=== PATIENT | male | born 1965 | race Caucasian/White ===

== ENCOUNTER 2020-04-30 17:50 | Inpatient (IN) | payer OTHER ==
--- NOTE | 2020-04-30 18:24 | ED ---
General Adult HPI - General Chief complaint: GI Bleed Stated complaint: GI Bleed Time Seen by Provider: 04/30/20 18:00 Source: EMS, RN notes reviewed, old records reviewed Mode of arrival: EMS Limitations: no limitations - History of Present Illness Initial comments: Is a 54-year-old male who presents to the emergency department after having then [facility]. Patient was found to be intoxicated with an alcohol level of 350 he was vomiting up what appeared to be blood. Patient's hemoglobin dropped from 16-8. Patient had a slightly elevated troponin was consented for a non-STEMI coming from the hospital. Patient states he came to the emergency department because he was vomiting up blood. Patient states he does continue to drink however. Patient denies any chest pain or difficulty breathing patient states he feels extremely weak and fatigued and short of breath. Patient denies any nausea currently. Patient denies any abdominal pain. Patient is not a great historian because he is so fatigued and doesn't answer all my questions. - Related Data Home Medications Medication Instructions Recorded Confirmed Metoprolol Succinate (ER) [Toprol 100 mg PO DAILY 04/30/20 04/30/20 Xl] Allergies Allergy/AdvReac Type Severity Reaction Status Date / Time No Known Allergies Allergy Verified 04/30/20 18:55 Review of Systems ROS Statement: Those systems with pertinent positive or pertinent negative responses have been documented in the HPI. ROS Other: All systems not noted in ROS Statement are negative. Past Medical History Past Medical History: Hypertension Additional Past Medical History / Comment(s): etoh abuse History of Any Multi-Drug Resistant Organisms: None Reported Past Surgical History: Hernia Repair, Orthopedic Surgery Past Psychological History: No Psychological Hx Reported Smoking Status: Current every day smoker Past Alcohol Use History: Abuse, Daily, Heavy Past Drug Use History: None Reported General Exam - General Exam Comments Initial Comments: GENERAL: Patient is well-developed and well-nourished. Patient is nontoxic and well- hydrated and is in moderate distress. Patient seems very lethargic and slow to answer all questions. ENT: Neck is soft and supple. No significant lymphadenopathy is noted. Oropharynx is clear. Moist mucous membranes. Neck has full range of motion without eliciting any pain. EYES: The sclera were anicteric and conjunctiva very pale Extraocular movements were intact and pupils were equal round and reactive to light. Eyelids were unrema rkable. PULMONARY: Unlabored respirations. Good breath sounds bilaterally. No audible rales rhonc hi or wheezing was noted. CARDIOVASCULAR: There is a regular rate and rhythm without any murmurs gallops or rubs. ABDOMEN: Soft and nontender with normal bowel sounds. SKIN: Skin is extremely pale. NEUROLOGIC: Patient is alert and oriented x3. Cranial nerves II through XII are grossly intact. Motor and sensory are also intact. Normal speech, volume and content. Symmetrical smile. MUSCULOSKELETAL: Normal extremities with adequate strength and full range of motion. LYMPHATICS: No significant lymphadenopathy is noted PSYCHIATRIC: Normal psychiatric evaluation. Limitations: no limitations Course Vital Signs 04/30/20 04/30/20 04/30/20 17:55 18:20 18:30 Temperature 97.4 F L Pulse Rate 92 96 98 Respiratory 18 16 16 Rate Blood Pressure 95/55 82/68 109/74 O2 Sat by Pulse 100 98 100 Oximetry 04/30/20 04/30/20 04/30/20 18:40 19:00 19:10 Temperature Pulse Rate 101 H 105 H 105 H Respiratory 17 18 18 Rate Blood Pressure 127/81 101/51 101/72 O2 Sat by Pulse 100 97 100 Oximetry Medical Decision Making - Medical Decision Making EKG shows normal sinus rhythm with a rate of 96 bpm DE interval is 142 QRS is 94 Q-T intervals 394 QTC is 497. Patient's EKG shows no ST segment elevation or depression or T wave abnormalities are noted. I spoke with Dr. Davis at 625 indicated to him that the patient was vomiting up bright red blood pressure dipped into the 80s and thought that it was best that someone scope him at this time. He stated he would check in with the patient an hour or so. I spoke with Dr. Kaye and he agreed to admit the patient admitted the patient wrote admitting orders. I spoke with Dr. Carnes and he will be on consult for the ICU. Patient received 2 units of blood in the emergency department as well as a liter half of fluid. I also started octreotide drip. - Lab Data Result diagrams: 04/30/20 18:30 Lab Results 04/30/20 04/30/20 04/30/20 Range/Units 18:28 18:30 18:30 WBC 5.6 (3.8-10.6) k/uL RBC 2.59 L (4.30-5.90) m/uL Hgb 8.0 L (13.0-17.5) gm/dL Hct 23.4 L (39.0-53.0) % MCV 90.4 (80.0-100.0) fL MCH 31.0 (25.0-35.0) pg MCHC 34.3 (31.0-37.0) g/dL RDW 14.5 (11.5-15.5) % Plt Count 129 L (150-450) k/uL MPV 7.9 Neutrophils % 84 % Lymphocytes % 10 % Monocytes % 5 % Eosinophils % 0 % Basophils % 0 % Neutrophils # 4.7 (1.3-7.7) k/uL Lymphocytes # 0.6 L (1.0-4.8) k/uL Monocytes # 0.3 (0-1.0) k/uL Eosinophils # 0.0 (0-0.7) k/uL Basophils # 0.0 (0-0.2) k/uL Plasma Lactic Acid Maurizio 6.0 H* (0.7-2.0) mmol/L Troponin I (0.000-0.034) ng/mL Serum Alcohol mg/dL Blood Type Blood Type Confirm A Positive Blood Type Recheck Bld Type Recheck Status Antibody Screen Crossmatch Spec Expiration Date 04/30/20 04/30/20 04/30/20 Range/Units 18:30 18:30 18:30 WBC (3.8-10.6) k/uL RBC (4.30-5.90) m/uL Hgb (13.0-17.5) gm/dL Hct (39.0-53.0) % MCV (80.0-100.0) fL MCH (25.0-35.0) pg MCHC (31.0-37.0) g/dL RDW (11.5-15.5) % Plt Count (150-450) k/uL MPV Neutrophils % % Lymphocytes % % Monocytes % % Eosinophils % % Basophils % % Neutrophils # (1.3-7.7) k/uL Lymphocytes # (1.0-4.8) k/uL Monocytes # (0-1.0) k/uL Eosinophils # (0-0.7) k/uL Basophils # (0-0.2) k/uL Plasma Lactic Acid Maurizio (0.7-2.0) mmol/L Troponin I 0.101 H* (0.000-0.034) ng/mL Serum Alcohol 261 H* mg/dL Blood Type A Positive Blood Type Confirm Blood Type Recheck No Previous Record Bld Type Recheck Status CABO Indicated Antibody Screen NEGATIVE Crossmatch See Detail Spec Expiration Date 05/03/2020 - 2330 Critical Care Time Critical Care Time: Yes Total Critical Care Time: 35 Disposition Clinical Impression: Hematemesis, Melena, Alcohol intoxication, Non-STEMI (non-ST elevated myocardial infarction) Disposition: ADMITTED IP TO THIS HOSP Referrals: Nonstaff,Physician [Primary Care Provider] - 1-2 days Time of Disposition: 19:37
[2020-04-30] MEDS ORDERED: SODIUM CHLORIDE 0.9% 1,000 ML IV STA (18:36)
[2020-04-30 18:38] LABS: Basophils % (A) 0 %; Eosinophils % (A) 0 %; HCT 23.4 % (39.0-53.0); Lymphocytes # (A) 0.6 k/uL (1.0-4.8); Lymphocytes % (A) 10 %; MCHC 34.3 g/dL (31.0-37.0); MCV 90.4 fL (80.0-100.0); Mean Platelet Volume 7.9; Monocytes # (A) 0.3 k/uL (0-1.0); Monocytes % (A) 5 %; Neutrophils # (A) 4.7 k/uL (1.3-7.7); Neutrophils % (A) 84 %; Platelet Count 129 k/uL (150-450); RBC 2.59 m/uL (4.30-5.90); RDW 14.5 % (11.5-15.5); WBC 5.6 k/uL (3.8-10.6)
[2020-04-30] MEDS: OCTREOTIDE 500 MCG in SODIUM CHLORIDE 0.9% 250 ML IV SCH (18:52)
[2020-04-30] MEDS ORDERED: ONDANSETRON 4 MG/2 ML VIAL IVP STA (18:54)
[2020-04-30] MEDS ORDERED: NALOXONE 0.4 MG/ML 1 ML VIAL IV PRN (19:37)
[2020-04-30] MEDS ORDERED: THIAMINE 100 MG/ML 2 ML VIAL IM STA (19:50)
[2020-04-30] MEDS ORDERED: LORazepam 2 MG/ML INJ IV PRN ×3 (19:50)
[2020-04-30] MEDS ORDERED: ONDANSETRON 4 MG/2 ML VIAL IVP PRN (19:52)
[2020-04-30] MEDS: SODIUM CHLORIDE 0.9% 1,000 ML IV SCH (20:13)
[2020-04-30] MEDS ORDERED: MIDAZOLAM 2 MG/2 ML VIAL ONE (21:09)
[2020-04-30] MEDS ORDERED: PROPOFOL 10 MG/ML 20 ML VIAL IV ONE (21:09)
[2020-04-30] MEDS ORDERED: ROCURONIUM 10 MG/ML (10 ML VIAL) IV ONE (21:09)
[2020-04-30] MEDS ORDERED: PHENYLEPHRINE-0.9% NACL SYG 1 MG/10 ML SYRINGE ONE (21:09)
[2020-04-30] MEDS ORDERED: ETOMIDATE 2 MG/ML 10 ML VIAL ONE (21:09)
[2020-04-30] MEDS ORDERED: SUCCINYLCHOLINE CHLORIDE 100 MG/5 ML SYR IV ONE (21:09)
[2020-04-30] MEDS ORDERED: IV FLUID CONTINUATION 1,000 ML IV ONE (21:15)
[2020-04-30] MEDS ORDERED: SODIUM CHLORIDE 0.9% 500 ML 500 ML IV ONE (21:33)
[2020-04-30] MEDS ORDERED: EPINEPHrine 10 ML SYRINGE (0.1 MG/ML) MISCELLANE ONE (21:53)
--- NOTE | 2020-04-30 22:10 | P.CONS ---
History of Present Illness - Reason for Consult Consult date: 04/30/20 GI bleed Requesting physician: Rohan Iniguez - Chief Complaint Hematemesis - History of Present Illness 54-year-old male with a medical history significant for hypertension and alcohol abuse who presents as a transfer from an outside hospital due to GI bleed. The patient had originally been seen at that hospital complaining of hematemesis at that time he was found to have a hemoglobin of 16. As per reports patient presented back to the hospital the next day complaining of persistent hematemesis and was found to have a hemoglobin of 8.6. The patient was found to be acutely intoxicated with a elevated blood alcohol level. The patient was transferred for further evaluation. The patient continued to have episodes of hematemesis. Patient's hemoglobin found to be 8 on presentation. Patient somewhat tachycardic and hypotensive in the emergency department. On questioning the patient denies any prior history of GI bleeding. He does report history of alcohol abuse. He does believe he has had a history of ascites in the past requiring paracentesis. He denies any history of cirrhosis or following with a pocketed spring assembler. Review of Systems REVIEW OF SYSTEMS: CONSTITUTIONAL: Denies any fevers, chills, weight change or fatigue. CARDIOVASCULAR: Denies any chest pain, palpitations high or low blood pressures RESPIRATORY: Denies any shortness of breath, hemoptysis or cough. GENITOURINARY: No dysuria or hematuria. MUSCULOSKELETAL: No weakness reported. SKIN: Denies any new rashes or lesions, jaundice or pallor. PSYCHIATRIC: Denies any depression or anxiety, alcohol abuse. NEUROLOGY: Denies headache, denies any new focal deficits. EARS/NOSE/THROAT: No recent hearing change, congestion, nasal discharge or sore throat. EYES: No pain in eyes, discharge or change in vision. GASTROINTESTINAL: As per HPI. Past Medical History Past Medical History: Hypertension Additional Past Medical History / Comment(s): etoh abuse History of Any Multi-Drug Resistant Organisms: None Reported Past Surgical History: Hernia Repair, Orthopedic Surgery Past Psychological History: No Psychological Hx Reported Smoking Status: Current every day smoker Past Alcohol Use History: Abuse, Daily, Heavy Past Drug Use History: None Reported Additional History: Family history: Reviewed with the patient noncontributory to current medical presentation. Medications and Allergies Home Medications Medication Instructions Recorded Confirmed Type Metoprolol Succinate (ER) [Toprol 100 mg PO DAILY 04/30/20 04/30/20 History Xl] Allergies Allergy/AdvReac Type Severity Reaction Status Date / Time No Known Allergies Allergy Verified 04/30/20 18:55 Physical Exam Vitals: Vital Signs Temp Pulse Resp BP Pulse Ox 04/30/20 21:00 105 H 18 120/74 98 04/30/20 20:40 105 H 18 119/73 100 04/30/20 20:23 97.6 F 105 H 18 97/60 100 04/30/20 19:53 97.6 F 104 H 18 119/75 100 04/30/20 19:43 97.8 F 102 H 20 120/72 04/30/20 19:30 105 H 18 86/54 100 04/30/20 19:10 105 H 18 101/72 100 04/30/20 19:00 105 H 18 101/51 97 04/30/20 18:40 101 H 17 127/81 100 04/30/20 18:30 98 16 109/74 100 04/30/20 18:20 96 16 82/68 98 04/30/20 17:55 97.4 F L 92 18 95/55 100 Intake and Output 04/30/20 04/30/20 04/30/20 06:59 14:59 22:59 Intake Total 1300 Balance 1300 Intake: IV 1300 Blood Product 0 Rc As-1 Unit 0 [id number] Other: Weight 97.522 kg On physical examination, patient appears comfortable in no apparent distress. HEAD: Normocephalic, atraumatic. EYES: No scleral icterus. No conjunctival injection. MOUTH: No lesions, tongue midline. NECK: Trachea midline, no gross abnormalities. CHEST: Clear to auscultation with no wheezing or rhonchi appreciated. HEART: Regular rate and rhythm. ABDOMEN: Soft, obese. Bowel sounds are positive. No organomegaly. No guarding or rigidity. EXTREMITIES: No pedal edema. SKIN: No rashes, no jaundice. NEUROLOGIC: Alert and oriented to person and place with no asterixis noted.. Results CBC & Chem 7: 04/30/20 18:30 Labs: Abnormal Lab Results - Last 24 Hours (Table) 04/30/20 04/30/20 04/30/20 Range/Units 18:30 18:30 18:30 RBC 2.59 L (4.30-5.90) m/uL Hgb 8.0 L (13.0-17.5) gm/dL Hct 23.4 L (39.0-53.0) % Plt Count 129 L (150-450) k/uL Lymphocytes # 0.6 L (1.0-4.8) k/uL Plasma Lactic Acid Maurizio 6.0 H* (0.7-2.0) mmol/L Troponin I (0.000-0.034) ng/mL Serum Alcohol 261 H* mg/dL Crossmatch 04/30/20 04/30/20 Range/Units 18:30 18:30 RBC (4.30-5.90) m/uL Hgb (13.0-17.5) gm/dL Hct (39.0-53.0) % Plt Count (150-450) k/uL Lymphocytes # (1.0-4.8) k/uL Plasma Lactic Acid Maurizio (0.7-2.0) mmol/L Troponin I 0.101 H* (0.000-0.034) ng/mL Serum Alcohol mg/dL Crossmatch See Detail Assessment and Plan (1) Hematemesis Narrative/Plan: 54-year-old male with a medical history significant for hypertension and alcohol abuse presenting for hematemesis as a transfer from outside hospital. Hemoglobin found to be 8.6 at outside facility the patient was transfused 1 unit of packed red blood cells and was found to have a hemoglobin of 8 on presentation. The patient continued to have hematemesis with associated hypotension and tachycardia. Unclear if symptoms are related to a variceal bleed given history of alcohol abuse, Kristi-Estrada tear, peptic ulcer disease or other etiology. Current Visit: Yes Status: Acute Code(s): K92.0 - HEMATEMESIS SNOMED Code(s): 0576652 (2) Alcohol intoxication Current Visit: Yes Status: Acute Code(s): F10.929 - ALCOHOL USE, UNSPECIFIED WITH INTOXICATION, UNSPECIFIED SNOMED Code(s): 46639723 (3) Melena Current Visit: Yes Status: Acute Code(s): K92.1 - MELENA SNOMED Code(s): 0956341 Plan: Supportive care Nothing by mouth IV Protonix therapy IV octreotide therapy Continue to monitor hemoglobin and hematocrit every 6 hours and transfuse as needed Plan for urgent/emergent EGD for further evaluation given persistent GI bleeding Thank you for allowing us to participate in the care of the patient, further recommendations to follow
--- NOTE | 2020-04-30 22:14 | P.PCN ---
Date of Procedure: 04/30/20 Description of Procedure: BRIEF HISTORY: 54-year-old male with a medical history significant for hypertension and alcohol abuse who presents as a transfer from an outside hospital due to GI bleed. The patient had originally been seen at that hospital complaining of hematemesis at that time he was found to have a hemoglobin of 16. As per reports patient presented back to the hospital the next day complaining of persistent hematemesis and was found to have a hemoglobin of 8.6. The patient was found to be acutely intoxicated with a elevated blood alcohol level. The patient was transferred for further evaluation. The patient continued to have episodes of hematemesis. Patient's hemoglobin found to be 8 on presentation. Patient somewhat tachycardic and hypotensive in the emergency department. On questioning the patient denies any prior history of GI bleeding. He does report history of alcohol abuse. He does believe he has had a history of ascites in the past requiring paracentesis. He denies any history of cirrhosis or following with a captain waiter. PROCEDURE PERFORMED: Esophagogastroduodenoscopy with epinephrine injection and Endo Clip placement. PREOPERATIVE DIAGNOSIS: Hematemesis, melena, GI bleed, anemia of acute blood loss. ESTIMATED BLOOD LOSS: Minimal. IV sedation per anesthesia. PROCEDURE: After informed consent was obtained, the patient was brought into the endoscopy unit. IV sedation was administered by Anesthesia under continuous monitoring. Initially the Olympus GIF-190 video endoscope was inserted into the mouth. Esophagus intubated without any difficulty. It was gradually advanced into the stomach and duodenum and carefully examined. The bulb and the second part of the duodenum appeared normal, with old blood and no active bleeding noted. The scope at this time was withdrawn to the stomach, adequately insufflated with air, and upon careful examination, mucosa of the antrum, body, cardia and the fundus appeared grossly normal, with large amounts of old blood and clots noted and no evidence of active bleeding. The scope was then withdrawn into the esophagus. The GE junction was located at 39 cm from the incisors. The esophagus was significant for only grade D distal esophagitis with what appeared to be a distal esophageal tear with active bleeding in accumulation of blood. 10 mL of epinephrine were injected circumferentially around the tear. Endo Clip placement 3 was performed with hemostasis of the distal esophageal tear achieved. The patient tolerated the procedure well.. IMPRESSION: 1. Distal esophageal tear with active bleeding/Kristi-Estrada tear, treated with epinephrine injection and Endo Clip placement 3. 2. LA grade D esophagitis. RECOMMENDATIONS: The findings of this examination were discussed with the patient. Patient will remain intubated and go to the ICU for continued acute medical management. Continue to monitor hemoglobin and hematocrit every 6 hours and transfuse as needed. Continue IV Protonix therapy. Alcohol abstinence. Continue to monitor for signs and symptoms of alcohol withdrawal. We will continue to follow closely with the medical team.
[2020-04-30] MEDS ORDERED: propofoL 100 ML IV ONE (22:31)
[2020-04-30 23:13] LABS: Glucose,Whole Blood 191 mg/dL (75-99)
--- NOTE | 2020-04-30 23:18 | P.HPIM ---
History of Present Illness H&P Date: 04/30/20 The patient is a 54 yo M with a PMH of EtOH abuse (drinks a pint of vodka daily for several years) and HTN who was sent to the ED from [facility] for GI bleed. The patient had reported to the facility the day prior after an episode of hematemesis. The patient's Hgb at the time was reported to be 16. The patient subsequently presented at the hospital earlier today with multiple episodes of hematemesis and melena and was noted to have a hemoglobin of 8.6. The patient was subsequently given 1 unit of PRBC transfusion and was transferred to [facility] for further evaluation. Upon presentation at the hospital here, the patient was noted to be hypertensive with BP 95/55, with a pulse of 92. The patient's evaluation from the previous facility was reviewed in detail with WBC count 11.04, hemoglobin 8.6, lactate 5.3, total bili 1.2, lipase 104, INR 0.97, EtOH 350, sodium 136, potassium 3.8, chloride 101, CO2 22, BUN 38, creatinine 1.0, and glucose 202. At our facility, the repeat lactic acid was 6.0 with troponin 0.101 and platelet count 129. At time of interview, the patient reported bilateral rib pain which he attributes to some falls a few days ago. Patient also reported epigastric discomfort due to his multiple episodes of vomiting along with dry mouth. Patient's RN reported that he had 3 additional episodes of hematemesis bright red blood since presentation. The patient also reported multiple episode of dark black stools throughout the day today. Review of Systems Pertinent positives and negatives as discussed in HPI, a complete review of systems was performed and all other systems are negative. Past Medical History Past Medical History: Hypertension Additional Past Medical History / Comment(s): etoh abuse History of Any Multi-Drug Resistant Organisms: None Reported Past Surgical History: Hernia Repair, Orthopedic Surgery Past Psychological History: No Psychological Hx Reported Smoking Status: Current every day smoker Past Alcohol Use History: Abuse, Daily, Heavy Past Drug Use History: None Reported Medications and Allergies Home Medications Medication Instructions Recorded Confirmed Type Metoprolol Succinate (ER) [Toprol 100 mg PO DAILY 04/30/20 04/30/20 History Xl] Allergies Allergy/AdvReac Type Severity Reaction Status Date / Time No Known Allergies Allergy Verified 04/30/20 18:55 Physical Exam Vitals: Vital Signs Temp Pulse Resp BP Pulse Ox 04/30/20 19:53 97.6 F 104 H 18 119/75 100 04/30/20 19:43 97.8 F 102 H 20 120/72 04/30/20 19:30 105 H 18 86/54 100 04/30/20 19:10 105 H 18 101/72 100 04/30/20 19:00 105 H 18 101/51 97 04/30/20 18:40 101 H 17 127/81 100 04/30/20 18:30 98 16 109/74 100 04/30/20 18:20 96 16 82/68 98 04/30/20 17:55 97.4 F L 92 18 95/55 100 Intake and Output 04/30/20 04/30/20 04/30/20 06:59 14:59 22:59 Intake Total 0 Balance 0 Intake: Blood Product 0 Rc As-1 Unit 0 [id number] Other: Weight 97.522 kg General: Ill-appearing malem, appears at stated age Derm: no unusual rashes/lesions no unusual ecchymoses, warm, dry Head: atraumatic, normocephalic, symmetric Eyes: EOMI, no lid lag, anicteric sclera, pupils equal round reactive to light ENT: Nose and ears atraumatic, dried blood noted in mouth and lips Neck: No thyromegaly, no cervical lymphadenopathy, trachea midline, supple Mouth: no lip lesion, mucus membranes dry Cardiovascular: S1S2 reg, no murmur, positive posterior tibial pulse bilateral, no edema, capillary refill less than 2 seconds Lungs: CTA bilateral, no rhonchi, no rales , no accessory muscle use Abdominal: soft, epigastric tenderness, no guarding, no appreciable organomegaly Ext: no gross muscle atrophy, muscle strength 4 out of 5 in all 4 extremities grossly, no contractures Neuro: CN II-XI grossly intact, no focal neuro deficits Psych: Alert, oriented Results CBC & Chem 7: 04/30/20 18:30 Labs: Abnormal Lab Results - Last 24 Hours (Table) 04/30/20 04/30/20 04/30/20 Range/Units 18:30 18:30 18:30 RBC 2.59 L (4.30-5.90) m/uL Hgb 8.0 L (13.0-17.5) gm/dL Hct 23.4 L (39.0-53.0) % Plt Count 129 L (150-450) k/uL Lymphocytes # 0.6 L (1.0-4.8) k/uL Plasma Lactic Acid Maurizio 6.0 H* (0.7-2.0) mmol/L Troponin I (0.000-0.034) ng/mL Serum Alcohol 261 H* mg/dL Crossmatch 04/30/20 04/30/20 Range/Units 18:30 18:30 RBC (4.30-5.90) m/uL Hgb (13.0-17.5) gm/dL Hct (39.0-53.0) % Plt Count (150-450) k/uL Lymphocytes # (1.0-4.8) k/uL Plasma Lactic Acid Maurizio (0.7-2.0) mmol/L Troponin I 0.101 H* (0.000-0.034) ng/mL Serum Alcohol mg/dL Crossmatch See Detail Assessment and Plan Plan: Acute blood loss anemia secondary to GI bleeding suspected esophageal varices -Discussed case with Dr Davis who noted that patient will undergo EGD later tonight -Admit to ICU -Octreotide infusion -IV protonix -NPO -2 Units of pRBCs ordered EtOH abuse, impending withdrawal -[facility] protocol -Thiamine, Folate, MV -IVFs Lactic acidosis, likely secondary to severe blood loss anemia -Monitor to resolution Troponin elevation, likely secondary to above -Trend for now -Cardiac monitoring DVT prophylaxis -IPCDs The patient is admitted with an anticipated greater than 2 midnight stay for evaluation of anemia CODE STATUS: Full Code Discussed with: Patient Anticipated discharge date: 3-[address]: Home A total of 40 minutes was spent on the care of this complex patient more than 50% of the time was spent in counseling and care coordination.
[2020-04-30 23:21] LABS: Basophils % (A) 0 %; Eosinophils % (A) 0 %; HCT 22.5 % (39.0-53.0); HGB 7.9 gm/dL (13.0-17.5); Lymphocytes # (A) 0.6 k/uL (1.0-4.8); Lymphocytes % (A) 8 %; MCH 32.4 pg (25.0-35.0); MCHC 35.1 g/dL (31.0-37.0); MCV 92.3 fL (80.0-100.0); Mean Platelet Volume 8.4; Monocytes # (A) 0.4 k/uL (0-1.0); Monocytes % (A) 5 %; Neutrophils # (A) 6.5 k/uL (1.3-7.7); Neutrophils % (A) 86 %; Platelet Count 104 k/uL (150-450); RBC 2.44 m/uL (4.30-5.90); RDW 14.7 % (11.5-15.5); WBC 7.6 k/uL (3.8-10.6)
--- NOTE | 2020-05-01 00:03 | XR ---
EXAMINATION TYPE: XR chest 1V portable DATE OF EXAM: 04/30/2020 COMPARISON: NONE HISTORY: Intubation. Respiratory failure. TECHNIQUE: FINDINGS: There is some atelectasis and infiltrate left lung base. There is no heart failure. Endotra cheal tube is 8 cm from the wojciech. Upper lung sterling are clear. Bony thorax is intact. IMPRESSION: Infiltrate and atelectasis left lung base.
[2020-05-01 00:08] LABS: ABG Base Excess -12.1 mmol/L; ABG HCO3 14 mmol/L (21-25); ABG PCO2 26 mmHg (35-45); ABG PH 7.34 (7.35-7.45); ABG PO2 304 mmHg (83-108); ABG TCO2 15 mmol/L (19-24); Allen Test Performed? Yes
[2020-05-01] MEDS ORDERED: SODIUM CHLORIDE 0.9% 1,000 ML IV ONE (00:17)
[2020-05-01] MEDS: PANTOPRAZOLE 40 MG/10 ML VIAL IVP SCH ×3 (02:06→20:43)
[2020-05-01 03:30] LABS: HCT 29.3 % (39.0-53.0); MCH 29.8 pg (25.0-35.0); MCV 90.3 fL (80.0-100.0); Mean Platelet Volume 8.7; RBC 3.25 m/uL (4.30-5.90); RDW 15.4 % (11.5-15.5); WBC 6.9 k/uL (3.8-10.6)
[2020-05-01 03:31] LABS: HGB 9.7 gm/dL (13.0-17.5)
[2020-05-01 03:57] LABS: Potassium 4.2 mmol/L (3.5-5.1)
[2020-05-01 04:33] LABS: Platelet Count 82 k/uL (150-450)
[2020-05-01] MEDS: OCTREOTIDE 500 MCG in SODIUM CHLORIDE 0.9% 250 ML IV SCH (05:06)
[2020-05-01] MEDS: NOREPINEPHRINE 4 MG in SODIUM CHLORIDE 0.9% 250 ML IV SCH ×3 (05:07→20:42)
[2020-05-01 06:19] LABS: ABG Base Excess -9.5 mmol/L; ABG HCO3 16 mmol/L (21-25); ABG Oxygen Saturation 98.3 % (94-97); ABG PCO2 27 mmHg (35-45); ABG PH 7.37 (7.35-7.45); ABG PO2 96 mmHg (83-108); ABG TCO2 17 mmol/L (19-24); Allen Test Performed? Yes
[2020-05-01] MEDS ORDERED: CALCIUM GLUCONATE 2 GM in SODIUM CHLORIDE 0.9% 100 ML IVPB ONE (08:12)
[2020-05-01] MEDS ORDERED: SODIUM BICARB 8.4% 50 ML SYR (1 MEQ/ML) IV STA (08:14)
[2020-05-01] MEDS ORDERED: SODIUM BICARB 8.4% 50 ML SYR (1 MEQ/ML) ONE (08:16)
[2020-05-01] MEDS: SODIUM CHLORIDE 0.9% 1,000 ML IV SCH ×5 (08:18→23:39)
[2020-05-01 09:04] LABS: Albumin 1.9 g/dL (3.5-5.0); Potassium 3.9 mmol/L (3.5-5.1); Total Bilirubin 0.8 mg/dL (0.2-1.3)
[2020-05-01 09:20] LABS: INR 1.3 (<1.2); Partial Thromboplastin Time 24.6 sec (22.0-30.0); Prothrombin Time 12.6 sec (9.0-12.0)
--- NOTE | 2020-05-01 09:33 | XR ---
EXAMINATION TYPE: XR chest 1V portable DATE OF EXAM: 05/01/2020 Comparison: 04/30/2020 Clinical History: 54-year-old male Tube placement Findings: ET tube is satisfactory. Heart normal size. Aorta and pulmonary vasculature are within normal limits. Chronic fracture deformity of the right midclavicular shaft. No consolidation or pleural effusion. Impression: Resolution of the previous retrocardiac infiltrate/atelectasis.
[2020-05-01 09:40] LABS: Calcium 5.9 mg/dL (8.4-10.2)
[2020-05-01] MEDS: THIAMINE 100 MG TAB PO SCH (09:50)
[2020-05-01] MEDS: CHLORHEXIDINE GLUCONATE 15 ML CUP MUCOUS MEM SCH ×2 (09:51→20:43)
[2020-05-01 11:53] LABS: Glucose,Whole Blood 152 mg/dL (75-99)
--- NOTE | 2020-05-01 11:53 | P.PN ---
Subjective Progress Note Date: 05/01/20 Principal diagnosis: Upper GI bleed This is a 54-year-old male patient with a history of alcohol abuse who was transferred from an outside hospital due to alcohol intoxication and GI bleed. The patient was originally seen at the outside hospital complaining of hematemesis and was found to have a hemoglobin of 8.6. Upon transfer the patient continued to have episodes of hematemesis. The patient underwent an upper endoscopy yesterday with findings that included a distal esophageal tear with active bleeding/Kristi Estrada tear, treated with epinephrine injection and Endo Clip placement 3. Also findings included LA grade D esophagitis. The patient remains in the ICU and is currently sedated and intubated on mechanical ventilation. He had maroon-colored stools through the night. He is status post 3 units of packed red blood cells. Today's repeat hemoglobin is 9.7. His CMP was significant for total bilirubin 0.8, alkaline phosphatase 38, AST 10,563, ALT 2688. Objective - Vital Signs Vital signs: Vital Signs Temp 98.1 F 05/01/20 08:00 Pulse 85 05/01/20 09:30 Resp 38 H 05/01/20 09:30 BP 113/61 05/01/20 09:30 Pulse Ox 100 05/01/20 09:30 Intake & Output 04/30/20 05/01/20 05/01/20 18:59 06:59 18:59 Intake Total 5329.788 1473.760 Output Total 430 210 Balance 4899.788 1263.760 Weight 97.522 kg 98 kg Intake: IV 3340 1260 Sodium Chloride 0.9% 1, 1040 260 000 ml @ 130 mls/hr IV . Q7H42M [facility] Rx#:[id number] Sodium Chloride 0.9% 1, 1000 1000 000 ml @ 999 mls/hr IV . Q1H1M [facility] Rx#:[id number] Intake, IV Titration 439.788 213.760 Amount Norepinephrine 4 mg In 26.009 113.760 Sodium Chloride 0.9% 250 ml @ 0.05 MCG/KG/MIN 18. 578 mls/hr IV .[id number] [facility] Rx#:[id number] Octreotide 500 mcg In 250 Sodium Chloride 0.9% 250 ml @ 50 MCG/HR 25 mls/hr IV .Q10H [facility] Rx#: [id number] propofoL 1,000 mg In 163.779 100.000 Empty Bag 1 bag @ Titrate IV .Q0M [facility] Rx#: [id number] Blood Product 1550 Rc As-1 Unit 310 [id number] Rc As-1 Unit 310 [id number] Rc As-1 Unit 310 [id number] Output: Urine 430 210 Other: Voiding Method Indwelling Catheter # Bowel Movements 1 - Exam General appearance: The patient is dated and intubated. HET: Head is normocephalic and atraumatic. Neck: Supple without lymphadenopathy. Abdomen: Soft, obeses, nontender, nondistended with bowel sounds. Extremities: Normal skin color and turgor. No pedal edema Neurological: Sedated and intubated. - Labs CBC & Chem 7: 05/01/20 03:06 05/01/20 08:23 Labs: Abnormal Lab Results - Last 24 Hours (Table) 04/30/20 04/30/20 04/30/20 Range/Units 18:30 18:30 18:30 RBC 2.59 L (4.30-5.90) m/uL Hgb 8.0 L (13.0-17.5) gm/dL Hct 23.4 L (39.0-53.0) % Plt Count 129 L (150-450) k/uL Lymphocytes # 0.6 L (1.0-4.8) k/uL PT (9.0-12.0) sec INR (<1.2) ABG pH (7.35-7.45) ABG pCO2 (35-45) mmHg ABG pO2 (83-108) mmHg ABG HCO3 (21-25) mmol/L ABG Total CO2 (19-24) mmol/L ABG O2 Saturation (94-97) % Chloride (98-107) mmol/L Carbon Dioxide (22-30) mmol/L BUN (9-20) mg/dL Creatinine (0.66-1.25) mg/dL Glucose (74-99) mg/dL POC Glucose (mg/dL) (75-99) mg/dL Plasma Lactic Acid Maurizio 6.0 H* (0.7-2.0) mmol/L Calcium (8.4-10.2) mg/dL Ionized Calcium Feliberto (4.5-5.3) mg/dL Magnesium (1.6-2.3) mg/dL Troponin I (0.000-0.034) ng/mL Total Protein (6.3-8.2) g/dL Albumin (3.5-5.0) g/dL Serum Alcohol 261 H* mg/dL Crossmatch 04/30/20 04/30/20 04/30/20 Range/Units 18:30 18:30 23:10 RBC (4.30-5.90) m/uL Hgb (13.0-17.5) gm/dL Hct (39.0-53.0) % Plt Count (150-450) k/uL Lymphocytes # (1.0-4.8) k/uL PT (9.0-12.0) sec INR (<1.2) ABG pH (7.35-7.45) ABG pCO2 (35-45) mmHg ABG pO2 (83-108) mmHg ABG HCO3 (21-25) mmol/L ABG Total CO2 (19-24) mmol/L ABG O2 Saturation (94-97) % Chloride (98-107) mmol/L Carbon Dioxide (22-30) mmol/L BUN (9-20) mg/dL Creatinine (0.66-1.25) mg/dL Glucose (74-99) mg/dL POC Glucose (mg/dL) (75-99) mg/dL Plasma Lactic Acid Maurizio (0.7-2.0) mmol/L Calcium (8.4-10.2) mg/dL Ionized Calcium Feliberto (4.5-5.3) mg/dL Magnesium (1.6-2.3) mg/dL Troponin I 0.101 H* 0.150 H* (0.000-0.034) ng/mL Total Protein (6.3-8.2) g/dL Albumin (3.5-5.0) g/dL Serum Alcohol mg/dL Crossmatch See Detail 04/30/20 04/30/20 04/30/20 Range/Units 23:10 23:10 23:11 RBC 2.44 L (4.30-5.90) m/uL Hgb 7.9 L (13.0-17.5) gm/dL Hct 22.5 L (39.0-53.0) % Plt Count 104 L (150-450) k/uL Lymphocytes # 0.6 L (1.0-4.8) k/uL PT (9.0-12.0) sec INR (<1.2) ABG pH (7.35-7.45) ABG pCO2 (35-45) mmHg ABG pO2 (83-108) mmHg ABG HCO3 (21-25) mmol/L ABG Total CO2 (19-24) mmol/L ABG O2 Saturation (94-97) % Chloride (98-107) mmol/L Carbon Dioxide (22-30) mmol/L BUN (9-20) mg/dL Creatinine (0.66-1.25) mg/dL Glucose (74-99) mg/dL POC Glucose (mg/dL) 191 H (75-99) mg/dL Plasma Lactic Acid Maurizio 6.5 H* (0.7-2.0) mmol/L Calcium (8.4-10.2) mg/dL Ionized Calcium Feliberto (4.5-5.3) mg/dL Magnesium (1.6-2.3) mg/dL Troponin I (0.000-0.034) ng/mL Total Protein (6.3-8.2) g/dL Albumin (3.5-5.0) g/dL Serum Alcohol mg/dL Crossmatch 05/01/20 05/01/20 05/01/20 Range/Units 00:02 03:06 03:06 RBC 3.25 L (4.30-5.90) m/uL Hgb 9.7 L D (13.0-17.5) gm/dL Hct 29.3 L (39.0-53.0) % Plt Count 82 L (150-450) k/uL Lymphocytes # (1.0-4.8) k/uL PT (9.0-12.0) sec INR (<1.2) ABG pH 7.34 L (7.35-7.45) ABG pCO2 26 L (35-45) mmHg ABG pO2 304 H (83-108) mmHg ABG HCO3 14 L (21-25) mmol/L ABG Total CO2 15 L (19-24) mmol/L ABG O2 Saturation 100.0 H (94-97) % Chloride 116 H (98-107) mmol/L Carbon Dioxide 13 L (22-30) mmol/L BUN 43 H (9-20) mg/dL Creatinine 1.27 H (0.66-1.25) mg/dL Glucose 130 H (74-99) mg/dL POC Glucose (mg/dL) (75-99) mg/dL Plasma Lactic Acid Maurizio (0.7-2.0) mmol/L Calcium 6.0 L* (8.4-10.2) mg/dL Ionized Calcium Feliberto (4.5-5.3) mg/dL Magnesium (1.6-2.3) mg/dL Troponin I (0.000-0.034) ng/mL Total Protein (6.3-8.2) g/dL Albumin (3.5-5.0) g/dL Serum Alcohol mg/dL Crossmatch 05/01/20 05/01/20 05/01/20 Range/Units 03:06 03:06 03:14 RBC (4.30-5.90) m/uL Hgb (13.0-17.5) gm/dL Hct (39.0-53.0) % Plt Count (150-450) k/uL Lymphocytes # (1.0-4.8) k/uL PT (9.0-12.0) sec INR (<1.2) ABG pH (7.35-7.45) ABG pCO2 (35-45) mmHg ABG pO2 (83-108) mmHg ABG HCO3 (21-25) mmol/L ABG Total CO2 (19-24) mmol/L ABG O2 Saturation (94-97) % Chloride (98-107) mmol/L Carbon Dioxide (22-30) mmol/L BUN (9-20) mg/dL Creatinine (0.66-1.25) mg/dL Glucose (74-99) mg/dL POC Glucose (mg/dL) (75-99) mg/dL Plasma Lactic Acid Maurizio 3.9 H* (0.7-2.0) mmol/L Calcium (8.4-10.2) mg/dL Ionized Calcium Feliberto (4.5-5.3) mg/dL Magnesium 1.4 L (1.6-2.3) mg/dL Troponin I 0.151 H* (0.000-0.034) ng/mL Total Protein (6.3-8.2) g/dL Albumin (3.5-5.0) g/dL Serum Alcohol mg/dL Crossmatch 05/01/20 05/01/20 05/01/20 Range/Units 04:26 06:12 06:36 RBC (4.30-5.90) m/uL Hgb (13.0-17.5) gm/dL Hct (39.0-53.0) % Plt Count (150-450) k/uL Lymphocytes # (1.0-4.8) k/uL PT (9.0-12.0) sec INR (<1.2) ABG pH (7.35-7.45) ABG pCO2 27 L (35-45) mmHg ABG pO2 (83-108) mmHg ABG HCO3 16 L (21-25) mmol/L ABG Total CO2 17 L (19-24) mmol/L ABG O2 Saturation 98.3 H (94-97) % Chloride (98-107) mmol/L Carbon Dioxide (22-30) mmol/L BUN (9-20) mg/dL Creatinine (0.66-1.25) mg/dL Glucose (74-99) mg/dL POC Glucose (mg/dL) (75-99) mg/dL Plasma Lactic Acid Maurizio 2.3 H* (0.7-2.0) mmol/L Calcium (8.4-10.2) mg/dL Ionized Calcium Feliberto 4.0 L (4.5-5.3) mg/dL Magnesium (1.6-2.3) mg/dL Troponin I (0.000-0.034) ng/mL Total Protein (6.3-8.2) g/dL Albumin (3.5-5.0) g/dL Serum Alcohol mg/dL Crossmatch 05/01/20 05/01/20 Range/Units 08:23 08:23 RBC (4.30-5.90) m/uL Hgb (13.0-17.5) gm/dL Hct (39.0-53.0) % Plt Count (150-450) k/uL Lymphocytes # (1.0-4.8) k/uL PT 12.6 H (9.0-12.0) sec INR 1.3 H (<1.2) ABG pH (7.35-7.45) ABG pCO2 (35-45) mmHg ABG pO2 (83-108) mmHg ABG HCO3 (21-25) mmol/L ABG Total CO2 (19-24) mmol/L ABG O2 Saturation (94-97) % Chloride 117 H (98-107) mmol/L Carbon Dioxide 20 L (22-30) mmol/L BUN 45 H (9-20) mg/dL Creatinine 1.35 H (0.66-1.25) mg/dL Glucose 126 H (74-99) mg/dL POC Glucose (mg/dL) (75-99) mg/dL Plasma Lactic Acid Maurizio (0.7-2.0) mmol/L Calcium 5.9 L* (8.4-10.2) mg/dL Ionized Calcium Feliberto (4.5-5.3) mg/dL Magnesium (1.6-2.3) mg/dL Troponin I (0.000-0.034) ng/mL Total Protein 4.0 L (6.3-8.2) g/dL Albumin 1.9 L (3.5-5.0) g/dL Serum Alcohol mg/dL Crossmatch Assessment and Plan (1) Hematemesis Narrative/Plan: 54-year-old male with a medical history significant for hypertension and alcohol abuse presenting for hematemesis as a transfer from outside hospital. Hemoglobin found to be 8.6 at outside facility the patient was transfused 1 unit of packed red blood cells and was found to have a hemoglobin of 8 on presentation. The patient continued to have hematemesis with associated hypotension and tachycardia. Unclear if symptoms are related to a variceal bleed given history of alcohol abuse, Kristi-Estrada tear, peptic ulcer disease or other etiology. Patient underwent an upper endoscopy revealed distal esophageal tear with active bleeding/Kristi Estrada tear, treated with epinephrine injection and Endo Clip placement 3. LA grade D esophagitis. Patient is now status post transfused of 3 units of packed red blood cells. He has not had any further episodes of bleeding. Current Visit: Yes Status: Acute Code(s): K92.0 - HEMATEMESIS SNOMED Code(s): 1286942 (2) Melena Current Visit: Yes Status: Acute Code(s): K92.1 - MELENA SNOMED Code(s): 1360606 (3) Alcohol intoxication Current Visit: Yes Status: Acute Code(s): F10.929 - ALCOHOL USE, UNSPECIFIED WITH INTOXICATION, UNSPECIFIED SNOMED Code(s): 99952244 (4) Elevated transaminase level Narrative/Plan: Significant elevation in AST and ALT, 10,563 and 2688 respectively. Plasma lactic acid elevated, today 2.3. Likely related to shock liver. We'll continue to follow. Acute hepatitis panel ordered. US of liver ordered. Current Visit: Yes Status: Acute Code(s): R74.01 - ELEVATION OF LEVELS OF LIVER TRANSAMINASE LEVELS SNOMED Code(s): 059787263 Plan: 1. Supportive care 2. Daily CBC and CMP 3. Transfuse if hemoglobin less than 7 4. Patient is status post upper endoscopy 5. Acute hepatitis panel ordered 6. Continue IV Protonix therapy 7. Continue to monitor for signs and symptoms of withdrawal 8. Alcohol abstinence 9. Ultrasound of the liver ordered 10. Discontinue octreotide We will continue to follow closely The impression and plan of care has been dictated as directed. I performed a history and examination of this patient, discussed the same with the dictator. I agree with the dictator's note ,documented as a scribe. Any additional findings or plans will be noted.
--- NOTE | 2020-05-01 12:27 | P.CNPUL ---
History of Present Illness Consult date: 05/01/20 Requesting physician: Connie Kaye Reason for consult: other (Upper GI bleeding, ICU management.) Chief complaint: Vomiting blood. History of present illness: This is a 54-year-old white male with history of hypertension, history of alcohol abuse, patient was transferred from an outside hospital I believe [facility] due to an acute episode of GI bleeding. Patient was originally seen at that hospital complaining of hematemesis and he was found to have a hemoglobin of 16. Patient was discharged home, however he went back to the hospital complaining of persistent nausea and vomiting blood. Repeat hemoglobin was noted to be 8.6. At the same token, the patient was found to be acutely intoxicated with significantly elevated alcohol level. Patient was transferred to our ER, and I was notified by the ER physician about this patient, I recommended immediate GI consultation, patient underwent EGD by gastroenterology, however he had to be intubated prior to the procedure as he was extremely restless agitated, and he was hypotensive. EGD revealed distal esophageal tear with active bleeding/Kristi-Estrada, treated with epinephrine injection and Endo Clip placement 3. There was evidence of esophagitis, but no evidence of esophageal very sees. Patient remained extremely agitated, hence he was transferred to the ICU and he was kept on mechanical ventilation. He is now on mechanical ventilation with the following ventilator settings. He is on assist control rate of 14 tidal volume is 500 FiO2 is 40% PEEP is 5. ABG earlier today showed a pO2 of 96 pCO2 of 27 pH of 7.37. His tidal volume was decreased down to 450 increased his rate to 22 given 1 amp of bicarb, patient was placed on Ativan when necessary, and he was also given 2 L of fluid boluses as he was hypotensive requiring norepinephrine. Patient received a total of 3 units of packed RBCs since admission, he had 5 maroon stools overnight. Hemoglobin this morning is 9.7. Presently the patient is norepinephrine at 60 mcg/kg/m he is on norepinephrine at 10 mcg/per minute. And he is also on Sandostatin at 50 g. per hour. Review of Systems ROS unobtainable: due to endotracheal tube Past Medical History Past Medical History: Hypertension Additional Past Medical History / Comment(s): etoh abuse History of Any Multi-Drug Resistant Organisms: None Reported Past Surgical History: Hernia Repair, Orthopedic Surgery Past Psychological History: No Psychological Hx Reported Smoking Status: Current every day smoker Past Alcohol Use History: Abuse, Daily, Heavy Past Drug Use History: None Reported Medications and Allergies Home Medications Medication Instructions Recorded Confirmed Type Metoprolol Succinate (ER) [Toprol 100 mg PO DAILY 04/30/20 04/30/20 History Xl] Allergies Allergy/AdvReac Type Severity Reaction Status Date / Time No Known Allergies Allergy Verified 04/30/20 18:55 Physical Exam Vitals: Vital Signs Temp Pulse Resp BP Pulse Ox 05/01/20 09:30 85 38 H 113/61 100 05/01/20 09:15 85 33 H 106/58 99 05/01/20 09:00 89 42 H 116/59 100 05/01/20 08:45 92 42 H 106/65 100 05/01/20 08:30 96 32 H 100/70 100 05/01/20 08:15 98 44 H 81/58 100 05/01/20 08:00 98.1 F 98 41 H 99/72 100 05/01/20 07:45 99 37 H 104/67 100 05/01/20 07:30 98 36 H 102/67 99 05/01/20 07:15 99 21 109/63 100 05/01/20 07:00 96 20 102/71 100 05/01/20 06:45 97 26 H 90/60 100 05/01/20 06:30 98 23 80/56 100 05/01/20 06:15 99 20 71/50 100 05/01/20 06:00 96 30 H 85/55 100 05/01/20 05:45 101 H 29 H 94/60 100 05/01/20 05:30 101 H 24 84/47 100 05/01/20 05:15 103 H 36 H 91/72 100 05/01/20 05:00 103 H 40 H 78/58 100 05/01/20 04:45 101 H 27 H 78/49 100 05/01/20 04:30 104 H 42 H 79/56 100 05/01/20 04:15 104 H 30 H 93/60 100 05/01/20 04:00 99.5 F 105 H 36 H 94/66 100 05/01/20 03:45 102 H 33 H 92/77 100 05/01/20 03:30 104 H 28 H 90/60 100 05/01/20 03:15 104 H 35 H 97/83 100 05/01/20 03:00 103 H 32 H 97/61 100 05/01/20 02:45 103 H 33 H 93/63 99 05/01/20 02:30 100 22 84/52 100 05/01/20 02:15 101 H 21 87/55 100 05/01/20 02:00 101 H 22 95/68 100 05/01/20 01:45 98 38 H 101/65 100 05/01/20 01:30 99 45 H 99/70 100 05/01/20 01:24 98.9 F 98 21 99/70 100 05/01/20 01:15 99 21 90/55 100 05/01/20 01:00 97 67 H 81/42 100 05/01/20 00:45 98 35 H 92/60 100 05/01/20 00:30 98 41 H 80/53 100 05/01/20 00:24 98.9 F 98 30 H 80/53 100 05/01/20 00:15 99 39 H 77/48 100 05/01/20 00:14 98.6 F 98 38 H 80/53 100 05/01/20 00:03 97.8 F 96 32 H 77/48 100 05/01/20 00:00 98.6 F 98 38 H 77/54 100 04/30/20 23:45 100 45 H 98/49 100 04/30/20 23:36 98.3 F 101 H 35 H 77/54 100 04/30/20 23:35 102 H 33 H 98/49 100 04/30/20 23:30 102 H 21 67/41 100 04/30/20 23:26 98.6 F 104 H 30 H 67/41 100 04/30/20 23:15 105 H 22 76/38 100 04/30/20 23:00 103 H 38 H 109/59 100 04/30/20 22:45 98.6 F 105 H 54 H 91/75 100 04/30/20 22:00 113 H 18 129/80 100 04/30/20 21:00 105 H 18 120/74 98 04/30/20 20:40 105 H 18 119/73 100 04/30/20 20:23 97.6 F 105 H 18 97/60 100 04/30/20 19:53 97.6 F 104 H 18 119/75 100 04/30/20 19:43 97.8 F 102 H 20 120/72 04/30/20 19:30 105 H 18 86/54 100 04/30/20 19:10 105 H 18 101/72 100 04/30/20 19:00 105 H 18 101/51 97 04/30/20 18:40 101 H 17 127/81 100 04/30/20 18:30 98 16 109/74 100 04/30/20 18:20 96 16 82/68 98 04/30/20 17:55 97.4 F L 92 18 95/55 100 Intake and Output 04/30/20 05/01/20 05/01/20 22:59 06:59 14:59 Intake Total 1740 3589.788 2603.760 Output Total 75 355 310 Balance 1665 3234.788 2293.760 Intake: IV 1430 1910 2390 Sodium Chloride 0.9% 1, 251 907 3438 000 ml @ 130 mls/hr IV . Q7H42M [facility] Rx#:[id number] Sodium Chloride 0.9% 1, 1000 1000 000 ml @ 999 mls/hr IV . Q1H1M [facility] Rx#:[id number] Intake, IV Titration 439.788 213.760 Amount Norepinephrine 4 mg In 26.009 113.760 Sodium Chloride 0.9% 250 ml @ 0.05 MCG/KG/MIN 18. 578 mls/hr IV .[id number] [facility] Rx#:[id number] Octreotide 500 mcg In 250 Sodium Chloride 0.9% 250 ml @ 50 MCG/HR 25 mls/hr IV .Q10H [facility] Rx#: [id number] propofoL 1,000 mg In 163.779 100.000 Empty Bag 1 bag @ Titrate IV .Q0M [facility] Rx#: [id number] Blood Product 310 1240 Rc As-1 Unit 310 [id number] Rc As-1 Unit 310 [id number] Rc As-1 Unit 310 [id number] Output: Urine 75 355 310 Other: Voiding Method Indwelling Catheter # Bowel Movements 1 Weight 97.522 kg 98 kg Physical Exam: Revealed 54-year-old white male intubated and mechanically ventilated, sedated, on propofol. Head: Atraumatic, normocephalic. Endotracheal tube is intact. No orogastric tube noted. HEENT: PERRLA, EOMI, neck times. [Neck is supple.] [No neck masses.] [No thyromegaly.] [No JVD.] Chest: [Symmetrical chest expansion, crackles at the bases, no rhonchi no wheezes. Cardiac Exam: [Normal S1 and S2, no S3 gallop, no murmur.] Abdomen: [Soft, nontender, no megaly, no rebound, no guarding, normal bowel sounds.] Extremities: [No clubbing, no edema, no cyanosis.] No jaundice. Neurological Exam: Could not be assessed, patient is sedated, on propofol, and Ativan was added when necessary. Psychiatric: Could not be assessed, however looking at the notes from the GI physician and from the ER, patient was alert and oriented on presentation. Skin: No rashes Results - Laboratory Findings CBC and BMP: 05/01/20 03:06 05/01/20 08:23 ABG ABG pH 7.37 (7.35-7.45) 05/01/20 06:12 ABG pCO2 27 mmHg (35-45) L 05/01/20 06:12 ABG pO2 96 mmHg (83-108) 05/01/20 06:12 ABG O2 Saturation 98.3 % (94-97) H 05/01/20 06:12 PT/INR, D-dimer PT 12.6 sec (9.0-12.0) H 05/01/20 08:23 INR 1.3 (<1.2) H 05/01/20 08:23 Abnormal lab findings: Abnormal Labs 04/30/20 04/30/20 04/30/20 18:30 18:30 18:30 RBC 2.59 L Hgb 8.0 L Hct 23.4 L Plt Count 129 L Lymphocytes # 0.6 L PT INR ABG pH ABG pCO2 ABG pO2 ABG HCO3 ABG Total CO2 ABG O2 Saturation Chloride Carbon Dioxide BUN Creatinine Glucose POC Glucose (mg/dL) Plasma Lactic Acid Maurizio 6.0 H* Calcium Ionized Calcium Feliberto Magnesium AST ALT Troponin I Total Protein Albumin Serum Alcohol 261 H* Crossmatch 04/30/20 04/30/20 04/30/20 18:30 18:30 23:10 RBC Hgb Hct Plt Count Lymphocytes # PT INR ABG pH ABG pCO2 ABG pO2 ABG HCO3 ABG Total CO2 ABG O2 Saturation Chloride Carbon Dioxide BUN Creatinine Glucose POC Glucose (mg/dL) Plasma Lactic Acid Maurizio Calcium Ionized Calcium Feliberto Magnesium AST ALT Troponin I 0.101 H* 0.150 H* Total Protein Albumin Serum Alcohol Crossmatch See Detail 04/30/20 04/30/20 04/30/20 23:10 23:10 23:11 RBC 2.44 L Hgb 7.9 L Hct 22.5 L Plt Count 104 L Lymphocytes # 0.6 L PT INR ABG pH ABG pCO2 ABG pO2 ABG HCO3 ABG Total CO2 ABG O2 Saturation Chloride Carbon Dioxide BUN Creatinine Glucose POC Glucose (mg/dL) 191 H Plasma Lactic Acid Maurizio 6.5 H* Calcium Ionized Calcium Feliberto Magnesium AST ALT Troponin I Total Protein Albumin Serum Alcohol Crossmatch 05/01/20 05/01/20 05/01/20 00:02 03:06 03:06 RBC 3.25 L Hgb 9.7 L D Hct 29.3 L Plt Count 82 L Lymphocytes # PT INR ABG pH 7.34 L ABG pCO2 26 L ABG pO2 304 H ABG HCO3 14 L ABG Total CO2 15 L ABG O2 Saturation 100.0 H Chloride 116 H Carbon Dioxide 13 L BUN 43 H Creatinine 1.27 H Glucose 130 H POC Glucose (mg/dL) Plasma Lactic Acid Maurizio Calcium 6.0 L* Ionized Calcium Feliberto Magnesium AST ALT Troponin I Total Protein Albumin Serum Alcohol Crossmatch 05/01/20 05/01/20 05/01/20 03:06 03:06 03:14 RBC Hgb Hct Plt Count Lymphocytes # PT INR ABG pH ABG pCO2 ABG pO2 ABG HCO3 ABG Total CO2 ABG O2 Saturation Chloride Carbon Dioxide BUN Creatinine Glucose POC Glucose (mg/dL) Plasma Lactic Acid Maurizio 3.9 H* Calcium Ionized Calcium Feliberto Magnesium 1.4 L AST ALT Troponin I 0.151 H* Total Protein Albumin Serum Alcohol Crossmatch 05/01/20 05/01/20 05/01/20 04:26 06:12 06:36 RBC Hgb Hct Plt Count Lymphocytes # PT INR ABG pH ABG pCO2 27 L ABG pO2 ABG HCO3 16 L ABG Total CO2 17 L ABG O2 Saturation 98.3 H Chloride Carbon Dioxide BUN Creatinine Glucose POC Glucose (mg/dL) Plasma Lactic Acid Maurizio 2.3 H* Calcium Ionized Calcium Feliberto 4.0 L Magnesium AST ALT Troponin I Total Protein Albumin Serum Alcohol Crossmatch 05/01/20 05/01/20 05/01/20 08:23 08:23 11:51 RBC Hgb Hct Plt Count Lymphocytes # PT 12.6 H INR 1.3 H ABG pH ABG pCO2 ABG pO2 ABG HCO3 ABG Total CO2 ABG O2 Saturation Chloride 117 H Carbon Dioxide 20 L BUN 45 H Creatinine 1.35 H Glucose 126 H POC Glucose (mg/dL) 152 H Plasma Lactic Acid Maurizio Calcium 5.9 L* Ionized Cal[place]ib[place] 8[address]57 H ALT 2688 H Troponin I Total Protein 4.0 L Albumin 1.9 L Serum Alcohol Crossmatch - Diagnostic Findings Chest x-ray: image reviewed (Chest x-ray is relatively unremarkable, endotracheal tube is in the proper position. And there seems to be chronic fracture deformity of the right midclavicular shaft.) Assessment and Plan Assessment: Impression: Acute upper GI bleeding secondary to esophageal tear, Kristi-Estrada tear, patient is status post EGD, epinephrine injections, and Endo Clip pink. Acute alcohol intoxication. Melena secondary to above. History of alcohol abuse, and the patient is a potential set up for alcohol withdrawal considering his history of alcoholism. Secondary to GI bleeding requiring 3 units of packed RBCs since admission. Recommendation: Continue ventilatory support for now. Continue Protonix and Sandostatin. Continue propofol and Ativan. Alcohol withdrawal protocol./CIWA protocol. No plans to wean and exited the patient today, Continue to monitor daily labs including daily hemoglobins. We will assess for possible weaning and extubation in the next 24 hours. Prognosis remains relatively poor and guarded. We'll continue to follow. Time with Patient: Greater than 30
[2020-05-01 15:02] LABS: HCT 23.1 % (39.0-53.0); HGB 8.4 gm/dL (13.0-17.5); MCH 32.5 pg (25.0-35.0); MCHC 36.4 g/dL (31.0-37.0); MCV 89.5 fL (80.0-100.0); Mean Platelet Volume 8.5; RBC 2.58 m/uL (4.30-5.90); RDW 15.6 % (11.5-15.5); WBC 5.3 k/uL (3.8-10.6)
[2020-05-01 15:22] LABS: Platelet Count 81 k/uL (150-450)
[2020-05-01] MEDS ORDERED: Magnesium Replacement Protocol 1 EACH MISC MISCELLANE PRN (15:27)
--- NOTE | 2020-05-01 16:28 | P.PN ---
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 The patient is discharged to home with continues to drink more alcohol and then later presented to the emergency room complaining of weakness hematemesis. The patient hemoglobin on initial presentation at outside facility was 16 on a repeat presentation it was 8.6. He was given a unit of blood and transferred for further care. The patient was emergently intubated in the emergency room and taken for EGD he sta tus post endoclips 3 for esophageal tear secondary to Kristi-Estrada and esophagitis LA grade D. Objective - Vital Signs Vital signs: Vital Signs Temp 98.7 F 05/01/20 12:00 Pulse 74 05/01/20 15:15 Resp 40 H 05/01/20 15:15 BP 102/74 05/01/20 15:15 Pulse Ox 100 05/01/20 15:15 Intake & Output 04/30/20 05/01/20 05/01/20 18:59 06:59 18:59 Intake Total 5329.788 3067.454 Output Total 430 515 Balance 4899.788 2552.454 Weight 97.522 kg 98 kg Intake: IV 3340 2780 Sodium Chloride 0.9% 1, 1040 1780 000 ml @ 130 mls/hr IV . Q7H42M PRACHI Rx#:[id number] Sodium Chloride 0.9% 1, 1000 1000 000 ml @ 999 mls/hr IV . Q1H1M ONE Rx#:[id number] Intake, IV Titration 439.788 287.454 Amount Norepinephrine 4 mg In 26.009 187.454 Sodium Chloride 0.9% 250 ml @ 0.05 MCG/KG/MIN 18. 578 mls/hr IV .[id number] PRACHI Rx#:[id number] Octreotide 500 mcg In 250 Sodium Chloride 0.9% 250 ml @ 50 MCG/HR 25 mls/hr IV .Q10H PRACHI Rx#: [id number] propofoL 1,000 mg In 163.779 100.000 Empty Bag 1 bag @ Titrate IV .Q0M PRACHI Rx#: [id number] Blood Product 1550 Rc As-1 Unit 310 [id number] Rc As-1 Unit 310 [id number] Rc As-1 Unit 310 [id number] Output: Urine 430 515 Other: Voiding Method Indwelling Catheter # Bowel Movements 1 - Constitutional Constitutional Comment(s): Intubated and sedated - Respiratory Respiratory: bilateral: CTA - Cardiovascular Rhythm: regular - Gastrointestinal General gastrointestinal: Present: normal bowel sounds - Integumentary Integumentary: Present: normal - Labs CBC & Chem 7: 05/01/20 14:18 05/01/20 08:23 Labs: Abnormal Lab Results - Last 24 Hours (Table) 04/30/20 04/30/20 04/30/20 Range/Units 18:30 18:30 18:30 RBC 2.59 L (4.30-5.90) m/uL Hgb 8.0 L (13.0-17.5) gm/dL Hct 23.4 L (39.0-53.0) % RDW (11.5-15.5) % Plt Count 129 L (150-450) k/uL Lymphocytes # 0.6 L (1.0-4.8) k/uL PT (9.0-12.0) sec INR (<1.2) ABG pH (7.35-7.45) ABG pCO2 (35-45) mmHg ABG pO2 (83-108) mmHg ABG HCO3 (21-25) mmol/L ABG Total CO2 (19-24) mmol/L ABG O2 Saturation (94-97) % Chloride (98-107) mmol/L Carbon Dioxide (22-30) mmol/L BUN (9-20) mg/dL Creatinine (0.66-1.25) mg/dL Glucose (74-99) mg/dL POC Glucose (mg/dL) (75-99) mg/dL Plasma Lactic Acid Maurizio 6.0 H* (0.7-2.0) mmol/L Calcium (8.4-10.2) mg/dL Ionized Calcium Feliberto (4.5-5.3) mg/dL Magnesium (1.6-2.3) mg/dL AST (17-59) U/L ALT (4-49) U/L Troponin I (0.000-0.034) ng/mL Total Protein (6.3-8.2) g/dL Albumin (3.5-5.0) g/dL Serum Alcohol 261 H* mg/dL Crossmatch 04/30/20 04/30/20 04/30/20 Range/Units 18:30 18:30 23:10 RBC (4.30-5.90) m/uL Hgb (13.0-17.5) gm/dL Hct (39.0-53.0) % RDW (11.5-15.5) % Plt Count (150-450) k/uL Lymphocytes # (1.0-4.8) k/uL PT (9.0-12.0) sec INR (<1.2) ABG pH (7.35-7.45) ABG pCO2 (35-45) mmHg ABG pO2 (83-108) mmHg ABG HCO3 (21-25) mmol/L ABG Total CO2 (19-24) mmol/L ABG O2 Saturation (94-97) % Chloride (98-107) mmol/L Carbon Dioxide (22-30) mmol/L BUN (9-20) mg/dL Creatinine (0.66-1.25) mg/dL Glucose (74-99) mg/dL POC Glucose (mg/dL) (75-99) mg/dL Plasma Lactic Acid Maurizio (0.7-2.0) mmol/L Calcium (8.4-10.2) mg/dL Ionized Calcium Feliberto (4.5-5.3) mg/dL Magnesium (1.6-2.3) mg/dL AST (17-59) U/L ALT (4-49) U/L Troponin I 0.101 H* 0.150 H* (0.000-0.034) ng/mL Total Protein (6.3-8.2) g/dL Albumin (3.5-5.0) g/dL Serum Alcohol mg/dL Crossmatch See Detail 04/30/20 04/30/20 04/30/20 Range/Units 23:10 23:10 23:11 RBC 2.44 L (4.30-5.90) m/uL Hgb 7.9 L (13.0-17.5) gm/dL Hct 22.5 L (39.0-53.0) % RDW (11.5-15.5) % Plt Count 104 L (150-450) k/uL Lymphocytes # 0.6 L (1.0-4.8) k/uL PT (9.0-12.0) sec INR (<1.2) ABG pH (7.35-7.45) ABG pCO2 (35-45) mmHg ABG pO2 (83-108) mmHg ABG HCO3 (21-25) mmol/L ABG Total CO2 (19-24) mmol/L ABG O2 Saturation (94-97) % Chloride (98-107) mmol/L Carbon Dioxide (22-30) mmol/L BUN (9-20) mg/dL Creatinine (0.66-1.25) mg/dL Glucose (74-99) mg/dL POC Glucose (mg/dL) 191 H (75-99) mg/dL Plasma Lactic Acid Maurizio 6.5 H* (0.7-2.0) mmol/L Calcium (8.4-10.2) mg/dL Ionized Calcium Feliberto (4.5-5.3) mg/dL Magnesium (1.6-2.3) mg/dL AST (17-59) U/L ALT (4-49) U/L Troponin I (0.000-0.034) ng/mL Total Protein (6.3-8.2) g/dL Albumin (3.5-5.0) g/dL Serum Alcohol mg/dL Crossmatch 05/01/20 05/01/20 05/01/20 Range/Units 00:02 03:06 03:06 RBC 3.25 L (4.30-5.90) m/uL Hgb 9.7 L D (13.0-17.5) gm/dL Hct 29.3 L (39.0-53.0) % RDW (11.5-15.5) % Plt Count 82 L (150-450) k/uL Lymphocytes # (1.0-4.8) k/uL PT (9.0-12.0) sec INR (<1.2) ABG pH 7.34 L (7.35-7.45) ABG pCO2 26 L (35-45) mmHg ABG pO2 304 H (83-108) mmHg ABG HCO3 14 L (21-25) mmol/L ABG Total CO2 15 L (19-24) mmol/L ABG O2 Saturation 100.0 H (94-97) % Chloride 116 H (98-107) mmol/L Carbon Dioxide 13 L (22-30) mmol/L BUN 43 H (9-20) mg/dL Creatinine 1.27 H (0.66-1.25) mg/dL Glucose 130 H (74-99) mg/dL POC Glucose (mg/dL) (75-99) mg/dL Plasma Lactic Acid Maurizio (0.7-2.0) mmol/L Calcium 6.0 L* (8.4-10.2) mg/dL Ionized Calcium Feliberto (4.5-5.3) mg/dL Magnesium (1.6-2.3) mg/dL AST (17-59) U/L ALT (4-49) U/L Troponin I (0.000-0.034) ng/mL Total Protein (6.3-8.2) g/dL Albumin (3.5-5.0) g/dL Serum Alcohol mg/dL Crossmatch 05/01/20 05/01/20 05/01/20 Range/Units 03:06 03:06 03:14 RBC (4.30-5.90) m/uL Hgb (13.0-17.5) gm/dL Hct (39.0-53.0) % RDW (11.5-15.5) % Plt Count (150-450) k/uL Lymphocytes # (1.0-4.8) k/uL PT (9.0-12.0) sec INR (<1.2) ABG pH (7.35-7.45) ABG pCO2 (35-45) mmHg ABG pO2 (83-108) mmHg ABG HCO3 (21-25) mmol/L ABG Total CO2 (19-24) mmol/L ABG O2 Saturation (94-97) % Chloride (98-107) mmol/L Carbon Dioxide (22-30) mmol/L BUN (9-20) mg/dL Creatinine (0.66-1.25) mg/dL Glucose (74-99) mg/dL POC Glucose (mg/dL) (75-99) mg/dL Plasma Lactic Acid Maurizio 3.9 H* (0.7-2.0) mmol/L Calcium (8.4-10.2) mg/dL Ionized Calcium Feliberto (4.5-5.3) mg/dL Magnesium 1.4 L (1.6-2.3) mg/dL AST (17-59) U/L ALT (4-49) U/L Troponin I 0.151 H* (0.000-0.034) ng/mL Total Protein (6.3-8.2) g/dL Albumin (3.5-5.0) g/dL Serum Alcohol mg/dL Crossmatch 05/01/20 05/01/20 05/01/20 Range/Units 04:26 06:12 06:36 RBC (4.30-5.90) m/uL Hgb (13.0-17.5) gm/dL Hct (39.0-53.0) % RDW (11.5-15.5) % Plt Count (150-450) k/uL Lymphocytes # (1.0-4.8) k/uL PT (9.0-12.0) sec INR (<1.2) ABG pH (7.35-7.45) ABG pCO2 27 L (35-45) mmHg ABG pO2 (83-108) mmHg ABG HCO3 16 L (21-25) mmol/L ABG Total CO2 17 L (19-24) mmol/L ABG O2 Saturation 98.3 H (94-97) % Chloride (98-107) mmol/L Carbon Dioxide (22-30) mmol/L BUN (9-20) mg/dL Creatinine (0.66-1.25) mg/dL Glucose (74-99) mg/dL POC Glucose (mg/dL) (75-99) mg/dL Plasma Lactic Acid Maurizio 2.3 H* (0.7-2.0) mmol/L Calcium (8.4-10.2) mg/dL Ionized Calcium Feliberto 4.0 L (4.5-5.3) mg/dL Magnesium (1.6-2.3) mg/dL AST (17-59) U/L ALT (4-49) U/L Troponin I (0.000-0.034) ng/mL Total Protein (6.3-8.2) g/dL Albumin (3.5-5.0) g/dL Serum Alcohol mg/dL Crossmatch 05/01/20 05/01/2020 Range/Units 08:23 08:23 11:51 RBC (4.30-5.90) m/uL Hgb (13.0-17.5) gm/dL Hct (39.0-53.0) % RDW (11.5-15.5) % Plt Count (150-450) k/uL Lymphocytes # (1.0-4.8) k/uL PT 12.6 H (9.0-12.0) sec INR 1.3 H (<1.2) ABG pH (7.35-7.45) ABG pCO2 (35-45) mmHg ABG pO2 (83-108) mmHg ABG HCO3 (21-25) mmol/L ABG Total CO2 (19-24) mmol/L ABG O2 Saturation (94-97) % Chloride 117 H (98-107) mmol/L Carbon Dioxide 20 L (22-30) mmol/L BUN 45 H (9-20) mg/dL Creatinine 1.35 H (0.66-1.25) mg/dL Glucose 126 H (74-99) mg/dL POC Glucose (mg/dL) 152 H (75-99) mg/dL Plasma Lactic Acid Maurizio (0.7-2.0) mmol/L Calcium 5.9 L* (8.4-10.2) mg/dL Ionized Calcium Feliberto (4.5-5.3) mg/dL Magnesium (1.6-2.3) mg/[place] 76269 H (17-59) U/L ALT 2688 H (4-49) U/L Troponin I (0.000-0.034) ng/mL Total Protein 4.0 L (6.3-8.2) g/dL Albumin 1.9 L (3.5-5.0) g/dL Serum Alcohol mg/dL Crossmatch 05/01/20 Range/Units 14:18 RBC 2.58 L (4.30-5.90) m/uL Hgb 8.4 L (13.0-17.5) gm/dL Hct 23.1 L (39.0-53.0) % RDW 15.6 H (11.5-15.5) % Plt Count 81 L (150-450) k/uL Lymphocytes # (1.0-4.8) k/uL PT (9.0-12.0) sec INR (<1.2) ABG pH (7.35-7.45) ABG pCO2 (35-45) mmHg ABG pO2 (83-108) mmHg ABG HCO3 (21-25) mmol/L ABG Total CO2 (19-24) mmol/L ABG O2 Saturation (94-97) % Chloride (98-107) mmol/L Carbon Dioxide (22-30) mmol/L BUN (9-20) mg/dL Creatinine (0.66-1.25) mg/dL Glucose (74-99) mg/dL POC Glucose (mg/dL) (75-99) mg/dL Plasma Lactic Acid Maurizio (0.7-2.0) mmol/L Calcium (8.4-10.2) mg/dL Ionized Calcium Feliberto (4.5-5.3) mg/dL Magnesium (1.6-2.3) mg/dL AST (17-59) U/L ALT (4-49) U/L Troponin I (0.000-0.034) ng/mL Total Protein (6.3-8.2) g/dL Albumin (3.5-5.0) g/dL Serum Alcohol mg/dL Crossmatch Assessment and Plan (1) Hematemesis Narrative/Plan: Secondary to Kristi-Estrada tear, status post endoscopy with placement of endoclips 3, octreotide discontinued status post 3 units packed red cells no further bleeding. He is continued on IV Protonix Current Visit: Yes Status: Acute Code(s): K92.0 - HEMATEMESIS SNOMED Code(s): 6889486 (2) Elevated transaminase level Narrative/Plan: Patient was hypotensive yesterday hepatitis panel are pending, appreciate GI input Current Visit: Yes Status: Acute Code(s): R74.01 - ELEVATION OF LEVELS OF LIVER TRANSAMINASE LEVELS SNOMED Code(s): 129429744 (3) Alcohol intoxication Narrative/Plan: on protocol Current Visit: Yes Status: Acute Code(s): F10.929 - ALCOHOL USE, UNSPECIFIED WITH INTOXICATION, UNSPECIFIED SNOMED Code(s): 79045854
--- NOTE | 2020-05-01 17:16 | US ---
EXAMINATION TYPE: US liver DATE OF EXAM: 05/01/2020 COMPARISON: NONE CLINICAL HISTORY: elevated LFTS, hx ETOH abuse. EXAM MEASUREMENTS: Liver Length: 19.9 cm Gallbladder Wall: 0.2 cm CBD: 0.4 cm Right Kidney: 10.7 x 5.1 x 5.0 cm Technical limitations due to ICU patient, unable to move from supine position and large amount of o verlying bowel content Pancreas: Obscured by overlying bowel gas. Liver: Enlarged, heterogeneous Gallbladder: Normal. Office Assistance reports negative sonographic Alexandre sign. CBD: Normal. Right Kidney: Normal. IMPRESSION: 1. Heterogenous liver. Differential includes diffuse hepatocellular process such as hepatitis or cirr hosis. 2. Nonvisualization of the pancreas due to overlying bowel gas.
[2020-05-01 17:54] LABS: Glucose,Whole Blood 98 mg/dL (75-99)
[2020-05-01] MEDS: MAGNESIUM SULFATE-D5W PMX 1 GM in DEXTROSE/WATER 1 100ML.BAG IVPB SCH ×3 (19:30→23:39)
[2020-05-01 20:03] LABS: Hepatitis A Antibody IgM Non-Reactive (Non-Reactive); Hepatitis B Core IgM Non-Reactive (Non-Reactive); Hepatitis B Surface Antigen Non-Reactive (Non-Reactive); Hepatitis C IgG Antibody Non-Reactive (Non-Reactive)
[2020-05-01] MEDS ORDERED: THIAMINE 100 MG/ML 2 ML VIAL IVP SCH (21:00)
[2020-05-01] MEDS: THIAMINE 100 MG in SODIUM CHLORIDE 0.9% 50 ML IVPB SCH (21:29)
[2020-05-02 04:40] LABS: Anisocytosis Slight; HCT 22.3 % (39.0-53.0); HGB 7.6 gm/dL (13.0-17.5); MCH 30.9 pg (25.0-35.0); MCHC 34.1 g/dL (31.0-37.0); MCV 90.5 fL (80.0-100.0); Mean Platelet Volume 8.3; RBC 2.46 m/uL (4.30-5.90); RDW 16.1 % (11.5-15.5); WBC 4.3 k/uL (3.8-10.6)
[2020-05-02 05:07] LABS: African American GFR (CKD) >90 (>60 ml/min/1.73 sqM); Anion Gap 0 mmol/L; Blood Urea Nitrogen 29 mg/dL (9-20); Calcium 6.7 mg/dL (8.4-10.2); Carbon Dioxide 21 mmol/L (22-30); Chloride 118 mmol/L (98-107); Glucose 102 mg/dL (74-99); Magnesium 2.3 mg/dL (1.6-2.3); Non-African American GFR(CKD) 84 (>60 ml/min/1.73 sqM); Potassium 3.7 mmol/L (3.5-5.1); Sodium 139 mmol/L (137-145)
[2020-05-02 05:11] LABS: Platelet Count 94 k/uL (150-450)
[2020-05-02 05:13] LABS: ABG Base Excess -1.8 mmol/L; ABG HCO3 23 mmol/L (21-25); ABG Oxygen Saturation 99.9 % (94-97); ABG PCO2 34 mmHg (35-45); ABG PH 7.43 (7.35-7.45); ABG PO2 137 mmHg (83-108); ABG TCO2 24 mmol/L (19-24); Allen Test Performed? Yes
[2020-05-02] MEDS ORDERED: Potassium Replacement Protocol 1 EACH MISC MISCELLANE PRN (05:36)
[2020-05-02] MEDS: POTASSIUM CHLORIDE 10 MEQ in WATER FOR INJECTION 1 100ML.BAG IVPB SCH ×2 (06:33→08:11)
[2020-05-02] MEDS: SODIUM CHLORIDE 0.9% 1,000 ML IV SCH ×3 (06:40→22:34)
--- NOTE | 2020-05-02 07:02 | XR ---
EXAMINATION TYPE: XR chest 1V portable DATE OF EXAM: 05/02/2020 COMPARISON: 05/01/2020 HISTORY: SOB, Follow Up FINDINGS: Endotracheal tube is well-positioned. NG tube is seen coursing into the stomach. No change in bibasilar opacities. Stable appearance of the cardio-mediastinal structures at this time. IMPRESSION: 1. Stable portable chest. NG tube as noted. Clinical correlation and follow up until resolution is recommended.
[2020-05-02] MEDS: LORazepam 2 MG/ML INJ IV PRN ×2 (08:10→22:13)
[2020-05-02] MEDS: PANTOPRAZOLE 40 MG/10 ML VIAL IVP SCH ×2 (08:11→22:34)
[2020-05-02] MEDS: CHLORHEXIDINE GLUCONATE 15 ML CUP MUCOUS MEM SCH (08:11)
[2020-05-02] MEDS: NOREPINEPHRINE 4 MG in SODIUM CHLORIDE 0.9% 250 ML IV SCH ×2 (08:15→18:15)
--- NOTE | 2020-05-02 08:34 | CDI ---
Documentation Clarification Form Date: 05/02/2020 07:11:00 AM From: Estefany Teran RN, CCDS Admit Date: 04/30/2020 07:37:00 PM Patient Name: Tashi Simmons Visit Number: [id number] Discharge Date: ATTENTION: The Clinical Documentation Specialists (CDI) and [facility] Coding Staff appreciate your assistance in clarifying documentation. Please respond to the clarification below the line at the bottom and electronically sign. The CDI & [facility] Coding staff will review the response and follow-up if needed. Please note: Queries are made part of the Legal Health Record. If you have any questions, please contact the author of this message via ITS. Dr. Alec Carnes 04/30 Patient presented to ED with complaints of vomiting up blood. He was weak fatigued and hypotensive, and was intubated placed on mechanical ventilation. Please provide your professional opinion what condition are we treating? Patient history/risk factors: Hypertension, Alcohol abuse Clinical Indicators: 54-year-old male to ED with complaint of vomiting blood. He was seen and initial hemoglobin of 16. Patient was discharged home, and came back with persistent nausea and vomiting blood repeat hemoglobin was noted to be 8.6. He was found to be acutely intoxicated with alcohol level of 261. He was intubated prior to EGD, placed on mechanical ventilation he was extremely restless agitated, and he was hypotensive. 04/30 Vital signs in ED: 82/68 96 16 98 % 04/30 Labs: WBC 5.6 HGB 8.0, HCT 23.4 Plt Count 129, BUN 43, CR 1.27 Lactic acid 6.0, 6.5, Troponin I 0.101, 0.150 04/30 Coronavirus Not Detected, Hepatitis panel: Non-Reactive 05/01 AST 51521, ALT 2688 04/30 H/P: Acute blood loss anemia secondary to GI bleeding suspected esophageal varies. Lactic acidosis, likely secondary to severe blood loss anemia 05/01 GI: Elevated transaminase level: Significant elevation in AST and ALT, 10, 563, and 2688 respectively. Plasma lactic acid elevated 6.0, today 2.3 Likely related to shock liver Treatment ICU/Telemetry monitoring Mechanical ventilation monitoring (per pulmonary) Levophed 4 mg drip (titrate) Transfuse 2 units of PRBS .9NS @ 130 MLS/HR .9 NS 1,000 Fluid Bolus X3 Octreotide drip 04/30-05/01 Ativan 2 mg IV Q2 HRS PRN 04/30 EGD: Kristi-Estrada tear In your professional opinion, can you please specify what this may indicate if known? Hypotensive Shock, (specify cause Hypovolemic Shock, (specify cause Hemorrhagic Shock (specify cause Any associated organ failure Other, please specify Unable to determine (Last Revision: March 2017) MTDD
[2020-05-02] MEDS: DEXMEDETOMIDINE/0.9% NACL(PMX) 400 MCG in EMPTY BAG 1 BAG IV SCH ×3 (08:49→20:00)
[2020-05-02] MEDS: THIAMINE 100 MG in SODIUM CHLORIDE 0.9% 50 ML IVPB SCH ×2 (08:54→22:34)
--- NOTE | 2020-05-02 09:11 | CDI ---
Documentation Clarification Form Date: 05/02/2020 08:42:16 AM From: Estefany Teran RN, CCDS Admit Date: 04/30/2020 07:37:00 PM Patient Name: Tashi Simmons Visit Number: [id number] Discharge Date: ATTENTION: The Clinical Documentation Specialists (CDI) and [facility] Coding Staff appreciate your assistance in clarifying documentation. Please respond to the clarification below the line at the bottom and electronically sign. The CDI & [facility] Coding staff will review the response and follow-up if needed. Please note: Queries are made part of the Legal Health Record. If you have any questions, please contact the author of this message via ITS. Dr. Alec Carnes 04/30 Patient presented to ED with complaints of vomiting up blood. He became extremely restless, agitated and was intubated placed on mechanical ventilation. In your professional opinion, can you please further clarify reason for intubation and mechanical ventilation? History/Risk Factors: Hypertension, Alcohol abuse Clinical Indicators: 54-year-old male present to ED with complaining of persistent nausea and vomiting blood. He was found to be acutely intoxicated with significantly elevated alcohol level per admission labs 261. He had to be intubated prior to EGD as he was extremely restless, agitated and he was hypotensive. Patient remained extremely agitated and was transferred to the ICU and he was kept on mechanical ventilation. 04/30 Labs: WBC 5.6 HGB 8.0, HCT 23.4 Plt Count 129, BUN 43, CR 1.27 Lactic acid 6.0, 6.5, Troponin I 0.101, 0.150 04/30 Coronavirus Not Detected, Hepatitis panel: Non-Reactive 05/01 00:00 Lab findings: ABG pH 7.34, pCO2 26, Po2 304, HCO3 14, Total CO2 15 O2 Saturation 100.0 Radiology findings: 04/30@21:00 Vital Signs: 120/74 105 18 98 % 2/L NC 04/30 @ 22:00 Vital signs 129/80 113 18 Intubation Treatment: ICU/Telemetry monitoring Mechanical ventilation monitoring (per pulmonary) Levophed 4 mg drip (titrate) Transfuse 2 units of PRBS .9NS @ 130 MLS/HR .9 NS 1,000 Fluid Bolus X3 Octreotide drip 11/ Ativan 2 mg IV Q2 HRS PRN Alcohol withdrawal protocol/CIWA protocol In your professional opinion, can you please further clarify reason for intubation and mechanical ventilation? Impending Acute Hypoxic Respiratory Failure Other, please specify Unable to determine (Last Revision: September 2017) MTDD
[2020-05-02 09:25] LABS: Calcium 6.6 mg/dL (8.4-10.2)
--- NOTE | 2020-05-02 14:46 | P.PN ---
Subjective Progress Note Date: 05/02/20 Principal diagnosis: This is a 54-year-old white male with history of hypertension, history of alcohol abuse, patient was transferred from an outside hospital I believe [facility] due to an acute episode of GI bleeding. Patient was originally seen at that hospital complaining of hematemesis and he was found to have a hemoglobin of 16. Patient was discharged home, however he went back to the hospital complaining of persistent nausea and vomiting blood. Repeat hemoglobin was noted to be 8.6. At the same token, the patient was found to be acutely intoxicated with significantly elevated alcohol level. Patient was transferred to our ER, and I was notified by the ER physician about this patient, I recommended immediate GI consultation, patient underwent EGD by gas troenterology, however he had to be intubated prior to the procedure as he was extremely restless agitated, and he was hypotensive. EGD revealed distal esophageal tear with active bleeding/Kristi-Estrada, treated with epinephrine injection and Endo Clip placement 3. There was evidence of esophagitis, but no evidence of esophageal very sees. Patient remained extremely agitated, hence he was transferred to the ICU and he was kept on mechanical ventilation. He is now on mechanical ventilation with the following ventilator settings. He is on assist control rate of 14 tidal volume is 500 FiO2 is 40% PEEP is 5. ABG earlier today showed a pO2 of 96 pCO2 of 27 pH of 7.37. His tidal volume was decreased down to 450 increased his rate to 22 given 1 amp of bicarb, patient was placed on Ativan when necessary, and he was also given 2 L of fluid boluses as he was hypotensive requiring norepinephrine. Patient received a total of 3 units of packed RBCs since admission, he had 5 maroon stools overnight. Hemoglobin this morning is 9.7. Presently the patient is norepinephrine at 60 mcg/kg/m he is on norepinephrine at 10 mcg/per minute. And he is also on Sandostatin at 50 g. per hour. Patient was reevaluated today on 05/02/20, remains in the ICU, intubated and mechanically ventilated. Patient remains on assist control rate of 22 tidal volume is 450 FiO2 is 40% and PEEP of 5. ABG showed a pO2 of 137 pCO2 of 34 pH of 7.43. Patient remains on propofol at 75 mcg/kg/m, and I will switch his propofol to Precedex, planning to wean and hopefully extubate the patient today if possible. Apparently the patient is requiring intermittently Ativan in addition to the propofol because of extreme agitation while on mechanical ventilation in spite of relatively high dose of propofol. Patient is known to have history of alcoholism, and that is basically an indication that the patient is having alcohol withdrawal symptoms. Patient received a total of 3 units of packed RBCs since admission, and his hemoglobin today is 7.6. No evidence of GI bleeding. Patient is not requiring any pressors and not requiring any more blood since yesterday. All labs were reviewed and his FiO2 was decreased down to 35%. Chest x-ray was also reviewed, has bibasilar opacities, could be atelectasis could also be related to aspiration of blood upon presentation. Favor atelectasis Objective - Vital Signs Vital signs: Vital Signs Temp 98.2 F 05/02/20 12:00 Pulse 75 05/02/20 13:00 Resp 32 H 05/02/20 13:00 BP 110/71 05/02/20 13:00 Pulse Ox 99 05/02/20 13:00 Intake & Output 05/01/20 05/02/20 05/02/20 18:59 06:59 18:59 Intake Total 3457.454 2260.034 1185.891 Output Total 815 1055 450 Balance 2642.454 1205.034 735.891 Weight 102.1 kg Intake: IV 3170 1690 780 Sodium Chloride 0.9% 1, 2170 1690 780 000 ml @ 130 mls/hr IV . Q7H42M [facility] Rx#:[id number] Sodium Chloride 0.9% 1, 1000 000 ml @ 999 mls/hr IV . Q1H1M [facility] Rx#:[id number] Intake, IV Titration 287.454 570.034 405.891 Amount Dexmedetomidine/0.9% NaCl 54.029 (Pmx) 400 mcg In Empty Bag 1 bag @ Titrate IV . Q0M [facility] Rx#:[id number] Norepinephrine 4 mg In 187.454 207.639 Sodium Chloride 0.9% 250 ml @ 0.05 MCG/KG/MIN 18. 578 mls/hr IV .[id number] [facility] Rx#:[id number] Potassium Chloride 10 meq 200 In Water For Injection 1 100ml.bag @ 100 mls/hr IVPB Q1H [facility] Rx#: [id number] Thiamine 100 mg In Sodium 50 Chloride 0.9% 50 ml @ 100 mls/hr IVPB Q12HR [facility] Rx#:[id number] propofoL 1,000 mg In 100.000 Empty Bag 1 bag @ Titrate IV .Q0M [facility] Rx#: [id number] propofoL 1,000 mg In 362.395 101.862 Empty Bag 1 bag @ Titrate IV .Q0M [facility] Rx#: [id number] Output: Gastric Drainage 50 Urine 765 1055 450 Other: Voiding Method Indwelling Catheter Indwelling Catheter Indwelling Catheter # Bowel Movements 1 - Exam Physical Exam: Revealed 54-year-old white male intubated and mechanically ventilated, sedated, on propofol. Will switch to Precedex. Head: Atraumatic, normocephalic. Endotracheal tube is intact. No orogastric tube noted. HEENT: PERRLA, EOMI, neck times. [Neck is supple.] [No neck masses.] [No thyromegaly.] [No JVD.] Chest: [Symmetrical chest expansion, crackles at the bases, no rhonchi no wheezes. Cardiac Exam: [Normal S1 and S2, no S3 gallop, no murmur.] Abdomen: [Soft, nontender, no megaly, no rebound, no guarding, normal bowel sounds.] Extremities: [No clubbing, no edema, no cyanosis.] No jaundice. Neurological Exam: Could not be assessed, patient is sedated, on propofol, Psychiatric: Could not be assessed,. Skin: No rashes - Labs CBC & Chem 7: 05/02/20 03:45 05/02/20 03:45 Labs: Abnormal Lab Results - Last 24 Hours (Table) 05/01/20 05/02/20 05/02/20 Range/Units 14:18 03:45 03:45 RBC 2.58 L 2.46 L (4.30-5.90) m/uL Hgb 8.4 L 7.6 L (13.0-17.5) gm/dL Hct 23.1 L 22.3 L (39.0-53.0) % RDW 15.6 H 16.1 H (11.5-15.5) % Plt Count 81 L 94 L (150-450) k/uL ABG pCO2 (35-45) mmHg ABG pO2 (83-108) mmHg ABG O2 Saturation (94-97) % Chloride 118 H (98-107) mmol/L Carbon Dioxide 21 L (22-30) mmol/L BUN 29 H (9-20) mg/dL Glucose 102 H (74-99) mg/dL Calcium 6.7 L (8.4-10.2) mg/dL AST (17-59) U/L ALT (4-49) U/L Creatine Kinase (55-170) U/L 05/02/20 05/02/20 05/02/20 Range/Units 05:12 07:45 07:45 RBC (4.30-5.90) m/uL Hgb (13.0-17.5) gm/dL Hct (39.0-53.0) % RDW (11.5-15.5) % Plt Count (150-450) k/uL ABG pCO2 34 L (35-45) mmHg ABG pO2 137 H (83-108) mmHg ABG O2 Saturation 99.9 H (94-97) % Chloride (98-107) mmol/L Carbon Dioxide (22-30) mmol/L BUN (9-20) mg/dL Glucose (74-99) mg/dL Calcium 6.6 L (8.4-10.2) mg/dL AST 4002 H (17-59) U/L ALT 1837 H (4-49) U/L Creatine Kinase 208 H (55-170) U/L Assessment and Plan Assessment: Impression: Acute upper GI bleeding secondary to esophageal tear, Kristi-Estrada tear, patient is status post EGD, epinephrine injections, and Endo Clip pink. Acute alcohol intoxication. Melena secondary to above. History of alcohol abuse, and the patient is a potential set up for alcohol withdrawal considering his history of alcoholism. Secondary to GI bleeding requiring 3 units of packed RBCs since admission. Acute hemorrhagic shock on presentation requiring 3 units of packed RBCs, responded well to blood transfusion. Patient did not have septic shock, and did not have cardiogenic shock. Impending respiratory failure secondary to massive upper GI bleeding and possible aspiration requiring intubation and mechanical ventilation. Not to mention the patient required EGD which could not be performed with IV conscious sedation only, the patient had to be intubated by L[employer] CONTACT WORKER in the emergency room to protect airways from potential aspiration and hypoxemia. Recommendation: Continue ventilatory support for now. However I plan to transition propofol to Precedex, and hopefully assess for weaning today. Continue Protonix Alcohol withdrawal protocol./CIWA protocol. Assess for potential weaning today. On Precedex. Even if extubated, the patient will remain in the ICU on the CIWA protocol. Continue to monitor daily labs including daily hemoglobins. Prognosis remains relatively poor and guarded. Critical care time is 32 minutes. We'll continue to follow in the ICU Time with Patient: Greater than 30
--- NOTE | 2020-05-02 15:50 | P.PN ---
Subjective Progress Note Date: 05/02/20 Principal diagnosis: Kristi-Estrada tear, esophagitis, GI bleed, anemia of acute blood loss, ischemic hepatitis Patient is seen lying in bed still intubated and sedated. No further bloody output from the OG tube or any evidence of continued bleeding with no bowel movements reported by nursing. Objective - Vital Signs Vital signs: Vital Signs Temp 98.4 F 05/02/20 08:00 Pulse 74 05/02/20 11:00 Resp 59 H 05/02/20 11:00 BP 106/72 05/02/20 11:00 Pulse Ox 99 05/02/20 11:00 Intake & Output 05/01/20 05/02/20 05/02/20 18:59 06:59 18:59 Intake Total 3457.454 2260.034 892.708 Output Total 815 1055 200 Balance 2642.454 1205.034 692.708 Weight 102.1 kg Intake: IV 3170 1690 520 Sodium Chloride 0.9% 1, 2170 1690 520 000 ml @ 130 mls/hr IV . Q7H42M [facility] Rx#:[id number] Sodium Chloride 0.9% 1, 1000 000 ml @ 999 mls/hr IV . Q1H1M [facility] Rx#:[id number] Intake, IV Titration 287.454 570.034 372.708 Amount Dexmedetomidine/0.9% NaCl 20.846 (Pmx) 400 mcg In Empty Bag 1 bag @ Titrate IV . Q0M [facility] Rx#:[id number] Norepinephrine 4 mg In 187.454 207.639 Sodium Chloride 0.9% 250 ml @ 0.05 MCG/KG/MIN 18. 578 mls/hr IV .[id number] [facility] Rx#:[id number] Potassium Chloride 10 meq 200 In Water For Injection 1 100ml.bag @ 100 mls/hr IVPB Q1H [facility] Rx#: [id number] Thiamine 100 mg In Sodium 50 Chloride 0.9% 50 ml @ 100 mls/hr IVPB Q12HR [facility] Rx#:[id number] propofoL 1,000 mg In 100.000 Empty Bag 1 bag @ Titrate IV .Q0M [facility] Rx#: [id number] propofoL 1,000 mg In 362.395 101.862 Empty Bag 1 bag @ Titrate IV .Q0M [facility] Rx#: [id number] Output: Gastric Drainage 50 Urine 765 1055 200 Other: Voiding Method Indwelling Catheter Indwelling Catheter Indwelling Catheter # Bowel Movements 1 - Exam On physical examination, patient appears comfortable in no apparent distress. HEAD: Normocephalic, atraumatic. EYES: No scleral icterus. No conjunctival injection. MOUTH: No lesions, tongue midline. NECK: Trachea midline, no gross abnormalities. CHEST: Coarse respiratory noises at all lung sterling. ABDOMEN: Soft, obese. Bowel sounds are positive. No organomegaly. No guarding or rigidity. EXTREMITIES: No pedal edema. SKIN: No rashes, no jaundice. NEUROLOGIC: Intubated and sedated. - Labs CBC & Chem 7: 05/02/20 03:45 05/02/20 03:45 Labs: Abnormal Lab Results - Last 24 Hours (Table) 05/01/20 05/01/20 05/02/20 Range/Units 11:51 14:18 03:45 RBC 2.58 L 2.46 L (4.30-5.90) m/uL Hgb 8.4 L 7.6 L (13.0-17.5) gm/dL Hct 23.1 L 22.3 L (39.0-53.0) % RDW 15.6 H 16.1 H (11.5-15.5) % Plt Count 81 L 94 L (150-450) k/uL ABG pCO2 (35-45) mmHg ABG pO2 (83-108) mmHg ABG O2 Saturation (94-97) % Chloride (98-107) mmol/L Carbon Dioxide (22-30) mmol/L BUN (9-20) mg/dL Glucose (74-99) mg/dL POC Glucose (mg/dL) 152 H (75-99) mg/dL Calcium (8.4-10.2) mg/dL AST (17-59) U/L ALT (4-49) U/L 05/02/20 05/02/20 05/02/20 Range/Units 03:45 05:12 07:45 RBC (4.30-5.90) m/uL Hgb (13.0-17.5) gm/dL Hct (39.0-53.0) % RDW (11.5-15.5) % Plt Count (150-450) k/uL ABG pCO2 34 L (35-45) mmHg ABG pO2 137 H (83-108) mmHg ABG O2 Saturation 99.9 H (94-97) % Chloride 118 H (98-107) mmol/L Carbon Dioxide 21 L (22-30) mmol/L BUN 29 H (9-20) mg/dL Glucose 102 H (74-99) mg/dL POC Glucose (mg/dL) (75-99) mg/dL Calcium 6.7 L 6.6 L (8.4-10.2) mg/dL AST 4002 H (17-59) U/L ALT 1837 H (4-49) U/L Assessment and Plan (1) Hematemesis Narrative/Plan: 54-year-old male with a medical history significant for hypertension and alcohol abuse presenting for hematemesis as a transfer from outside hospital. Hemoglobin found to be 8.6 at outside facility the patient was transfused 1 unit of packed red blood cells and was found to have a hemoglobin of 8 on presentation. The patient continued to have hematemesis with associated hypotension and tachycardia. Patient underwent an upper endoscopy revealed distal esophageal tear with active bleeding/Kristi Estrada tear, treated with epinephrine injection and Endo Clip placement 3. LA grade D esophagitis. Patient is now status post transfused of 3 units of packed red blood cells. He has not had any further episodes of bleeding. Current Visit: Yes Status: Acute Code(s): K92.0 - HEMATEMESIS SNOMED Code (s): 8423305 (2) Alcohol intoxication Current Visit: Yes Status: Acute Code(s): F10.929 - ALCOHOL USE, UNSPECIFIED WITH INTOXICATION, UNSPECIFIED SNOMED Code(s): 98533864 (3) Melena Current Visit: Yes Status: Acute Code(s): K92.1 - MELENA SNOMED Code(s): 6796837 (4) Kristi-Estrada tear Current Visit: Yes Status: Acute Code(s): K22.6 - GASTRO-ESOPHAGEAL LACERATION-HEMORRHAGE SYNDROME SNOMED Code(s): 331916401 (5) Elevated transaminase level Narrative/Plan: Likely multifactorial and secondary to ischemic hepatitis, and acute on chronic alcoholic liver disease. Current Visit: Yes Status: Acute Code(s): R74.01 - ELEVATION OF LEVELS OF LIVER TRANSAMINASE LEVELS SNOMED Code(s): 015857654 Plan: Supportive care Continue to monitor hemoglobin and hematocrit and transfuse as needed Continue to monitor for signs or symptoms of GI bleeding Continue IV Protonix therapy twice daily Ultrasound of the abdomen reviewed and consistent with diffuse hepatocellular disease, acute viral hepatitis panel negative Continue acute care and management as per recommendations by the ICU team Thank you for allowing us to participate in the care of the patient
[2020-05-02 17:45] LABS: ABG Base Excess -0.7 mmol/L; ABG HCO3 23 mmol/L (21-25); ABG Oxygen Saturation 97.6 % (94-97); ABG PCO2 34 mmHg (35-45); ABG PH 7.45 (7.35-7.45); ABG PO2 78 mmHg (83-108); ABG TCO2 24 mmol/L (19-24); Allen Test Performed? Yes
[2020-05-02] MEDS ORDERED: LORazepam 2 MG/ML INJ IV PRN ×2 (19:42)
--- NOTE | 2020-05-02 21:52 | P.PN ---
Subjective Progress Note Date: 05/02/20 (formerly [facility] charting seen at 1330) Principal diagnosis: GI bleed Patient is a 54-year-old male with a history of alcohol abuse, hypertension, and tobacco abuse who was sent to the emergency department from [facility] secondary to GI bleed. Patient seen and examined at bedside. He remains sedated and on the ventilator. Nursing present no acute events. Into needs to be very agitated with no purposeful movements. General: Ill appearing, no distress, appears at stated age Derm: warm, dry Head: atraumatic, normocephalic, symmetric Eyes: EOMI, no lid lag, anicteric sclera Mouth: no lip lesion, [mucus membranes dry Cardiovascular: S1S2 reg, no murmur, positive posterior tibial pulse bilateral, Lungs: Coarse breath sounds bilateral, no rhonchi, no rales , no accessory muscle use Abdominal: soft, nontender to palpation, no guarding, no appreciable organomegaly Ext: no gross muscle atrophy, trace edema, no contractures Neuro: Breathing over the ventilator, biting on tube, no tremors noted Psych: Sedated Upper GI bleed secondary to Kristi-Estrada tear, acute blood loss anemia -Off octreotide -Continue Protonix -Serial CBCs -Transfuse for hemoglobin less than 7 -GI recommendations appreciated Transaminitis -Likely secondary to alcoholic hepatitis and ischemic hepatitis -GI recommendations -Hepatitis profile negative -Liver ultrasound consistent with heterogeneous liver differential includes hepatitis or cirrhosis Alcohol abuse with impending withdrawals -Continue with Precedex has been weaned off propofol -Once off of Precedex will need CIWA protocol reinitiated due to impending withdrawal -Continue with thiamine supplementation Elevated troponin not consistent with acute coronary syndrome -Likely stress-induced secondary severe GI bleed -Downtrending -Once extubated recommend echocardiogram Hypocalcemia -Pseudo-secondary to hypoalbuminemia Elevated lactic acid, resolved DVT prophylaxis: SCDs Discussed with: patient, nursing Anticipated discharge: 4-[address]: home vs prison A total of 35 minutes was spent on the care of this complex patient more than 50% of the time was spent in counseling and care coordination. Objective - Vital Signs Vital signs: Vital Signs Temp 98.2 F 05/02/20 16:00 Pulse 98 05/02/20 19:00 Resp 26 H 05/02/20 19:00 BP 128/96 05/02/20 19:00 Pulse Ox 91 L 05/02/20 19:00 Intake & Output 05/02/20 05/02/20 05/03/20 06:59 18:59 06:59 Intake Total 2260.034 1922.931 130 Output Total 1055 700 250 Balance 1945.607 5234.931 -120 Weight 102.1 kg Intake: IV 1690 1430 130 Sodium Chloride 0.9% 1, 1690 1430 130 000 ml @ 130 mls/hr IV . Q7H42M [facility] Rx#:[id number] Intake, IV Titration 570.034 492.931 Amount Dexmedetomidine/0.9% NaCl 141.069 (Pmx) 400 mcg In Empty Bag 1 bag @ Titrate IV . Q0M [facility] Rx#:[id number] Norepinephrine 4 mg In 207.639 Sodium Chloride 0.9% 250 ml @ 0.05 MCG/KG/MIN 18. 578 mls/hr IV .[id number] [facility] Rx#:[id number] Potassium Chloride 10 meq 200 In Water For Injection 1 100ml.bag @ 100 mls/hr IVPB Q1H [facility] Rx#: [id number] Thiamine 100 mg In Sodium 50 Chloride 0.9% 50 ml @ 100 mls/hr IVPB Q12HR [facility] Rx#:[id number] propofoL 1,000 mg In 362.395 101.862 Empty Bag 1 bag @ Titrate IV .Q0M [facility] Rx#: [id number] Output: Urine 1055 700 250 Other: Voiding Method Indwelling Catheter Indwelling Catheter - Labs CBC & Chem 7: 05/02/20 03:45 05/02/20 03:45 Labs: Abnormal Lab Results - Last 24 Hours (Table) 05/02/20 05/02/20 05/02/20 Range/Units 03:45 03:45 05:12 RBC 2.46 L (4.30-5.90) m/uL Hgb 7.6 L (13.0-17.5) gm/dL Hct 22.3 L (39.0-53.0) % RDW 16.1 H (11.5-15.5) % Plt Count 94 L (150-450) k/uL ABG pCO2 34 L (35-45) mmHg ABG pO2 137 H (83-108) mmHg ABG O2 Saturation 99.9 H (94-97) % Chloride 118 H (98-107) mmol/L Carbon Dioxide 21 L (22-30) mmol/L BUN 29 H (9-20) mg/dL Glucose 102 H (74-99) mg/dL Calcium 6.7 L (8.4-10.2) mg/dL AST (17-59) U/L ALT (4-49) U/L Creatine Kinase (55-170) U/L 05/02/20 05/02/20 05/02/20 Range/Units 07:45 07:45 17:43 RBC (4.30-5.90) m/uL Hgb (13.0-17.5) gm/dL Hct (39.0-53.0) % RDW (11.5-15.5) % Plt Count (150-450) k/uL ABG pCO2 34 L (35-45) mmHg ABG pO2 78 L (83-108) mmHg ABG O2 Saturation 97.6 H (94-97) % Chloride (98-107) mmol/L Carbon Dioxide (22-30) mmol/L BUN (9-20) mg/dL Glucose (74-99) mg/dL Calcium 6.6 L (8.4-10.2) mg/dL AST 4002 H (17-59) U/L ALT 1837 H (4-49) U/L Creatine Kinase 208 H (55-170) U/L
[2020-05-03] MEDS: SODIUM CHLORIDE 0.9% 1,000 ML IV SCH ×3 (04:36→23:57)
[2020-05-03] MEDS: LORazepam 2 MG/ML INJ IV PRN ×2 (04:51→08:45)
[2020-05-03 05:27] LABS: Anisocytosis Slight; HCT 21.9 % (39.0-53.0); HGB 7.5 gm/dL (13.0-17.5); MCH 31.4 pg (25.0-35.0); MCHC 34.4 g/dL (31.0-37.0); MCV 91.4 fL (80.0-100.0); Mean Platelet Volume 7.6; Platelet Count 134 k/uL (150-450); RDW 17.6 % (11.5-15.5); WBC 6.5 k/uL (3.8-10.6)
[2020-05-03 06:00] LABS: African American GFR (CKD) >90 (>60 ml/min/1.73 sqM); Anion Gap 2 mmol/L; Blood Urea Nitrogen 16 mg/dL (9-20); Calcium 6.9 mg/dL (8.4-10.2); Carbon Dioxide 24 mmol/L (22-30); Chloride 115 mmol/L (98-107); Glucose 79 mg/dL (74-99); Non-African American GFR(CKD) >90 (>60 ml/min/1.73 sqM); Potassium 3.5 mmol/L (3.5-5.1); Sodium 141 mmol/L (137-145)
--- NOTE | 2020-05-03 07:08 | XR ---
EXAMINATION TYPE: XR chest 1V portable DATE OF EXAM: 05/03/2020 HISTORY: Shortness of breath. COMPARISON: 05/02/2020 TECHNIQUE: Single view of the chest is submitted. FINDINGS: Endotracheal and NG tubes have been removed. Improved aeration left lower lobe with mild left perihil ar residual infiltrate. The heart is stable. Hilar and mediastinal structures are within normal limits. Degenerative changes are seen of the dorsal spine. IMPRESSION: 1. Improved aeration left lower lobe with mild left perihilar residual infiltrate.
[2020-05-03] MEDS: PIPERACILLIN-TAZOBACTAM 3.375 GM in SODIUM CHLORIDE 0.9% 100 ML IVPB SCH ×2 (09:59→18:18)
[2020-05-03] MEDS: THIAMINE 100 MG in SODIUM CHLORIDE 0.9% 50 ML IVPB SCH ×2 (10:02→21:00)
[2020-05-03] MEDS: PANTOPRAZOLE 40 MG/10 ML VIAL IVP SCH ×2 (10:02→21:00)
[2020-05-03] MEDS ORDERED: DILTIAZEM 5 MG/ML 5 ML VIAL IVP STA (12:40)
[2020-05-03 13:21] LABS: Anisocytosis Slight; HCT 22.3 % (39.0-53.0); HGB 7.8 gm/dL (13.0-17.5); MCH 32.1 pg (25.0-35.0); MCV 91.8 fL (80.0-100.0); Mean Platelet Volume 7.3; Platelet Count 136 k/uL (150-450); RBC 2.43 m/uL (4.30-5.90); RDW 17.3 % (11.5-15.5); WBC 6.4 k/uL (3.8-10.6)
--- NOTE | 2020-05-03 13:29 | P.PN ---
Subjective Progress Note Date: 05/03/20 Principal diagnosis: Kristi-Estrada tear, esophagitis, GI bleed, anemia of acute blood loss, ischemic hepatitis Patient is seen lying in bed in has been extubated. Hemoglobin has remained stable with no further signs or symptoms of GI bleeding. He is asking for liquids.. Objective - Vital Signs Vital signs: Vital Signs Temp 97.3 F L 05/03/20 05:00 Pulse 87 05/03/20 05:00 Resp 20 05/03/20 05:00 BP 138/87 05/03/20 05:00 Pulse Ox 95 05/03/20 05:00 Intake & Output 05/02/20 05/03/20 05/03/20 18:59 06:59 18:59 Intake Total 4615.276 7178.96 Output Total 700 1280 Balance 1222.931 212.96 Intake: IV 1430 1480 Sodium Chloride 0.9% 1, 1430 1430 000 ml @ 130 mls/hr IV . Q7H42M [facility] Rx#:[id number] Thiamine 100 mg In Sodium 50 Chloride 0.9% 50 ml @ 100 mls/hr IVPB Q12HR [facility] Rx#:[id number] Intake, IV Titration 492.931 12.96 Amount Dexmedetomidine/0.9% NaCl 141.069 12.96 (Pmx) 400 mcg In Empty Bag 1 bag @ Titrate IV . Q0M [facility] Rx#:[id number] Potassium Chloride 10 meq 200 In Water For Injection 1 100ml.bag @ 100 mls/hr IVPB Q1H [facility] Rx#: [id number] Thiamine 100 mg In Sodium 50 Chloride 0.9% 50 ml @ 100 mls/hr IVPB Q12HR [facility] Rx#:[id number] propofoL 1,000 mg In 101.862 Empty Bag 1 bag @ Titrate IV .Q0M [facility] Rx#: [id number] Output: Urine 700 1280 Other: Voiding Method Indwelling Catheter Indwelling Catheter - Exam On physical examination, patient appears comfortable in no apparent distress. HEAD: Normocephalic, atraumatic. EYES: No scleral icterus. No conjunctival injection. MOUTH: No lesions, tongue midline. NECK: Trachea midline, no gross abnormalities. CHEST: Coarse respiratory noises at all lung sterling. ABDOMEN: Soft, obese. Bowel sounds are positive. No organomegaly. No guarding or rigidity. EXTREMITIES: No pedal edema. SKIN: No rashes, no jaundice. NEUROLOGIC: Lethargic but no focal deficits noted. - Labs CBC & Chem 7: 05/03/20 13:00 05/03/20 04:40 Labs: Abnormal Lab Results - Last 24 Hours (Table) 05/02/20 05/02/20 05/03/20 Range/Units 07:45 17:43 04:40 RBC 2.40 L (4.30-5.90) m/uL Hgb 7.5 L (13.0-17.5) gm/dL Hct 21.9 L (39.0-53.0) % RDW 17.6 H (11.5-15.5) % Plt Count 134 L (150-450) k/uL ABG pCO2 34 L (35-45) mmHg ABG pO2 78 L (83-108) mmHg ABG O2 Saturation 97.6 H (94-97) % Chloride (98-107) mmol/L Calcium (8.4-10.2) mg/dL Creatine Kinase 208 H (55-170) U/L 05/03/20 Range/Units 04:40 RBC (4.30-5.90) m/uL Hgb (13.0-17.5) gm/dL Hct (39.0-53.0) % RDW (11.5-15.5) % Plt Count (150-450) k/uL ABG pCO2 (35-45) mmHg ABG pO2 (83-108) mmHg ABG O2 Saturation (94-97) % Chloride 115 H (98-107) mmol/L Calcium 6.9 L (8.4-10.2) mg/dL Creatine Kinase (55-170) U/L Assessment and Plan (1) Hematemesis Narrative/Plan: 54-year-old male with a medical history significant for hypertension and alcohol abuse presenting for hematemesis as a transfer from outside hospital. Hemoglobin found to be 8.6 at outside facility the patient was transfused 1 unit of packed red blood cells and was found to have a hemoglobin of 8 on presentation. The patient continued to have hematemesis with associated hypotension and tachycardia. Patient underwent an upper endoscopy revealed distal esophageal tear with active bleeding/Kristi Estrada tear, treated with epinephrine injection and Endo Clip placement 3. LA grade D esophagitis. Patient is now status post transfused of 3 units of packed red blood cells. He has not had any further episodes of bleeding, and was extubated. Current Visit: Yes Status: Acute Code(s): K92.0 - HEMATEMESIS SNOMED Code(s): 3840621 (2) Alcohol intoxication Current Visit: Yes Status: Acute Code(s): F10.929 - ALCOHOL USE, UNSPECIFIED WITH INTOXICATION, UNSPECIFIED SNOMED Code(s): 67282070 (3) Melena Current Visit: Yes Status: Acute Code(s): K92.1 - MELENA SNOMED Code(s): 8532912 (4) Kristi-Estrada tear Current Visit: Yes Status: Acute Code(s): K22.6 - GASTRO-ESOPHAGEAL LACERATION-HEMORRHAGE SYNDROME SNOMED Code(s): 787100569 (5) Elevated transaminase level Narrative/Plan: Likely multifactorial and secondary to ischemic hepatitis, and acute on chronic alcoholic liver disease. Current Visit: Yes Status: Acute Code(s): R74.01 - ELEVATION OF LEVELS OF LIVER TRANSAMINASE LEVELS SNOMED Code(s): 540339261 Plan: Supportive care Continue to monitor hemoglobin and hematocrit and transfuse as needed Continue to monitor for signs or symptoms of GI bleeding Continue IV Protonix therapy twice daily Ultrasound of the abdomen reviewed and consistent with diffuse hepatocellular disease, acute viral hepatitis panel negative Continue acute care and management as per recommendations by the ICU team Joey for rashid Thank you for allowing us to participate in the care of the patient
[2020-05-03] MEDS: NOREPINEPHRINE 4 MG in SODIUM CHLORIDE 0.9% 250 ML IV SCH ×2 (13:31→23:57)
[2020-05-03 13:43] LABS: African American GFR (CKD) >90 (>60 ml/min/1.73 sqM); Albumin 2.4 g/dL (3.5-5.0); Alkaline Phosphatase 61 U/L (38-126); Anion Gap 6 mmol/L; Blood Urea Nitrogen 13 mg/dL (9-20); Carbon Dioxide 23 mmol/L (22-30); Chloride 115 mmol/L (98-107); Glucose 79 mg/dL (74-99); Magnesium 1.9 mg/dL (1.6-2.3); Non-African American GFR(CKD) >90 (>60 ml/min/1.73 sqM); Phosphorus 2.3 mg/dL (2.5-4.5); Potassium 3.1 mmol/L (3.5-5.1); Sodium 144 mmol/L (137-145); Total Protein 4.9 g/dL (6.3-8.2)
[2020-05-03 14:05] LABS: ALT 1182 U/L (4-49); AST 1211 U/L (17-59)
--- NOTE | 2020-05-03 14:25 | P.PN ---
Subjective Progress Note Date: 05/03/20 Principal diagnosis: Acute upper GI bleeding secondary to Kristi-Estrada tear, acute alcohol withdrawal This is a 54-year-old white male with history of hypertension, history of alc ohol abuse, patient was transferred from an outside hospital I believe [facility] due to an acute episode of GI bleeding. Patient was originally seen at that hospital complaining of hematemesis and he was found to have a hemoglobin of 16. Patient was discharged home, however he went back to the hospital complaining of persistent nausea and vomiting blood. Repeat hemoglobin was noted to be 8.6. At the same token, the patient was found to be acutely intoxicated with significantly elevated alcohol level. Patient was transferred to our ER, and I was notified by the ER physician about this patient, I recommended immediate GI consultation, patient underwent EGD by gastroenterology, however he had to be intubated prior to the procedure as he was extremely restless agitated, and he was hypotensive. EGD revealed distal esophageal tear with active bleeding/Kristi-Estrada, treated with epinephrine injection and Endo Clip placement 3. There was evidence of esophagitis, but no evidence of esophageal very sees. Patient remained extremely agitated, hence he was transferred to the ICU and he was kept on mechanical ventilation. He is now on mechanical ventilation with the following ventilator settings. He is on assist control rate of 14 tidal volume is 500 FiO2 is 40% PEEP is 5. ABG earlier today showed a pO2 of 96 pCO2 of 27 pH of 7.37. His tidal volume was decreased down to 450 increased his rate to 22 given 1 amp of bicarb, patient was placed on Ativan when necessary, and he was also given 2 L of fluid boluses as he was hypotensive requiring norepinephrine. Patient received a total of 3 units of packed RBCs since admission, he had 5 maroon stools overnight. Hemoglo bin this morning is 9.7. Presently the patient is norepinephrine at 60 mcg/kg/m he is on norepinephrine at 10 mcg/per minute. And he is also on Sandostatin at 50 g. per hour. Patient was reevaluated today on 05/02/20, remains in the ICU, intubated and mechanically ventilated. Patient remains on assist control rate of 22 tidal volume is 450 FiO2 is 40% and PEEP of 5. ABG showed a pO2 of 137 pCO2 of 34 pH of 7.43. Patient remains on propofol at 75 mcg/kg/m, and I will switch his propofol to Precedex, planning to wean and hopefully extubate the patient today if possible. Apparently the patient is requiring intermittently Ativan in addition to the propofol because of extreme agitation while on mechanical ventilation in spite of relatively high dose of propofol. Patient is known to have history of alcoholism, and that is basically an indication that the patient is having alcohol withdrawal symptoms. Patient received a total of 3 units of packed RBCs since admission, and his hemoglobin today is 7.6. No evidence of GI bleeding. Patient is not requiring any pressors and not requiring any more blood since yesterday. All labs were reviewed and his FiO2 was decreased down to 35%. Chest x-ray was also reviewed, has bibasilar opacities, could be atelectasis could also be related to aspiration of blood upon presentation. Favor atelectasis Patient was reevaluated today on 05/03/20, remains in the ICU, he was extubated yesterday, and so far tolerated the extubation quite well except the patient is restless, agitated, confused, remains on Precedex. Patient was also placed on Zosyn yesterday empirically for presumptive aspiration. He is now on 5 L nasal cannula with O2 saturation 95%. Hemoglobin remained stable since his EGD, today's hemoglobin is 7.8, it was 7.6 yesterday. Patient received a total of 3 units of packed RBCs since admission. Patient is Now in the ICU mostly because his requiring Precedex, and remains on the CIWA protocol. Will likely transition to Ativan, and we'll continue to monitor his daily CBC Objective - Vital Signs Vital signs: Vital Signs Temp 97.3 F L 05/03/20 05:00 Pulse 87 05/03/20 05:00 Resp 20 05/03/20 05:00 BP 138/87 05/03/20 05:00 Pulse Ox 95 05/03/20 05:00 Intake & Output 05/02/20 05/03/20 05/03/20 18:59 06:59 18:59 Intake Total 7885.549 8721.96 Output Total 700 1280 Balance 1222.931 212.96 Intake: IV 1430 1480 Sodium Chloride 0.9% 1, 1430 1430 000 ml @ 130 mls/hr IV . Q7H42M [facility] Rx#:[id number] Thiamine 100 mg In Sodium 50 Chloride 0.9% 50 ml @ 100 mls/hr IVPB Q12HR [facility] Rx#:[id number] Intake, IV Titration 492.931 12.96 Amount Dexmedetomidine/0.9% NaCl 141.069 12.96 (Pmx) 400 mcg In Empty Bag 1 bag @ Titrate IV . Q0M [facility] Rx#:[id number] Potassium Chloride 10 meq 200 In Water For Injection 1 100ml.bag @ 100 mls/hr IVPB Q1H [facility] Rx#: [id number] Thiamine 100 mg In Sodium 50 Chloride 0.9% 50 ml @ 100 mls/hr IVPB Q12HR [facility] Rx#:[id number] propofoL 1,000 mg In 101.862 Empty Bag 1 bag @ Titrate IV .Q0M [facility] Rx#: [id number] Output: Urine 700 1280 Other: Voiding Method Indwelling Catheter Indwelling Catheter - Exam Physical Exam: 54-year-old, agitated, restless, on nasal cannula. Confused. Head: Atraumatic, normocephalic. HEENT: PERRLA, EOMI, neck times. [Neck is supple.] [No neck masses.] [No thyromegaly.] [No JVD.] Chest: [Symmetrical chest expansion, crackles at the bases, no rhonchi no wheezes. Cardiac Exam: [Normal S1 and S2, no S3 gallop, no murmur.] Abdomen: [Soft, nontender, no megaly, no rebound, no guarding, normal bowel sounds.] Extremities: [No clubbing, no edema, no cyanosis.] No jaundice. Neurological Exam: Restless agitated, cannot focus, cannot fully assess mental status. Psychiatric: Blunted affect, and questionable mental status, confused. And agitated. Skin: No rashes - Labs CBC & Chem 7: 05/03/20 13:00 05/03/20 13:00 Labs: Abnormal Lab Results - Last 24 Hours (Table) 05/02/20 05/03/20 05/03/20 Range/Units 17:43 04:40 04:40 RBC 2.40 L (4.30-5.90) m/uL Hgb 7.5 L (13.0-17.5) gm/dL Hct 21.9 L (39.0-53.0) % RDW 17.6 H (11.5-15.5) % Plt Count 134 L (150-450) k/uL ABG pCO2 34 L (35-45) mmHg ABG pO2 78 L (83-108) mmHg ABG O2 Saturation 97.6 H (94-97) % Potassium (3.5-5.1) mmol/L Chloride 115 H (98-107) mmol/L Calcium 6.9 L (8.4-10.2) mg/dL Phosphorus (2.5-4.5) mg/dL Total Bilirubin (0.2-1.3) mg/dL AST (17-59) U/L ALT (4-49) U/L Total Protein (6.3-8.2) g/dL Albumin (3.5-5.0) g/dL 05/03/20 05/03/20 Range/Units 13:00 13:00 RBC 2.43 L (4.30-5.90) m/uL Hgb 7.8 L (13.0-17.5) gm/dL Hct 22.3 L (39.0-53.0) % RDW 17.3 H (11.5-15.5) % Plt Count 136 L (150-450) k/uL ABG pCO2 (35-45) mmHg ABG pO2 (83-108) mmHg ABG O2 Saturation (94-97) % Potassium 3.1 L (3.5-5.1) mmol/L Chloride 115 H (98-107) mmol/L Calcium 7.0 L (8.4-10.2) mg/dL Phosphorus 2.3 L (2.5-4.5) mg/dL Total Bilirubin 2.0 H (0.2-1.3) mg/dL AST 1211 H (17-59) U/L ALT 1182 H (4-49) U/L Total Protein 4.9 L (6.3-8.2) g/dL Albumin 2.4 L (3.5-5.0) g/dL Assessment and Plan Assessment: Impression: Acute upper GI bleeding secondary to esophageal tear, Kristi-Estrada tear, patient is status post EGD, epinephrine injections, and Endo Clip pink. Acute alcohol intoxication. Melena secondary to above. History of alcohol abuse, with acute alcohol withdrawal. Syndrome Acute hemorrhagic shock on presentation requiring 3 units of packed RBCs, responded well to blood transfusion. Patient did not have septic shock, and did not have cardiogenic shock. Status post intubation, mechanical ventilation, extubated on 05/02/20, patient was intubated for potential impending hypoxic respiratory failure. And he required EGD, could not be done safely without intubating the patient. Recommendation: Continue Precedex and try to transition to Ativan. Continue Protonix Alcohol withdrawal protocol./CIWA protocol. We'll continue to follow while the patient is in the ICU. Time with Patient: Less than 30
[2020-05-03 16:06] LABS: Glucose,Whole Blood 88 mg/dL (75-99)
--- NOTE | 2020-05-03 18:46 | P.PN ---
Subjective Progress Note Date: 05/03/20 (delayed charting seen at 0800) Principal diagnosis: GI bleed Patient is a 54-year-old male with a history of alcohol abuse, hypertension, and tobacco abuse who was sent to the emergency department from [facility] secondary to GI bleed. He underwent EGD and was founf ot have a Kristi-clementina tear. During the procedure he required intubation during the procedure and was successfully extubated on the evening of 05/02. He received 3 units of pRBC. Patient seen and examined at bedside. He remains lethargic and is on precedex. He does follow commands and speaks in sentences. He then falls back asleep and is having apnic episode. I asked for his Precedex to be discontinued. General: Ill appearing, no distress, appears at stated age Derm: warm, dry Head: atraumatic, normocephalic, symmetric Eyes: EOMI, no lid lag, anicteric sclera Mouth: no lip lesion, [mucus membranes dry Cardiovascular: S1S2 reg, no murmur, positive posterior tibial pulse bilateral, Lungs: Coarse breath sounds bilateral, no rhonchi, no rales , no accessory muscle use Abdominal: soft, nontender to palpation, no guarding, no appreciable organomegaly Ext: no gross muscle atrophy, trace edema, no contractures Neuro: CN II-XII grossly intact, moving all 4 extremities Psych: lethargic, awakes and no names. Upper GI bleed secondary to Kristi-Estrada tear, acute blood loss anemia -Off octreotide -Continue Protonix -Serial CBCs -Transfuse for hemoglobin less than 7 -GI recommendations appreciated A fib with RVR - Cardizme 10 mg IVP given times 1 and patient converted to sinus rhythm, continue to monitor on tele Transaminitis, improving -Likely secondary to alcoholic hepatitis and ischemic hepatitis -GI recommendations -Hepatitis profile negative -Liver ultrasound consistent with heterogeneous liver differential includes hepatitis or cirrhosis Alcohol abuse with impending withdrawals -stop Precedex has been weaned off propofol -CIWA protocol -Continue with thiamine supplementation Elevated troponin not consistent with acute coronary syndrome -Likely stress-induced secondary severe GI bleed -Downtrending -Once extubated recommend echocardiogram Hypocalcemia -Pseudo-secondary to hypoalbuminemia Elevated lactic acid, resolved DVT prophylaxis: SCDs Discussed with: patient, nursing Anticipated discharge: 4-[address]: home vs usp A total of 35 minutes was spent on the care of this complex patient more than 50% of the time was spent in counseling and care coordination. Objective - Vital Signs Vital signs: Vital Signs Temp 100.2 F H 05/03/20 16:00 Pulse 96 05/03/20 17:00 Resp 14 05/03/20 17:00 BP 140/79 05/03/20 17:00 Pulse Ox 96 05/03/20 17:00 Intake & Output 05/02/20 05/03/20 05/03/20 18:59 06:59 18:59 Intake Total 0957.436 7928.96 1710 Output Total 700 1380 1250 Balance 1222.931 242.96 460 Weight 101.9 kg Intake: IV 1430 1610 1710 Piperacillin-Tazobactam 3 100 .375 gm In Sodium Chloride 0.9% 100 ml @ 25 mls/hr IVPB Q8HR [facility] Rx# :[id number] Sodium Chloride 0.9% 1, 1430 1560 1560 000 ml @ 130 mls/hr IV . Q7H42M [facility] Rx#:[id number] Thiamine 100 mg In Sodium 50 50 Chloride 0.9% 50 ml @ 100 mls/hr IVPB Q12HR [facility] Rx#:[id number] Intake, IV Titration 492.931 12.96 Amount Dexmedetomidine/0.9% NaCl 141.069 12.96 (Pmx) 400 mcg In Empty Bag 1 bag @ Titrate IV . Q0M [facility] Rx#:[id number] Potassium Chloride 10 meq 200 In Water For Injection 1 100ml.bag @ 100 mls/hr IVPB Q1H [facility] Rx#: [id number] Thiamine 100 mg In Sodium 50 Chloride 0.9% 50 ml @ 100 mls/hr IVPB Q12HR [facility] Rx#:[id number] propofoL 1,000 mg In 101.862 Empty Bag 1 bag @ Titrate IV .Q0M [facility] Rx#: [id number] Output: Urine 700 1380 1250 Other: Voiding Method Indwelling Catheter Indwelling Catheter Indwelling Catheter - Labs CBC & Chem 7: 05/03/20 13:00 05/03/20 13:00 Labs: Abnormal Lab Results - Last 24 Hours (Table) 05/03/20 05/03/20 05/03/20 Range/Units 04:40 04:40 13:00 RBC 2.40 L 2.43 L (4.30-5.90) m/uL Hgb 7.5 L 7.8 L (13.0-17.5) gm/dL Hct 21.9 L 22.3 L (39.0-53.0) % RDW 17.6 H 17.3 H (11.5-15.5) % Plt Count 134 L 136 L (150-450) k/uL Potassium (3.5-5.1) mmol/L Chloride 115 H (98-107) mmol/L Calcium 6.9 L (8.4-10.2) mg/dL Phosphorus (2.5-4.5) mg/dL Total Bilirubin (0.2-1.3) mg/dL AST (17-59) U/L ALT (4-49) U/L Total Protein (6.3-8.2) g/dL Albumin (3.5-5.0) g/dL 05/03/20 Range/Units 13:00 RBC (4.30-5.90) m/uL Hgb (13.0-17.5) gm/dL Hct (39.0-53.0) % RDW (11.5-15.5) % Plt Count (150-450) k/uL Potassium 3.1 L (3.5-5.1) mmol/L Chloride 115 H (98-107) mmol/L Calcium 7.0 L (8.4-10.2) mg/dL Phosphorus 2.3 L (2.5-4.5) mg/dL Total Bilirubin 2.0 H (0.2-1.3) mg/dL AST 1211 H (17-59) U/L ALT 1182 H (4-49) U/L Total Protein 4.9 L (6.3-8.2) g/dL Albumin 2.4 L (3.5-5.0) g/dL
[2020-05-04] MEDS: PIPERACILLIN-TAZOBACTAM 3.375 GM in SODIUM CHLORIDE 0.9% 100 ML IVPB SCH ×3 (00:10→16:06)
[2020-05-04] MEDS: LORazepam 2 MG/ML INJ IV PRN ×3 (00:10→05:08)
[2020-05-04] MEDS: SODIUM CHLORIDE 0.9% 1,000 ML IV SCH ×3 (00:58→17:32)
[2020-05-04] MEDS ORDERED: chlorproMAZINE 25 MG TAB PO STA (01:50)
[2020-05-04] MEDS ORDERED: LABETALOL 200 MG TAB PO STA (01:50)
[2020-05-04 05:31] LABS: Anisocytosis Slight; Basophils % (A) 1 %; Eosinophils # (A) 0.1 k/uL (0-0.7); Eosinophils % (A) 2 %; HCT 20.5 % (39.0-53.0); HGB 7.2 gm/dL (13.0-17.5); Lymphocytes # (A) 0.9 k/uL (1.0-4.8); Lymphocytes % (A) 14 %; MCH 31.8 pg (25.0-35.0); MCHC 34.9 g/dL (31.0-37.0); MCV 91.1 fL (80.0-100.0); Mean Platelet Volume 7.4; Monocytes # (A) 0.7 k/uL (0-1.0); Monocytes % (A) 10 %; Neutrophils # (A) 4.7 k/uL (1.3-7.7); Neutrophils % (A) 70 %; Platelet Count 155 k/uL (150-450); RBC 2.25 m/uL (4.30-5.90); RDW 17.9 % (11.5-15.5); WBC 6.7 k/uL (3.8-10.6)
[2020-05-04 05:42] LABS: AST 511 U/L (17-59); African American GFR (CKD) >90 (>60 ml/min/1.73 sqM); Albumin 2.3 g/dL (3.5-5.0); Alkaline Phosphatase 62 U/L (38-126); Anion Gap 4 mmol/L; Bilirubin, Delta 0.9 mg/dL (0.0-0.2); Blood Urea Nitrogen 10 mg/dL (9-20); Calcium 6.8 mg/dL (8.4-10.2); Carbon Dioxide 27 mmol/L (22-30); Chloride 106 mmol/L (98-107); Glucose 113 mg/dL (74-99); Magnesium 1.7 mg/dL (1.6-2.3); Non-African American GFR(CKD) >90 (>60 ml/min/1.73 sqM); Phosphorus 2.5 mg/dL (2.5-4.5); Sodium 137 mmol/L (137-145); Total Bilirubin 1.9 mg/dL (0.2-1.3); Total Protein 4.8 g/dL (6.3-8.2)
[2020-05-04 05:52] LABS: INR 0.9 (<1.2); Prothrombin Time 9.9 sec (9.0-12.0)
[2020-05-04 06:16] LABS: ALT 812 U/L (4-49); Potassium 2.7 mmol/L (3.5-5.1)
[2020-05-04] MEDS ORDERED: POTASSIUM CHLORIDE ER 20 MEQ TAB.ER PO SCH (08:00)
[2020-05-04] MEDS ORDERED: POTASSIUM BICARBONATE/CIT AC 20 MEQ TABLET.EFF PO ONE (08:30)
--- NOTE | 2020-05-04 08:36 | XR ---
EXAMINATION TYPE: XR chest 1V portable DATE OF EXAM: 05/04/2020 COMPARISON: 05/03/2020 INDICATION: Tube placement TECHNIQUE: Single frontal view of the chest is obtained. FINDINGS: The heart size is normal. The pulmonary vasculature is normal. Mild right lower lobe infiltrate is seen. Mild left lower lobe infiltrate is evident and slight impro vement. IMPRESSION: 1. Bibasilar infiltrates which are nonspecific. Continued follow-up is recommended
[2020-05-04] MEDS: PANTOPRAZOLE 40 MG/10 ML VIAL IVP SCH ×2 (08:57→20:43)
[2020-05-04] MEDS: POTASSIUM CHLORIDE 10 MEQ in WATER FOR INJECTION 1 100ML.BAG IVPB SCH ×4 (08:57→17:32)
[2020-05-04] MEDS: THIAMINE 100 MG in SODIUM CHLORIDE 0.9% 50 ML IVPB SCH ×2 (09:37→20:43)
[2020-05-04] MEDS: NOREPINEPHRINE 4 MG in SODIUM CHLORIDE 0.9% 250 ML IV SCH (10:51)
[2020-05-04] MEDS: THIAMINE 100 MG TAB PO SCH (11:52)
--- NOTE | 2020-05-04 14:33 | P.PN ---
Subjective Progress Note Date: 05/04/20 Principal diagnosis: Acute upper GI bleeding secondary to Kristi-Estrada tear, acute alcohol withdrawal This is a 54-year-old white male with history of hypertension, history of al cohol abuse, patient was transferred from an outside hospital I believe [facility] due to an acute episode of GI bleeding. Patient was originally seen at that hospital complaining of hematemesis and he was found to have a hemoglobin of 16. Patient was discharged home, however he went back to the hospital complaining of persistent nausea and vomiting blood. Repeat hemoglobin was noted to be 8.6. At the same token, the patient was found to be acutely intoxicated with significantly elevated alcohol level. Patient was transferred to our ER, and I was notified by the ER physician about this patient, I recommended immediate GI consultation, patient underwent EGD by gastroenterology, however he had to be intubated prior to the procedure as he was extremely restless agitated, and he was hypotensive. EGD revealed distal esophageal tear with active bleeding/Kristi-Estrada, treated with epinephrine injection and Endo Clip placement 3. There was evidence of esophagitis, but no evidence of esophageal very sees. Patient remained extremely agitated, hence he was transferred to the ICU and he was kept on mechanical ventilation. He is now on mechanical ventilation with the following ventilator settings. He is on assist control rate of 14 tidal volume is 500 FiO2 is 40% PEEP is 5. ABG earlier today showed a pO2 of 96 pCO2 of 27 pH of 7.37. His tidal volume was decreased down to 450 increased his rate to 22 given 1 amp of bicarb, patient was placed on Ativan when necessary, and he was also given 2 L of fluid boluses as he was hypotensive requiring norepinephrine. Patient received a total of 3 units of packed RBCs since admission, he had 5 maroon stools overnight. Hemogl obin this morning is 9.7. Presently the patient is norepinephrine at 60 mcg/kg/m he is on norepinephrine at 10 mcg/per minute. And he is also on Sandostatin at 50 g. per hour. Patient was reevaluated today on 05/02/20, remains in the ICU, intubated and mechanically ventilated. Patient remains on assist control rate of 22 tidal volume is 450 FiO2 is 40% and PEEP of 5. ABG showed a pO2 of 137 pCO2 of 34 pH of 7.43. Patient remains on propofol at 75 mcg/kg/m, and I will switch his propofol to Precedex, planning to wean and hopefully extubate the patient today if possible. Apparently the patient is requiring intermittently Ativan in addition to the propofol because of extreme agitation while on mechanical ventilation in spite of relatively high dose of propofol. Patient is known to have history of alcoholism, and that is basically an indication that the patient is having alcohol withdrawal symptoms. Patient received a total of 3 units of packed RBCs since admission, and his hemoglobin today is 7.6. No evidence of GI bleeding. Patient is not requiring any pressors and not requiring any more blood since yesterday. All labs were reviewed and his FiO2 was decreased down to 35%. Chest x-ray was also reviewed, has bibasilar opacities, could be atelectasis could also be related to aspiration of blood upon presentation. Favor atelectasis Patient was reevaluated today on 05/03/20, remains in the ICU, he was extubated yesterday, and so far tolerated the extubation quite well except the patient is restless, agitated, confused, remains on Precedex. Patient was also placed on Zosyn yesterday empirically for presumptive aspiration. He is now on 5 L nasal cannula with O2 saturation 95%. Hemoglobin remained stable since his EGD, today's hemoglobin is 7.8, it was 7.6 yesterday. Patient received a total of 3 units of packed RBCs since admission. Patient is Now in the ICU mostly because his requiring Precedex, and remains on the CIWA protocol. Will likely transition to Ativan, and we'll continue to monitor his daily CBC On 05/04/2020 patient seen in follow-up in the intensive care unit. He remains extubated, tolerating extubation quite well so far, he is on 3 L of oxygen this morning, his pulse ox is 96-100%, continues to have a low-grade fevers, with a T-max of 100.8F. He had only one small dark BM last night, his hemoglobin is stable, 7.2 this morning, potassium is 2.7, AST is trending down, down to 5, and ALT is down to 812, no nausea vomiting or diarrhea, no abdominal pain. Patient is lethargic, he received a couple doses of Ativan last night, CIWA scale overall has improved from 18 down to 4 today. Potassium is being replaced per protocol, he remains on Zosyn for empiric antibiotic coverage, and IV fluids at 130 ML per hour, as had no acute events overnight. Chest x-ray showing bibasilar infiltrates that are nonspecific. Objective - Vital Signs Vital signs: Vital Signs Temp 100.1 F H 05/04/20 12:08 Pulse 84 05/04/20 12:08 Resp 20 05/04/20 12:08 BP 157/93 05/04/20 12:08 Pulse Ox 96 05/04/20 12:08 Intake & Output 05/03/20 05/04/20 05/04/20 18:59 06:59 18:59 Intake Total 1710 2180 640 Output Total 1250 1440 750 Balance 460 740 -110 Weight 99.2 kg Intake: IV 1710 1660 590 Piperacillin-Tazobactam 3 100 100 100 .375 gm In Sodium Chloride 0.9% 100 ml @ 25 mls/hr IVPB Q8HR [facility] Rx# :[id number] Potassium Chloride 10 meq 100 In Water For Injection 1 100ml.bag @ 100 mls/hr IVPB Q1HR [facility] Rx#: [id number] Sodium Chloride 0.9% 1, 1560 1560 390 000 ml @ 130 mls/hr IV . Q7H42M [facility] Rx#:[id number] Thiamine 100 mg In Sodium 50 Chloride 0.9% 50 ml @ 100 mls/hr IVPB Q12HR [facility] Rx#:[id number] Oral 520 50 Output: Urine 1250 1440 750 Other: Voiding Method Indwelling Catheter Indwelling Catheter Indwelling Catheter - Exam GENERAL EXAM: Drowsy, but arousable, 54 white male, 3 L of oxygen pulse ox 97% comfortable in no apparent distress. HEAD: Normocephalic/atraumatic. EYES: Normal reaction of pupils, equal size. Conjunctiva pink, sclera white. NOSE: Clear with pink turbinates. THROAT: No erythema or exudates. NECK: No masses, no JVD, no thyroid enlargement, no adenopathy. CHEST: No chest wall deformity. Symmetrical expansion. LUNGS: Equal air entry with no crackles, wheeze, rhonchi or dullness. CVS: Regular rate and rhythm, normal S1 and S2, no gallops, no murmurs, no rubs ABDOMEN: Soft, nontender. No hepatosplenomegaly, normal bowel sounds, no guarding or rigidity. EXTREMITIES: No clubbing, no edema, no cyanosis, 2+ pulses and upper and lower extremities. MUSCULOSKELETAL: Muscle strength and tone normal. SPINE: No scoliosis or deformity SKIN: No rashes CENTRAL NERVOUS SYSTEM: Drowsy but arousable, No focal deficits, tone is normal in all 4 extremities. - Labs CBC & Chem 7: 05/04/20 04:26 05/04/20 04:26 Labs: Abnormal Lab Results - Last 24 Hours (Table) 05/04/20 05/04/20 Range/Units 04:26 04:26 RBC 2.25 L (4.30-5.90) m/uL Hgb 7.2 L (13.0-17.5) gm/dL Hct 20.5 L (39.0-53.0) % RDW 17.9 H (11.5-15.5) % Lymphocytes # 0.9 L (1.0-4.8) k/uL Potassium 2.7 L* (3.5-5.1) mmol/L Glucose 113 H (74-99) mg/dL Calcium 6.8 L (8.4-10.2) mg/dL Total Bilirubin 1.9 H (0.2-1.3) mg/dL Delta Bilirubin 0.9 H (0.0-0.2) mg/dL AST 511 H (17-59) U/L ALT 812 H (4-49) U/L Total Protein 4.8 L (6.3-8.2) g/dL Albumin 2.3 L (3.5-5.0) g/dL Assessment and Plan Plan: Assessment: #1. Acute upper GI bleeding secondary to esophageal tear, Kristi-Estrada tear, patient is status post EGD, epinephrine injections, and Endo Clip is meant #2. Acute alcoholic intoxication with symptoms of acute alcohol withdrawal #3. Melena secondary to the above #4. Acute hypoxic respiratory failure related to acute anemia, acute alcohol withdrawal symptom, hemodynamic instability, patient was excessively weaned and extubated on 05/02/2020 #5. Acute hemorrhagic shock related to acute GI bleeding requiring 3 units of packed red blood cells Plan: Patient is hemodynamically stable, hemoglobin stable, no worsening dyspnea, although patient is having low-grade fevers, he can aspiration precautions, continue empiric antibiotic coverage, continue CIWA protocol, patient transferred out of intensive care unit to general medical floor with the industrial safety engineer, keep head of the bed up, maintain aspiration precautions. We'll continue to follow I performed a history & physical examination of the patient and discussed their management with my nurse practitioner, Griselda Adams. I reviewed the nurse practitioner's note and agree with the documented findings and plan of care. Lung sounds are positive for diminished breath sounds at the bases The findings and the impression was discussed with the patient. I attest to the documentation by the nurse practitioner. Time with Patient: Less than 30
--- NOTE | 2020-05-04 15:16 | P.PN ---
Subjective Progress Note Date: 05/04/20 Principal diagnosis: GI bleed Patient is a 54-year-old male with a history of alcohol abuse, hypertension, and tobacco abuse who was sent to the emergency department from [facility] secondary to GI bleed. He underwent EGD and was found to have a Kristi-clementina tear. During the procedure he required intubation during the procedure and was successfully extubated on the evening of 05/02. He received 3 units of pRBC. He had decreased responsiveness on 05/03 and was take off precedex. He started to have fevers and was started on zosyn for possible aspiration. Patient seen and examined at bedside. He remains lethargic and is on precedex. He does follow commands and speaks in sentences. He then falls back asleep and is having apnic episode. I asked for his Precedex to be discontinued. General: Ill appearing, no distress, appears at stated age Derm: warm, dry Head: atraumatic, normocephalic, symmetric Eyes: EOMI, no lid lag, anicteric sclera Mouth: no lip lesion, [mucus membranes dry Cardiovascular: S1S2 reg, no murmur, positive posterior tibial pulse bilateral, Lungs: Coarse breath sounds bilateral, no rhonchi, no rales , no accessory muscle use Abdominal: soft, nontender to palpation, no guarding, no appreciable organomegaly Ext: no gross muscle atrophy, trace edema, no contractures Neuro: CN II-XII grossly intact, moving all 4 extremities Psych: lethargic but awakes to voice and answers questions appropriately. Upper GI bleed secondary to Kristi-Estrada tear, acute blood loss anemia -Continue Protonix -Serial CBCs -Transfuse for hemoglobin less than 7 -GI recommendations appreciated - s/p 3 units of pRBC Pneumonia - possible aspiration - Zosyn started on 05/03 - Await blood cultures - COVID antigen testing negative on admission - check procalcitonin Transaminitis, improving -Likely secondary to alcoholic hepatitis and ischemic hepatitis -GI recommendations -Hepatitis profile negative -Liver ultrasound consistent with heterogeneous liver differential includes hepatitis or cirrhosis Alcohol abuse with impending withdrawals -CIWA protocol -Continue with thiamine supplementation Elevated troponin not consistent with acute coronary syndrome -Likely stress-induced secondary severe GI bleed -Downtrending -Once extubated recommend echocardiogram Hypocalcemia -Pseudo-secondary to hypoalbuminemia Single episode of A fib with RVR, now in NSR - Cardizme 10 mg IVP given times 1 and patient converted to sinus rhythm, continue to monitor on tele Elevated lactic acid, resolved DVT prophylaxis: SCDs Discussed with: patient, nursing Anticipated discharge: 4-[address]: home A total of 35 minutes was spent on the care of this complex patient more than 50% of the time was spent in counseling and care coordination. Objective - Vital Signs Vital signs: Vital Signs Temp 100.1 F H 05/04/20 12:08 Pulse 84 05/04/20 12:08 Resp 20 05/04/20 12:08 BP 157/93 05/04/20 12:08 Pulse Ox 96 05/04/20 12:08 Intake & Output 05/03/20 05/04/20 05/04/20 18:59 06:59 18:59 Intake Total 1710 2180 640 Output Total 1250 1440 750 Balance 460 740 -110 Weight 99.2 kg Intake: IV 1710 1660 590 Piperacillin-Tazobactam 3 100 100 100 .375 gm In Sodium Chloride 0.9% 100 ml @ 25 mls/hr IVPB Q8HR [facility] Rx# :[id number] Potassium Chloride 10 meq 100 In Water For Injection 1 100ml.bag @ 100 mls/hr IVPB Q1HR [facility] Rx#: [id number] Sodium Chloride 0.9% 1, 1560 1560 390 000 ml @ 130 mls/hr IV . Q7H42M [facility] Rx#:[id number] Thiamine 100 mg In Sodium 50 Chloride 0.9% 50 ml @ 100 mls/hr IVPB Q12HR [facility] Rx#:[id number] Oral 520 50 Output: Urine 1250 1440 750 Other: Voiding Method Indwelling Catheter Indwelling Catheter Indwelling Catheter - Labs CBC & Chem 7: 05/04/20 04:26 05/04/20 04:26 Labs: Abnormal Lab Results - Last 24 Hours (Table) 05/04/20 05/04/20 Range/Units 04:26 04:26 RBC 2.25 L (4.30-5.90) m/uL Hgb 7.2 L (13.0-17.5) gm/dL Hct 20.5 L (39.0-53.0) % RDW 17.9 H (11.5-15.5) % Lymphocytes # 0.9 L (1.0-4.8) k/uL Potassium 2.7 L* (3.5-5.1) mmol/L Glucose 113 H (74-99) mg/dL Calcium 6.8 L (8.4-10.2) mg/dL Total Bilirubin 1.9 H (0.2-1.3) mg/dL Delta Bilirubin 0.9 H (0.0-0.2) mg/dL AST 511 H (17-59) U/L ALT 812 H (4-49) U/L Total Protein 4.8 L (6.3-8.2) g/dL Albumin 2.3 L (3.5-5.0) g/dL
[2020-05-05] MEDS: PIPERACILLIN-TAZOBACTAM 3.375 GM in SODIUM CHLORIDE 0.9% 100 ML IVPB SCH ×3 (00:55→15:41)
[2020-05-05] MEDS: SODIUM CHLORIDE 0.9% 1,000 ML IV SCH ×3 (01:33→15:42)
[2020-05-05] MEDS: NOREPINEPHRINE 4 MG in SODIUM CHLORIDE 0.9% 250 ML IV SCH (02:23)
--- NOTE | 2020-05-05 03:51 | XR ---
EXAM: XR Chest, 1 View CLINICAL HISTORY: ITS.REASON XR Reason: increase right lower lung crackles TECHNIQUE: Frontal view of the chest. COMPARISON: May 04, 2020 FINDINGS: Lungs: Pulmonary vasculature is slightly prominent but sharply defined. Pleural space: There is slight blunting of the left costophrenic angle. No pneumothorax. Heart: The cardiac silhouette is mildly enlarged. Mediastinum: Unremarkable. Bones/joints: Probable old healed right clavicle fracture. Mild degenerative changes in the lower thoracic spine. Upper abdomen: No pneumoperitoneum under the diaphragm. IMPRESSION: Mild cardiomegaly. Possible trace left pleural effusion.
[2020-05-05] MEDS: HYDROmorphone 1 MG/ML 1 ML SYRINGE IVP PRN ×2 (05:59→13:35)
[2020-05-05] MEDS: THIAMINE 100 MG in SODIUM CHLORIDE 0.9% 50 ML IVPB SCH ×2 (08:12→20:39)
[2020-05-05] MEDS: PANTOPRAZOLE 40 MG/10 ML VIAL IVP SCH (08:12)
[2020-05-05 08:35] LABS: Anisocytosis Slight; HCT 21.9 % (39.0-53.0); HGB 7.3 gm/dL (13.0-17.5); MCHC 33.2 g/dL (31.0-37.0); MCV 93.5 fL (80.0-100.0); Macrocytosis Slight; Mean Platelet Volume 7.2; Platelet Count 217 k/uL (150-450); Poikilocytosis Slight; RBC 2.34 m/uL (4.30-5.90); RDW 17.9 % (11.5-15.5); WBC 5.4 k/uL (3.8-10.6)
--- NOTE | 2020-05-05 10:26 | P.PN ---
Subjective Progress Note Date: 05/04/20 Principal diagnosis: Kristi-Estrada tear, esophagitis, GI bleed, anemia of acute blood loss, ischemic hepatitis Patient is seen lying in bed, he is tolerating liquid diet. No abdominal pain. No further signs or symptoms of GI bleeding. Objective - Vital Signs Vital signs: Vital Signs Temp 100.6 F H 05/04/20 08:00 Pulse 80 05/04/20 09:00 Resp 48 H 05/04/20 09:00 BP 110/73 05/04/20 09:00 Pulse Ox 97 05/04/20 09:00 Intake & Output 05/03/20 05/04/20 05/04/20 18:59 06:59 18:59 Intake Total 1710 2180 640 Output Total 1250 1440 750 Balance 460 740 -110 Weight 99.2 kg Intake: IV 1710 1660 590 Piperacillin-Tazobactam 3 100 100 100 .375 gm In Sodium Chloride 0.9% 100 ml @ 25 mls/hr IVPB Q8HR [facility] Rx# :[id number] Potassium Chloride 10 meq 100 In Water For Injection 1 100ml.bag @ 100 mls/hr IVPB Q1HR [facility] Rx#: [id number] Sodium Chloride 0.9% 1, 1560 1560 390 000 ml @ 130 mls/hr IV . Q7H42M [facility] Rx#:[id number] Thiamine 100 mg In Sodium 50 Chloride 0.9% 50 ml @ 100 mls/hr IVPB Q12HR [facility] Rx#:[id number] Oral 520 50 Output: Urine 1250 1440 750 Other: Voiding Method Indwelling Catheter Indwelling Catheter Indwelling Catheter - Exam On physical examination, patient appears comfortable in no apparent distress. HEAD: Normocephalic, atraumatic. EYES: No scleral icterus. No conjunctival injection. MOUTH: No lesions, tongue midline. NECK: Trachea midline, no gross abnormalities. CHEST: Coarse respiratory noises at all lung sterling. ABDOMEN: Soft, obese. Bowel sounds are positive. No organomegaly. No guarding or rigidity. EXTREMITIES: No pedal edema. SKIN: No rashes, no jaundice. NEUROLOGIC: Lethargic but no focal deficits noted. - Labs CBC & Chem 7: 05/05/20 07:47 05/04/20 04:26 Labs: Abnormal Lab Results - Last 24 Hours (Table) 05/03/20 05/03/20 05/04/20 Range/Units 13:00 13:00 04:26 RBC 2.43 L 2.25 L (4.30-5.90) m/uL Hgb 7.8 L 7.2 L (13.0-17.5) gm/dL Hct 22.3 L 20.5 L (39.0-53.0) % RDW 17.3 H 17.9 H (11.5-15.5) % Plt Count 136 L (150-450) k/uL Lymphocytes # 0.9 L (1.0-4.8) k/uL Potassium 3.1 L (3.5-5.1) mmol/L Chloride 115 H (98-107) mmol/L Glucose (74-99) mg/dL Calcium 7.0 L (8.4-10.2) mg/dL Phosphorus 2.3 L (2.5-4.5) mg/dL Total Bilirubin 2.0 H (0.2-1.3) mg/dL Delta Bilirubin (0.0-0.2) mg/dL AST 1211 H (17-59) U/L ALT 1182 H (4-49) U/L Total Protein 4.9 L (6.3-8.2) g/dL Albumin 2.4 L (3.5-5.0) g/dL 05/04/20 Range/Units 04:26 RBC (4.30-5.90) m/uL Hgb (13.0-17.5) gm/dL Hct (39.0-53.0) % RDW (11.5-15.5) % Plt Count (150-450) k/uL Lymphocytes # (1.0-4.8) k/uL Potassium 2.7 L* (3.5-5.1) mmol/L Chloride (98-107) mmol/L Glucose 113 H (74-99) mg/dL Calcium 6.8 L (8.4-10.2) mg/dL Phosphorus (2.5-4.5) mg/dL Total Bilirubin 1.9 H (0.2-1.3) mg/dL Delta Bilirubin 0.9 H (0.0-0.2) mg/dL AST 511 H (17-59) U/L ALT 812 H (4-49) U/L Total Protein 4.8 L (6.3-8.2) g/dL Albumin 2.3 L (3.5-5.0) g/dL Assessment and Plan (1) Hematemesis Narrative/Plan: 54-year-old male with a medical history significant for hypertension and alcohol abuse presenting for hematemesis as a transfer from outside hospital. Hemoglobi n found to be 8.6 at outside facility the patient was transfused 1 unit of packed red blood cells and was found to have a hemoglobin of 8 on presentation. The patient continued to have hematemesis with associated hypotension and tachycardia. Patient underwent an upper endoscopy revealed distal esophageal tear with active bleeding/Kristi Estrada tear, treated with epinephrine injection and Endo Clip placement 3. LA grade D esophagitis. Patient is now status post transfused of 3 units of packed red blood cells. He has not had any further episodes of bleeding, and is tolerating liquids status post intubation. Current Visit: Yes Status: Acute Code(s): K92.0 - HEMATEMESIS SNOMED Code(s): 0654785 (2) Alcohol intoxication Current Visit: Yes Status: Acute Code(s): F10.929 - ALCOHOL USE, UNSPECIFIED WITH INTOXICATION, UNSPECIFIED SNOMED Code(s): 88501744 (3) Melena Current Visit: Yes Status: Acute Code(s): K92.1 - MELENA SNOMED Code(s): 9399510 (4) Krisit-Setrada tear Current Visit: Yes Status: Acute Code(s): K22.6 - GASTRO-ESOPHAGEAL L ACERATION-HEMORRHAGE SYNDROME SNOMED Code(s): 081336649 (5) Elevated transaminase level Narrative/Plan: Likely multifactorial and secondary to ischemic hepatitis, and acute on chronic alcoholic liver disease. AST and ALT markedly improved today, supporting likely ischemic hepatitis superimposed on chronic liver disease from alcohol. Current Visit: Yes Status: Acute Code(s): R74.01 - ELEVATION OF LEVELS OF LIVER TRANSAMINASE LEVELS SNOMED Code(s): 720649410 Plan: Supportive care Continue to monitor hemoglobin and hematocrit and transfuse as needed Continue to monitor for signs or symptoms of GI bleeding Continue IV Protonix therapy twice daily Ultrasound of the abdomen reviewed and consistent with diffuse hepatocellular disease, acute viral hepatitis panel negative Okay for full liquid diet, advance to low fiber/low residual as tolerated Thank you for allowing us to participate in the care of the patient, the GI service will stand by, please call us back with any questions or concerns
[2020-05-05 13:39] LABS: African American GFR (CKD) 125.8 (60.0-200.0); Albumin 2.8 g/dL (3.80-4.90); Albumin/Globulin Ratio 1.47 (1.60-3.17); Anion Gap 5.7 mmol/L (4.00-12.00); BUN/Creat Ratio 11.43 Ratio (12.00-20.00); Calcium 7.3 mg/dL (8.7-10.3); Carbon Dioxide 27.3 mmol/L (21.6-31.8); Globulin 1.9 g/dL (1.6-3.3); Non-African American GFR(CKD) 108.5 (60.0-200.0); Total Protein 4.7 g/dL (6.2-8.2)
[2020-05-05] MEDS ORDERED: Potassium Replacement Protocol 1 EACH MISC MISCELLANE PRN (13:45)
[2020-05-05] MEDS: POTASSIUM CHLORIDE ER 20 MEQ TAB.ER PO SCH ×2 (14:44→15:41)
--- NOTE | 2020-05-05 17:04 | P.PN ---
Subjective Progress Note Date: 05/05/20 (delayed charting seen at 0930) Principal diagnosis: GI bleed Patient is a 54-year-old male with a history of alcohol abuse, hypertension, and tobacco abuse who was sent to the emergency department from [facility] secondary to GI bleed. He underwent EGD and was found to have a Kristi-clementina tear. During the procedure he required intubation during the procedure and was successfully extubated on the evening of 05/02. He remained on Precedex for treatment of his alcohol withdrawal after extubation. He received 3 units of pRBC. He had decreased responsiveness on 05/03 and was take off precedex. He started to have fevers and was started on zosyn for possible aspiration. He continued to be lethargic during his hospital stay and did not require treatment for alcohol withdrawal. Patient seen and examined at bedside. Sleeping but awakes to voice. Is aware it is 2017 and confirming his birthday. Denies chest pain or shortness of breath. General: Nontoxic, no distress, appears at stated age Derm: warm, dry Head: atraumatic, normocephalic, symmetric Eyes: EOMI, no lid lag, anicteric sclera Mouth: no lip lesion, [mucus membranes dry Cardiovascular: S1S2 reg, no murmur, positive posterior tibial pulse bilateral, Lungs: Coarse breath sounds bilateral, no rhonchi, no rales , no accessory muscle use Abdominal: soft, nontender to palpation, no guarding, no appreciable organomegaly Ext: no gross muscle atrophy, trace edema, no contractures Neuro: CN II-XII grossly intact, moving all 4 extremities Psych: Sleeping but arousable and answers questions appropriately. Upper GI bleed secondary to Kristi-Estrada tear, acute blood loss anemia -Continue Protonix -Serial CBCs -Transfuse for hemoglobin less than 7 -GI recommendations appreciated - s/p 3 units of pRBC Pneumonia - possible aspiration - Zosyn started on 05/03 - blood cultures negative to date - COVID antigen testing negative on admission - Procalcitonin mildly positive Metabolic encephalopathy likely multifactorial -Supportive care -Frequent reorientation -PT/OT evaluation on 05/07. Nursing to have him sit up in bed as able. Hypokalemia - replace and recheck in AM Transaminitis, improving -Likely secondary to alcoholic hepatitis and ischemic hepatitis -GI recommendations -Hepatitis profile negative -Liver ultrasound consistent with heterogeneous liver differential includes he patitis or cirrhosis Alcohol abuse with impending withdrawals -CIWA protocol -Continue with thiamine supplementation Elevated troponin not consistent with acute coronary syndrome -Likely stress-induced secondary severe GI bleed -Downtrending -Once extubated recommend echocardiogram Hypocalcemia -Pseudo-secondary to hypoalbuminemia Single episode of A fib with RVR, now in NSR - Cardizme 10 mg IVP given times 1 and patient converted to sinus rhythm, continue to monitor on tele Elevated lactic acid, resolved DVT prophylaxis: SCDs Discussed with: patient, nursing Anticipated discharge: 3-[address]: SNF A total of 25 minutes was spent on the care of this complex patient more than 50% of the time was spent in counseling and care coordination. Objective - Vital Signs Vital signs: Vital Signs Temp 98 F 05/05/20 15:01 Pulse 100 05/05/20 15:01 Resp 16 05/05/20 15:01 BP 169/100 05/05/20 15:02 Pulse Ox 98 05/05/20 15:01 Intake & Output 05/04/20 05/05/20 05/05/20 18:59 06:59 18:59 Intake Total 1040 Output Total 750 Balance 290 Intake: IV 690 Piperacillin-Tazobactam 3 200 .375 gm In Sodium Chloride 0.9% 100 ml @ 25 mls/hr IVPB Q8HR [facility] Rx# :[id number] Potassium Chloride 10 meq 100 In Water For Injection 1 100ml.bag @ 100 mls/hr IVPB Q1HR [facility] Rx#: [id number] Sodium Chloride 0.9% 1, 390 000 ml @ 130 mls/hr IV . Q7H42M [facility] Rx#:[id number] Intake, IV Titration 300 Amount Potassium Chloride 10 meq 300 In Water For Injection 1 100ml.bag @ 100 mls/hr IVPB Q1HR [facility] Rx#: [id number] Oral 50 Output: Urine 750 Other: Voiding Method Indwelling Catheter Indwelling Catheter # Voids 4 1 1 # Bowel Movements 0 0 - Labs CBC & Chem 7: 05/05/20 07:47 05/05/20 07:47 Labs: Abnormal Lab Results - Last 24 Hours (Table) 05/04/20 05/05/20 05/05/20 Range/Units 04:26 07:47 07:47 RBC 2.34 L (4.30-5.90) m/uL Hgb 7.3 L (13.0-17.5) gm/dL Hct 21.9 L (39.0-53.0) % RDW 17.9 H (11.5-15.5) % Potassium 3.0 L (3.5-5.5) mmol/L BUN 8.0 L (9.0-27.0) mg/dL BUN/Creatinine Ratio 11.43 L (12.00-20.00) Ratio Glucose 117 H (70-110) mg/dL Calcium 7.3 L (8.7-10.3) mg/dL AST 127 H (14-35) U/L ALT 516 H (10-49) U/L Total Protein 4.7 L (6.2-8.2) g/dL Albumin 2.80 L (3.80-4.90) g/dL Albumin/Globulin Ratio 1.47 L (1.60-3.17) g/dL Procalcitonin 0.34 H (0.02-0.09) ng/mL Microbiology - Last 24 Hours (Table) 05/03/20 22:45 Blood Culture - Preliminary Blood No Growth after 24 hours
[2020-05-05] MEDS: PANTOPRAZOLE 40 MG TABLET PO SCH (18:10)
[2020-05-06] MEDS: SODIUM CHLORIDE 0.9% 1,000 ML IV SCH ×3 (00:26→15:22)
[2020-05-06] MEDS: HYDROmorphone 1 MG/ML 1 ML SYRINGE IVP PRN ×4 (01:41→22:22)
[2020-05-06 06:23] LABS: Anisocytosis Slight; HCT 23.4 % (39.0-53.0); HGB 7.7 gm/dL (13.0-17.5); Hypochromasia Slight; MCH 31.1 pg (25.0-35.0); MCV 94.2 fL (80.0-100.0); Macrocytosis Slight; Mean Platelet Volume 7.3; Platelet Count 285 k/uL (150-450); Poikilocytosis Slight; RBC 2.48 m/uL (4.30-5.90); RDW 17.8 % (11.5-15.5); WBC 5.6 k/uL (3.8-10.6)
[2020-05-06] MEDS: PIPERACILLIN-TAZOBACTAM 3.375 GM in SODIUM CHLORIDE 0.9% 100 ML IVPB SCH ×5 (07:05→23:32)
[2020-05-06] MEDS: THIAMINE 100 MG in SODIUM CHLORIDE 0.9% 50 ML IVPB SCH ×2 (07:05→19:51)
[2020-05-06] MEDS: PANTOPRAZOLE 40 MG TABLET PO SCH ×2 (07:05→17:00)
[2020-05-06 10:12] LABS: African American GFR (CKD) 125.8 (60.0-200.0); Albumin 2.7 g/dL (3.80-4.90); Albumin/Globulin Ratio 1.35 (1.60-3.17); Anion Gap 5.2 mmol/L (4.00-12.00); BUN/Creat Ratio 11.43 Ratio (12.00-20.00); Calcium 7.8 mg/dL (8.7-10.3); Carbon Dioxide 29.8 mmol/L (21.6-31.8); Non-African American GFR(CKD) 108.5 (60.0-200.0); Potassium 3.5 mmol/L (3.5-5.5); Total Bilirubin 0.8 mg/dL (0.2-1.2); Total Protein 4.7 g/dL (6.2-8.2)
--- NOTE | 2020-05-06 16:57 | P.PN ---
Subjective Progress Note Date: 05/06/20 (delayed charting seen at 1130) Principal diagnosis: GI bleed Patient is a 54-year-old male with a history of alcohol abuse, hypertension, and tobacco abuse who was sent to the emergency department from [facility] secondary to GI bleed. He underwent EGD and was found to have a Kristi-clementina tear. During the procedure he required intubation during the procedure and was successfully extubated on the evening of 05/02. He remained on Precedex for treatment of his alcohol withdrawal after extubation. He received 3 units of pRBC. He had decreased responsiveness on 05/03 and was take off precedex. He started to have fevers and was started on zosyn for possible aspiration. He continued to be lethargic during his hospital stay and did not require treatment for alcohol withdrawal. Much improved and awake, talking and eating today. Patient seen and examined at bedside. Still feeling groggy but better. Feeling very weak. Denies any nausea, vomiting, chest pain or shortness of breath. General: Nontoxic, no distress, appears at stated age Derm: warm, dry Head: atraumatic, normocephalic, symmetric Eyes: EOMI, no lid lag, anicteric sclera Mouth: no lip lesion, [mucus membranes dry Cardiovascular: S1S2 reg, no murmur, positive posterior tibial pulse bilateral, Lungs: Coarse breath sounds bilateral, no rhonchi, no rales , no accessory muscle use Abdominal: soft, nontender to palpation, no guarding, no appreciable organomegaly Ext: no gross muscle atrophy, trace edema, no contractures Neuro: CN II-XII grossly intact, moving all 4 extremities Psych: Sleeping but easily wakes, conversational today, aware that he is in the hospital. Upper GI bleed secondary to Kristi-Estrada tear, acute blood loss anemia -Continue Protonix -Serial CBCs -Transfuse for hemoglobin less than 7 -GI recommendations appreciated - s/p 3 units of pRBC -Continue a full liquid diet until okayed by GI for increased Pneumonia - possible aspiration - Zosyn started on 05/03 and will complete on 05/07 - blood cultures negative to date - COVID antigen testing negative on admission - Procalcitonin mildly positive Metabolic encephalopathy likely multifactorial -Supportive care -Frequent reorientation -PT/OT evaluation on 05/07. Nursing to have him sit up in bed as able. Transaminitis, improving -Likely secondary to alcoholic hepatitis and ischemic hepatitis -GI recommendations -Hepatitis profile negative -Liver ultrasound consistent with heterogeneous liver differential includes hepatitis or cirrhosis Alcohol abuse with impending withdrawals -CIWA protocol -Continue with thiamine supplementation Elevated troponin not consistent with acute coronary syndrome -Likely stress-induced secondary severe GI bleed -Downtrending -Once extubated recommend echocardiogram Hypocalcemia -Pseudo-secondary to hypoalbuminemia Single episode of A fib with RVR, now in NSR - Cardizme 10 mg IVP given times 1 and patient converted to sinus rhythm, continue to monitor on tele Elevated lactic acid, resolved Hypokalemia, resolved DVT prophylaxis: SCDs Discussed with: patient, nursing Anticipated discharge: 3-[address]: SNF A total of 25 minutes was spent on the care of this complex patient more than 50% of the time was spent in counseling and care coordination. Objective - Vital Signs Vital signs: Vital Signs Temp 98.4 F 05/06/20 13:00 Pulse 92 05/06/20 13:00 Resp 16 05/06/20 13:00 BP 130/79 05/06/20 13:00 Pulse Ox 98 05/06/20 13:00 Intake & Output 05/05/20 05/06/20 05/06/20 18:59 06:59 18:59 Intake Total 1979 3390 Output Total 1400 Balance 1979 1989 Intake: IV 1030 1710 Piperacillin-Tazobactam 3 200 100 .375 gm In Sodium Chloride 0.9% 100 ml @ 25 mls/hr IVPB Q8HR [facility] Rx# :[id number] Sodium Chloride 0.9% 1, 780 1560 000 ml @ 130 mls/hr IV . Q7H42M [facility] Rx#:[id number] Thiamine 100 mg In Sodium 50 50 Chloride 0.9% 50 ml @ 100 mls/hr IVPB Q12HR [facility] Rx#:[id number] Oral 950 1680 Output: Urine 1400 Other: Voiding Method Indwelling Catheter Urinal Diaper Incontinent # Voids 5 # Bowel Movements 0 0 - Labs CBC & Chem 7: 05/06/20 05:52 05/06/20 05:52 Labs: Abnormal Lab Results - Last 24 Hours (Table) 05/06/20 05/06/20 Range/Units 05:52 05:52 RBC 2.48 L (4.30-5.90) m/uL Hgb 7.7 L (13.0-17.5) gm/dL Hct 23.4 L (39.0-53.0) % RDW 17.8 H (11.5-15.5) % BUN 8.0 L (9.0-27.0) mg/dL BUN/Creatinine Ratio 11.43 L (12.00-20.00) Ratio Calcium 7.8 L (8.7-10.3) mg/dL AST 69 H (14-35) U/L ALT 341 H (10-49) U/L Total Protein 4.7 L (6.2-8.2) g/dL Albumin 2.70 L (3.80-4.90) g/dL Albumin/Globulin Ratio 1.35 L (1.60-3.17) g/dL Microbiology - Last 24 Hours (Table) 05/03/20 22:45 Blood Culture - Preliminary Blood No Growth after 48 hours
[2020-05-07] MEDS: HYDROmorphone 1 MG/ML 1 ML SYRINGE IVP PRN (03:03)
[2020-05-07 07:50] LABS: Anisocytosis Slight; HCT 25.1 % (39.0-53.0); HGB 8.1 gm/dL (13.0-17.5); Hypochromasia Slight; MCH 30.7 pg (25.0-35.0); MCHC 32.2 g/dL (31.0-37.0); MCV 95.2 fL (80.0-100.0); Macrocytosis Slight; Mean Platelet Volume 7.2; Platelet Count 385 k/uL (150-450); Poikilocytosis Slight; RBC 2.64 m/uL (4.30-5.90)
[2020-05-07] MEDS: PIPERACILLIN-TAZOBACTAM 3.375 GM in SODIUM CHLORIDE 0.9% 100 ML IVPB SCH ×2 (08:52→16:55)
[2020-05-07] MEDS: PANTOPRAZOLE 40 MG TABLET PO SCH ×2 (08:52→18:13)
[2020-05-07 09:51] LABS: African American GFR (CKD) 113.4 (60.0-200.0); Albumin 2.8 g/dL (3.80-4.90); Albumin/Globulin Ratio 1.33 (1.60-3.17); Anion Gap 6.4 mmol/L (4.00-12.00); Calcium 7.8 mg/dL (8.7-10.3); Carbon Dioxide 26.6 mmol/L (21.6-31.8); Globulin 2.1 g/dL (1.6-3.3); Magnesium 1.9 mg/dL (1.5-2.4); Non-African American GFR(CKD) 97.9 (60.0-200.0); Potassium 3.3 mmol/L (3.5-5.5); Total Bilirubin 0.6 mg/dL (0.3-1.2); Total Protein 4.9 g/dL (6.2-8.2)
[2020-05-07] MEDS: HYDROcodone/APAP 5-325MG 1 EACH TAB PO PRN ×2 (11:28→20:11)
[2020-05-07] MEDS: THIAMINE 100 MG in SODIUM CHLORIDE 0.9% 50 ML IVPB SCH ×2 (11:32→20:12)
[2020-05-07 12:54] VITALS: BMI 31.4
[2020-05-07] MEDS: IOPAMIDOL CONTRAST (ORAL USE) VIAL PO PRN ×2 (13:50→15:05)
--- NOTE | 2020-05-07 16:14 | CT ---
EXAMINATION TYPE: CT abdomen pelvis w con DATE OF EXAM: 05/07/2020 COMPARISON: None INDICATION: Abdominal pain with recent piero ko tear. DLP: 1586 mGycm, Automated exposure control for dose reduction was used. CONTRAST: 100ml mL of Isovue 300. Study performed with Oral Contrast TECHNIQUE: Axial images were obtained from above the diaphragm to the pubic rami in the axial plane a t 5 mm thick sections. Reconstructed images are reviewed on the computer in the coronal plane. FINDINGS: Inflammatory type changes are at the anterior abdominal wall at the level the umbilicus. Co rrelate for trapped mesenteric fat hernia. Limited CT sections are obtained the lung bases. Minimal infiltrate is along the bilateral lung base s.. Minimal left pleural effusion is present. Distal esophagus appears unremarkable. No abnormal flu id collections inflammatory changes or hernia is evident at the level of the visualized distal esopha samantha. CT ABDOMEN: Liver: Normal Spleen: Normal Pancreas: Normal Adrenal glands: The adrenal glands are normal. Gallbladder: Normal Kidneys: No masses are evident. No hydronephrosis is present. No cysts are present. Delayed images were obtained through the kidneys, which remain unremarkable. Aorta: Vascular calcification is within the aorta. Inferior vena cava: Filter is within the inferior vena cava. CT PELVIS: Loops of bowel within the abdomen and pelvis are normal. Diverticular changes are within the sigmoid colon. There are loops of bowel which are incompletely distended or lack oral contrast limiting th eir evaluation. Appendix: Normal as visualized. Urinary bladder: Normal. Genitourinary structures: Prostate is unremarkable. Osseous structures: No suspicious lytic or sclerotic lesions. IMPRESSIONS: 1. Diverticulosis without acute diverticulitis.
[2020-05-07] MEDS: SODIUM CHLORIDE 0.9% 1,000 ML IV SCH (17:01)
--- NOTE | 2020-05-07 17:25 | P.PN ---
Subjective Progress Note Date: 05/07/20 (delayed charting seen at 1100) Principal diagnosis: GI bleed Patient is a 54-year-old male with a history of alcohol abuse, hypertension, and tobacco abuse who was sent to the emergency department from [facility] secondary to GI bleed. He underwent EGD and was found to have a Kristi-clementina tear. During the procedure he required intubation during the procedure and was successfully extubated on the evening of 05/02. He remained on Precedex for treatment of his alcohol withdrawal after extubation. He received 3 units of pRBC. He had decreased responsiveness on 05/03 and was take off precedex. He started to have fevers and was started on zosyn for possible aspiration. He continued to be lethargic during his hospital stay and did not require treatment for alcohol withdrawal. Much improved and awake, talking and eating 05/06. On the morning of 05/07 is much more awake and alert. Patient seen and examined at bedside. Reports of abdominal pain and some pain ful swallowing. No nausea, vomiting. Reports feeling as though he is stiff and very weak. Also having difficulty controlling urine General: Nontoxic, no distress, appears at stated age Derm: warm, dry Head: atraumatic, normocephalic, symmetric Eyes: EOMI, no lid lag, anicteric sclera Mouth: no lip lesion, [mucus membranes dry Cardiovascular: S1S2 reg, no murmur, positive posterior tibial pulse bilateral, Lungs: Coarse breath sounds bilateral, no rhonchi, no rales , no accessory muscle use Abdominal: soft, nontender to palpation, no guarding, no appreciable organomegaly Ext: no gross muscle atrophy, no edema, no contractures Neuro: CN II-XII grossly intact, moving all 4 extremities Psych: Sleeping but easily wakes, conversational today, aware that he is in the hospital. Upper GI bleed secondary to Kristi-Estrada tear, acute blood loss anemia - CT abd and pelvis order without acute change. -Continue Protonix -Serial CBCs -Transfuse for hemoglobin less than 7 -GI recommendations appreciated - s/p 3 units of pRBC -Continue a full liquid diet until okayed by GI for increased Pneumonia - possible aspiration - Zosyn started on 05/03 complete on 05/07 - blood cultures negative to date - COVID antigen testing negative on admission - Procalcitonin mildly positive Metabolic encephalopathy likely multifactorial -Supportive care -Frequent reorientation -PT/OT recs Transaminitis, improving -Likely secondary to alcoholic hepatitis and ischemic hepatitis -GI recommendations -Hepatitis profile negative -Liver ultrasound consistent with heterogeneous liver differential includes h epatitis or cirrhosis Alcohol abuse with impending withdrawals -CIWA protocol -Continue with thiamine supplementation Elevated troponin not consistent with acute coronary syndrome -Likely stress-induced secondary severe GI bleed -Downtrending -echo Hypocalcemia -Pseudo-secondary to hypoalbuminemia Single episode of A fib with RVR, now in NSR - Cardizme 10 mg IVP given times 1 and patient converted to sinus rhythm, continue to monitor on tele Elevated lactic acid, resolved Hypokalemia, resolved DVT prophylaxis: SCDs Discussed with: patient, nursing Anticipated discharge: 1-[address]: [facility] A total of 25 minutes was spent on the care of this complex patient more than 50% of the time was spent in counseling and care coordination. Objective - Vital Signs Vital signs: Vital Signs Temp 98.4 F 05/07/20 14:28 Pulse 83 05/07/20 14:28 Resp 18 05/07/20 14:28 BP 163/93 05/07/20 14:28 Pulse Ox 97 05/07/20 14:28 Intake & Output 05/06/20 05/07/20 05/07/20 18:59 06:59 18:59 Intake Total 2730 1080 Output Total 825 675 Balance 2730 255 -675 Weight 99.2 kg Intake: IV 980 Piperacillin-Tazobactam 3 200 .375 gm In Sodium Chloride 0.9% 100 ml @ 25 mls/hr IVPB Q8HR [facility] Rx# :[id number] Sodium Chloride 0.9% 1, 680 000 ml @ 20 mls/hr IV . Q24H [facility] Rx#:[id number] Thiamine 100 mg In Sodium 100 Chloride 0.9% 50 ml @ 100 mls/hr IVPB Q12HR [facility] Rx#:[id number] Oral 1750 1080 Output: Urine 825 675 Other: Voiding Method Urinal Urinal Toilet Diaper Diaper Urinal Incontinent Incontinent # Voids 5 1 # Bowel Movements 2 - Labs CBC & Chem 7: 05/07/20 06:29 05/07/20 06:29 Labs: Abnormal Lab Results - Last 24 Hours (Table) 05/07/20 05/07/20 Range/Units 06:29 06:29 RBC 2.64 L (4.30-5.90) m/uL Hgb 8.1 L (13.0-17.5) gm/dL Hct 25.1 L (39.0-53.0) % RDW 18.0 H (11.5-15.5) % Potassium 3.3 L (3.5-5.5) mmol/L BUN/Creatinine Ratio 10.00 L (12.00-20.00) Ratio Calcium 7.8 L (8.7-10.3) mg/dL AST 47 H (14-35) U/L ALT 249 H (10-49) U/L Total Protein 4.9 L (6.2-8.2) g/dL Albumin 2.80 L (3.80-4.90) g/dL Albumin/Globulin Ratio 1.33 L (1.60-3.17) g/dL Microbiology - Last 24 Hours (Table) 05/03/20 22:45 Blood Culture - Preliminary Blood No Growth after 72 hours
[2020-05-08 05:49] LABS: Anisocytosis Slight; HCT 24.6 % (39.0-53.0); HGB 8.1 gm/dL (13.0-17.5); Hypochromasia Moderate; MCHC 32.9 g/dL (31.0-37.0); MCV 94.2 fL (80.0-100.0); Macrocytosis Slight; Mean Platelet Volume 7.2; Platelet Count 466 k/uL (150-450); Poikilocytosis Slight; RBC 2.61 m/uL (4.30-5.90); RDW 17.4 % (11.5-15.5)
[2020-05-08] MEDS: THIAMINE 100 MG in SODIUM CHLORIDE 0.9% 50 ML IVPB SCH ×2 (08:40→21:17)
[2020-05-08] MEDS: PANTOPRAZOLE 40 MG TABLET PO SCH ×2 (08:41→16:29)
[2020-05-08] MEDS: HYDROcodone/APAP 5-325MG 1 EACH TAB PO PRN ×3 (08:58→21:17)
[2020-05-08 10:14] LABS: African American GFR (CKD) 99.8 (60.0-200.0); Albumin 3.1 g/dL (3.80-4.90); Albumin/Globulin Ratio 1.41 (1.60-3.17); Anion Gap 7.5 mmol/L (4.00-12.00); Calcium 8.1 mg/dL (8.7-10.3); Carbon Dioxide 26.5 mmol/L (21.6-31.8); Globulin 2.2 g/dL (1.6-3.3); Non-African American GFR(CKD) 86.2 (60.0-200.0); Phosphorus 3.8 mg/dL (2.4-5.1); Potassium 3.5 mmol/L (3.5-5.5); Total Bilirubin 0.5 mg/dL (0.3-1.2); Total Protein 5.3 g/dL (6.2-8.2)
--- NOTE | 2020-05-08 11:20 | ECHOF ---
Referral Reason:chf MEASUREMENTS -------- HEIGHT: 180.3 cm WEIGHT: 98.9 kg BP: 148/86 IVSd: 1.7 cm (0.6 - 1.1) LVIDd: 3.9 cm (3.9 - 5.3) LVPWd: 1.8 cm (0.6 - 1.1) IVSs: 2.4 cm LVIDs: 2.0 cm LVPWs: 2.3 cm Ao Diam: 3.2 cm (2.0 - 3.7) AV Cusp: 1.4 cm (1.5 - 2.6) LA Diam: 2.4 cm (2.7 - 3.8) MV EXCURSION: 21.081 mm (> 18.000) MV EF SLOPE: 114 mm/s (70 - 150) EPSS: 0.7 cm MV E Bethel: 0.85 m/s MV DecT: 138 ms MV A [place]: 0.87 m/s MV E/A Ratio: 0.98 RAP: 5.00 mmHg RVSP: 13.39 mmHg FINDINGS -------- Sinus rhythm. This was a technically adequate study. The left ventricular size is normal. There is moderate concentric left ventricular hypertrophy. O verall left ventricular systolic function is normal with, an EF between 55 - 60 %. The diastolic fi lling pattern is normal for the age of the patient 12.23. The right ventricle is normal in size. The left atrial size is normal. The right atrial size is normal. The aortic valve is trileaflet, and appears structurally normal. No aortic stenosis or regurgitation. The mitral valve is normal. There is trace mitral regurgitation. The tricuspid valve appears structurally normal. Trace tricuspid regurgitation present. Right cristiane tricular systolic pressure is normal at < 35 mmHg. There is no pulmonic regurgitation present. The aortic root size is normal. IVC Not well visulized. There is no pericardial effusion. CONCLUSIONS -------- 1. There is moderate concentric left ventricular hypertrophy. 2. Overall left ventricular systolic function is normal with, an EF between 55 - 60 %. 3. The diastolic filling pattern is normal for the age of the patient 12.23 4. The left atrial size is normal. 5. The aortic valve is trileaflet, and appears structurally normal. No aortic stenosis or regurgitati on. 6. There is trace mitral regurgitation. 7. Trace tricuspid regurgitation present. 8. There is no pericardial effusion. ORTHODONTIC LABORATORY TECHNICIAN: Bridget Pack RDCS
--- NOTE | 2020-05-08 12:56 | CDI ---
Documentation Clarification Form Date: 05/08/2020 12:18:22 PM From: Estefany Teran RN, CCDS Admit Date: 04/30/2020 07:37:00 PM Patient Name: Tashi Simmons Visit Number: [id number] Discharge Date: ATTENTION: The Clinical Documentation Specialists (CDI) and [facility] Coding Staff appreciate your assistance in clarifying documentation. Please respond to the clarification below the line at the bottom and electronically sign. The CDI & [facility] Coding staff will review the response and follow-up if needed. Please note: Queries are made part of the Legal Health Record. If you have any questions, please contact the author of this message via ITS. Dr. Samantha Robert A non-STEMI was documented in the ED clinical impression on 04/30. In the progress notes on 05/02 elevated troponin not consistent with acute coronary syndrome -likely stress-induced secondary severe GI bleed. Patient History/Risk Factors: Hypertension, Alcohol abuse, Tobacco abuse Clinical Indicators: 54-year-old male sent to ED from [facility] secondary to GI bleed. He reports he was vomiting up blood. He complains of feeling week and fatigued and short of breath. 05/02 pulmonary progress note: Acute hemorrhagic shock on presentation requiring 3 units of packed PBC. 04/30 Troponin: 0.101, 0.150 Troponin 05/01 0.151 04/30 HGB 8.0, 7.9 04/30 HCT 23.4, 22.5 04/30 Lactic acid 6.0, 6.5 EKG Results: 04/30; Normal sinus rhythm with a rate of [address] segment elevation or depression or T wave abnormalities noted. Treatment: ICU/Telemetry monitoring Transfuse T=3 units PRBC Monitor CBC, per orders EGD-Endo Clip placement x3 Kristi-Estrada tear .9NS 1,000 Bolus x 3 (04/30-05/01) Protonix 40 mg IV BID 04/30-05/05 Octreotide Acetate 500 MCG IN 250MLS @ 25 MLS/HR For accurate documentation please indicate if the elevated troponin not consistent with acute coronary syndrome represent: Type II PR secondary to severe GI bleed Demand ischemia without PR secondary to severe GI bleed Unable to determine Other Condition, please specify (Last Revision: June 2019) Demand ischemia without PR secondary to severe GI bleed MTDD
--- NOTE | 2020-05-08 15:11 | P.PN ---
Subjective Progress Note Date: 05/08/20 (delayed charting seen at 1115) Principal diagnosis: GI bleed Patient is a 54-year-old male with a history of alcohol abuse, hypertension, and tobacco abuse who was sent to the emergency department from [facility] secondary to GI bleed. He underwent EGD and was found to have a Kristi-clementina tear. During the procedure he required intubation during the procedure and was successfully extubated on the evening of 05/02. He remained on Precedex for treatment of his alcohol withdrawal after extubation. He received 3 units of pRBC. He had decreased responsiveness on 05/03 and was take off precedex. He started to have fevers and was started on zosyn for possible aspiration. He continued to be lethargic during his hospital stay and did not require treatment for alcohol withdrawal. Much improved and awake, talking and eating 05/06. On the morning of 05/07 is much more awake and alert. He continued to slowly improved. Patient seen and examined at bedside. Still having some abdominal pain but he feels as though it better than yesterday. No nausea, vomiting,. No diarrhea. No shortness of breath. General: Nontoxic, no distress, appears at stated age Derm: warm, dry Head: atraumatic, normocephalic, symmetric Eyes: EOMI, no lid lag, anicteric sclera Mouth: no lip lesion, mucus membranes dry Cardiovascular: S1S2 reg, no murmur, positive posterior tibial pulse bilateral, Lungs: Clear to auscultation bilaterally, no rhonchi, no rales , no accessory muscle use Abdominal: soft, tender to palpation epigastric, no guarding, no appreciable organomegaly Ext: no gross muscle atrophy, no edema, no contractures Neuro: CN II-XII grossly intact, moving all 4 extremities Psych: Awake alert and conversational. Aware that he is going to be discharged to rehab. States with his last rehab stay was in 2000. Upper GI bleed secondary to Kristi-Estrada tear, acute blood loss anemia - CT abd and pelvis order without acute change. -Continue Protonix -Serial CBCs -Transfuse for hemoglobin less than 7 -GI recommendations appreciated - s/p 3 units of pRBC -Continue a full liquid diet until abdominal pain resolved Transaminitis, improving -Likely secondary to alcoholic hepatitis and ischemic hepatitis -GI recommendations -Hepatitis profile negative -Liver ultrasound consistent with heterogeneous liver differential includes hepatitis or cirrhosis Alcohol abuse -avoid alcohol -Continue with thiamine supplementation Alcohol withdrawal resolved Elevated troponin not consistent with acute coronary syndrome, due to demand form GI bleed Hypocalcemia, resolved Single episode of A fib with RVR, now in NSR Elevated lactic acid, resolved Hypokalemia, resolved Pneumonia, resolved Metabolic encephalopathy, resolved DVT prophylaxis: SCDs Discussed with: patient, nursing Anticipated discharge: 1-[address]: [facility] A total of 25 minutes was spent on the care of this complex patient more than 50% of the time was spent in counseling and care coordination. Objective - Vital Signs Vital signs: Vital Signs Temp 98.7 F 05/08/20 06:48 Pulse 66 05/08/20 08:07 Resp 24 05/08/20 08:07 BP 148/86 05/08/20 06:48 Pulse Ox 97 05/08/20 05:00 Intake & Output 05/07/20 05/08/20 05/08/20 18:59 06:59 18:59 Intake Total 200 Output Total 2275 1100 Balance -2275 -900 Weight 99.2 kg Intake: IV 200 Piperacillin-Tazobactam 3 100 .375 gm In Sodium Chloride 0.9% 100 ml @ 25 mls/hr IVPB Q8HR [facility] Rx# :[id number] Thiamine 100 mg In Sodium 100 Chloride 0.9% 50 ml @ 100 mls/hr IVPB Q12HR [facility] Rx#:[id number] Output: Urine 2275 1100 Other: Voiding Method Toilet Toilet Urinal Urinal Urinal # Voids 1 1 - Labs CBC & Chem 7: 05/08/20 05:25 05/08/20 05:25 Labs: Abnormal Lab Results - Last 24 Hours (Table) 05/08/20 05/08/20 Range/Units 05:25 05:25 RBC 2.61 L (4.30-5.90) m/uL Hgb 8.1 L (13.0-17.5) gm/dL Hct 24.6 L (39.0-53.0) % RDW 17.4 H (11.5-15.5) % Plt Count 466 H (150-450) k/uL BUN/Creatinine Ratio 9.00 L (12.00-20.00) Ratio Calcium 8.1 L (8.7-10.3) mg/dL AST 47 H (14-35) U/L ALT 199 H (10-49) U/L Total Protein 5.3 L (6.2-8.2) g/dL Albumin 3.10 L (3.80-4.90) g/dL Albumin/Globulin Ratio 1.41 L (1.60-3.17) g/dL Microbiology - Last 24 Hours (Table) 05/03/20 22:45 Blood Culture - Preliminary Blood No Growth after 96 hours
[2020-05-08] MEDS: SODIUM CHLORIDE 0.9% 1,000 ML IV SCH (16:00)
[2020-05-09] MEDS: HYDROcodone/APAP 5-325MG 1 EACH TAB PO PRN ×2 (06:09→12:14)
[2020-05-09] MEDS: PANTOPRAZOLE 40 MG TABLET PO SCH ×2 (07:13→15:22)
[2020-05-09] MEDS: THIAMINE 100 MG in SODIUM CHLORIDE 0.9% 50 ML IVPB SCH (08:14)
[2020-05-09 08:21] VITALS: RESP 18
--- NOTE | 2020-05-09 13:09 | P.DS ---
Providers Date of admission: 04/30/20 19:37 Expected date of discharge: 05/09/20 Attending physician: Connie Kaye MD Consults: 04/30/20 19:37 Consult Physician Stat Consulting Provider: Alec Carnes Consult Reason/Comments: Critical care management Do you want consulting provider notified?: Yes Primary care physician: Physician Nonstaff Hospital Course: Discharge Diagnosis: Upper GI bleed secondary to Kristi-Estrada tear, acute blood loss anemia Transaminitis, improving Alcohol abuse Alcohol withdrawal resolved Elevated troponin not consistent with acute coronary syndrome, due to demand form GI bleed Hypocalcemia, resolved Single episode of A fib with RVR, now in NSR Elevated lactic acid, resolved Hypokalemia, resolved Pneumonia, resolved Metabolic encephalopathy, resolved Hospital Course: Patient is a 54-year-old male with a history of alcohol abuse, hypertension, and tobacco abuse who was sent to the emergency department from [facility] secondary to GI bleed. He underwent EGD and was found to have a Kristi-clementina tear. During the procedure he required intubation during the procedure and was successfully extubated on the evening of 05/02. He remained on Precedex for treatment of his alcohol withdrawal after extubation. He received 3 units of pRBC. He had decreased responsiveness on 05/03 and was take off precedex. He started to have fevers and was started on zosyn for possible aspiration. He continued to be lethargic during his hospital stay and did not require any further treatment for alcohol withdrawal. He was much improved and awake, talking and eating 05/06. On the morning of 05/07 is much more awake and alert. He continued to slowly improved. He completed treatment for his pneumonia. He had increasing abdominal pain on 05/[address] abd and pelvis was preformed without acute process. He continues to do well on his determined stable for discharge. He will continue a full liquid diet and advance as tolerated after 2019. He'll follow-up with his primary care physician and Dr. Davis (gasgtroenteology) after discharge from assisted. Patient seen and examined at bedside. Abdominal pain is better than prior, no chest pain, no shortness of breath, no nausea. Tolerating his diet well without increase in abdominal pain. Vital signs reviewed and stable. General: non toxic, no distress, appears at stated age Derm: warm, dry Head: atraumatic, normocephalic, symmetric Eyes: EOMI, no lid lag, anicteric sclera Mouth: no lip lesion, mucus membranes moist Cardiovascular: S1S2 reg, no murmur, positive posterior tibial pulse bilateral, Lungs: CTA bilateral, no rhonchi, no rales , no accessory muscle use Abdominal: soft, nontender to palpation, no guarding, no appreciable organomegaly Ext: no gross muscle atrophy, no edema, no contractures Neuro: CN II-XI grossly intact, no focal neuro deficits Psych: Alert, oriented, appropriate affect A total of 35 minutes of time were spent preparing this complex discharge summary . Patient Condition at Discharge: Stable Plan - Discharge Summary New Discharge Prescriptions: New HYDROcodone/APAP 5-325MG [[place] 5-325] 1 each PO Q6HR PRN #20 tab PRN Reason: Pain Pantoprazole [Protonix] 40 mg PO AC-BID #0 tablet. Discontinued Metoprolol Succinate (ER) [Toprol Xl] 100 mg PO DAILY Discharge Medication List HYDROcodone/APAP 5-325MG [[place] 5-325] 1 each PO Q6HR PRN #20 tab 05/09/20 [Rx] Pantoprazole [Protonix] 40 mg PO AC-BID #0 tablet. 05/09/20 [Rx] Follow up Appointment(s)/Referral(s): Nonstaff,Physician [Primary Care Provider] - 1-2 days Jermain Davis MD [STAFF PHYSICIAN] - 05/16/20 9:45 am Activity/Diet/Wound Care/Special Instructions: Activity: as tolerated PT/OT evaluation Diet: Full liquid can advance to softs as tolerated after 05/14/2020 Repeat CBC in 1 week: DX: anemia
[2020-05-09 14:58] VITALS: BP 145/81; PULSE 61; TEMP 98.4
[2020-05-09] MEDS: SODIUM CHLORIDE 0.9% 1,000 ML IV SCH (15:22)
== END 2020-05-09 16:36 | DRG 368 ==
LOC: EC 17:50 → 2SICU 19:37 → 5NMEDONC 05-04 10:07
PROVIDERS: ADMIT Internal Medicine; ATTEND Internal Medicine
PROC: 3E0G8GC Introduction of Other Therapeutic Substance into Upper GI, Via Natural or Artificial Opening Endoscopic (ICD-10-PCS; principal; 2020-04-30 21:00)
PROC: 0W3P8ZZ Control Bleeding in Gastrointestinal Tract, Via Natural or Artificial Opening Endoscopic (ICD-10-PCS; principal; 2020-04-30 21:00)
PROC: 0DJ08ZZ Inspection of Upper Intestinal Tract, Via Natural or Artificial Opening Endoscopic (ICD-10-PCS; principal; 2020-04-30 21:00)
PROC: 5A1945Z Respiratory Ventilation, 24-96 Consecutive Hours (ICD-10-PCS; 2020-04-30 21:00)
PROC: 0BH17EZ Insertion of Endotracheal Airway into Trachea, Via Natural or Artificial Opening (ICD-10-PCS; 2020-04-30 21:00)
PROC: 30233N1 Transfusion of Nonautologous Red Blood Cells into Peripheral Vein, Percutaneous Approach (ICD-10-PCS; 2020-04-30 21:00)
DX: K22.6 Gastro-esophageal laceration-hemorrhage syndrome (principal); G93.41 Metabolic encephalopathy; J69.0 Pneumonitis due to inhalation of food and vomit; K72.00 Acute and subacute hepatic failure without coma; R57.8 Other shock; J96.01 Acute respiratory failure with hypoxia; D62 Acute posthemorrhagic anemia; E87.2 Acidosis; F10.239 Alcohol dependence with withdrawal, unspecified; I24.8 Other forms of acute ischemic heart disease; J98.11 Atelectasis; E83.51 Hypocalcemia; E87.6 Hypokalemia; E88.09 Other disorders of plasma-protein metabolism, not elsewhere classified; Y90.8 Blood alcohol level of 240 mg/100 ml or more; F17.210 Nicotine dependence, cigarettes, uncomplicated; I10 Essential (primary) hypertension; I48.91 Unspecified atrial fibrillation; K20.90 Esophagitis, unspecified without bleeding; K70.10 Alcoholic hepatitis without ascites; Z87.11 Personal history of peptic ulcer disease; Z20.828 Contact with and (suspected) exposure to other viral communicable diseases; F10.229 Alcohol dependence with intoxication, unspecified
CPT/HCPCS: 36415; 36430; 36600; 43243; 43244; 43255; 51702; 71045; 74177; 76705; 80048; 80053; 80074; 80320; 82248; 82310; 82330; 82550; 82805; 83605; 83735; 84100; 84145; 84450; 84460; 84484; 85025; 85027; 85610; 85730; 86850; 86900; 86901; 86920; 87040; 87635; 93005; 93306; 94002; 94003; 94770; 96365; 96366; 96372; 96375; 99291

== ENCOUNTER 2022-03-18 08:37 | Emergency (ER) | payer OTHER ==
[2022-03-18 08:47] VITALS: TEMP 99.1
--- NOTE | 2022-03-18 09:06 | XR ---
EXAMINATION TYPE: XR chest 1V portable DATE OF EXAM: 03/18/2022 COMPARISON: Chest x-ray 05/05/2020 HISTORY: Cough TECHNIQUE: Single frontal view of the chest is obtained. FINDINGS: There is no focal air space opacity, pleural effusion, or pneumothorax seen. The cardiac silhouette size is within normal limits. There are overlying leads. The osseous structures are intac t. IMPRESSION: No acute process.
--- NOTE | 2022-03-18 09:40 | ED ---
General Adult HPI - General Chief complaint: Upper Respiratory Infection Stated complaint: COVID Time Seen by Provider: 03/18/22 08:39 Source: patient, EMS, RN notes reviewed, old records reviewed Mode of arrival: EMS Limitations: no limitations - History of Present Illness Initial comments: [age]-year-old male presenting with cough, congestion. Patient was diagnosed with coronavirus today. Symptoms began yesterday. He had been previously vaccinated with [employer] vaccine about 2 years ago. No dyspnea. Patient does have history of atrial fibrillation and is currently medicated appropriately with metoprolol and Xarelto. He has no central chest pain. No significant vomiting or diarrhea. Patient was sent in for evaluation from [facility] where he is currently undergoing alcohol rehabilitation. - Related Data Previous Rx's Medication Instructions Recorded HYDROcodone/APAP 5-325MG [[place] 1 each PO Q6HR PRN #20 tab 05/09/20 5-325] Pantoprazole [Protonix] 40 mg PO AC-BID #0 tablet. 05/09/20 Allergies Allergy/AdvReac Type Severity Reaction Status Date / Time No Known Allergies Allergy Verified 04/30/20 18:55 Review of Systems ROS Statement: Those systems with pertinent positive or pertinent negative responses have been documented in the HPI. ROS Other: All systems not noted in ROS Statement are negative. Past Medical History Past Medical History: Hypertension Additional Past Medical History / Comment(s): etoh abuse History of Any Multi-Drug Resistant Organisms: None Reported Past Surgical History: Hernia Repair, Orthopedic Surgery Past Psychological History: No Psychological Hx Reported Smoking Status: Current every day smoker Past Alcohol Use History: Abuse, Daily, Heavy Past Drug Use History: None Reported General Exam Limitations: no limitations General appearance: alert, in no apparent distress Head exam: Present: atraumatic, normocephalic Eye exam: Present: normal appearance, PERRL Neck exam: Present: normal inspection. Absent: tenderness Respiratory exam: Present: normal lung sounds bilaterally. Absent: respiratory distress, wheezes Cardiovascular Exam: Present: regular rate, irregular rhythm GI/Abdominal exam: Present: soft. Absent: distended, tenderness, guarding, rebound Extremities exam: Present: normal inspection, normal capillary refill Neurological exam: Present: alert, oriented X3, CN II-XII intact. Absent: motor sensory deficit Psychiatric exam: Present: normal affect, normal mood Skin exam: Present: warm, dry, intact. Absent: cyanosis, diaphoretic Course Vital Signs 03/18/22 03/18/22 08:41 09:19 Temperature 99.1 F Pulse Rate 106 H 87 Respiratory 18 20 Rate Blood Pressure 122/79 122/81 O2 Sat by Pulse 98 98 Oximetry EKG Findings - EKG Comments: EKG Findings:: EKG: Atrial fibrillation rate of 94, no ST segment elevation, QRS duration 102, QTC 404 Medical Decision Making - Medical Decision Making 56-year-old male with coronavirus. Patient well-appearing no respiratory distress. Patient is in A. fib but is rate controlled. He is on appropriate medication. No chest pain. No dyspnea. Chest x-ray is clear. Patient is stable for discharge and should continue his rehabilitation at [place]. Return parameters discussed. Additionally he will take vitamin C, vitamin D and zinc. Disposition Clinical Impression: COVID-19 Disposition: HOME SELF-CARE Condition: Fair Instructions (If sedation given, give patient instructions): COVID-19 (Coronavirus Disease 2019) (ED) Additional Instructions: Please take vitamin C, zinc, vitamin D, please follow up with your primary care. Please return to the emergency department with difficulty breathing or hypoxia. Is patient prescribed a controlled substance at d/c from ED?: No Referrals: Nonstaff,Physician [Primary Care Provider] - 1-2 days Time of Disposition: 09:39
[2022-03-18 10:14] VITALS: BP 123/73; PULSE 91; RESP 18
== END 2022-03-18 10:14 | disposition home or self-care (01) ==
LOC: EC 08:37
DX: U07.1 COVID-19 (principal); I10 Essential (primary) hypertension; F17.200 Nicotine dependence, unspecified, uncomplicated
CPT/HCPCS: 71045; 93005; 99284

== ENCOUNTER 2022-11-12 18:19 | Emergency (ER) | payer OTHER ==
--- NOTE | 2022-11-12 19:08 | ED ---
Lower Extremity Injury HPI - General Chief Complaint: Extremity Injury, Lower Stated Complaint: Leg Pain Time Seen by Provider: 11/12/22 18:56 Source: EMS, RN notes reviewed, old records reviewed Mode of arrival: EMS Limitations: no limitations - History of Present Illness Initial Comments: This is a 56-year-old male here to the ER. Patient is safe for evaluation of leg pain patient does have A. fib is on Eliquis over sent to the ER for evaluation of possible DVT left leg. Patient's history of surgery and trauma to the left leg no new trauma. Patient has had pain for 2-3 days now worsening, does do a job wrist and on his legs MD Complaint: knee injury (Pain), leg injury -: hour(s) Injury: Leg: Left, Knee: Left Severity: moderate Severity scale (1-10): 7 Worsens With: weight bearing, movement Associated Symptoms: swelling, able to partially bear weight Treatments Prior to Arrival: other (0) - Related Data Previous Rx's Medication Instructions Recorded HYDROcodone/APAP 5-325MG [[place] 1 each PO Q6HR PRN #20 tab 05/09/20 5-325] Pantoprazole [Protonix] 40 mg PO AC-BID #0 tablet. 05/09/20 Allergies Allergy/AdvReac Type Severity Reaction Status Date / Time No Known Allergies Allergy Verified 11/12/22 18:28 Review of Systems ROS Statement: Those systems with pertinent positive or pertinent negative responses have been documented in the HPI. ROS Other: All systems not noted in ROS Statement are negative. Past Medical History Past Medical History: Hypertension Additional Past Medical History / Comment(s): etoh abuse History of Any Multi-Drug Resistant Organisms: None Reported Past Surgical History: Hernia Repair, Orthopedic Surgery Past Psychological History: No Psychological Hx Reported Smoking Status: Current every day smoker Past Alcohol Use History: Abuse, Daily, Heavy Past Drug Use History: None Reported General Exam General appearance: alert, in no apparent distress Head exam: Present: atraumatic, normocephalic, normal inspection Eye exam: Present: normal appearance, PERRL, EOMI. Absent: scleral icterus, conjunctival injection, periorbital swelling ENT exam: Present: normal exam, mucous membranes moist Neck exam: Present: normal inspection. Absent: tenderness, meningismus, lymphadenopathy Respiratory exam: Present: normal lung sounds bilaterally. Absent: respiratory distress, wheezes, rales, rhonchi, stridor Cardiovascular Exam: Present: regular rate, normal rhythm, normal heart sounds. Absent: systolic murmur, diastolic murmur, rubs, gallop, clicks GI/Abdominal exam: Present: soft, normal bowel sounds. Absent: distended, tenderness, guarding, rebound, rigid Extremities exam: Present: normal inspection, full ROM, normal capillary refill. Absent: tenderness, pedal edema, joint swelling, calf tenderness Back exam: Present: normal inspection Neurological exam: Present: alert, oriented X3, CN II-XII intact Psychiatric exam: Present: normal affect, normal mood Skin exam: Present: warm, dry, intact, normal color. Absent: rash Course Vital Signs 11/12/22 11/12/22 18:20 20:11 Temperature 98.4 F 98.1 F Pulse Rate 95 82 Respiratory 18 16 Rate Blood Pressure 159/122 139/80 O2 Sat by Pulse 100 98 Oximetry - Reevaluation(s) Reevaluation #1: 11/12/22 23:09 Medical records reviewed Reevaluation #2: 11/12/22 23:09 patient symptoms are improved Reevaluation #3: 11/12/22 23:09 Patient informed results questions answered Reevaluation #4: 11/12/22 23:09 Was pt. sent in by a medical professional or institution? @ -Past this patient was sent in for rule out DVT by primary care Did you speak to anyone other than the patient for history? @ -no Did you review nursing and triage notes? @ -agree Were old charts reviewed? @ -no Differential Diagnosis? @ -prior EKG interpreted by me (3pts min.)? @ -yes X-rays interpreted by me (1pt min.)? @ -yes CT interpreted by me (1pt min.)? @ -no U/S interpreted by me (1pt. min.)? @ -yes What testing was considered but not performed? (CT, X-rays, U/S, labs)? Why? @ -no What meds were considered but not given? Why? @ -no Did you discuss the management of the patient with other professionals? @ -no Did you reconcile home meds? @ -no Was smoking cessation discussed for >3mins.? @ -no Was critical care preformed (if so, how long)? @ -no Were there social determinants of health that impacted care today? How? (Homelessness, low income, unemployed, alcoholism, drug addiction, transportation, low edu. Level, literacy, decrease access to med. care, care home, rehab)? @ -no Was there de-escalation of care discussed even if they declined? (Discuss DNR or withdrawal of care, Hospice)? @ -no What co-morbidities impacted this encounter? (DM, HTN, Smoking, COPD, CAD, Cancer, CVA, Hep., AIDS, mental health diagnosis, sleep apnea, morbid obesity)? @ -none Was patient admitted / discharged? @ -56 male to the emergency department for evaluation of left leg pain. Patient's found of no DVT of left leg as he was sent for ultrasound regarding pain. Patient has pain control here in the ER and can be discharged home. Discharge Undiagnosed new problem with uncertain prognosis? @ -no Drug Therapy requiring intensive monitoring for toxicity (Heparin, Nitro, Insulin, Cardizem)? @ -no Were any procedures done? @ -no Diagnosis/symptom? @ -Left Leg Pain Acute, or Chronic, or Acute on Chronic? @ -no Uncomplicated (without systemic symptoms) or Complicated (systemic symptoms)? @ -uncomplicated Side effects of treatment? @ -no Exacerbation, Progression, or Severe Exacerbation] @ -no Poses a threat to life or bodily function? @ -no Medical Decision Making - Medical Decision Making 56 male the leg pain rule out DVT patient is found to have no rigidity DVT here in the ER, ultrasound of the leg is negative patient's pain is controlled and he can be discharged home - Radiology Data Radiology results: report reviewed (US LEFT KNEE NEGATIVE FOR DVT), image reviewed Disposition Clinical Impression: Left leg pain Disposition: HOME SELF-CARE Condition: Good Instructions (If sedation given, give patient instructions): Knee Pain (ED) Is patient prescribed a controlled substance at d/c from ED?: No Referrals: Vashti Howard MD [Primary Care Provider] - 1-2 days Time of Disposition: 20:00
--- NOTE | 2022-11-12 19:54 | US ---
EXAMINATION TYPE: US venous doppler duplex LE LT DATE OF EXAM: 11/12/2022 6:57 PM COMPARISON: NONE CLINICAL INDICATION: Male, 56 years old with history of dvt; Left knee pain. No hx of DVT. On blood t hinners SIDE PERFORMED: Left TECHNIQUE: The lower extremity deep venous system is examined utilizing real time linear array sonog corrina with graded compression, doppler sonography and color-flow sonography. VESSELS IMAGED: Common Femoral Vein Deep Femoral Vein Greater Saphenous Vein * Femoral Vein Popliteal Vein Small Saphenous Vein * Proximal Calf Veins (* superficial vessels) Left Leg: No evidence for DVT IMPRESSION: Grayscale, color doppler, spectral doppler imaging performed of the deep veins of the lo wer extremities. There is normal flow, compressibility, vascular waveforms.
[2022-11-12] MEDS ORDERED: ACET/COD 300 MG/30 MG STARTER PACK 6 TAB BTL PO STA (20:07)
[2022-11-12 20:12] VITALS: BP 139/80; PULSE 82; RESP 16; TEMP 98.1
== END 2022-11-12 20:12 | disposition home or self-care (01) ==
LOC: EC 18:19
DX: M25.562 Pain in left knee (principal); I10 Essential (primary) hypertension; F17.200 Nicotine dependence, unspecified, uncomplicated
CPT/HCPCS: 99284

== ENCOUNTER 2023-05-31 13:02 | Emergency (ER) | payer OTHER ==
[2023-05-31] MEDS ORDERED: HYDROcodone/APAP 7.5-325MG 1 EACH TAB PO ONE (13:38)
[2023-05-31] MEDS ORDERED: KETOROLAC 15 MG/ML 1 ML VIAL IM STA (13:38)
[2023-05-31] MEDS ORDERED: DEXAMETHASONE SOD PHOSPHATE 10 MG/ML 1 ML VIAL IM STA (13:38)
[2023-05-31] MEDS ORDERED: AMOXIC-POT CLAV 875-125MG 1 EACH TAB PO STA (13:38)
--- NOTE | 2023-05-31 13:51 | ED ---
ENT HPI - General Chief complaint: ENT Stated complaint: Tooth pain Time Seen by Provider: 05/31/23 13:12 Source: patient, RN notes reviewed Mode of arrival: ambulatory Limitations: no limitations - History of Present Illness Initial comments: This is a 57-year-old male who presents to the emergency department for left- sided facial pain and swelling. Symptoms started 2 days ago. Reports ongoing problems with his teeth. He is taking aspirin without relief in symptoms. Denies any fevers or chills. He has not yet been able to get in with a dentist. Denies any drainage or foul taste in his mouth. He is a daily smoker. Denies any illicit drug use. MD complaint: tooth pain - Related Data Previous Rx's Medication Instructions Recorded HYDROcodone/APAP 5-325MG [[place] 1 each PO Q6HR PRN #20 tab 05/09/20 5-325] Pantoprazole [Protonix] 40 mg PO AC-BID #0 tablet. 05/09/20 Amoxic-Pot Clav 875-125Mg 1 tab PO Q12HR 10 Days #20 tab 05/31/23 [Augmentin 875-125] Ibuprofen 800 mg PO Q8H PRN #30 tab 05/31/23 Allergies Allergy/AdvReac Type Severity Reaction Status Date / Time No Known Allergies Allergy Verified 05/31/23 13:12 Review of Systems ROS Statement: Those systems with pertinent positive or pertinent negative responses have been documented in the HPI. ROS Other: All systems not noted in ROS Statement are negative. Past Medical History Past Medical History: Hypertension Additional Past Medical History / Comment(s): etoh abuse History of Any Multi-Drug Resistant Organisms: None Reported Past Surgical History: Hernia Repair, Orthopedic Surgery Past Psychological History: No Psychological Hx Reported Smoking Status: Current every day smoker Past Alcohol Use History: Abuse, Daily, Heavy Past Drug Use History: None Reported General Exam Limitations: no limitations General appearance: alert, in no apparent distress Head exam: Present: atraumatic ENT exam: Present: other (Left-sided facial pain and swelling associated with the bottom left jaw. Multiple dental caries. No swelling or elevation of the tongue or swelling to the floor of the mouth.) Respiratory exam: Present: normal lung sounds bilaterally. Absent: respiratory distress, wheezes, rales, rhonchi, stridor Cardiovascular Exam: Present: regular rate, normal rhythm, normal heart sounds. Absent: systolic murmur, diastolic murmur, rubs, gallop, clicks Neurological exam: Present: alert, oriented X3, CN II-XII intact Psychiatric exam: Present: normal affect, normal mood Skin exam: Present: warm, dry, intact, normal color. Absent: rash Course Vital Signs 05/31/23 05/31/23 13:10 15:07 Temperature 97.9 F 98.9 F Pulse Rate 23 L 82 Respiratory 18 16 Rate Blood Pressure 148/79 146/80 O2 Sat by Pulse 98 99 Oximetry Medical Decision Making - Medical Decision Making This is a 57-year-old male who presents to the emergency department for left- sided dental pain. Was pt. sent in by a medical professional or institution? @ -No Did you speak to anyone other than the patient for history? @ -No Did you review nursing and triage notes? @ -Yes, and I agree, it is accurate with regards to the patient's symptoms. Were old charts reviewed? @ -No Differential Diagnosis? @ -Differential Dental Pain: Dental abscess, chipped tooth, dental carries, keith's angina, trigeminal neuralgia, this is not meant to be an all-inclusive list. EKG interpreted by me (3pts min.)? @ -Not obtained X-rays interpreted by me (1pt min.)? @ -Not obtained CT interpreted by me (1pt min.)? @ -Not obtained U/S interpreted by me (1pt. min.)? @ -Not obtained What testing was considered but not performed? (CT, X-rays, U/S, labs)? Why? @ -None What meds were considered but not given? Why? @ -None Did you discuss the management of the patient with other professionals? @ -No Did you reconcile home meds? @ -No Was smoking cessation discussed for >3mins.? @ -I discussed smoking cessation for greater than 3 minutes. The risk of smoking were discussed with the patient including but not limited to risks of cancer, stroke, coronary artery disease and COPD. Also discussed with patient were multiple methods of quitting smoking. Lastly we discussed the financial cost of smoking. Was critical care preformed (if so, how long)? @ -No Were there social determinants of health that impacted care today? How? (Homelessness, low income, unemployed, alcoholism, drug addiction, transportation, low edu. Level, literacy, decrease access to med. care, residential, rehab)? @ -Alcoholism, increasing his risk for other medical problems and impacting his ability to care for himself. Was there de-escalation of care discussed even if they declined? (Discuss DNR or withdrawal of care, Hospice)? @ -No What co-morbidities impacted this encounter? (DM, HTN, Smoking, COPD, CAD, Cancer, CVA, Hep., AIDS, mental health diagnosis, sleep apnea, morbid obesity)? @ -Smoking, HTN, alcoholism Was patient admitted / discharged? @ -Discharged. Physical examination consistent with a dental abscess. There was no elevation of the tongue or swelling to the floor of mouth to suggest Keith's angina. He was given an initial dose of Augmentin in the emergency department along with a dose of Toradol, which he felt was beneficial. Prescription for Augmentin and ibuprofen provided with dosing instructions reviewed. Advised taking the ibuprofen with Tylenol. Also advised to follow-up with a dentist, and he was also given information for oral surgery follow-up if he cannot find a dentist. Undiagnosed new problem with uncertain prognosis? @ -None Drug Therapy requiring intensive monitoring for toxicity (Heparin, Nitro, Insulin, Cardizem)? @ -None Were any procedures done? @ -None Diagnosis/symptom? @ -Dental abscess Acute, or Chronic, or Acute on Chronic? @ -Acute Uncomplicated (without systemic symptoms) or Complicated (systemic symptoms)? @ -Uncomplicated Side effects of treatment? @ -None Exacerbation, Progression, or Severe Exacerbation] @ -Not applicable Poses a threat to life or bodily function? @ -No Return precautions reviewed in depth, the patient is instructed to return to the emergency department with any new, worsening, or concerning symptoms. Patient verbalized understanding. This case was discussed in detail with the attending ED physician, Dr. Szymanski. Presentation, findings, and treatment plan discussed in detail as well. Disposition Clinical Impression: Nicotine dependence, Dental abscess Disposition: HOME SELF-CARE Instructions (If sedation given, give patient instructions): Dental Abscess (ED) Additional Instructions: Return to the emergency department with any new, worsening, or concerning symptoms. Take the antibiotic as prescribed for 10 days. Alternate with ibuprofen and Tylenol as needed for pain relief. Contact a dentist to become established for definitive care. You can also contact the oral surgeon as listed below for further management of the infection. Follow up with your primary care provider in 1-2 days. Prescriptions: Amoxic-Pot Clav 875-125Mg [Augmentin 875-125] 1 tab PO Q12HR 10 Days #20 tab Ibuprofen 800 mg PO Q8H PRN #30 tab PRN Reason: Pain Is patient prescribed a controlled substance at d/c from ED?: No Referrals: Vashti Howard MD [Primary Care Provider] - 1-2 days Bryce Mcallister DDS [STAFF PHYSICIAN] - 1-2 days
[2023-05-31] MEDS ORDERED: ACET/COD 300 MG/30 MG STARTER PACK 6 TAB BTL PO STA (14:09)
[2023-05-31] MEDS ORDERED: IBUPROFEN 600 MG STARTER PACK 4 TAB BTL PO STA (14:09)
[2023-05-31 15:12] VITALS: BP 146/80; PULSE 82; RESP 16; TEMP 98.9
== END 2023-05-31 15:33 | disposition home or self-care (01) ==
LOC: EC 13:02
DX: K04.7 Periapical abscess without sinus (principal); F17.200 Nicotine dependence, unspecified, uncomplicated; I10 Essential (primary) hypertension
CPT/HCPCS: 99283; 96372 ×2; J1100; J1885

== ENCOUNTER 2023-09-19 00:04 | Emergency (ER) | payer OTHER ==
[2023-09-19 00:56] VITALS: BP 150/108
--- NOTE | 2023-09-19 01:11 | ED ---
ENT HPI - General Chief complaint: Dental/Oral Stated complaint: dental pain Time Seen by Provider: 09/19/23 00:37 Source: patient Mode of arrival: ambulatory Limitations: no limitations - History of Present Illness Initial comments: 57-year-old male presenting with chief complaint of dental pain. Pain is located on the upper right jaw. Pain started today. Patient has known broken teeth to that area. He has a dentist appointment at the end of this month. No trismus, drooling, muffled voice, fever, chills, neck pain. He has been taking Tylenol for pain with little improvement. No difficulty breathing or swallowing - Related Data Previous Rx's Medication Instructions Recorded HYDROcodone/APAP 5-325MG [[place] 1 each PO Q6HR PRN #20 tab 05/09/20 5-325] Pantoprazole [Protonix] 40 mg PO AC-BID #0 tablet. 05/09/20 Amoxic-Pot Clav 875-125Mg 1 tab PO Q12HR 10 Days #20 tab 05/31/23 [Augmentin 875-125] Ibuprofen 800 mg PO Q8H PRN #30 tab 05/31/23 Amoxic-Pot Clav 875-125Mg 1 tab PO Q12HR 10 Days #20 tab 09/19/23 [Augmentin 875-125] Allergies Allergy/AdvReac Type Severity Reaction Status Date / Time No Known Allergies Allergy Verified 09/19/23 00:31 Review of Systems ROS Statement: Those systems with pertinent positive or pertinent negative responses have been documented in the HPI. ROS Other: All systems not noted in ROS Statement are negative. Past Medical History Past Medical History: Hypertension Additional Past Medical History / Comment(s): etoh abuse History of Any Multi-Drug Resistant Organisms: None Reported Past Surgical History: Hernia Repair, Orthopedic Surgery Past Psychological History: No Psychological Hx Reported Smoking Status: Current every day smoker Past Alcohol Use History: Abuse, Daily, Heavy Past Drug Use History: None Reported General Exam Limitations: no limitations General appearance: alert, in no apparent distress Head exam: Present: atraumatic, normocephalic Eye exam: Present: normal appearance, EOMI Expanded Mouth exam: Present: normal external inspection, tongue normal. Absent: drooling, trismus, muffled voice Teeth exam: Present: dental caries, fractured tooth #, dental tenderness # Throat exam: normal inspection Neck exam: Present: normal inspection. Absent: meningismus Respiratory exam: Absent: respiratory distress Cardiovascular Exam: Present: regular rate Neurological exam: Present: alert, oriented X3 Psychiatric exam: Present: normal affect, normal mood Skin exam: Present: warm, dry Course Vital Signs 09/19/23 09/19/23 00:28 01:33 Temperature 97.4 F L 98.2 F Pulse Rate 90 85 Respiratory 18 16 Rate Blood Pressure 150/108 O2 Sat by Pulse 96 96 Oximetry Medical Decision Making - Medical Decision Making Was pt. sent in by a medical professional or institution (, PA, DARKROOM TECHNICIAN, urgent care, hospital, or custodial...) When possible be specific @ -No Did you speak to anyone other than the patient for history (EMS, parent, family, police, friend...)? What history was obtained from this source @ -No Did you review nursing and triage notes (agree or disagree)? Why? @ -I reviewed and agree with nursing and triage notes Were old charts reviewed (outside hosp., previous admission, EMS record, old EKG, old radiological studies, urgent care reports/EKG's, custodial records)? Report findings @ -No old charts were reviewed Differential Diagnosis (chest pain, altered mental status, abdominal pain women, abdominal pain men, vaginal bleeding, weakness, fever, dyspnea, syncope, headache, dizziness, GI bleed, back pain, seizure, CVA, palpatations, mental health, musculoskeletal)? @ -Differential includes toothache, dental abscess, Keith's angina, this is not an all-inclusive list EKG interpreted by me (3pts min.). @ -As above X-rays interpreted by me (1pt min.). @ -None done CT interpreted by me (1pt min.). @ -None done U/S interpreted by me (1pt. min.). @ -None done What testing was considered but not performed or refused? (CT, X-rays, U/S, labs)? Why? @ -None What meds were considered but not given or refused? Why? @ -None Did you discuss the management of the patient with other professionals (professionals i.e. , IRIS, DARKROOM TECHNICIAN, lab, RT, psych nurse, social professionals, financial foundations representative, teacher, fourth officer, mattress spring encaser)? Give summary @ -No Was smoking cessation discussed for >3mins.? @ -No Was critical care preformed (if so, how long)? @ -No Were there social determinants of health that impacted care today? How? (Homelessness, low income, unemployed, alcoholism, drug addiction, transporta tion, low edu. Level, literacy, decrease access to med. care, intermediate, rehab)? @ -No Was there de-escalation of care discussed even if they declined (Discuss DNR or withdrawal of care, Hospice)? DNR status @ -No What co-morbidities impacted this encounter? (DM, HTN, Smoking, COPD, CAD, Cancer, CVA, ARF, Chemo, Hep., AIDS, mental health diagnosis, sleep apnea, morbid obesity)? @ -None Was patient admitted / discharged? Hospital course, mention meds given and route, prescriptions, significant lab abnormalities, going to OR and other pertinent info. @ -57-year-old male presenting with chief complaint of dental pain. Located on the right upper side. He has a dentist appointment at the end of the month. On exam there are multiple dental caries and fractured teeth no brawny induration or midline shift. No stridor or drooling. Patient is having no difficulty breathing or swallowing. He will be treated with Augmentin. Given pain medication. Discharged home. Follow-up with PCP. Report back to ER with any new or worsening symptoms. Discussed return parameters and answered all questions. Patient conveyed verbal understanding and agreed to the plan. I discussed this case in detail with my attending Dr. Dodd Undiagnosed new problem with uncertain prognosis? @ -No Drug Therapy requiring intensive monitoring for toxicity (Heparin, Nitro, Insulin, Cardizem)? @ -No Were any procedures done? @ -No Diagnosis/symptom? @ -Dental caries, dental abscess Acute, or Chronic, or Acute on Chronic? @ -Acute Uncomplicated (without systemic symptoms) or Complicated (systemic symptoms)? @ -Uncomplicated Side effects of treatment? @ -No Exacerbation, Progression, or Severe Exacerbation? @ -No Poses a threat to life or bodily function? How? (Chest pain, [place], [place], pneumonia, PE, COPD, DKA, ARF, appy, cholecystitis, CVA, Diverticulitis, Homicidal, Suicidal, threat to staff... and all critical care pts) @ -No Disposition Clinical Impression: Pain due to dental caries, Dental abscess Disposition: HOME SELF-CARE Condition: Fair Instructions (If sedation given, give patient instructions): Dental Abscess (ED) Additional Instructions: Follow-up with your dentist. Report back to ER with any new or worsening symptoms. Take medication as prescribed. Prescriptions: Amoxic-Pot Clav 875-125Mg [Augmentin 875-125] 1 tab PO Q12HR 10 Days #20 tab Is patient prescribed a controlled substance at d/c from ED?: No Referrals: None,Stated [Primary Care Provider] - 1-2 days Time of Disposition: 01:11
[2023-09-19] MEDS: AMOXIC-POT CLAV 875MG STARTER PACK 2 TAB BTL PO STA (01:27)
[2023-09-19] MEDS: AMOXIC-POT CLAV 875-125MG 1 EACH TAB PO STA (01:27)
[2023-09-19] MEDS: ACET/COD 300 MG/30 MG STARTER PACK 6 TAB BTL PO STA (01:27)
[2023-09-19] MEDS: KETOROLAC 15 MG/ML 1 ML VIAL IM STA (01:28)
[2023-09-19 01:49] VITALS: PULSE 85; RESP 16; TEMP 98.2
== END 2023-09-19 01:42 | disposition home or self-care (01) ==
LOC: EC 00:04
DX: K02.9 Dental caries, unspecified (principal); K03.81 Cracked tooth; K04.7 Periapical abscess without sinus; F17.200 Nicotine dependence, unspecified, uncomplicated
CPT/HCPCS: 99283; 96372; J1885

== ENCOUNTER 2024-09-16 14:52 | Inpatient (IN) | payer OTHER ==
[2024-09-16] MEDS: SODIUM CHLORIDE 0.9% 2,000 ML IV ONE (16:11)
[2024-09-16 16:16] LABS: Glucose,Whole Blood 78 mg/dL (70-110)
[2024-09-16 16:22] LABS: Basophils # (A) 0.04 10*3/uL (0.00-0.10); Basophils % (A) 0.6 %; Eosinophils # (A) 0.02 10*3/uL (0.04-0.35); Eosinophils % (A) 0.3 %; HCT 44.3 % (39.6-50.0); HGB 16.3 g/dL (13.0-17.0); Immature Platelet Fraction 5.1 % (1.1-6.1); Lymphocytes # (A) 0.73 10*3/uL (0.90-5.00); Lymphocytes % (A) 11.6 %; MCH 33.1 pg (27.0-32.0); MCHC 36.8 g/dL (32.0-37.0); Mean Platelet Volume 10.6 fL (9.5-12.2); Monocytes # (A) 0.32 10*3/uL (0.20-1.00); Monocytes % (A) 5.1 %; Neutrophils # (A) 5.13 10*3/uL (1.80-7.70); Neutrophils % (A) 81.9 %; Platelet Count 103 10*3/uL (140-440); RBC 4.92 10*6/uL (4.40-5.60); RDW 12.5 % (11.5-14.5); WBC 6.27 10*3/uL (4.50-10.00)
[2024-09-16 16:30] LABS: INR 0.9 (<1.2); Partial Thromboplastin Time 22.9 sec (22.0-30.0); Prothrombin Time 10.1 sec (10.0-12.5)
[2024-09-16 16:34] LABS: ALT 184 U/L (4-49); AST 309 U/L (17-59); African American GFR (CKD) 88 (>60 ml/min/1.73 sqM); Alkaline Phosphatase 92 U/L (38-126); Anion Gap 16 mmol/L; Blood Urea Nitrogen 14 mg/dL (9-20); Calcium 7.5 mg/dL (8.4-10.2); Carbon Dioxide 26 mmol/L (22-30); Chloride 96 mmol/L (98-107); Creatine Kinase 612 U/L (55-170); Glucose 93 mg/dL (74-99); Lipase 283 U/L (23-300); Non-African American GFR(CKD) 76 (>60 ml/min/1.73 sqM); Potassium 3.7 mmol/L (3.5-5.1); Sodium 138 mmol/L (137-145); Total Bilirubin 1.3 mg/dL (0.2-1.3); Total Protein 6.8 g/dL (6.3-8.2)
[2024-09-16 16:43] LABS: Lactic Acid, Venous 4.2 mmol/L (0.7-2.0)
[2024-09-16 16:44] LABS: Alcohol 447 mg/dL
--- NOTE | 2024-09-16 17:07 | ED ---
Weakness HPI - General Chief complaint: Weakness Stated complaint: weakness Time Seen by Provider: 09/16/24 15:15 Source: patient, EMS Mode of arrival: EMS - History of Present Illness Initial comments: 58-year-old male with history of alcohol abuse who presents to the emergency department with weakness. His work called police stating that they had not seen the patient in 2 weeks. This prompted his landlord who is also his brother in law to go to the patient's apartment and check on him. He found him in the kitchen on the floor. Patient is confused. He does have visible skin breakdown on his bilateral hips as well as his right shoulder, elbow, right aspect of bilateral knees. Patient cannot provide any history to me. He follows minimal commands. Does not appear to have any lateralizing weakness. He has a strong smell of urine. Patient has a history of alcohol abuse and hypertension. Patient arrives in A-fib. Unknown if the patient has a history of. Unknown if the patient has had any falls. No other alleviating, precipitating or modifying factors - Related Data Home Medications Medication Instructions Recorded Confirmed Cyclobenzaprine [Flexeril] 5 mg PO HS PRN 09/16/24 09/16/24 Escitalopram [Lexapro] 20 mg PO DAILY 09/16/24 09/16/24 Levothyroxine Sodium [Synthroid] 112 mcg PO DAILY 09/16/24 09/16/24 Losartan [Cozaar] 50 mg PO DAILY 09/16/24 09/16/24 Previous Rx's Medication Instructions Recorded Folic Acid-Vit B Complex-Vit C 1 each PO DAILY #30 cap 09/21/24 [Nephrocaps] Metoprolol Tartrate [Lopressor] 25 mg PO BID #60 tab 09/21/24 Thiamine [Vitamin B-1] 100 mg PO DAILY #30 tab 09/21/24 Allergies Allergy/AdvReac Type Severity Reaction Status Date / Time No Known Allergies Allergy Verified 09/16/24 18:56 Review of Systems ROS Statement: Those systems with pertinent positive or pertinent negative responses have been documented in the HPI. ROS Other: All systems not noted in ROS Statement are negative. Past Medical History Past Medical History: Hypertension Additional Past Medical History / Comment(s): etoh abuse History of Any Multi-Drug Resistant Organisms: None Reported Past Surgical History: Hernia Repair, Orthopedic Surgery Past Psychological History: No Psychological Hx Reported Smoking Status: Current every day smoker Past Alcohol Use History: Abuse, Daily, Heavy Past Drug Use History: None Reported General Exam Limitations: altered mental status General appearance: lethargic Head exam: Present: atraumatic, normocephalic, normal inspection Eye exam: Present: normal appearance, PERRL, EOMI. Absent: scleral icterus, conjunctival injection, periorbital swelling ENT exam: Present: mucous membranes dry Neck exam: Present: normal inspection. Absent: tenderness, meningismus, lymphadenopathy Respiratory exam: Present: normal lung sounds bilaterally. Absent: respiratory distress, wheezes, rales, rhonchi, stridor Cardiovascular Exam: Present: tachycardia, irregular rhythm GI/Abdominal exam: Present: soft, normal bowel sounds. Absent: distended, t enderness, guarding, rebound, rigid Neurological exam: Present: altered Psychiatric exam: Present: flat affect Skin exam: Present: other (Skin breakdown to the right bilateral knees, right flank, left flank, right elbow) Course Vital Signs 09/16/24 09/16/24 09/16/24 14:57 16:14 17:28 Temperature 98.5 F Pulse Rate 129 H 142 H 151 H Respiratory 22 18 20 Rate Blood Pressure 110/99 119/99 108/84 O2 Sat by Pulse 99 97 97 Oximetry 09/16/24 09/16/24 09/16/24 18:42 19:00 21:42 Temperature Pulse Rate 168 H 165 H 176 H Respiratory 22 30 H Rate Blood Pressure 125/88 O2 Sat by Pulse 99 99 Oximetry 09/16/24 09/17/24 09/17/24 22:07 00:24 02:00 Temperature Pulse Rate 106 H 137 H 95 Respiratory 18 18 16 Rate Blood Pressure 125/87 123/71 117/87 O2 Sat by Pulse 95 98 97 Oximetry 09/17/24 09/17/24 09/17/24 03:00 06:00 07:07 Temperature Pulse Rate 91 105 H 121 H Respiratory 20 18 17 Rate Blood Pressure 120/83 120/74 117/78 O2 Sat by Pulse 96 98 94 L Oximetry 09/17/24 09/17/24 09/17/24 07:08 08:36 11:00 Temperature 100.0 F H 98.3 F Pulse Rate 85 104 H Respiratory 18 24 Rate Blood Pressure 120/81 132/84 O2 Sat by Pulse 93 L 94 L Oximetry 09/17/24 09/17/24 09/17/24 11:30 12:00 12:30 Temperature Pulse Rate 121 H 130 H 86 Respiratory 22 13 14 Rate Blood Pressure 133/89 133/89 139/82 O2 Sat by Pulse 98 92 L 98 Oximetry 09/17/24 09/17/24 09/17/24 13:00 13:30 14:00 Temperature Pulse Rate 105 H 105 H 107 H Respiratory 21 19 15 Rate Blood Pressure 139/82 130/89 130/89 O2 Sat by Pulse 94 L 95 96 Oximetry 09/17/24 09/17/24 09/17/24 14:30 15:00 15:39 Temperature 98.1 F Pulse Rate 133 H 108 H Respiratory 24 20 Rate Blood Pressure 123/86 123/86 O2 Sat by Pulse 96 95 Oximetry 09/17/24 09/17/24 09/17/24 16:00 16:30 17:00 Temperature Pulse Rate 101 H 100 144 H Respiratory 28 H 22 17 Rate Blood Pressure 118/84 127/84 127/84 O2 Sat by Pulse 93 L 95 93 L Oximetry 09/17/24 09/17/24 17:30 18:00 Temperature 97.9 F Pulse Rate 97 108 H Respiratory 18 21 Rate Blood Pressure 118/83 118/83 O2 Sat by Pulse 96 86 L Oximetry Medical Decision Making - Medical Decision Making Was pt. sent in by a medical professional or institution (IRIS Jasso, [employer], urgent care, hospital, or care home...) When possible be specific @ -No Did you speak to anyone other than the patient for history (EMS, parent, family, police, friend...)? What history was obtained from this source @ -Spoke with EMS for history Did you review nursing and triage notes (agree or disagree)? Why? @ -I reviewed and agree with nursing and triage notes Were old charts reviewed (outside hosp., previous admission, EMS record, old EKG, old radiological studies, urgent care reports/EKG's, care home records)? Report findings @ -No old charts were reviewed Differential Diagnosis (chest pain, altered mental status, abdominal pain women, abdominal pain men, vaginal bleeding, weakness, fever, dyspnea, syncope, headache, dizziness, GI bleed, back pain, seizure, CVA, palpatations, mental health, musculoskeletal)? @ -Differential Altered Mental Status: Hypoglycemia, DKA, hypercapnia, ETOH, overdose, CO poisoning, trauma, myxedema coma, HTN encephalopathy, infection, encephalitis, psychosis, intercranial hemorrhage, hepatic encephalopathy, meningitis, CVA, this is not meant to be an all-inclusive list EKG interpreted by me (3pts min.). @ -Yes and demonstrates A-fib with a rate of 141. QRS 100. QTc of 389. No acute ST segment elevations or depressions X-rays interpreted by me (1pt min.). @ -Yes which demonstrates no acute process CT interpreted by me (1pt min.). @Yes which demonstrates no acute process U/S interpreted by me (1pt. min.). @ -None done What testing was considered but not performed or refused? (CT, X-rays, U/S, labs)? Why? @ -None What meds were considered but not given or refused? Why? @ -None Did you discuss the management of the patient with other professionals (professionals i.e. DrYeny, PA, [employer], lab, RT, psych nurse, social worker aide, proof coin collector, teacher, professional security officer, spring encaser)? Give summary @ -Spoke with [facility] for admission Was smoking cessation discussed for >3mins.? @ -No Was critical care preformed (if so, how long)? @ -Yes, 35 minutes for management of Cardizem drip Were there social determinants of health that impacted care today? How? (Homelessness, low income, unemployed, alcoholism, drug addiction, transport ation, low edu. Level, literacy, decrease access to med. care, care home, rehab)? @ -No Was there de-escalation of care discussed even if they declined (Discuss DNR or withdrawal of care, Hospice)? DNR status @ -No What co-morbidities impacted this encounter? (DM, HTN, Smoking, COPD, CAD, Cancer, CVA, ARF, Chemo, Hep., AIDS, mental health diagnosis, sleep apnea, morbid obesity)? @ -Alcohol abuse Was patient admitted / discharged? Hospital course, mention meds given and route, prescriptions, significant lab abnormalities, going to OR and other pertinent info. @ -Upon arrival patient seen and evaluated in room 11. Thorough history and physical exam was performed. Patient is undressed and has significant breakdown likely from pressure. IV was established he was given a 2 L bolus of normal s christa. Laboratory studies are conducted. Twelve-lead EKG demonstrates new onset A-fib. He is started on a Cardizem drip however heparin will be held at this time as patient is known to be significantly intoxicated and cannot provide enough history for me to be comfortable heparinizing him. I did complete a CT of his head and neck which demonstrates no acute process. Patient is significantly intoxicated at this time. He will be admitted for alcohol intoxication, weakness, elevated CK, new onset A-fib. Patient was agreeable to this and admitted to [facility] Undiagnosed new problem with uncertain prognosis? @ -No Drug Therapy requiring intensive monitoring for toxicity (Heparin, Nitro, Insulin, Cardizem)? @ -Cardizem Were any procedures done? @ -No Diagnosis/symptom? @ -Acute encephalopathy, acute alcohol intoxication, A-fib with RVR Acute, or Chronic, or Acute on Chronic? @ -Acute Uncomplicated (without systemic symptoms) or Complicated (systemic symptoms)? @ -Complicated Side effects of treatment? @ -No Exacerbation, Progression, or Severe Exacerbation? @ -NO Poses a threat to life or bodily function? How? (Chest pain, [place], [place], pneumonia, PE, COPD, DKA, ARF, appy, cholecystitis, CVA, Diverticulitis, Homicidal, Suicidal, threat to staff... and all critical care pts) @ -Yes - Lab Data Result diagrams: 09/20/24 06:42 09/21/24 05:55 Lab Results 09/16/24 09/16/24 09/16/24 Range/Units 16:07 16:07 16:07 WBC 6.27 (4.50-10.00) 10*3/uL RBC 4.92 (4.40-5.60) 10*6/uL Hgb 16.3 (13.0-17.0) g/dL Hct 44.3 (39.6-50.0) % MCV 90.0 (80.0-97.0) fL MCH 33.1 H (27.0-32.0) pg MCHC 36.8 (32.0-37.0) g/dL Plt Count 103 L (140-440) 10*3/uL MPV 10.6 (9.5-12.2) fL Immature Gran % (Auto) 0.5 % Neutrophils % 81.9 % Lymphocytes % 11.6 % Monocytes % 5.1 % Eosinophils % 0.3 % Basophils % 0.6 % Immature Gran # 0.03 (0.00-0.04) 10*3/uL Neutrophils # 5.13 (1.80-7.70) 10*3/uL Lymphocytes # 0.73 L (0.90-5.00) 10*3/uL Monocytes # 0.32 (0.20-1.00) 10*3/uL Eosinophils # 0.02 L (0.04-0.35) 10*3/uL Basophils # 0.04 (0.00-0.10) 10*3/uL Immature Plt Fraction 5.1 (1.1-6.1) % PT 10.1 (10.0-12.5) sec INR 0.9 (<1.2) APTT 22.9 (22.0-30.0) sec Sodium (137-145) mmol/L Potassium (3.5-5.1) mmol/L Chloride (98-107) mmol/L Carbon Dioxide (22-30) mmol/L Anion Gap mmol/L BUN (9-20) mg/dL Creatinine (0.66-1.25) mg/dL Est GFR (CKD-EPI)AfAm (>60 ml/min/1.73 sqM) Est GFR (CKD-EPI)NonAf (>60 ml/min/1.73 sqM) Glucose (74-99) mg/dL POC Glucose (mg/dL) (70-110) mg/dL POC Glu Wind Operations Manager ID Lactic Ac Sepsis Rflx Plasma Lactic Acid Maurizio (0.7-2.0) mmol/L Calcium (8.4-10.2) mg/dL Magnesium (1.6-2.3) mg/dL Total Bilirubin (0.2-1.3) mg/dL AST (17-59) U/L ALT (4-49) U/L Alkaline Phosphatase (38-126) U/L Ammonia (<30) umol/L Creatine Kinase (55-170) U/L Troponin I (0.000-0.034) ng/mL Total Protein (6.3-8.2) g/dL Albumin (3.5-5.0) g/dL Lipase (23-300) U/L Urine Color Urine Appearance (Clear) Urine pH (5.0-8.0) Ur Specific [place] (1.001-1.035) Urine Protein (Negative) Urine Glucose (UA) (Negative) Urine Ketones (Negative) Urine Blood (Negative) Urine Nitrite (Negative) Urine Bilirubin (Negative) Urine Urobilinogen (<2.0) mg/dL Ur Leukocyte Esterase (Negative) Urine RBC (0-5) /hpf Urine WBC (0-5) /hpf Hyaline Casts (0-2) /lpf Urine Mucus (None) /hpf Urine Opiates Screen Not Detected (NotDetected) Ur Oxycodone Screen Not Detected (NotDetected) Urine Methadone Screen Not Detected (NotDetected) Ur Barbiturates Screen Not Detected (NotDetected) U Tricyclic Antidepress Not Detected (NotDetected) Ur Phencyclidine Scrn Not Detected (NotDetected) Ur Amphetamines Screen Not Detected (NotDetected) U Methamphetamines Scrn Not Detected (NotDetected) U Benzodiazepines Scrn Not Detected (NotDetected) Urine Cocaine Screen Detected H (NotDetected) U Marijuana (THC) Screen Not Detected (NotDetected) Serum Alcohol mg/dL 09/16/24 09/16/24 09/16/24 Range/Units 16:07 16:07 16:07 WBC (4.50-10.00) 10*3/uL RBC (4.40-5.60) 10*6/uL Hgb (13.0-17.0) g/dL Hct (39.6-50.0) % MCV (80.0-97.0) fL MCH (27.0-32.0) pg MCHC (32.0-37.0) g/dL Plt Count (140-440) 10*3/uL MPV (9.5-12.2) fL Immature Gran % (Auto) % Neutrophils % % Lymphocytes % % Monocytes % % Eosinophils % % Basophils % % Immature Gran # (0.00-0.04) 10*3/uL Neutrophils # (1.80-7.70) 10*3/uL Lymphocytes # (0.90-5.00) 10*3/uL Monocytes # (0.20-1.00) 10*3/uL Eosinophils # (0.04-0.35) 10*3/uL Basophils # (0.00-0.10) 10*3/uL Immature Plt Fraction (1.1-6.1) % PT (10.0-12.5) sec INR (<1.2) APTT (22.0-30.0) sec Sodium 138 (137-145) mmol/L Potassium 3.7 (3.5-5.1) mmol/L Chloride 96 L (98-107) mmol/L Carbon Dioxide 26 (22-30) mmol/L Anion Gap 16 mmol/L BUN 14 (9-20) mg/dL Creatinine 1.08 (0.66-1.25) mg/dL Est GFR (CKD-EPI)AfAm 88 (>60 ml/min/1.73 sqM) Est GFR (CKD-EPI)NonAf 76 (>60 ml/min/1.73 sqM) Glucose 93 (74-99) mg/dL POC Glucose (mg/dL) (70-110) mg/dL POC Glu Wind Operations Manager ID Lactic Ac Sepsis Rflx Plasma Lactic Acid Maurizio (0.7-2.0) mmol/L Calcium 7.5 L (8.4-10.2) mg/dL Magnesium (1.6-2.3) mg/dL Total Bilirubin 1.3 (0.2-1.3) mg/dL AST 309 H (17-59) U/L ALT 184 H (4-49) U/L Alkaline Phosphatase 92 (38-126) U/L Ammonia (<30) umol/L Creatine Kinase 612 H (55-170) U/L Troponin I 0.025 (0.000-0.034) ng/mL Total Protein 6.8 (6.3-8.2) g/dL Albumin 4.0 (3.5-5.0) g/dL Lipase 283 (23-300) U/L Urine Color Yellow Urine Appearance Clear (Clear) Urine pH 6.0 (5.0-8.0) Ur Specific [place] 1.019 (1.001-1.035) Urine Protein 2+ H (Negative) Urine Glucose (UA) Negative (Negative) Urine Ketones 1+ H (Negative) Urine Blood Moderate H (Negative) Urine Nitrite Negative (Negative) Urine Bilirubin Negative (Negative) Urine Urobilinogen <2.0 (<2.0) mg/dL Ur Leukocyte Esterase Negative (Negative) Urine RBC 1 (0-5) /hpf Urine WBC 1 (0-5) /hpf Hyaline Casts 3 H (0-2) /lpf Urine Mucus Few H (None) /hpf Urine Opiates Screen (NotDetected) Ur Oxycodone Screen (NotDetected) Urine Methadone Screen (NotDetected) Ur Barbiturates Screen (NotDetected) U Tricyclic Antidepress (NotDetected) Ur Phencyclidine Scrn (NotDetected) Ur Amphetamines Screen (NotDetected) U Methamphetamines Scrn (NotDetected) U Benzodiazepines Scrn (NotDetected) Urine Cocaine Screen (NotDetected) U Marijuana (THC) Screen (NotDetected) Serum Alcohol 447 H* mg/dL 09/16/24 09/16/24 09/16/24 Range/Units 16:07 16:07 16:14 WBC (4.50-10.00) 10*3/uL RBC (4.40-5.60) 10*6/uL Hgb (13.0-17.0) g/dL Hct (39.6-50.0) % MCV (80.0-97.0) fL MCH (27.0-32.0) pg MCHC (32.0-37.0) g/dL Plt Count (140-440) 10*3/uL MPV (9.5-12.2) fL Immature Gran % (Auto) % Neutrophils % % Lymphocytes % % Monocytes % % Eosinophils % % Basophils % % Immature Gran # (0.00-0.04) 10*3/uL Neutrophils # (1.80-7.70) 10*3/uL Lymphocytes # (0.90-5.00) 10*3/uL Monocytes # (0.20-1.00) 10*3/uL Eosinophils # (0.04-0.35) 10*3/uL Basophils # (0.00-0.10) 10*3/uL Immature Plt Fraction (1.1-6.1) % PT (10.0-12.5) sec INR (<1.2) APTT (22.0-30.0) sec Sodium (137-145) mmol/L Potassium (3.5-5.1) mmol/L Chloride (98-107) mmol/L Carbon Dioxide (22-30) mmol/L Anion Gap mmol/L BUN (9-20) mg/dL Creatinine (0.66-1.25) mg/dL Est GFR (CKD-EPI)AfAm (>60 ml/min/1.73 sqM) Est GFR (CKD-EPI)NonAf (>60 ml/min/1.73 sqM) Glucose (74-99) mg/dL POC Glucose (mg/dL) 78 (70-110) mg/dL POC Glu Wind Operations Manager ID Nedra Diallo Lactic Ac Sepsis Rflx Plasma Lactic Acid Maurizio 4.2 H* (0.7-2.0) mmol/L Calcium (8.4-10.2) mg/dL Magnesium 1.8 (1.6-2.3) mg/dL Total Bilirubin (0.2-1.3) mg/dL AST (17-59) U/L ALT (4-49) U/L Alkaline Phosphatase (38-126) U/L Ammonia 9 (<30) umol/L Creatine Kinase (55-170) U/L Troponin I (0.000-0.034) ng/mL Total Protein (6.3-8.2) g/dL Albumin (3.5-5.0) g/dL Lipase (23-300) U/L Urine Color Urine Appearance (Clear) Urine pH (5.0-8.0) Ur Specific [place] (1.001-1.035) Urine Protein (Negative) Urine Glucose (UA) (Negative) Urine Ketones (Negative) Urine Blood (Negative) Urine Nitrite (Negative) Urine Bilirubin (Negative) Urine Urobilinogen (<2.0) mg/dL Ur Leukocyte Esterase (Negative) Urine RBC (0-5) /hpf Urine WBC (0-5) /hpf Hyaline Casts (0-2) /lpf Urine Mucus (None) /hpf Urine Opiates Screen (NotDetected) Ur Oxycodone Screen (NotDetected) Urine Methadone Screen (NotDetected) Ur Barbiturates Screen (NotDetected) U Tricyclic Antidepress (NotDetected) Ur Phencyclidine Scrn (NotDetected) Ur Amphetamines Screen (NotDetected) U Methamphetamines Scrn (NotDetected) U Benzodiazepines Scrn (NotDetected) Urine Cocaine Screen (NotDetected) U Marijuana (THC) Screen (NotDetected) Serum Alcohol mg/dL 09/16/24 Range/Units 16:43 WBC (4.50-10.00) 10*3/uL RBC (4.40-5.60) 10*6/uL Hgb (13.0-17.0) g/dL Hct (39.6-50.0) % MCV (80.0-97.0) fL MCH (27.0-32.0) pg MCHC (32.0-37.0) g/dL Plt Count (140-440) 10*3/uL MPV (9.5-12.2) fL Immature Gran % (Auto) % Neutrophils % % Lymphocytes % % Monocytes % % Eosinophils % % Basophils % % Immature Gran # (0.00-0.04) 10*3/uL Neutrophils # (1.80-7.70) 10*3/uL Lymphocytes # (0.90-5.00) 10*3/uL Monocytes # (0.20-1.00) 10*3/uL Eosinophils # (0.04-0.35) 10*3/uL Basophils # (0.00-0.10) 10*3/uL Immature Plt Fraction (1.1-6.1) % PT (10.0-12.5) sec INR (<1.2) APTT (22.0-30.0) sec Sodium (137-145) mmol/L Potassium (3.5-5.1) mmol/L Chloride (98-107) mmol/L Carbon Dioxide (22-30) mmol/L Anion Gap mmol/L BUN (9-20) mg/dL Creatinine (0.66-1.25) mg/dL Est GFR (CKD-EPI)AfAm (>60 ml/min/1.73 sqM) Est GFR (CKD-EPI)NonAf (>60 ml/min/1.73 sqM) Glucose (74-99) mg/dL POC Glucose (mg/dL) (70-110) mg/dL POC Glu Wind Operations Manager ID Lactic Ac Sepsis Rflx Y Plasma Lactic Acid Maurizio (0.7-2.0) mmol/L Calcium (8.4-10.2) mg/dL Magnesium (1.6-2.3) mg/dL Total Bilirubin (0.2-1.3) mg/dL AST (17-59) U/L ALT (4-49) U/L Alkaline Phosphatase (38-126) U/L Ammonia (<30) umol/L Creatine Kinase (55-170) U/L Troponin I (0.000-0.034) ng/mL Total Protein (6.3-8.2) g/dL Albumin (3.5-5.0) g/dL Lipase (23-300) U/L Urine Color Urine Appearance (Clear) Urine pH (5.0-8.0) Ur Specific [place] (1.001-1.035) Urine Protein (Negative) Urine Glucose (UA) (Negative) Urine Ketones (Negative) Urine Blood (Negative) Urine Nitrite (Negative) Urine Bilirubin (Negative) Urine Urobilinogen (<2.0) mg/dL Ur Leukocyte Esterase (Negative) Urine RBC (0-5) /hpf Urine WBC (0-5) /hpf Hyaline Casts (0-2) /lpf Urine Mucus (None) /hpf Urine Opiates Screen (NotDetected) Ur Oxycodone Screen (NotDetected) Urine Methadone Screen (NotDetected) Ur Barbiturates Screen (NotDetected) U Tricyclic Antidepress (NotDetected) Ur Phencyclidine Scrn (NotDetected) Ur Amphetamines Screen (NotDetected) U Methamphetamines Scrn (NotDetected) U Benzodiazepines Scrn (NotDetected) Urine Cocaine Screen (NotDetected) U Marijuana (THC) Screen (NotDetected) Serum Alcohol mg/dL Disposition Clinical Impression: Elevated transaminase level, Alcohol intoxication, Pressure ulcer, Acute encephalopathy, Atrial fibrillation with RVR, Cocaine use Disposition: ADMITTED IP TO THIS HOSP Condition: Stable Is patient prescribed a controlled substance at d/c from ED?: No Time of Disposition: 18:55 Decision to Admit Reason: Admit from EC Decision Date: 09/16/24 Decision Time: 18:55
[2024-09-16 17:38] LABS: Appearance,Urine Clear (Clear); Bilirubin,Urine Negative (Negative); Blood,Urine Moderate (Negative); Color,Urine Yellow; Glucose,Urine (UA) Negative (Negative); Hyaline Casts,Urine 3 /lpf (0-2); Ketones,Urine 1+ (Negative); Leukocyte Esterase,Urine Negative (Negative); Mucus,Urine Few /hpf; Nitrite,Urine Negative (Negative); Protein,Urine 2+ (Negative); RBC,Urine 1 /hpf (0-5); Specific Gravity,Urine 1.019 (1.001-1.035); Urobilinogen,Urine <2.0 mg/dL (<2.0); WBC,Urine 1 /hpf (0-5)
[2024-09-16 17:50] LABS: Amphetamine Screen,Urine Not Detected (NotDetected); Barbiturate Screen,Urine Not Detected (NotDetected); Benzodiazepines Screen,Urine Not Detected (NotDetected); Cocaine Screen,Urine Detected (NotDetected); Methadone Screen, Urine Not Detected (NotDetected); Opiate Screen,Urine Not Detected (NotDetected); Oxycodone Screen, Urine Not Detected (NotDetected); Phencyclidine Screen,Urine Not Detected (NotDetected); Tricyclic Antidepressant,Urine Not Detected (NotDetected); Urn Cannabinoid Scrn Not Detected (NotDetected)
--- NOTE | 2024-09-16 18:31 | CT ---
EXAMINATION TYPE: CT brain avine wo con DATE OF EXAM: 09/16/2024 6:22 PM COMPARISON: None. CLINICAL INDICATION: Male, 58 years old with history of found down, bruising noted, ams, ams, pain TECHNIQUE: CT of the brain is performed utilizing 3 mm thick sections through the posterior fossa and 3 mm thick sections through the remaining calvarium. Study is performed within 24 hours of arrival to the hospital. Contrast used: mL of , (none if empty) CT DLP: 1789.3 mGycm, Automated exposure control for dose reduction was used. FINDINGS: No abnormal hyperdensity is present to suggest an acute intracranial hemorrhage. No mass lesion is evident. No acute infarcts are evident. Ventricles and sulci are prominent for the patient age. Paranasal sinuses and mastoid air cells within the [id number] are clear. IMPRESSIONS: 1. No acute intracranial process. Follow-up MRI can be performed as clinically indicated. CT cervical spine. COMPARISON: None TECHNIQUE: CT of the cervical spine is performed in the axial plane at 2 mm thick sections. Reconstr ucted images in the coronal, and sagittal plane are reviewed on the computer. FINDINGS: No acute fractures are evident. Vertebral body alignment is normal. There is narrowing of disc height at C6-7. Vacuum disc phenomenon is present. Vertebral body heights are preserved. No spinal canal stenosis is evident. No neural foraminal stenosis is evident. IMPRESSION: 1. Mild degenerative disc changes. 2. No acute osseous abnormality [facility], , 09/16/2024 6:29 PM
[2024-09-16] MEDS: DILTIAZEM 125 MG in SODIUM CHLORIDE 0.9% 100 ML IV SCH (18:54)
[2024-09-16] MEDS ORDERED: NALOXONE 0.4 MG/ML 1 ML VIAL IV PRN (18:55)
[2024-09-16] MEDS: DILTIAZEM DRIP BOLUS FROM BAG 1 MG SOLN IV ONE (18:58)
--- NOTE | 2024-09-16 19:12 | XR ---
EXAMINATION TYPE: XR chest 2V DATE OF EXAM: 09/16/2024 5:47 PM COMPARISON: 03/18/2022 CLINICAL INDICATION: Male, 58 years old with history of altered mental status, TECHNIQUE: XR chest 2V view(s) obtained. FINDINGS: The heart size is normal. The pulmonary vasculature is normal. The lungs are clear. IMPRESSION: 1. No acute pulmonary process. [facility], , 09/16/2024 7:10 PM
--- NOTE | 2024-09-16 19:14 | XR ---
EXAMINATION TYPE: XR pelvis AP view DATE OF EXAM: 09/16/2024 5:47 PM COMPARISON: None. CLINICAL INDICATION: Male, 58 years old with history of found down, pain TECHNIQUE: AP view(s) obtained. FINDINGS: Femoral heads articulate with the acetabulum. Joint spaces are preserved. Symphysis pubis and sacroil iac joints are normal. Bowel gas is normal. There is a linear density within the right lower quadrant region. This could be external to the patient. Radiopaque foreign body in the differential. IMPRESSION: 1. No acute osseous abnormalities AP pelvis. 2. Radiopaque foreign body right lower quadrant [facility], , 09/16/2024 7:11 PM
[2024-09-16] MEDS: SODIUM CHLORIDE 0.9% 1,000 ML IV SCH (19:26)
[2024-09-16] MEDS: PANTOPRAZOLE 40 MG/10 ML VIAL IV SCH (19:29)
[2024-09-16] MEDS: MAGNESIUM SULFATE-D5W PMX 1 GM in DEXTROSE/WATER 1 100ML.BAG IVPB ONE (21:18)
[2024-09-16] MEDS: LORazepam 2 MG/ML INJ IV PRN (21:45)
[2024-09-17] MEDS: DILTIAZEM DRIP BOLUS FROM BAG 1 MG SOLN IV ONE ×2 (01:03→07:05)
[2024-09-17 02:39] LABS: Basophils # (A) 0.05 10*3/uL (0.00-0.10); Basophils % (A) 0.9 %; Eosinophils # (A) 0.13 10*3/uL (0.04-0.35); Eosinophils % (A) 2.3 %; HCT 36.3 % (39.6-50.0); Lymphocytes # (A) 1.06 10*3/uL (0.90-5.00); Lymphocytes % (A) 18.5 %; MCH 33.3 pg (27.0-32.0); MCHC 36.6 g/dL (32.0-37.0); Mean Platelet Volume 10.4 fL (9.5-12.2); Monocytes # (A) 0.52 10*3/uL (0.20-1.00); Monocytes % (A) 9.1 %; Neutrophils # (A) 3.92 10*3/uL (1.80-7.70); Neutrophils % (A) 68.5 %; RBC 3.99 10*6/uL (4.40-5.60); RDW 12.6 % (11.5-14.5); WBC 5.72 10*3/uL (4.50-10.00)
[2024-09-17 02:54] LABS: HGB 13.3 g/dL (13.0-17.0)
[2024-09-17 03:07] LABS: Platelet Count 92 10*3/uL (140-440)
[2024-09-17 03:30] LABS: African American GFR (CKD) >90 (>60 ml/min/1.73 sqM); Anion Gap 13 mmol/L; Blood Urea Nitrogen 12 mg/dL (9-20); Calcium 7.6 mg/dL (8.4-10.2); Carbon Dioxide 26 mmol/L (22-30); Chloride 96 mmol/L (98-107); Glucose 84 mg/dL (74-99); Non-African American GFR(CKD) >90 (>60 ml/min/1.73 sqM); Sodium 135 mmol/L (137-145)
[2024-09-17] MEDS: LORazepam 2 MG/ML INJ IV PRN ×2 (06:38→10:30)
--- NOTE | 2024-09-17 09:57 | P.CRDCN ---
History of Present Illness History of present illness: HISTORY OF PRESENT ILLNESS: This is a 58-year-old male with a past medical history significant for hypertension, hypothyroidism, atrial fibrillation, and alcohol abuse. Patient follows in the office with Dr. Toney and was last seen in July 2023. We have been asked to see the patient in consultation for atrial fibrillation. Patient examined at the bedside in the emergency room. The patient is currently lethargic and has received IV Ativan. Unable to obtain any history from the patient. Case discussed with the patient's nurse who states that the patient was found down at home for an unknown period of time. The patient was found to be in A-fib with RVR. He was started on IV Cardizem. Bedside telemetry revealed atrial fibrillation with a heart rate in the 80s. He remains on IV Cardizem at 15 mg an hour. DIAGNOSTICS: - EKG reveals A-fib with RVR. - Chest xray negative for acute process - Laboratory data: WBC 5.72. Hemoglobin 13.3. Platelet count 92. Sodium 135. Potassium 3.0. BUN 12. Creatinine 0.89. AST 309. ALT 184. Creatinine kinase 610. Troponin 0.025. Toxicology screen positive for cocaine. Serum alcohol 447. - Current home cardiac medications include losartan 50 mg daily. - Most recent echocardiogram obtained in October 2022 revealed ejection fraction 55%, mild concentric LVH, mild MR, trace to mild TR - Patient underwent stress testing in November 2022 which was negative for ischemia REVIEW OF SYSTEMS: At the time of my exam: Unable to obtain through review of system secondary to lethargy PHYSICAL EXAM: VITAL SIGNS: Reviewed. GENERAL: Well-developed in no acute distress. HEENT: Head is normocephalic. Pupils are equal, round. Sclerae anicteric. Mucous membranes of the mouth are moist. Neck supple. No JVD or thyromegaly LUNGS: Respirations even and unlabored. Lungs essentially clear to auscultation bilaterally. HEART: Irregular rate and rhythm. S1 and S2 heard. ABDOMEN: Soft. Nondistended. Nontender. EXTREMITIES: Normal range of motion. No clubbing or cyanosis. Peripheral pulses intact. No lower extremity edema NEUROLOGIC: Lethargic ASSESSMENT: Acute alcohol intoxication Toxicology screen positive for cocaine Atrial fibrillation with RVR, paroxysmal versus persistent Hypokalemia Elevated lactic acid Hypertension History of hypothyroidism History of alcohol abuse PLAN: Obtain 2D echo to assess cardiac structure and function Patient with [id number] of 1. Will hold off on anticoagulation at this time. Continue IV Cardizem at this time for rate control as patient is lethargic Check TSH Continue telemetry monitoring Recommend abstinence from alcohol Further recommendations pending patient course Nurse practitioner note has been reviewed by physician. Signing provider agrees with the documented findings, assessment, and plan of care documented by AIR EXPORT AGENT as a scribe. Past Medical History Past Medical History: Hypertension Additional Past Medical History / Comment(s): etoh abuse History of Any Multi-Drug Resistant Organisms: None Reported Past Surgical History: Hernia Repair, Orthopedic Surgery Smoking Status: Current every day smoker Medications and Allergies Home Medications Medication Instructions Recorded Confirmed Type Cyclobenzaprine [Flexeril] 5 mg PO HS PRN 09/16/24 09/16/24 History Escitalopram [Lexapro] 20 mg PO DAILY 09/16/24 09/16/24 History Levothyroxine Sodium [Synthroid] 112 mcg PO DAILY 09/16/24 09/16/24 History Losartan [Cozaar] 50 mg PO DAILY 09/16/24 09/16/24 History Allergies Allergy/AdvReac Type Severity Reaction Status Date / Time No Known Allergies Allergy Verified 09/16/24 18:56 Physical Exam Vitals: Vital Signs Temp Pulse Resp BP Pulse Ox 09/17/24 08:36 98.3 F 85 18 120/81 93 L 09/17/24 07:08 100.0 F H 09/17/24 07:07 121 H 17 117/78 94 L 09/17/24 06:00 105 H 18 120/74 98 09/17/24 03:00 91 20 120/83 96 09/17/24 02:00 95 16 117/87 97 09/17/24 00:24 137 H 18 123/71 98 09/16/24 22:07 106 H 18 125/87 95 09/16/24 21:42 176 H 30 H 99 09/16/24 19:00 165 H 22 125/88 99 09/16/24 18:42 168 H 09/16/24 17:28 151 H 20 108/84 97 09/16/24 16:14 142 H 18 119/99 97 09/16/24 14:57 98.5 F 129 H 22 110/99 99 Intake and Output 04/05/0209/17/24 09/17/24 22:59 06:59 14:59 Intake Total 3.417 106.833 4 Output Total 400 Balance -396.583 106.833 4 Intake: Intake, IV Titration 3.417 106.833 4 Amount Diltiazem 125 mg In 3.417 106.833 4 Sodium Chloride 0.9% 100 ml @ 5 MG/HR 5 mls/hr IV .Q24H [facility] Rx#:[id number] Output: Urine 400 Straight 400 Other: Weight 72.575 kg Results 09/17/24 02:12 09/17/24 02:12 Cardiac Enzymes 09/16/24 09/16/24 Range/Units 16:07 16:07 AST 309 H (17-59) U/L Troponin I 0.025 (0.000-0.034) ng/mL Coagulation 09/16/24 Range/Units 16:07 PT 10.1 (10.0-12.5) sec APTT 22.9 (22.0-30.0) sec CBC 09/16/24 09/17/24 Range/Units 16:07 02:12 WBC 6.27 5.72 (4.50-10.00) 10*3/uL RBC 4.92 3.99 L (4.40-5.60) 10*6/uL Hgb 16.3 13.3 D (13.0-17.0) g/dL Hct 44.3 36.3 L (39.6-50.0) % Plt Count 103 L 92 L (140-440) 10*3/uL Comprehensive Metabolic Panel 09/16/24 09/17/24 Range/Units 16:07 02:12 Sodium 138 135 L (137-145) mmol/L Potassium 3.7 3.0 L (3.5-5.1) mmol/L Chloride 96 L 96 L (98-107) mmol/L Carbon Dioxide 26 26 (22-30) mmol/L BUN 14 12 (9-20) mg/dL Creatinine 1.08 0.89 (0.66-1.25) mg/dL Glucose 93 84 (74-99) mg/dL Calcium 7.5 L 7.6 L (8.4-10.2) mg/dL AST 309 H (17-59) U/L ALT 184 H (4-49) U/L Alkaline Phosphatase 92 (38-126) U/L Total Protein 6.8 (6.3-8.2) g/dL Albumin 4.0 (3.5-5.0) g/dL Current Medications Generic Name Dose Route Start Last Admin Trade Name Freq PRN Reason Stop Dose Admin Cyclobenzaprine HCl 5 mg 09/17/24 08:54 Cyclobenzaprine 5 Mg Tab PO HS PRN Muscle Spasm Escitalopram Oxalate 20 mg 09/17/24 09:00 Escitalopram 20 Mg Tab PO DAILY PRACHI Diltiazem HCl 125 mg/ Sodium 125 mls @ 5 mls/hr 09/16/24 18:45 09/17/24 07:05 Chloride IV 15 mg/hr .Q24H PRACHI 15 mls/hr Infusion 5 MG/HR Sodium Chloride 1,000 mls @ 75 mls/hr 09/16/24 19:00 09/17/24 08:44 Saline 0.9% IV Not Given .[id number] PRACHI Potassium Chloride 20 meq/ IV 100 mls @ 50 mls/hr 09/17/24 10:30 Solution IVPB 09/17/24 12:29 ONCE ONE Levothyroxine Sodium 112 mcg 09/17/24 09:00 Levothyroxine 112 Mcg Tab PO DAILY@0630 PRACHI Lorazepam 1 mg 09/16/24 18:58 Lorazepam 2 Mg/Ml Inj IV Q1HR PRN CIWA 10 to 15 Lorazepam 1 mg 09/16/24 18:58 09/17/24 06:38 Lorazepam 2 Mg/Ml Inj IV 1 mg Q2HR PRN Administration CIWA 8 or 9 Lorazepam 2 mg 09/16/24 18:58 09/16/24 21:45 Lorazepam 2 Mg/Ml Inj IV 09/18/24 18:58 2 mg Q10M PRN Administration CIWA 16 or higher Losartan Potassium 50 mg 09/17/24 09:00 Losartan 50 Mg Tab PO DAILY [facility] Multivit/Ca Carb/B Cmplx/FA/Prenat 1 each 09/17/24 09:15 Folic Acid-Vit B Complex-Vit C 1 Cap PO DAILY PRACHI Naloxone HCl 0.2 mg 09/16/24 18:55 Naloxone 0.4 Mg/Ml 1 Ml Vial IV Q2M PRN Opioid Reversal Ondansetron HCl 4 mg 09/16/24 18:57 Ondansetron 4 Mg/2 Ml Vial IVP Q8HR PRN Nausea And Vomiting Pantoprazole Sodium 40 mg 09/16/24 19:00 09/17/24 08:43 Pantoprazole 40 Mg/10 Ml Vial IV 40 mg DAILY PRACHI Administration Thiamine HCl 100 mg 09/17/24 09:15 Thiamine 100 Mg Tab PO DAILY PRACHI Intake and Output 09/16/24 09/17/24 09/17/24 22:59 06:59 14:59 Intake Total 3.417 106.833 4 Output Total 400 Balance -396.583 106.833 4 Intake: Intake, IV Titration 3.417 106.833 4 Amount Diltiazem 125 mg In 3.417 106.833 4 Sodium Chloride 0.9% 100 ml @ 5 MG/HR 5 mls/hr IV .Q24H [facility] Rx#:[id number] Output: Urine 400 Straight 400 Other: Weight 72.575 kg Patient Weight 09/18/24 06:59 Weight 72.575 kg 09/17/24 02:12 09/17/24 02:12
[2024-09-17] MEDS: THIAMINE 100 MG TAB PO SCH (10:20)
[2024-09-17] MEDS: ESCITALOPRAM 20 MG TAB PO SCH (10:20)
[2024-09-17] MEDS: POTASSIUM CHLORIDE ER 20 MEQ TAB.ER PO STA (10:20)
[2024-09-17] MEDS: LOSARTAN 50 MG TAB PO SCH (10:20)
[2024-09-17] MEDS: LEVOTHYROXINE 112 MCG TAB PO SCH (10:20)
[2024-09-17] MEDS: FOLIC ACID-VIT B COMPLEX-VIT C 1 CAP PO SCH (10:20)
[2024-09-17] MEDS: POTASSIUM CHLORIDE 20 MEQ in WATER FOR INJECTION 1 100ML.BAG IVPB ONE (10:23)
[2024-09-17 12:02] LABS: T4, Free (Free Thyroxine) 0.94 ng/dL (0.78-2.19)
--- NOTE | 2024-09-17 13:37 | P.HPIM ---
History of Present Illness H&P Date: 09/17/24 History of present illness; Patient has 58-year-old male with hypertension and history of alcohol abuse who presented with weakness. Patient states he had a slip and fall and was found on floor. He states he drinks daily 1/5 of vodka for the last 30 years, unknown time of last drink. He states he has not had withdrawal seizures or hallucinations in the past from alcohol withdrawal. Apparently his work called police stating that they had not seen the patient in 2 weeks. And was found in his kitchen by his [id number] confused and on floor. Unknown downtime, patient with urinary incontinence. Patient is currently feeling nauseous, no other symptoms or complaints at this time. Denies chest pain, shortness of breath, abdominal pain. Spoke with the ER physician, patient admission was accepted by internal medicine service for treatment. REVIEW OF SYSTEMS: Pertinent positives and negatives noted in HPI. PHYSICAL EXAMINATION: Vitals reviewed GENERAL: Lethargic in bed, smell of urine EYES: PERRL, no scleral injection or icterus. No vision loss HENT: Normocephalic, atraumatic, hearing grossly intact, moist mucous membranes NECK: No tracheal deviation, full range of motion. CARDIOVASCULAR: S1 and S2 present. Tachycardic. No murmurs, rubs, or gallops. PULMONARY: Chest is clear to auscultation, no wheezing, rhonchi, or crackles. ABDOMEN: Soft, nontender, nondistended. No palpable organomegaly. MUSCULOSKELETAL: No apparent joint swelling and deformities. EXTREMITIES: No apparent cyanosis, clubbing. No pedal edema. NEUROLOGICAL: Alert and oriented x3. Hand tremor, tongue fasciculations. Gross neurological examination with no apparent focal deficits. SKIN: Bilateral hip wounds, non purulent, erythematous ER FINDINGS: Labs significant for platelets 92, sodium 135, potassium 3.0, chloride 96, lactic acid 3.8 => 2.4 => 1.8, total bili 1.3, AST 309, ALT 184, lipase is WNL, creatinine kinase 612, troponin 0.025, UA significant for protein 2+, ketones 1+, blood moderate, hyaline casts, urine toxicology positive for cocaine and alcohol 447. EKG independently interpreted showed A-fib heart rate of 141, QTc 389, no ST segment elevation or depression seen, nonspecific T wave changes. Chest x-ray done independently interpreted showed no acute cardiopulmonary process. Pelvis x-ray independently interpreted as no acute osseous abnormalities, radiopaque foreign body in right lower quadrant. CT head neck independently interpreted showed no acute intracranial process. Assessment and Plan: In summary, Patient has 58-year-old male with hypertension and history of alcohol abuse who presented with weakness. #Metabolic Encephalopathy due to alcohol, improving #Mechanical fall #Alcohol dependence with withdrawal - Alcohol 447, last drink was unknown - CIWA protocol with Ativan IVP in place Continue Zofran as needed and pantoprazole BID daily Daily thiamine and folic acid -Continue IV fluids monitor daily electrolytes -cardiac monitoring -social contact worker consult # A-fib with RVR, possibly due to alcohol and cocaine use Given Cardizem bolus in ER Continue Cardizem drip Echocardiogram pending TSH 8.1, free T4 0.94 Cardiac monitoring Cardiology consulted #Thrombocytopenia, likely due to alcohol use platelets 92 Monitor CBC #Transaminitis likely going to ongoing alcohol use AST 309, ALT 184 Monitor CMP #Bilateral hip wounds Appears noninfectious Local wound care Monitor for worsening symptoms Chronic Medical Conditions #Hypertension #Anxiety depression Continue home medications DVT ppx: SCDs for low platelets Code status: Full code F: IV fluids E: Replete as needed N: Heart healthy diet A: Ambulatory Anticipated discharge place: Pending clinical course Anticipated discharge time: Pending clinical course Dictation was produced using [employer] dictation software. Please excuse any grammatical, word or spelling errors. Past Medical History Past Medical History: Hypertension Additional Past Medical History / Comment(s): etoh abuse History of Any Multi-Drug Resistant Organisms: None Reported Past Surgical History: Hernia Repair, Orthopedic Surgery Past Psychological History: No Psychological Hx Reported Smoking Status: Current every day smoker Past Alcohol Use History: Abuse, Daily, Heavy Past Drug Use History: None Reported Medications and Allergies Home Medications Medication Instructions Recorded Confirmed Type Cyclobenzaprine [Flexeril] 5 mg PO HS PRN 09/16/24 09/16/24 History Escitalopram [Lexapro] 20 mg PO DAILY 09/16/24 09/16/24 History Levothyroxine Sodium [Synthroid] 112 mcg PO DAILY 09/16/24 09/16/24 History Losartan [Cozaar] 50 mg PO DAILY 09/16/24 09/16/24 History Allergies Allergy/AdvReac Type Severity Reaction Status Date / Time No Known Allergies Allergy Verified 09/16/24 18:56 Physical Exam Vitals: Vital Signs Temp Pulse Resp BP Pulse Ox 09/17/24 07:08 100.0 F H 09/17/24 07:07 121 H 17 117/78 94 L 09/17/24 06:00 105 H 18 120/74 98 09/17/24 03:00 91 20 120/83 96 09/17/24 02:00 95 16 117/87 97 09/17/24 00:24 137 H 18 123/71 98 09/16/24 22:07 106 H 18 125/87 95 09/16/24 21:42 176 H 30 H 99 09/16/24 19:00 165 H 22 125/88 99 09/16/24 18:42 168 H 09/16/24 17:28 151 H 20 108/84 97 09/16/24 16:14 142 H 18 119/99 97 09/16/24 14:57 98.5 F 129 H 22 110/99 99 Intake and Output 09/16/24 09/17/24 09/17/24 22:59 06:59 14:59 Intake Total 3.417 106.833 4 Output Total 400 Balance -396.583 106.833 4 Intake: Intake, IV Titration 3.417 106.833 4 Amount Diltiazem 125 mg In 3.417 106.833 4 Sodium Chloride 0.9% 100 ml @ 5 MG/HR 5 mls/hr IV .Q24H [facility] Rx#:[id number] Output: Urine 400 Straight 400 Results CBC & Chem 7: 09/17/24 02:12 09/17/24 02:12 Labs: Abnormal Lab Results - Last 24 Hours (Table) 09/16/24 09/16/24 09/16/24 Range/Units 16:07 16:07 16:07 RBC (4.40-5.60) 10*6/uL Hct (39.6-50.0) % MCH 33.1 H (27.0-32.0) pg Plt Count 103 L (140-440) 10*3/uL Lymphocytes # 0.73 L (0.90-5.00) 10*3/uL Eosinophils # 0.02 L (0.04-0.35) 10*3/uL Sodium (137-145) mmol/L Potassium (3.5-5.1) mmol/L Chloride 96 L (98-107) mmol/L Plasma Lactic Acid Maurizio (0.7-2.0) mmol/L Calcium 7.5 L (8.4-10.2) mg/dL AST 309 H (17-59) U/L ALT 184 H (4-49) U/L Creatine Kinase 612 H (55-170) U/L Urine Protein (Negative) Urine Ketones (Negative) Urine Blood (Negative) Hyaline Casts (0-2) /lpf Urine Mucus (None) /hpf Urine Cocaine Screen Detected H (NotDetected) Serum Alcohol 447 H* mg/dL 09/16/24 09/16/24 09/16/24 Range/Units 16:07 16:07 19:31 RBC (4.40-5.60) 10*6/uL Hct (39.6-50.0) % MCH (27.0-32.0) pg Plt Count (140-440) 10*3/uL Lymphocytes # (0.90-5.00) 10*3/uL Eosinophils # (0.04-0.35) 10*3/uL Sodium (137-145) mmol/L Potassium (3.5-5.1) mmol/L Chloride (98-107) mmol/L Plasma Lactic Acid Maurizio 4.2 H* 3.8 H* (0.7-2.0) mmol/L Calcium (8.4-10.2) mg/dL AST (17-59) U/L ALT (4-49) U/L Creatine Kinase (55-170) U/L Urine Protein 2+ H (Negative) Urine Ketones 1+ H (Negative) Urine Blood Moderate H (Negative) Hyaline Casts 3 H (0-2) /lpf Urine Mucus Few H (None) /hpf Urine Cocaine Screen (NotDetected) Serum Alcohol mg/dL 09/16/24 09/17/24 09/17/24 Range/Units 22:33 02:12 02:12 RBC 3.99 L (4.40-5.60) 10*6/uL Hct 36.3 L (39.6-50.0) % MCH 33.3 H (27.0-32.0) pg Plt Count 92 L (140-440) 10*3/uL Lymphocytes # (0.90-5.00) 10*3/uL Eosinophils # (0.04-0.35) 10*3/uL Sodium 135 L (137-145) mmol/L Potassium 3.0 L (3.5-5.1) mmol/L Chloride 96 L (98-107) mmol/L Plasma Lactic Acid Maurizio 2.4 H* (0.7-2.0) mmol/L Calcium 7.6 L (8.4-10.2) mg/dL AST (17-59) U/L ALT (4-49) U/L Creatine Kinase (55-170) U/L Urine Protein (Negative) Urine Ketones (Negative) Urine Blood (Negative) Hyaline Casts (0-2) /lpf Urine Mucus (None) /hpf Urine Cocaine Screen (NotDetected) Serum Alcohol mg/dL
[2024-09-17] MEDS ORDERED: LORazepam 1 MG/0.5 ML VIAL IV PRN (19:35)
[2024-09-17] MEDS: PANTOPRAZOLE 40 MG/10 ML VIAL IV SCH (21:13)
[2024-09-17] MEDS: CYCLOBENZAPRINE 5 MG TAB PO PRN (21:13)
[2024-09-17] MEDS: LORazepam 1 MG/0.5 ML VIAL IV PRN (23:57)
[2024-09-17] MEDS: MELATONIN 5 MG TABLET PO PRN (23:57)
[2024-09-18 07:43] LABS: Basophils # (A) 0.05 10*3/uL (0.00-0.10); Eosinophils # (A) 0.21 10*3/uL (0.04-0.35); Eosinophils % (A) 4.4 %; HCT 39.1 % (39.6-50.0); HGB 14.2 g/dL (13.0-17.0); Lymphocytes # (A) 0.97 10*3/uL (0.90-5.00); Lymphocytes % (A) 20.2 %; MCHC 36.3 g/dL (32.0-37.0); MCV 90.9 fL (80.0-97.0); Mean Platelet Volume 11.4 fL (9.5-12.2); Monocytes # (A) 0.52 10*3/uL (0.20-1.00); Monocytes % (A) 10.8 %; Neutrophils % (A) 62.6 %; RDW 12.4 % (11.5-14.5)
[2024-09-18 07:53] LABS: ALT 133 U/L (4-49); AST 167 U/L (17-59); African American GFR (CKD) >90 (>60 ml/min/1.73 sqM); Albumin 3.7 g/dL (3.5-5.0); Alkaline Phosphatase 76 U/L (38-126); Anion Gap 8 mmol/L; Blood Urea Nitrogen 7 mg/dL (9-20); Calcium 8.3 mg/dL (8.4-10.2); Carbon Dioxide 29 mmol/L (22-30); Chloride 95 mmol/L (98-107); Glucose 87 mg/dL (74-99); Magnesium 1.5 mg/dL (1.6-2.3); Non-African American GFR(CKD) >90 (>60 ml/min/1.73 sqM); Potassium 3.1 mmol/L (3.5-5.1); Sodium 132 mmol/L (137-145); Total Bilirubin 2.1 mg/dL (0.2-1.3); Total Protein 6.6 g/dL (6.3-8.2)
[2024-09-18] MEDS: LOSARTAN 25 MG TAB PO SCH (08:41)
[2024-09-18] MEDS ORDERED: Magnesium Replacement Protocol 1 EACH MISC MISCELLANE PRN (09:30)
[2024-09-18] MEDS: LORazepam 1 MG/0.5 ML VIAL IV PRN (09:31)
[2024-09-18] MEDS: POTASSIUM CHLORIDE ER 20 MEQ TAB.ER PO SCH (12:08)
[2024-09-18] MEDS: MAGNESIUM SULFATE-D5W PMX 1 GM in DEXTROSE/WATER 1 100ML.BAG IVPB SCH (12:08)
[2024-09-18] MEDS: DILTIAZEM ORAL 60 MG TAB PO SCH (12:08)
--- NOTE | 2024-09-18 12:33 | P.PN ---
Subjective HISTORY OF PRESENT ILLNESS: This is a 58-year-old male with a past medical history significant for hypertension, hypothyroidism, atrial fibrillation, and alcohol abuse. Patient follows in the office with Dr. Toney and was last seen in July 2023. We have been asked to see the patient in consultation for atrial fibrillation. Patient examined at the bedside in the emergency room. The patient is currently lethargic and has received IV Ativan. Unable to obtain any history from the patient. Case discussed with the patient's nurse who states that the patient was found down at home for an unknown period of time. The patient was found to be in A-fib with RVR. He was started on IV Cardizem. Bedside telemetry revealed atrial fibrillation with a heart rate in the 80s. He remains on IV Cardizem at 15 mg an hour. DIAGNOSTICS: - EKG reveals A-fib with RVR. - Chest xray negative for acute process - Laboratory data: WBC 5.72. Hemoglobin 13.3. Platelet count 92. Sodium 135. Potassium 3.0. BUN 12. Creatinine 0.89. AST 309. ALT 184. Creatinine kinase 610. Troponin 0.025. Toxicology screen positive for cocaine. Serum alcohol 447. - Current home cardiac medications include losartan 50 mg daily. - Most recent echocardiogram obtained in October 2022 revealed ejection fraction 55%, mild concentric LVH, mild MR, trace to mild TR - Patient underwent stress testing in November 2022 which was negative for ischemia 09/18/2024 Patient examined this morning at the bedside. Patient is still lethargic although improved from yesterday. He denies chest pain or pressure. Denies shortness of breath. He remains in atrial fibrillation with a heart rate around 100. IV Cardizem is infusing at 15 mg an hour. PHYSICAL EXAM: VITAL SIGNS: Reviewed. GENERAL: Well-developed in no acute distress. HEENT: Head is normocephalic. Pupils are equal, round. Sclerae anicteric. Mucous membranes of the mouth are moist. Neck supple. No JVD or thyromegaly LUNGS: Respirations even and unlabored. Lungs essentially clear to auscultation bilaterally. HEART: Irregular rate and rhythm. S1 and S2 heard. EXTREMITIES: Normal range of motion. No clubbing or cyanosis. Peripheral pulses intact. No lower extremity edema ASSESSMENT: Acute alcohol intoxication Toxicology screen positive for cocaine Atrial fibrillation with RVR, paroxysmal versus persistent Hypokalemia Elevated lactic acid Hypertension History of hypothyroidism History of alcohol abuse PLAN: 2D echo pending. Await results Patient with [id number] of 1. Will hold off on anticoagulation at this time. Discontinue IV Cardizem Begin oral Cardizem 60 mg 3 times daily Continue telemetry monitoring Recommend abstinence from alcohol Further recommendations pending patient course Nurse practitioner note has been reviewed by physician. Signing provider agrees with the documented findings, assessment, and plan of care documented by EPIC RADIANT ANALYST as a scribe. Objective - Vital Signs Vital signs: Vital Signs Temp 98.0 F 09/18/24 03:44 Pulse 105 H 09/18/24 12:12 Resp 16 09/18/24 12:12 BP 125/77 09/18/24 12:12 Pulse Ox 96 09/18/24 12:12 FiO2 Intake & Output 09/17/24 09/18/24 09/18/24 18:59 06:59 18:59 Intake Total 125 118.25 240 Output Total 2049 1100 Balance 125 -1931.75 -860 Weight 72.575 kg 72.3 kg Intake: Intake, IV Titration 125 118.25 Amount Diltiazem 125 mg In 125 118.25 Sodium Chloride 0.9% 100 ml @ 5 MG/HR 5 mls/hr IV .Q24H [facility] Rx#:[id number] Oral 240 Output: Urine 2049 1100 Other: Voiding Method Urinal Urinal - Labs CBC & Chem 7: 09/18/24 06:22 09/18/24 06:22 Labs: Abnormal Lab Results - Last 24 Hours (Table) 09/18/24 09/18/24 Range/Units 06:22 06:22 RBC 4.30 L (4.40-5.60) 10*6/uL Hct 39.1 L (39.6-50.0) % MCH 33.0 H (27.0-32.0) pg Plt Count 87 L (140-440) 10*3/uL Immature Gran # 0.05 H (0.00-0.04) 10*3/uL Sodium 132 L (137-145) mmol/L Potassium 3.1 L (3.5-5.1) mmol/L Chloride 95 L (98-107) mmol/L BUN 7 L (9-20) mg/dL Calcium 8.3 L (8.4-10.2) mg/dL Magnesium 1.5 L (1.6-2.3) mg/dL Total Bilirubin 2.1 H (0.2-1.3) mg/dL AST 167 H (17-59) U/L ALT 133 H (4-49) U/L
--- NOTE | 2024-09-18 22:22 | P.PN ---
Subjective Progress Note Date: 09/18/24 Patient is currently evaluated today resting in bed comfortably on the cardiac unit. He appears to be mildly confused at this time he remains on IV Ativan CIWA protocol. Patient has been taken off the IV Cardizem and transition to oral Cardizem 60 mg 3 times daily. He remains in atrial fibrillation currently with a controlled heart rate. Review of Systems Constitutional: Denied any fatigue denied any fever. Cardio vascular: denied any chest pain, palpitations Gastrointestinal: denied any nausea, vomiting, diarrhea Pulmonary: Denied any shortness of breath cough Neurologic denied any new focal deficits All inpatient medications were reviewed and appropriate changes in these medications as dictated in the interval history and assessment and plan. PHYSICAL EXAMINATION: GENERAL: The patient is alert and oriented x2, not in any acute distress. Well developed, well nourished. HEENT: Pupils are round and equally reacting to light. EOMI. No scleral icterus. No conjunctival pallor. Normocephalic, atraumatic. No pharyngeal erythema. No thyromegaly. CARDIOVASCULAR: S1 and S2 present. No murmurs, rubs, or gallops. PULMONARY: Chest is clear to auscultation, no wheezing or crackles. ABDOMEN: Soft, nontender, nondistended, normoactive bowel sounds. No palpable organomegaly. MUSCULOSKELETAL: No joint swelling or deformity. EXTREMITIES: No cyanosis, clubbing, or pedal edema. NEUROLOGICAL: Gross neurological examination did not reveal any focal deficits. SKIN: No rashes. Assessment and plan Metabolic encephalopathy due to acute alcohol intoxication and withdrawal Mechanical fall Hyponatremia worsened with IV fluids Hypokalemia Hypomagnesemia Acute alcohol dependence with withdrawal Atrial fibrillation with rapid ventricular rate possibly from alcohol and cocaine use Thrombocytopenia likely due to alcohol use Transaminitis/alcoholic hepatitis Bilateral hip wounds on infectious local wound care this could be due to the prolonged downtime Hypertension Anxiety/depression Polysubstance abuse with alcohol and cocaine GI prophylaxis Full code Supplement magnesium and potassium and repeat blood work in the morning Continue oral Cardizem Continue cardiac telemetry Continue IV Ativan CIWA protocol monitor for acute alcohol withdrawal PT OT consultation The impression and plan of care has been dictated by Amie Salmeron, Nurse Practitioner as directed. Dr. Sanket MD I have performed a history and physical examination and medical decision making of this patient, discussed the same with the dictator, and agree with the dictators assessment and plan as written, documented as a scribe. Based on total visit time, I have performed more than 50% of this visit. Objective - Vital Signs Vital signs: Vital Signs Temp 98.0 F 09/18/24 03:44 Pulse 105 H 09/18/24 12:12 Resp 16 09/18/24 12:12 BP 125/77 09/18/24 12:12 Pulse Ox 96 09/18/24 12:12 FiO2 Intake & Output 09/17/24 09/18/24 09/18/24 18:59 06:59 18:59 Intake Total 125 118.25 240 Output Total 2049 1100 Balance 125 -1931.75 -860 Weight 72.575 kg 72.3 kg Intake: Intake, IV Titration 125 118.25 Amount Diltiazem 125 mg In 125 118.25 Sodium Chloride 0.9% 100 ml @ 5 MG/HR 5 mls/hr IV .Q24H [facility] Rx#:[id number] Oral 240 Output: Urine 2049 1099 Other: Voiding Method Urinal Urinal - Labs CBC & Chem 7: 09/18/24 06:22 09/18/24 06:22 Labs: Abnormal Lab Results - Last 24 Hours (Table) 09/18/24 09/18/24 Range/Units 06:22 06:22 RBC 4.30 L (4.40-5.60) 10*6/uL Hct 39.1 L (39.6-50.0) % MCH 33.0 H (27.0-32.0) pg Plt Count 87 L (140-440) 10*3/uL Immature Gran # 0.05 H (0.00-0.04) 10*3/uL Sodium 132 L (137-145) mmol/L Potassium 3.1 L (3.5-5.1) mmol/L Chloride 95 L (98-107) mmol/L BUN 7 L (9-20) mg/dL Calcium 8.3 L (8.4-10.2) mg/dL Magnesium 1.5 L (1.6-2.3) mg/dL Total Bilirubin 2.1 H (0.2-1.3) mg/dL AST 167 H (17-59) U/L ALT 133 H (4-49) U/L Assessment and Plan Time with Patient: Less than 30
[2024-09-19 07:40] LABS: African American GFR (CKD) >90 (>60 ml/min/1.73 sqM); Anion Gap 6 mmol/L; Blood Urea Nitrogen 11 mg/dL (9-20); Carbon Dioxide 28 mmol/L (22-30); Chloride 97 mmol/L (98-107); Glucose 107 mg/dL (74-99); Non-African American GFR(CKD) >90 (>60 ml/min/1.73 sqM); Potassium 3.6 mmol/L (3.5-5.1); Sodium 131 mmol/L (137-145)
[2024-09-19 07:41] LABS: ALT 125 U/L (4-49); AST 142 U/L (17-59); Albumin 3.8 g/dL (3.5-5.0); Alkaline Phosphatase 71 U/L (38-126); Calcium 8.5 mg/dL (8.4-10.2); Magnesium 1.8 mg/dL (1.6-2.3); Total Bilirubin 1.7 mg/dL (0.2-1.3); Total Protein 6.8 g/dL (6.3-8.2)
[2024-09-19] MEDS: ACETAMINOPHEN TAB 325 MG TAB PO PRN (08:10)
[2024-09-19] MEDS: POTASSIUM CHLORIDE ER 20 MEQ TAB.ER PO STA (08:10)
[2024-09-19] MEDS: HEPARIN SODIUM,PORCINE 5,000 UNIT/ML 1 ML VIAL SQ SCH (08:12)
[2024-09-19] MEDS: MAGNESIUM SULFATE-D5W PMX 1 GM in DEXTROSE/WATER 1 100ML.BAG IVPB ONE (08:12)
[2024-09-19] MEDS: ONDANSETRON 4 MG/2 ML VIAL IVP PRN (11:15)
--- NOTE | 2024-09-19 13:03 | CA ---
Transthoracic Echo Report Name: Tashi Simmons Age: 58 Gender: M : 1965 Exam Date: 09/19/2024 08:19 Exam Location: [facility] Ht (in): 69 Wt (lb): 169 Ordering Physician: Cynthia More Attending/Referring Phys: [id number], Derik Certified Histologic Technician Marya Dasilva, ESDRAS Procedure CPT: Indications: LV function, AFIB, etoh abuse Cardiac Hx: Technical Quality: Fair Contrast 1: Total Dose (mL): Contrast 2: Total Dose (mL): MEASUREMENTS (Male / Female) Normal Values 2D ECHO LV Diastolic Diameter PLAX 4.8 cm 4.2 - 5.9 / 3.9 - 5.3 cm LV Systolic Diameter PLAX 3.9 cm IVS Diastolic Thickness 1.0 cm 0.6 - 1.0 / 0.6 - 0.9 cm LVPW Diastolic Thickness 1.2 cm 0.6 - 1.0 / 0.6 - 0.9 cm LV Relative Wall Thickness 0.4 RV Internal Dim ED PLAX 2.7 cm LA Systolic Diameter LX 5.5 cm 3.0 - 4.0 / 2.7 - 3.8 cm LV Diastolic Volume MOD BP 86.7 cm??? 67 - 155 / 56 - 104 cm??? LV Systolic Volume MOD BP 60.3 cm??? - 58 / 19 - 49 cm??? LV Ejection Fraction MOD BP 30.4 % >= 55 % LV Cardiac Index MOD BP 1656.8 cm???/min???m??? LV Diastolic Volume MOD 4C 92.7 cm??? LV Systolic Volume MOD 4C 58.3 cm??? LV Ejection Fraction MOD 4C 37.1 % LV Cardiac Index MOD 4C 2165.0 cm???/min???m??? LV Diastolic Length 4C 8.3 cm LV Systolic Length 4C 8.0 cm LV Diastolic Volume MOD 2C 81.9 cm??? LV Systolic Volume MOD 2C 60.4 cm??? LV Ejection Fraction MOD 2C 26.2 % LV Cardiac Index MOD 2C 1351.3 cm???/min???m??? LV Diastolic Length 2C 8.4 cm LV Systolic Length 2C 8.9 cm LA Volume 60.5 cm??? 18 - 58 / 22 - 52 cm??? LA Volume Index 31.2 cm???/m??? 16 - 28 cm???/m??? M-MODE Aortic Root Diameter MM 3.6 cm LA Systolic Diameter MM 5.1 cm LA Ao Ratio MM 1.4 AV Cusp Separation MM 2.0 cm DOPPLER TR Peak Velocity 204.3 cm/s TR Peak Gradient 16.7 mmHg FINDINGS Left Ventricle Left ventricular ejection fraction is estimated at 30-35 %. Mildly increased left ventricular systolic volume. decreased left ventricular ejection fraction. Right Ventricle Normal right ventricular size and function. Right ventricular systolic pressure within normal limits. Right Atrium Moderate right atrial dilatation. Left Atrium Severely increased left atrial diameter. Mildly increased left atrial volume. Mitral Valve Structurally normal mitral valve. No mitral stenosis. [id number] mitral regurgitation. Aortic Valve Trileaflet aortic valve. No aortic valve stenosis or regurgitation. Tricuspid Valve Structurally normal tricuspid valve. Mild tricuspid regurgitation. No tricuspid stenosis. Pulmonic Valve Structurally normal pulmonic valve. Trace pulmonic regurgitation. No pulmonic stenosis. Pericardium No pericardial or pleural effusion. Aorta Aorta at upper limits of normal. CONCLUSIONS Left ventricular ejection fraction is estimated at 30-35 %. Severely reduced global LV systolic function Severe LA dilatation, moderate RA dilatation Moderate functional mitral regurgitation Previewed by: Dr Donavon Sethi (Electronically Signed) Final Date: 19 September 2024 13:02
--- NOTE | 2024-09-19 13:06 | P.PN ---
Subjective HISTORY OF PRESENT ILLNESS: This is a 58-year-old male with a past medical history significant for hypertension, hypothyroidism, atrial fibrillation, and alcohol abuse. Patient follows in the office with Dr. Toney and was last seen in July 2023. We have been asked to see the patient in consultation for atrial fibrillation. Patient examined at the bedside in the emergency room. The patient is currently lethargic and has received IV Ativan. Unable to obtain any history from the patient. Case discussed with the patient's nurse who states that the patient was found down at home for an unknown period of time. The patient was found to be in A-fib with RVR. He was started on IV Cardizem. Bedside telemetry revealed atrial fibrillation with a heart rate in the 80s. He remains on IV Cardizem at 15 mg an hour. DIAGNOSTICS: - EKG reveals A-fib with RVR. - Chest xray negative for acute process - Laboratory data: WBC 5.72. Hemoglobin 13.3. Platelet count 92. Sodium 135. Potassium 3.0. BUN 12. Creatinine 0.89. AST 309. ALT 184. Creatinine kinase 610. Troponin 0.025. Toxicology screen positive for cocaine. Serum alcohol 447. - Current home cardiac medications include losartan 50 mg daily. - Most recent echocardiogram obtained in October 2022 revealed ejection fraction 55%, mild concentric LVH, mild MR, trace to mild TR - Patient underwent stress testing in November 2022 which was negative for ischemia 09/18/2024 Patient examined this morning at the bedside. Patient is still lethargic although improved from yesterday. He denies chest pain or pressure. Denies shortness of breath. He remains in atrial fibrillation with a heart rate around 100. IV Cardizem is infusing at 15 mg an hour. 09/19/2024 Patient examined this morning at the bedside. Patient denies chest pain or pressure. Denies shortness of breath. Patient remains in atrial fibrillation with heart in the 80s. Patient does have episodes of RVR with ambulation which could also be worsened by alcohol withdrawal. PHYSICAL EXAM: VITAL SIGNS: Reviewed. GENERAL: Well-developed in no acute distress. HEENT: Head is normocephalic. Pupils are equal, round. Sclerae anicteric. Mucous membranes of the mouth are moist. Neck supple. No JVD or thyromegaly LUNGS: Respirations even and unlabored. Lungs essentially clear to auscultation bilaterally. HEART: Irregular rate and rhythm. S1 and S2 heard. EXTREMITIES: Normal range of motion. No clubbing or cyanosis. Peripheral pulses intact. No lower extremity edema ASSESSMENT: Acute alcohol intoxication Toxicology screen positive for cocaine Atrial fibrillation with RVR, paroxysmal versus persistent Hypokalemia Elevated lactic acid Hypertension History of hypothyroidism History of alcohol abuse PLAN: 2D echo pending. Await results Patient with [id number] of 1. Will hold off on anticoagulation at this time. Continue oral Cardizem 60 mg 3 times daily Continue telemetry monitoring Recommend abstinence from alcohol Further recommendations pending patient course Nurse practitioner note has been reviewed by physician. Signing provider agrees with the documented findings, assessment, and plan of care documented by COMBINE OPERATOR as a scribe. Objective - Vital Signs Vital signs: Vital Signs Temp 97.8 F 09/19/24 07:39 Pulse 120 H 09/19/24 07:39 Resp 18 09/19/24 07:39 BP 134/81 09/19/24 07:39 Pulse Ox 97 09/19/24 07:39 FiO2 Intake & Output 09/18/24 09/19/24 09/19/24 18:59 06:59 18:59 Intake Total 1230 30 250 Output Total 1999 2249 Balance -770 -2220 250 Weight 73.3 kg Intake: IV 10 30 10 Invasive Line 2 10 10 Invasive Line 3 20 10 Intake, IV Titration 200 Amount Magnesium Sulfate-D5w Pmx 200 1 gm In Dextrose/Water 1 100ml.bag @ 100 mls/hr IVPB Q1H [facility] Rx#: [id number] Oral 1020 240 Output: Urine 1999 2249 Other: Voiding Method Urinal Urinal Urinal - Labs CBC & Chem 7: 09/18/24 06:22 09/19/24 06:40 Labs: Abnormal Lab Results - Last 24 Hours (Table) 09/19/24 Range/Units 06:40 Sodium 131 L (137-145) mmol/L Chloride 97 L (98-107) mmol/L Glucose 107 H (74-99) mg/dL Total Bilirubin 1.7 H (0.2-1.3) mg/dL AST 142 H (17-59) U/L ALT 125 H (4-49) U/L
[2024-09-19 13:51] VITALS: BMI 23.8
--- NOTE | 2024-09-19 14:01 | P.PN ---
Subjective Progress Note Date: 09/19/24 09/18/2024 Patient is currently evaluated today resting in bed comfortably on the cardiac unit. He appears to be mildly confused at this time he remains on IV Ativan CIWA protocol. Patient has been taken off the IV Cardizem and transition to oral Cardizem 60 mg 3 times daily. He remains in atrial fibrillation currently with a controlled heart rate. 09/19/2024 Patient seen and examined at bedside. Patient lethargic this morning, slow to answer. Elevated heart rate 120 this morning, now controlled. Given 2 mg Ativan today. Remains on CIWA protocol. PT OT to evaluate further. All inpatient medications were reviewed and appropriate changes in these medications as dictated in the interval history and assessment and plan. PHYSICAL EXAMINATION: Vitals reviewed GENERAL: Lethargic nondistressed CARDIOVASCULAR: S1 and S2 present. No murmurs, rubs, or gallops. PULMONARY: Chest is clear to auscultation, no wheezing or crackles. ABDOMEN: Soft, nontender, nondistended, normoactive bowel sounds. No palpable organomegaly. MUSCULOSKELETAL: No joint swelling or deformity. EXTREMITIES: No cyanosis, clubbing, or pedal edema. NEUROLOGICAL: A+O x3, slow to answer, gross neurological examination did not reveal any focal deficits. SKIN: No rashes. Today's findings: Sodium 131, chloride 97, total bilirubin 1.7, AST 142, ALT 125 Echocardiogram findings of EF 30 to 35%, severely reduced global LV systolic dysfunction, severe LA dilation, moderate RA dilation, moderate functional mitral regurgitation Assessment and plan: Metabolic encephalopathy due to acute alcohol intoxication and withdrawal Mechanical fall CHF with reduced EF, 30 to 35% Hyponatremia worsened with IV fluids Hypokalemia Hypomagnesemia Acute alcohol dependence with withdrawal Atrial fibrillation with rapid ventricular rate possibly from alcohol and cocaine use Thrombocytopenia likely due to alcohol use Transaminitis/alcoholic hepatitis Bilateral hip wounds on infectious local wound care this could be due to the prolonged downtime Hypertension Anxiety/depression Polysubstance abuse with alcohol and cocaine GI prophylaxis Full code Continue oral Cardizem Continue cardiac telemetry Continue IV Ativan CIWA protocol monitor for acute alcohol withdrawal PT OT consultation Dr. Coles seen patient with resident, present during exam, and agreed with findings. Objective - Vital Signs Vital signs: Vital Signs Temp 97.8 F 09/19/24 07:39 Pulse 120 H 09/19/24 07:39 Resp 18 09/19/24 07:39 BP 134/81 09/19/24 07:39 Pulse Ox 97 09/19/24 07:39 FiO2 Intake & Output 09/18/24 09/19/24 09/19/24 18:59 06:59 18:59 Intake Total 1230 30 10 Output Total 19990 Balance -770 -2220 10 Weight 73.3 kg Intake: IV 10 30 10 Invasive Line 2 10 10 Invasive Line 3 20 10 Intake, IV Titration 200 Amount Magnesium Sulfate-D5w Pmx 200 1 gm In Dextrose/Water 1 100ml.bag @ 100 mls/hr IVPB Q1H [facility] Rx#: [id number] Oral 1020 Output: Urine 1999 2249 Other: Voiding Method Urinal Urinal Urinal - Labs CBC & Chem 7: 09/18/24 06:22 09/19/24 06:40 Labs: Abnormal Lab Results - Last 24 Hours (Table) 09/18/24 09/19/24 Range/Units 06:22 06:40 Plt Count 87 L (140-440) 10*3/uL Sodium 131 L (137-145) mmol/L Chloride 97 L (98-107) mmol/L Glucose 107 H (74-99) mg/dL Total Bilirubin 1.7 H (0.2-1.3) mg/dL AST 142 H (17-59) U/L ALT 125 H (4-49) U/L
[2024-09-19] MEDS: SODIUM CHLORIDE 0.9% 1,000 ML IV SCH (14:16)
[2024-09-19] MEDS: MAG HYDROX/AL HYDROX/SIMETH 30 ML CUP PO PRN (16:02)
[2024-09-20 07:25] LABS: HCT 40.2 % (39.6-50.0); HGB 14.5 g/dL (13.0-17.0); Immature Platelet Fraction 4.9 % (1.1-6.1); MCH 33.6 pg (27.0-32.0); MCHC 36.1 g/dL (32.0-37.0); MCV 93.1 fL (80.0-97.0); Mean Platelet Volume 10.4 fL (9.5-12.2); Platelet Count 126 10*3/uL (140-440); RBC 4.32 10*6/uL (4.40-5.60); RDW 12.8 % (11.5-14.5); WBC 4.92 10*3/uL (4.50-10.00)
[2024-09-20 07:46] LABS: ALT 129 U/L (4-49); AST 135 U/L (17-59); African American GFR (CKD) >90 (>60 ml/min/1.73 sqM); Albumin 3.7 g/dL (3.5-5.0); Alkaline Phosphatase 70 U/L (38-126); Anion Gap 7 mmol/L; Blood Urea Nitrogen 18 mg/dL (9-20); Calcium 8.9 mg/dL (8.4-10.2); Carbon Dioxide 28 mmol/L (22-30); Chloride 97 mmol/L (98-107); Glucose 98 mg/dL (74-99); Magnesium 1.9 mg/dL (1.6-2.3); Non-African American GFR(CKD) >90 (>60 ml/min/1.73 sqM); Potassium 4.4 mmol/L (3.5-5.1); Sodium 132 mmol/L (137-145); Total Bilirubin 1.3 mg/dL (0.2-1.3); Total Protein 6.8 g/dL (6.3-8.2)
[2024-09-20 10:17] LABS: Glucose,Whole Blood 167 mg/dL (70-110)
[2024-09-20] MEDS: SODIUM CHLORIDE 0.9% 500 ML 500 ML IV ONE ×2 (10:30→10:31)
--- NOTE | 2024-09-20 13:47 | P.PN ---
Subjective HISTORY OF PRESENT ILLNESS: This is a 58-year-old male with a past medical history significant for hypertension, hypothyroidism, atrial fibrillation, and alcohol abuse. Patient follows in the office with Dr. Toney and was last seen in July 2023. We have been asked to see the patient in consultation for atrial fibrillation. Patient examined at the bedside in the emergency room. The patient is currently lethargic and has received IV Ativan. Unable to obtain any history from the patient. Case discussed with the patient's nurse who states that the patient was found down at home for an unknown period of time. The patient was found to be in A-fib with RVR. He was started on IV Cardizem. Bedside telemetry revealed atrial fibrillation with a heart rate in the 80s. He remains on IV Cardizem at 15 mg an hour. DIAGNOSTICS: - EKG reveals A-fib with RVR. - Chest xray negative for acute process - Laboratory data: WBC 5.72. Hemoglobin 13.3. Platelet count 92. Sodium 135. Potassium 3.0. BUN 12. Creatinine 0.89. AST 309. ALT 184. Creatinine kinase 610. Troponin 0.025. Toxicology screen positive for cocaine. Serum alcohol 447. - Current home cardiac medications include losartan 50 mg daily. - Most recent echocardiogram obtained in October 2022 revealed ejection fraction 55%, mild concentric LVH, mild MR, trace to mild TR - Patient underwent stress testing in November 2022 which was negative for ischemia 09/18/2024 Patient examined this morning at the bedside. Patient is still lethargic although improved from yesterday. He denies chest pain or pressure. Denies shortness of breath. He remains in atrial fibrillation with a heart rate around 100. IV Cardizem is infusing at 15 mg an hour. 09/19/2024 Patient examined this morning at the bedside. Patient denies chest pain or pressure. Denies shortness of breath. Patient remains in atrial fibrillation with heart in the 80s. Patient does have episodes of RVR with ambulation which could also be worsened by alcohol withdrawal. 09/20/2024 Patient examined this morning at the bedside. Patient currently denies chest pain or pressure. He denies shortness of breath. Patient had an episode of hypotension this morning. He received IV fluid bolus. Patient remains in atrial fibrillation with controlled ventricular rate. Patient does complain of dizziness when he is sitting up in the bed. Echocardiogram completed revealing ejection fraction 30 to 35% with mild to moderate mitral regurgitation PHYSICAL EXAM: VITAL SIGNS: Reviewed. GENERAL: Well-developed in no acute distress. HEENT: Head is normocephalic. Pupils are equal, round. Sclerae anicteric. Mucous membranes of the mouth are moist. Neck supple. No JVD or thyromegaly LUNGS: Respirations even and unlabored. Lungs essentially clear to auscultation bilaterally. HEART: Irregular rate and rhythm. S1 and S2 heard. EXTREMITIES: Normal range of motion. No clubbing or cyanosis. Peripheral pulses intact. No lower extremity edema ASSESSMENT: Acute alcohol intoxication Toxicology screen positive for cocaine Atrial fibrillation with RVR, paroxysmal versus persistent Hypokalemia Elevated lactic acid Hypertension History of hypothyroidism History of alcohol abuse Cardiomyopathy, suspect nonischemic due to atrial fibrillation with RVR and alcohol abuse PLAN: Patient with [id number] of 1. Will hold off on anticoagulation at this time; patient with increased risk due to recurrent falls. Discontinue Cardizem secondary to cardiomyopathy Discussed patient's cocaine use with him. Patient states he will no longer use cocaine. We will begin metoprolol tartrate 25 mg twice a day Continue telemetry monitoring Recommend abstinence from alcohol and drugs including cocaine Further recommendations pending patient course Nurse practitioner note has been reviewed by physician. Signing provider agrees with the documented findings, assessment, and plan of care documented by BOATBUILDER APPRENTICE WOOD as a scribe. Objective - Vital Signs Vital signs: Vital Signs Temp 97.7 F 09/20/24 11:37 Pulse 98 09/20/24 11:37 Resp 18 09/20/24 11:37 BP 130/84 09/20/24 11:37 Pulse Ox 99 09/20/24 11:37 FiO2 Intake & Output 09/19/24 09/20/24 09/20/24 18:59 06:59 18:59 Intake Total 860 100 10 Output Total 900 650 Balance -40 100 -640 Weight 73.3 kg 73.6 kg Intake: IV 20 20 10 Invasive Line 3 20 20 10 Oral 840 80 Output: Urine 900 650 Other: Voiding Method Urinal Urinal Urinal # Voids 1 0 - Labs CBC & Chem 7: 09/20/24 06:42 09/20/24 06:42 Labs: Abnormal Lab Results - Last 24 Hours (Table) 09/20/24 09/20/24 09/20/24 Range/Units 06:42 06:42 10:15 RBC 4.32 L (4.40-5.60) 10*6/uL MCH 33.6 H (27.0-32.0) pg Plt Count 126 L (140-440) 10*3/uL Sodium 132 L (137-145) mmol/L Chloride 97 L (98-107) mmol/L POC Glucose (mg/dL) 167 H (70-110) mg/dL AST 135 H (17-59) U/L ALT 129 H (4-49) U/L
--- NOTE | 2024-09-20 14:34 | P.PN ---
Subjective Progress Note Date: 09/20/24 09/18/2024 Patient is currently evaluated today resting in bed comfortably on the cardiac unit. He appears to be mildly confused at this time he remains on IV Ativan CIWA protocol. Patient has been taken off the IV Cardizem and transition to oral Cardizem 60 mg 3 times daily. He remains in atrial fibrillation currently with a controlled heart rate. 09/19/2024 Patient seen and examined at bedside. Patient lethargic this morning, slow to answer. Elevated heart rate 120 this morning, now controlled. Given 2 mg Ativan today. Remains on CIWA protocol. PT OT to evaluate further. 09/20/2024 Patient seen and examined at bedside. This morning while sitting in chair he became dizzy and hypotensive. found to be in A-fib. He was given IV bolus. Glucose was 167. Later upon seeing patient he was lethargic. All inpatient medications were reviewed and appropriate changes in these medications as dictated in the interval history and assessment and plan. PHYSICAL EXAMINATION: Vitals reviewed GENERAL: Lethargic, nondistressed CARDIOVASCULAR: S1 and S2 present. No murmurs, rubs, or gallops. PULMONARY: Chest is clear to auscultation, no wheezing or crackles. ABDOMEN: Soft, nontender, nondistended, normoactive bowel sounds. No palpable organomegaly. EXTREMITIES: No cyanosis, clubbing, or pedal edema. NEUROLOGICAL: gross neurological examination did not reveal any focal deficits. SKIN: No rashes. Today's findings: Sodium sodium 132, AST 135, ALT 129, glucose 98-167 No new imaging today Assessment: Metabolic encephalopathy due to acute alcohol intoxication and withdrawal Mechanical fall Cardiomyopathy, suspect nonischemic due to A-fib and RVR with alcohol use Atrial fibrillation with RVR Hyponatremia worsened with IV fluids Hypokalemia Hypomagnesemia Acute alcohol dependence with withdrawal Thrombocytopenia likely due to alcohol use Transaminitis/alcoholic hepatitis Bilateral hip wounds on infectious local wound care this could be due to the prolonged downtime Hypertension Anxiety/depression Polysubstance abuse with alcohol and cocaine PLAN Discontinue Cardizem Begin metoprolol 25 mg twice daily Continue cardiac telemetry Begin IV fluids Cardiology holding anticoagulation at this time due to increased risk of falls. Discontinue Ativan PT OT consultation GI prophylaxis Full code Likely discharge tomorrow Dr. Coles seen patient with resident, present during exam, and agreed with findings. Objective - Vital Signs Vital signs: Vital Signs Temp 98.3 F 09/20/24 08:46 Pulse 90 09/20/24 08:46 Resp 18 09/20/24 08:46 BP 128/89 09/20/24 08:46 Pulse Ox 97 09/20/24 08:46 FiO2 Intake & Output 09/19/24 09/20/24 09/20/24 18:59 06:59 18:59 Intake Total 860 100 Output Total 900 Balance -40 100 Weight 73.3 kg 73.6 kg Intake: IV 20 20 Invasive Line 3 20 20 Oral 840 80 Output: Urine 900 Other: Voiding Method Urinal Urinal # Voids 1 - Labs CBC & Chem 7: 09/20/24 06:42 09/20/24 06:42 Labs: Abnormal Lab Results - Last 24 Hours (Table) 09/20/24 09/20/24 Range/Units 06:42 06:42 RBC 4.32 L (4.40-5.60) 10*6/uL MCH 33.6 H (27.0-32.0) pg Plt Count 126 L (140-440) 10*3/uL Sodium 132 L (137-145) mmol/L Chloride 97 L (98-107) mmol/L AST 135 H (17-59) U/L ALT 129 H (4-49) U/L
[2024-09-20] MEDS: SODIUM CHLORIDE 0.9% 1,000 ML IV SCH (16:38)
[2024-09-20] MEDS: METOPROLOL TARTRATE 25 MG TAB PO SCH (20:37)
[2024-09-21 07:09] LABS: ALT 113 U/L (4-49); AST 94 U/L (17-59); African American GFR (CKD) >90 (>60 ml/min/1.73 sqM); Albumin 3.5 g/dL (3.5-5.0); Alkaline Phosphatase 63 U/L (38-126); Anion Gap 5 mmol/L; Blood Urea Nitrogen 19 mg/dL (9-20); Calcium 9.1 mg/dL (8.4-10.2); Carbon Dioxide 29 mmol/L (22-30); Chloride 100 mmol/L (98-107); Glucose 87 mg/dL (74-99); Non-African American GFR(CKD) >90 (>60 ml/min/1.73 sqM); Sodium 134 mmol/L (137-145); Total Protein 6.5 g/dL (6.3-8.2)
[2024-09-21 11:25] VITALS: BP 135/103; PULSE 99; RESP 18; TEMP 97.6
--- NOTE | 2024-09-21 11:32 | P.DS ---
Providers Date of admission: 09/16/24 18:55 Expected date of discharge: 09/21/24 Attending physician: Francine Trejo Consults: 09/16/24 18:55 Consult Physician Urgent Consulting Provider: [facility] Consult Reason/Comments: afib with rvr - new onset Do you want consulting provider notified?: Yes Primary care physician: Stated None Hospital Course: Discharge diagnoses; Metabolic encephalopathy due to acute alcohol intoxication and withdrawal Mechanical fall Cardiomyopathy, suspect nonischemic due to A-fib and RVR with alcohol use Atrial fibrillation with RVR Hyponatremia worsened with IV fluids Hypokalemia Hypomagnesemia Acute alcohol dependence with withdrawal Thrombocytopenia likely due to alcohol use Transaminitis/alcoholic hepatitis Bilateral hip wounds on infectious local wound care this could be due to the prolonged downtime Hypertension Anxiety/depression Polysubstance abuse with alcohol and cocaine Hospital course; Patient has 58-year-old male with hypertension and history of alcohol abuse who presented with weakness. Patient states he had a slip and fall and was found on floor. He states he drinks daily 1/5 of vodka for the last 30 years, unknown time of last drink. He states he has not had withdrawal seizures or hallucinations in the past from alcohol withdrawal. Apparently his work called police stating that they had not seen the patient in 2 weeks. And was found in his kitchen by his [id number] confused and on floor. Unknown downtime, patient with urinary incontinence. Patient is currently feeling nauseous, no other symptoms or complaints at this time. Denies chest pain, shortness of breath, abdominal pain. During hospital stay patient treated for alcohol withdrawal and A-fib RVR. During stay altered mental status improved to A+O x 3. Patient is discharged home in stable condition. He is to begin new medications metoprolol, and daily vitamins. Information given for alcohol abstinence. He has to follow-up with his PCP and cardiology. PHYSICAL EXAMINATION: Vitals reviewed GENERAL: No apparent distress EYES: PERRL, no scleral injection or icterus. No vision loss HENT: Normocephalic, atraumatic, hearing grossly intact, moist mucous membranes NECK: No tracheal deviation, full range of motion. CARDIOVASCULAR: S1 and S2 present. Tachycardic. No murmurs, rubs, or gallops. PULMONARY: Chest is clear to auscultation, no wheezing, rhonchi, or crackles. ABDOMEN: Soft, nontender, nondistended. No palpable organomegaly. MUSCULOSKELETAL: No apparent joint swelling and deformities. EXTREMITIES: No apparent cyanosis, clubbing. No pedal edema. NEUROLOGICAL: Alert and oriented x3. Gross neurological examination with no apparent focal deficits. SKIN: Bilateral hip wounds, non purulent, erythematous Dr. Coles seen patient with resident, present during exam, and agreed with findings. Dictation was produced using [employer] dictation software. please excuse any grammatical, word or spelling errors. Patient Condition at Discharge: Stable Plan - Discharge Summary New Discharge Prescriptions: New Metoprolol Tartrate [Lopressor] 25 mg PO BID #60 tab Folic Acid-Vit B Complex-Vit C [Nephrocaps] 1 each PO DAILY #30 cap Thiamine [Vitamin B-1] 100 mg PO DAILY #30 tab Continue Losartan [Cozaar] 50 mg PO DAILY Escitalopram [Lexapro] 20 mg PO DAILY Cyclobenzaprine [Flexeril] 5 mg PO HS PRN PRN Reason: Muscle Spasm Levothyroxine Sodium [Synthroid] 112 mcg PO DAILY Discharge Medication List Cyclobenzaprine [Flexeril] 5 mg PO HS PRN 09/16/24 [History] Escitalopram [Lexapro] 20 mg PO DAILY 09/16/24 [History] Levothyroxine Sodium [Synthroid] 112 mcg PO DAILY 09/16/24 [History] Losartan [Cozaar] 50 mg PO DAILY 09/16/24 [History] Folic Acid-Vit B Complex-Vit C [Nephrocaps] 1 each PO DAILY #30 cap 09/21/24 [Rx] Metoprolol Tartrate [Lopressor] 25 mg PO BID #60 tab 09/21/24 [Rx] Thiamine [Vitamin B-1] 100 mg PO DAILY #30 tab 09/21/24 [Rx] Follow up Appointment(s)/Referral(s): None,Stated [Primary Care Provider] - 1-2 days [facility] [NON-STAFF] - 1-2 days (Clinic for [facility] residents with no insurance or who are under insured. ) Discharge/Stand Alone Forms: [facility], Outpatient Counseling, Inp Substance Abuse Facilities, Area PCPs
--- NOTE | 2024-09-21 13:51 | P.PN ---
Subjective HISTORY OF PRESENT ILLNESS: This is a 58-year-old male with a past medical history significant for hypertension, hypothyroidism, atrial fibrillation, and alcohol abuse. Patient follows in the office with Dr. Toney and was last seen in July 2023. We have been asked to see the patient in consultation for atrial fibrillation. Patient examined at the bedside in the emergency room. The patient is currently lethargic and has received IV Ativan. Unable to obtain any history from the patient. Case discussed with the patient's nurse who states that the patient was found down at home for an unknown period of time. The patient was found to be in A-fib with RVR. He was started on IV Cardizem. Bedside telemetry revealed atrial fibrillation with a heart rate in the 80s. He remains on IV Cardizem at 15 mg an hour. DIAGNOSTICS: - EKG reveals A-fib with RVR. - Chest xray negative for acute process - Laboratory data: WBC 5.72. Hemoglobin 13.3. Platelet count 92. Sodium 135. Potassium 3.0. BUN 12. Creatinine 0.89. AST 309. ALT 184. Creatinine kinase 610. Troponin 0.025. Toxicology screen positive for cocaine. Serum alcohol 447. - Current home cardiac medications include losartan 50 mg daily. - Most recent echocardiogram obtained in October 2022 revealed ejection fraction 55%, mild concentric LVH, mild MR, trace to mild TR - Patient underwent stress testing in November 2022 which was negative for ischemia 09/18/2024 Patient examined this morning at the bedside. Patient is still lethargic although improved from yesterday. He denies chest pain or pressure. Denies shortness of breath. He remains in atrial fibrillation with a heart rate around 100. IV Cardizem is infusing at 15 mg an hour. 09/19/2024 Patient examined this morning at the bedside. Patient denies chest pain or pressure. Denies shortness of breath. Patient remains in atrial fibrillation with heart in the 80s. Patient does have episodes of RVR with ambulation which could also be worsened by alcohol withdrawal. 09/20/2024 Patient examined this morning at the bedside. Patient currently denies chest pain or pressure. He denies shortness of breath. Patient had an episode of hypotension this morning. He received IV fluid bolus. Patient remains in atrial fibrillation with controlled ventricular rate. Patient does complain of dizziness when he is sitting up in the bed. Echocardiogram completed revealing ejection fraction 30 to 35% with mild to moderate mitral regurgitation 09/21/2024 Patient examined this morning to bedside. Patient currently denies chest pain or pressure. He denies shortness of breath. Vital signs are stable. He re marin in atrial fibrillation with controlled ventricular rate. PHYSICAL EXAM: VITAL SIGNS: Reviewed. GENERAL: Well-developed in no acute distress. HEENT: Head is normocephalic. Pupils are equal, round. Sclerae anicteric. Mucous membranes of the mouth are moist. Neck supple. No JVD or thyromegaly LUNGS: Respirations even and unlabored. Lungs essentially clear to auscultation bilaterally. HEART: Irregular rate and rhythm. S1 and S2 heard. EXTREMITIES: Normal range of motion. No clubbing or cyanosis. Peripheral pulses intact. No lower extremity edema ASSESSMENT: Acute alcohol intoxication Toxicology screen positive for cocaine Atrial fibrillation with RVR, paroxysmal versus persistent Hypokalemia Elevated lactic acid Hypertension History of hypothyroidism History of alcohol abuse Cardiomyopathy, suspect nonischemic due to atrial fibrillation with RVR and alcohol abuse PLAN: Patient with [id number] of 1. Will hold off on anticoagulation at this time; patient with increased risk due to recurrent falls. Continue metoprolol Continue telemetry monitoring Recommend abstinence from alcohol and drugs including cocaine Patient is currently stable from a cardiac standpoint Further recommendations pending patient course Nurse practitioner note has been reviewed by physician. Signing provider agrees with the documented findings, assessment, and plan of care documented by [employer] as a scribe. Objective - Vital Signs Vital signs: Vital Signs Temp 97.6 F 09/21/24 11:24 Pulse 99 09/21/24 11:24 Resp 18 09/21/24 11:24 BP 135/103 09/21/24 11:24 Pulse Ox 98 09/21/24 11:24 FiO2 Intake & Output 09/20/24 09/21/24 09/21/24 18:59 06:59 18:59 Intake Total 10 Output Total 650 2400 Balance -640 -2400 Weight 74.5 kg Intake: IV 10 Invasive Line 3 10 Output: Urine 650 2400 Other: Voiding Method Urinal Urinal Urinal # Voids 0 - Labs CBC & Chem 7: 09/20/24 06:42 09/21/24 05:55 Labs: Abnormal Lab Results - Last 24 Hours (Table) 09/21/24 Range/Units 05:55 Sodium 134 L (137-145) mmol/L AST 94 H (17-59) U/L ALT 113 H (4-49) U/L
--- NOTE | 2024-09-22 12:34 | CDI ---
Documentation Clarification Form Date: 09/22/24 From: Leatha Niño Admit Date: 09/16/2024 06:55:00 PM Patient Name: Tashi Simmons Visit Number: [id number] Discharge Date: 09/21/2024 02:57:00 PM ATTENTION: The Clinical Documentation Specialists (CDI) and [facility] Coding Staff appreciate your assistance in clarifying documentation. Please respond to the clarification below the line at the bottom and electronically sign. The CDI & [facility] Coding staff will review the response and follow-up if needed. Please note: Queries are made part of the Legal Health Record. If you have any questions, please contact the author of this message via ITS. Doctor/Provider: Rupert Coles, A pressure ulcer of the coccyx is documented in the Nursing Wound Assessment on 09/17. Additional clarification regarding the stage of the pressure ulcer is requested. History/Risk Factors: Alcohol intoxication and withdrawal, cocaine abuse, hypertensive heart disease with heart failure Clinical Indicators: Per ED Note- He does have visible skinbreakdown on his bilateral hips as well as his right shoulder, elbow, right aspect of bilateral knees. Location: coccyx Wound description: Stage I, no drainage Treatment: Foam with border Please clarify the stage of pressure ulcer coccyx, if known: [ x ] Stage 1 Pressure Ulcer of Coccyx [ ] Other condition, please specify [ ] Unable to determine Clinical Definitions: Stage 1 Pressure Ulcer: intact skin, non-blanching redness of local area Stage 2 Pressure Ulcer: Partial thickness, loss of dermis, pink wound bed Stage 3 Pressure Ulcer: Full thickness tissue loss Stage 4 Pressure Ulcer: Full thickness tissue loss with exposed bone, tendon, or muscle. Unstageable pressure ulcer: Full thickness tissue loss in which the base of the ulcer is covered by slough (yellow, smallwood, narayanan, green or brown) and/or eschar (smallwood, brown or black) in the wound bed. MTDD
--- NOTE | 2024-09-22 12:39 | CDI ---
Documentation Clarification Form Date: 09/22/24 From: Leatha Niño Admit Date: 09/16/2024 06:55:00 PM Patient Name: Tashi Simmons Visit Number: [id number] Discharge Date: 09/21/2024 02:57:00 PM ATTENTION: The Clinical Documentation Specialists (CDI) and [facility] Coding Staff appreciate your assistance in clarifying documentation. Please respond to the clarification below the line at the bottom and electronically sign. The CDI & [facility] Coding staff will review the response and follow-up if needed. Please note: Queries are made part of the Legal Health Record. If you have any questions, please contact the author of this message via ITS. Doctor/Provider: Rupert Coles, A pressure ulcer of the left hip is documented in the Nursing Wound Assessment on 09/17. Additional clarification regarding the stage of the pressure ulcer is requested. History/Risk Factors: Alcohol intoxication and withdrawal, cocaine abuse, hypertensive heart disease with heart failure Clinical Indicators: Per ED Note- He does have visible skinbreakdown on his bilateral hips as well as his right shoulder, elbow, right aspect of bilateral knees. Location: Left Hip Wound description: Stage I, no drainage Treatment: Foam with border Please clarify the stage of pressure ulcer left hip, if known: [x ] Stage 1 Pressure Ulcer of Left Hip [ ] Other condition, please specify [ ] Unable to determine Clinical Definitions: Stage 1 Pressure Ulcer: intact skin, non-blanching redness of local area Stage 2 Pressure Ulcer: Partial thickness, loss of dermis, pink wound bed Stage 3 Pressure Ulcer: Full thickness tissue loss Stage 4 Pressure Ulcer: Full thickness tissue loss with exposed bone, tendon, or muscle. Unstageable pressure ulcer: Full thickness tissue loss in which the base of the ulcer is covered by slough (yellow, smallwood, narayanan, green or brown) and/or eschar (smallwood, brown or black) in the wound bed. MTDD
--- NOTE | 2024-09-22 12:42 | CDI ---
Documentation Clarification Form Date: 09/22/24 From: Leatha Niño Admit Date: 09/16/2024 06:55:00 PM Patient Name: Tashi Simmons Visit Number: [id number] Discharge Date: 09/21/2024 02:57:00 PM ATTENTION: The Clinical Documentation Specialists (CDI) and [facility] Coding Staff appreciate your assistance in clarifying documentation. Please respond to the clarification below the line at the bottom and electronically sign. The CDI & [facility] Coding staff will review the response and follow-up if needed. Please note: Queries are made part of the Legal Health Record. If you have any questions, please contact the author of this message via ITS. Doctor/Provider: Rupert Coles, A pressure ulcer of the right hip is documented in the Nursing Wound Assessment on 09/17. Additional clarification regarding the stage of the pressure ulcer is requested. History/Risk Factors: Alcohol intoxication and withdrawal, cocaine abuse, hypertensive heart disease with heart failure Clinical Indicators: Per ED Note- He does have visible skinbreakdown on his bilateral hips as well as his right shoulder, elbow, right aspect of bilateral knees. Location: Rigjt Hip Wound description: Stage II, no drainage Treatment: Foam with border Please clarify the stage of pressure ulcer right hip, if known: [ x] Stage 2 Pressure Ulcer of Right Hip [ ] Other condition, please specify [ ] Unable to determine Clinical Definitions: Stage 1 Pressure Ulcer: intact skin, non-blanching redness of local area Stage 2 Pressure Ulcer: Partial thickness, loss of dermis, pink wound bed Stage 3 Pressure Ulcer: Full thickness tissue loss Stage 4 Pressure Ulcer: Full thickness tissue loss with exposed bone, tendon, or muscle. Unstageable pressure ulcer: Full thickness tissue loss in which the base of the ulcer is covered by slough (yellow, smallwood, narayanan, green or brown) and/or eschar (smallwood, brown or black) in the wound bed. MTDD
[2024-09-22 14:59] LABS: Platelet Count 87 10*3/uL (140-440)
== END 2024-09-21 14:57 | disposition home or self-care (01) | DRG 917 ==
LOC: EC 14:52 → 3SCARD 18:55
PROVIDERS: ADMIT Hospitalist; ATTEND Hospitalist
PROC: 3E033XZ Introduction of Vasopressor into Peripheral Vein, Percutaneous Approach (ICD-10-PCS; principal; 2024-09-16)
DX: T51.0X1A Toxic effect of ethanol, accidental (unintentional), initial encounter (principal); G92.8 Other toxic encephalopathy; L89.212 Pressure ulcer of right hip, stage 2; E87.20 Acidosis, unspecified; L89.151 Pressure ulcer of sacral region, stage 1; L89.221 Pressure ulcer of left hip, stage 1; I50.20 Unspecified systolic (congestive) heart failure; F10.229 Alcohol dependence with intoxication, unspecified; F14.10 Cocaine abuse, uncomplicated; I11.0 Hypertensive heart disease with heart failure; K70.10 Alcoholic hepatitis without ascites; D69.59 Other secondary thrombocytopenia; E03.9 Hypothyroidism, unspecified; F32.A Depression, unspecified; F10.239 Alcohol dependence with withdrawal, unspecified; I42.8 Other cardiomyopathies; E87.1 Hypo-osmolality and hyponatremia; I48.91 Unspecified atrial fibrillation; I95.9 Hypotension, unspecified; E83.42 Hypomagnesemia; E87.6 Hypokalemia; F17.200 Nicotine dependence, unspecified, uncomplicated; F41.9 Anxiety disorder, unspecified; Y90.8 Blood alcohol level of 240 mg/100 ml or more; Z79.890 Hormone replacement therapy; Z79.899 Other long term (current) drug therapy; W01.0XXA Fall on same level from slipping, tripping and stumbling without subsequent striking against object, initial encounter; Y92.030 Kitchen in apartment as the place of occurrence of the external cause
CPT/HCPCS: 36415; 51701; 70450; 71046; 72125; 72170; 80048; 80053; 80306; 80320; 81001; 82140; 82550; 83605; 83690; 83735; 83880; 84439; 84443; 84484; 85025; 85027; 85610; 85730; 93005; 93306; 96361; 96365; 96366; 96367; 96368; 96375; 96376; 99285

== ENCOUNTER 2024-09-27 12:27 | Inpatient (IN) | payer OTHER ==
--- NOTE | 2024-09-27 12:54 | ED ---
Weakness HPI - General Chief complaint: Weakness Stated complaint: weakness Time Seen by Provider: 09/27/24 12:31 Source: patient, RN notes reviewed Mode of arrival: EMS Limitations: no limitations - History of Present Illness Initial comments: This is a 58-year-old male who presents to the emergency department for generalized weakness. Patient was at [facility] and reportedly pushed the blue emergency button. States that at that time he was experiencing chest pain, shortness of breath, dizziness, and weakness. EMS noted him to be intoxicated and soiled. He had vodka bottles around him. Patient states that he also feels very sad. EMS found his heart rate to be in the 140s. He does have a history of A-fib but is not currently anticoagulated. States that the chest pain has since resolved. - Related Data Home Medications Medication Instructions Recorded Confirmed Cyclobenzaprine [Flexeril] 5 mg PO HS PRN 09/16/24 09/27/24 Escitalopram [Lexapro] 20 mg PO DAILY 09/16/24 09/27/24 Levothyroxine Sodium [Synthroid] 112 mcg PO DAILY 09/16/24 09/27/24 Losartan [Cozaar] 50 mg PO DAILY 09/16/24 09/27/24 Folic Acid-Vit B Complex-Vit C 1 cap PO DAILY 09/27/24 09/27/24 [Nephrocaps] Previous Rx's Medication Instructions Recorded Metoprolol Tartrate [Lopressor] 25 mg PO BID #60 tab 09/21/24 Thiamine [Vitamin B-1] 100 mg PO DAILY #30 tab 09/21/24 Allergies Allergy/AdvReac Type Severity Reaction Status Date / Time No Known Allergies Allergy Verified 09/27/24 15:11 Review of Systems ROS Statement: Those systems with pertinent positive or pertinent negative responses have been documented in the HPI. ROS Other: All systems not noted in ROS Statement are negative. Past Medical History Past Medical History: Hypertension Additional Past Medical History / Comment(s): etoh abuse History of Any Multi-Drug Resistant Organisms: None Reported Past Surgical History: Hernia Repair, Orthopedic Surgery Past Psychological History: No Psychological Hx Reported Smoking Status: Current every day smoker Past Alcohol Use History: Abuse, Daily, Heavy Past Drug Use History: None Reported General Exam Limitations: no limitations General appearance: alert, in no apparent distress Head exam: Present: atraumatic, normocephalic, normal inspection Respiratory exam: Present: normal lung sounds bilaterally. Absent: respiratory distress, wheezes, rales, rhonchi, stridor Cardiovascular Exam: Present: tachycardia, irregular rhythm GI/Abdominal exam: Present: soft. Absent: distended, tenderness Neurological exam: Present: alert, oriented X3, CN II-XII intact Psychiatric exam: Present: depressed Skin exam: Present: warm, dry, intact, normal color. Absent: rash Course Vital Signs 09/27/24 09/27/24 09/27/24 12:32 12:39 13:16 Temperature 98.1 F Pulse Rate 115 H 149 H 114 H Pulse Rate [ Land Development Project [employer] ] Respiratory 18 18 Rate Blood Pressure 142/89 135/88 O2 Sat by Pulse 100 Oximetry 09/27/24 09/27/24 09/27/24 13:41 14:36 16:53 Temperature Pulse Rate 106 H 86 Pulse Rate [ 110 H Land Development Project Manager ] Respiratory 18 17 Rate Blood Pressure 147/98 127/92 O2 Sat by Pulse 96 Oximetry 09/27/24 09/27/24 09/27/24 17:24 18:58 19:42 Temperature Pulse Rate 133 H 121 H 100 Pulse Rate [ Land Development Project Manager ] Respiratory 22 19 19 Rate Blood Pressure 131/109 142/101 154/100 O2 Sat by Pulse 97 Oximetry Medical Decision Making - Medical Decision Making This is a 58 year old male who presents to the emergency department for weakness. Was pt. sent in by a medical professional or institution? @ -No Did you speak to anyone other than the patient for history? @ -EMS provided the majority of the history. Did you review nursing and triage notes? @ -Yes, and I agree, it is accurate with regards to the patient's symptoms. Were old charts reviewed? @ -Cardiology consultation from 09/17/2024 advising that while he does have atrial fibrillation, he has a [id number] of 1 and they will hold off on anticoagulation. Echocardiogram from 09/19/2024 demonstrating an ejection fraction of 30 to 35%. Differential Diagnosis? @ -Differential Weakness: Hypoglycemia, shock, sepsis, hyponatremia, anemia, infection, NH, ETOH, adverse medicine reaction, overdose, stroke, this is not meant to be an all-inclusive list. EKG interpreted by me (3pts min.)? @ -EKG interpreted by me demonstrating the following: A-fib with RVR. Ventricular rate 135 bpm, QRS duration 90 ms, QTc 368 ms. X-rays interpreted by me (1pt min.)? @ -Chest x-ray obtained, my interpretation identifies no localized consolidations or infiltrates. CT interpreted by me (1pt min.)? @ -Not obtained U/S interpreted by me (1pt. min.)? @ -Not obtained What testing was considered but not performed? (CT, X-rays, U/S, labs)? Why? @ -None What meds were considered but not given? Why? @ -None Did you discuss the management of the patient with other professionals? @ -Yes, Dr. German, who accepts the patient for admission Did you reconcile home meds? @ -No Was smoking cessation discussed for >3mins.? @ -No Was critical care preformed (if so, how long)? @ -Yes, >35 minutes Were there social determinants of health that impacted care today? How? (Homelessness, low income, unemployed, alcoholism, drug addiction, transportation, low edu. Level, literacy, decrease access to med. care, fci, rehab)? @ -Alcoholism, increasing his risk of other medical problems and contributing to his current presentation Was there de-escalation of care discussed even if they declined? (Discuss DNR or withdrawal of care, Hospice)? @ -No What co-morbidities impacted this encounter? (DM, HTN, Smoking, COPD, CAD, Cancer, CVA, Hep., AIDS, mental health diagnosis, sleep apnea, morbid obesity)? @ -Alcoholism, A-fib Was patient admitted / discharged? @ -Admitted. Lab work demonstrates an elevated lactic acid of 4.7 and an alcohol level of 328. LFTs elevated likely secondary to alcohol abuse. Urinalysis negative for signs of infection. UDS negative. Chest x-ray reveals no acute process. Patient was in A-fib with RVR on arrival. He was ultimately started on a Cardizem drip due to heart rate ranging between 110 and 150. We did not want to aggressively hydrate him initially due to previous echocardiogram demonstrating an EF of 30 to 35%. Patient admitted to medicine for alcohol intoxication and A-fib with RVR. Case discussed with ED attending Dr. Dodd. Undiagnosed new problem with uncertain prognosis? @ -None Drug Therapy requiring intensive monitoring for toxicity (Heparin, Nitro, Insulin, Cardizem)? @ -Cardizem Were any procedures done? @ -None Diagnosis/symptom? @ -A-fib with RVR, alcohol intoxication Acute, or Chronic, or Acute on Chronic? @ -Acute Uncomplicated (without systemic symptoms) or Complicated (systemic symptoms)? @ -Complicated Side effects of treatment? @ -None Exacerbation, Progression, or Severe Exacerbation] @ -Not applicable Poses a threat to life or bodily function? @ -Yes, patient unable to function in his current state - Lab Data Result diagrams: 09/27/24 12:59 09/27/24 12:59 Lab Results 09/27/24 09/27/24 09/27/24 Range/Units 12:39 12:59 12:59 WBC 5.35 (4.50-10.00) 10*3/uL RBC 4.26 L (4.40-5.60) 10*6/uL Hgb 14.0 (13.0-17.0) g/dL Hct 39.9 (39.6-50.0) % MCV 93.7 (80.0-97.0) fL MCH 32.9 H (27.0-32.0) pg MCHC 35.1 (32.0-37.0) g/dL Plt Count 403 D (140-440) 10*3/uL MPV 8.8 L (9.5-12.2) fL Immature Gran % (Auto) 0.6 % Neutrophils % 53.6 % Lymphocytes % 29.2 % Monocytes % 12.1 % Eosinophils % 1.9 % Basophils % 2.6 % Immature Gran # 0.03 (0.00-0.04) 10*3/uL Neutrophils # 2.87 (1.80-7.70) 10*3/uL Lymphocytes # 1.56 (0.90-5.00) 10*3/uL Monocytes # 0.65 (0.20-1.00) 10*3/uL Eosinophils # 0.10 (0.04-0.35) 10*3/uL Basophils # 0.14 H (0.00-0.10) 10*3/uL PT 10.3 (10.0-12.5) sec INR 0.9 (<1.2) APTT 24.4 (22.0-30.0) sec Sodium (137-145) mmol/L Potassium (3.5-5.1) mmol/L Chloride (98-107) mmol/L Carbon Dioxide (22-30) mmol/L Anion Gap mmol/L BUN (9-20) mg/dL Creatinine (0.66-1.25) mg/dL Est GFR (CKD-EPI)AfAm (>60 ml/min/1.73 sqM) Est GFR (CKD-EPI)NonAf (>60 ml/min/1.73 sqM) Glucose (74-99) mg/dL Lactic Ac Sepsis Rflx Plasma Lactic Acid Maurizio (0.7-2.0) mmol/L Calcium (8.4-10.2) mg/dL Magnesium (1.6-2.3) mg/dL Total Bilirubin (0.2-1.3) mg/dL AST (17-59) U/L ALT (4-49) U/L Alkaline Phosphatase (38-126) U/L Troponin I (0.000-0.034) ng/mL NT-Pro-B Natriuret Pep pg/mL Total Protein (6.3-8.2) g/dL Albumin (3.5-5.0) g/dL TSH (0.465-4.680) mIU/L Free T4 (0.78-2.19) ng/dL Urine Color Light Yellow Urine Appearance Clear (Clear) Urine pH 6.0 (5.0-8.0) Ur Specific [place] 1.012 (1.001-1.035) Urine Protein 1+ H (Negative) Urine Glucose (UA) Negative (Negative) Urine Ketones 1+ H (Negative) Urine Blood Negative (Negative) Urine Nitrite Negative (Negative) Urine Bilirubin Negative (Negative) Urine Urobilinogen <2.0 (<2.0) mg/dL Ur Leukocyte Esterase Negative (Negative) Urine WBC <1 (0-5) /hpf Ur Squamous Epith Cells <1 (0-4) /hpf Urine Bacteria Rare H (None) /hpf Urine Mucus Occasional H (None) /hpf Urine Opiates Screen Not Detected (NotDetected) Ur Oxycodone Screen Not Detected (NotDetected) Urine Methadone Screen Not Detected (NotDetected) Ur Barbiturates Screen Not Detected (NotDetected) U Tricyclic Antidepress Not Detected (NotDetected) Ur Phencyclidine Scrn Not Detected (NotDetected) Ur Amphetamines Screen Not Detected (NotDetected) U Methamphetamines Scrn Not Detected (NotDetected) U Benzodiazepines Scrn Not Detected (NotDetected) Urine Cocaine Screen Not Detected (NotDetected) U Marijuana (THC) Screen Not Detected (NotDetected) Serum Alcohol mg/dL 09/27/24 09/27/24 09/27/24 Range/Units 12:59 12:59 12:59 WBC (4.50-10.00) 10*3/uL RBC (4.40-5.60) 10*6/uL Hgb (13.0-17.0) g/dL Hct (39.6-50.0) % MCV (80.0-97.0) fL MCH (27.0-32.0) pg MCHC (32.0-37.0) g/dL Plt Count (140-440) 10*3/uL MPV (9.5-12.2) fL Immature Gran % (Auto) % Neutrophils % % Lymphocytes % % Monocytes % % Eosinophils % % Basophils % % Immature Gran # (0.00-0.04) 10*3/uL Neutrophils # (1.80-7.70) 10*3/uL Lymphocytes # (0.90-5.00) 10*3/uL Monocytes # (0.20-1.00) 10*3/uL Eosinophils # (0.04-0.35) 10*3/uL Basophils # (0.00-0.10) 10*3/uL PT (10.0-12.5) sec INR (<1.2) APTT (22.0-30.0) sec Sodium 144 (137-145) mmol/L Potassium 4.1 (3.5-5.1) mmol/L Chloride 106 (98-107) mmol/L Carbon Dioxide 21 L (22-30) mmol/L Anion Gap 17 mmol/L BUN 12 (9-20) mg/dL Creatinine 0.77 (0.66-1.25) mg/dL Est GFR (CKD-EPI)AfAm >90 (>60 ml/min/1.73 sqM) Est GFR (CKD-EPI)NonAf >90 (>60 ml/min/1.73 sqM) Glucose 72 L (74-99) mg/dL Lactic Ac Sepsis Rflx Plasma Lactic Acid Maurizio 4.7 H* (0.7-2.0) mmol/L Calcium 8.4 (8.4-10.2) mg/dL Magnesium 1.7 (1.6-2.3) mg/dL Total Bilirubin 1.1 (0.2-1.3) mg/dL AST 159 H (17-59) U/L ALT 158 H (4-49) U/L Alkaline Phosphatase 94 (38-126) U/L Troponin I <0.012 (0.000-0.034) ng/mL NT-Pro-B Natriuret Pep 620 pg/mL Total Protein 7.4 (6.3-8.2) g/dL Albumin 4.4 (3.5-5.0) g/dL TSH 5.790 H (0.465-4.680) mIU/L Free T4 0.98 (0.78-2.19) ng/dL Urine Color Urine Appearance (Clear) Urine pH (5.0-8.0) Ur Specific [place] (1.001-1.035) Urine Protein (Negative) Urine Glucose (UA) (Negative) Urine Ketones (Negative) Urine Blood (Negative) Urine Nitrite (Negative) Urine Bilirubin (Negative) Urine Urobilinogen (<2.0) mg/dL Ur Leukocyte Esterase (Negative) Urine WBC (0-5) /hpf Ur Squamous Epith Cells (0-4) /hpf Urine Bacteria (None) /hpf Urine Mucus (None) /hpf Urine Opiates Screen (NotDetected) Ur Oxycodone Screen (NotDetected) Urine Methadone Screen (NotDetected) Ur Barbiturates Screen (NotDetected) U Tricyclic Antidepress (NotDetected) Ur Phencyclidine Scrn (NotDetected) Ur Amphetamines Screen (NotDetected) U Methamphetamines Scrn (NotDetected) U Benzodiazepines Scrn (NotDetected) Urine Cocaine Screen (NotDetected) U Marijuana (THC) Screen (NotDetected) Serum Alcohol 328 H* mg/dL 09/27/24 Range/Units 14:16 WBC (4.50-10.00) 10*3/uL RBC (4.40-5.60) 10*6/uL Hgb (13.0-17.0) g/dL Hct (39.6-50.0) % MCV (80.0-97.0) fL MCH (27.0-32.0) pg MCHC (32.0-37.0) g/dL Plt Count (140-440) 10*3/uL MPV (9.5-12.2) fL Immature Gran % (Auto) % Neutrophils % % Lymphocytes % % Monocytes % % Eosinophils % % Basophils % % Immature Gran # (0.00-0.04) 10*3/uL Neutrophils # (1.80-7.70) 10*3/uL Lymphocytes # (0.90-5.00) 10*3/uL Monocytes # (0.20-1.00) 10*3/uL Eosinophils # (0.04-0.35) 10*3/uL Basophils # (0.00-0.10) 10*3/uL PT (10.0-12.5) sec INR (<1.2) APTT (22.0-30.0) sec Sodium (137-145) mmol/L Potassium (3.5-5.1) mmol/L Chloride (98-107) mmol/L Carbon Dioxide (22-30) mmol/L Anion Gap mmol/L BUN (9-20) mg/dL Creatinine (0.66-1.25) mg/dL Est GFR (CKD-EPI)AfAm (>60 ml/min/1.73 sqM) Est GFR (CKD-EPI)NonAf (>60 ml/min/1.73 sqM) Glucose (74-99) mg/dL Lactic Ac Sepsis Rflx Y Plasma Lactic Acid Maurizio (0.7-2.0) mmol/L Calcium (8.4-10.2) mg/dL Magnesium (1.6-2.3) mg/dL Total Bilirubin (0.2-1.3) mg/dL AST (17-59) U/L ALT (4-49) U/L Alkaline Phosphatase (38-126) U/L Troponin I (0.000-0.034) ng/mL NT-Pro-B Natriuret Pep pg/mL Total Protein (6.3-8.2) g/dL Albumin (3.5-5.0) g/dL TSH (0.465-4.680) mIU/L Free T4 (0.78-2.19) ng/dL Urine Color Urine Appearance (Clear) Urine pH (5.0-8.0) Ur Specific [place] (1.001-1.035) Urine Protein (Negative) Urine Glucose (UA) (Negative) Urine Ketones (Negative) Urine Blood (Negative) Urine Nitrite (Negative) Urine Bilirubin (Negative) Urine Urobilinogen (<2.0) mg/dL Ur Leukocyte Esterase (Negative) Urine WBC (0-5) /hpf Ur Squamous Epith Cells (0-4) /hpf Urine Bacteria (None) /hpf Urine Mucus (None) /hpf Urine Opiates Screen (NotDetected) Ur Oxycodone Screen (NotDetected) Urine Methadone Screen (NotDetected) Ur Barbiturates Screen (NotDetected) U Tricyclic Antidepress (NotDetected) Ur Phencyclidine Scrn (NotDetected) Ur Amphetamines Screen (NotDetected) U Methamphetamines Scrn (NotDetected) U Benzodiazepines Scrn (NotDetected) Urine Cocaine Screen (NotDetected) U Marijuana (THC) Screen (NotDetected) Serum Alcohol mg/dL - Radiology Data Radiology results: report reviewed, image reviewed Critical Care Time Critical Care Time: Yes Critical Care Time: >35 minutes Disposition Clinical Impression: Atrial fibrillation with RVR, Alcohol intoxication Disposition: ADMITTED IP TO THIS HOSP
[2024-09-27 13:16] LABS: Basophils # (A) 0.14 10*3/uL (0.00-0.10); Basophils % (A) 2.6 %; Eosinophils % (A) 1.9 %; HCT 39.9 % (39.6-50.0); Lymphocytes # (A) 1.56 10*3/uL (0.90-5.00); Lymphocytes % (A) 29.2 %; MCH 32.9 pg (27.0-32.0); MCHC 35.1 g/dL (32.0-37.0); MCV 93.7 fL (80.0-97.0); Mean Platelet Volume 8.8 fL (9.5-12.2); Monocytes # (A) 0.65 10*3/uL (0.20-1.00); Monocytes % (A) 12.1 %; Neutrophils # (A) 2.87 10*3/uL (1.80-7.70); Neutrophils % (A) 53.6 %; RBC 4.26 10*6/uL (4.40-5.60); RDW 14.3 % (11.5-14.5); WBC 5.35 10*3/uL (4.50-10.00)
[2024-09-27] MEDS: SODIUM CHLORIDE 0.9% 500 ML 500 ML IV ONE (13:22)
[2024-09-27] MEDS: DILTIAZEM 5 MG/ML 5 ML VIAL IVP STA ×2 (13:25→13:28)
[2024-09-27 13:30] LABS: ALT 158 U/L (4-49); AST 159 U/L (17-59); African American GFR (CKD) >90 (>60 ml/min/1.73 sqM); Albumin 4.4 g/dL (3.5-5.0); Alkaline Phosphatase 94 U/L (38-126); Anion Gap 17 mmol/L; Blood Urea Nitrogen 12 mg/dL (9-20); Calcium 8.4 mg/dL (8.4-10.2); Carbon Dioxide 21 mmol/L (22-30); Chloride 106 mmol/L (98-107); Glucose 72 mg/dL (74-99); Magnesium 1.7 mg/dL (1.6-2.3); Non-African American GFR(CKD) >90 (>60 ml/min/1.73 sqM); Potassium 4.1 mmol/L (3.5-5.1); Sodium 144 mmol/L (137-145); Total Bilirubin 1.1 mg/dL (0.2-1.3); Total Protein 7.4 g/dL (6.3-8.2)
[2024-09-27] MEDS: DILTIAZEM 125 MG in DEXTROSE 5% IN WATER 100 ML IV SCH (13:30)
[2024-09-27 13:39] LABS: NT-Pro-B-Type Natriuretic Pept 620 pg/mL
[2024-09-27 13:51] LABS: Platelet Count 403 10*3/uL (140-440)
--- NOTE | 2024-09-27 13:53 | XR ---
EXAMINATION TYPE: XR chest 2V DATE OF EXAM: 09/27/2024 1:09 PM COMPARISON: Chest radiographs from 09/16/2024 CLINICAL INDICATION: Male, 58 years old with history of difficulty breathing; [facility] TECHNIQUE: XR chest 2V Frontal and lateral views of the chest. FINDINGS: Lungs/Pleura: There is no evidence of pleural effusion, focal consolidation, or pneumothorax. Pulmonary vascularity: Unremarkable. Heart/mediastinum: Cardiomediastinal silhouette is unremarkable. Musculoskeletal: No acute osseous pathology. IMPRESSION: No acute cardiopulmonary disease/process. [facility], , 09/27/2024 1:51 PM
[2024-09-27 13:54] LABS: INR 0.9 (<1.2); Partial Thromboplastin Time 24.4 sec (22.0-30.0); Prothrombin Time 10.3 sec (10.0-12.5)
[2024-09-27 14:15] LABS: Alcohol 328 mg/dL
[2024-09-27] MEDS: SODIUM CHLORIDE 0.9% 1,000 ML IV ONE (14:35)
[2024-09-27 14:45] LABS: Appearance,Urine Clear (Clear); Bacteria,Urine Rare /hpf; Bilirubin,Urine Negative (Negative); Blood,Urine Negative (Negative); Color,Urine Light Yellow; Glucose,Urine (UA) Negative (Negative); Ketones,Urine 1+ (Negative); Leukocyte Esterase,Urine Negative (Negative); Mucus,Urine Occasional /hpf; Nitrite,Urine Negative (Negative); Protein,Urine 1+ (Negative); Specific Gravity,Urine 1.012 (1.001-1.035); Squamous Epithelial Cell,Urine <1 /hpf (0-4); Urobilinogen,Urine <2.0 mg/dL (<2.0); WBC,Urine <1 /hpf (0-5)
[2024-09-27 14:48] LABS: Amphetamine Screen,Urine Not Detected (NotDetected); Barbiturate Screen,Urine Not Detected (NotDetected); Benzodiazepines Screen,Urine Not Detected (NotDetected); Cocaine Screen,Urine Not Detected (NotDetected); Methadone Screen, Urine Not Detected (NotDetected); Opiate Screen,Urine Not Detected (NotDetected); Oxycodone Screen, Urine Not Detected (NotDetected); Phencyclidine Screen,Urine Not Detected (NotDetected); Tricyclic Antidepressant,Urine Not Detected (NotDetected); Urn Cannabinoid Scrn Not Detected (NotDetected)
[2024-09-27 14:49] LABS: T4, Free (Free Thyroxine) 0.98 ng/dL (0.78-2.19)
[2024-09-27] MEDS ORDERED: NALOXONE 0.4 MG/ML 1 ML VIAL IV PRN (15:11)
[2024-09-27] MEDS ORDERED: CYCLOBENZAPRINE 5 MG TAB PO PRN (16:08)
[2024-09-27] MEDS ORDERED: LORazepam 2 MG/ML INJ IV PRN ×3 (16:10)
--- NOTE | 2024-09-27 16:41 | P.HPIM ---
History of Present Illness H&P Date: 09/27/24 History of Presenting Illness: Patient is a 58-year-old male with a past medical history of paroxysmal atrial fibrillation no longer on anticoagulation, daily alcohol abuse, hypertension, and hypothyroidism. He presented to the emergency department via EMS for generalized weakness, chest pain, palpitations, and dizziness. He denies having any headache, changes in vision or hearing, shortness of breath, cough or congestion, nausea or vomiting, abdominal pain, or experiencing any numbness/tingling/weakness in his extremities. Patient was reportedly found by EMS to be soiled secondary to urinary incontinence and have heart rate in the 140s with vodka bottles in his possession. Patient does admit to longstanding history of daily alcohol abuse and depression follows with [facility] and states he is on the waiting list to get back into [facility]. 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 Per documentation in chart patient was evaluated by cardiology 09/21/2024 stating patient's [id number] score was 1 and recommending holding off on anticoagulation due to history of recurrent falls. Upon arrival to our facility, patient underwent evaluation in the emergency department. Vital signs upon arrival show blood pressure 142/89, heart rate 115, respiratory rate 18, temp 98.1 F, and SpO2 of 100% on room air. EKG was completed showing atrial fibrillation with RVR to 135 bpm. Chest x-ray negative for acute cardiopulmonary process. Labs completed and reviewed. CBC showing no significa nt abnormalities. Coagulation profile normal findings. BMP showing hypocarbia with bicarb of 21 and hypoglycemia with blood glucose of 72. Lactic acid was elevated at 4.7. Magnesium was slightly low at 1.7. Liver profile showing elevated AST of 159 and ALT of 158. Troponin was negative at less than 0.012. proBNP 620. TSH 5.790 with free T4 of 0.98. Urinalysis was negative for infection urine drug screen negative. Serum alcohol level was elevated at 328. Patient was given Cardizem bolus followed by infusion and admitted under services at this time. Review of systems: Pertinent positives and negatives as discussed in HPI, a complete review of systems was performed and all other systems are negative. Physical exam: Vital signs reviewed and stable. General: Nontoxic, no distress and appears older than stated age. Disheveled appearance Derm: Skin warm and dry, normal coloration for ethnicity. Head: Atraumatic, normocephalic and symmetric. Eyes: EOM's intact, no lid lag, and anicteric sclera Mouth: no lip lesions, mucus membranes moist Cardiovascular irregularly irregular, systolic murmur, positive posterior tibial pulses bilaterally, and cap refill < 2 seconds. Lungs: Respirations even, regular, and unlabored on room air. Lungs CTA bilaterally, no rhonchi, no rales, no wheezing, and no accessory muscle usage. Abdominal: soft, nontender to palpation, no guarding, no appreciable organomegaly Ext: ROM intact. No gross muscle atrophy, no edema, no contractures Neuro: Speech clear, face symmetrical and CN II-XII grossly intact with no noted focal neuro deficits Psych: Alert and oriented to person, place, time, and situation. Appropriate and pleasant affect. Assessment and Plan of Care: Atrial fibrillation with RVR Generalized weakness, likely multifactorial resulting from alcohol intoxication and current RVR Hypertension Nonischemic cardiomyopathy, with previous EF of 30 to 35%, believed to be secondary to longstanding history of atrial fibrillation and daily alcohol abuse Medication noncompliance -Continuous telemetry monitoring -Patient received Cardizem bolus followed by infusion in the emergency department. -Patient admits to missing multiple doses of his metoprolol over the past few days. Order placed for metoprolol tartrate 50 mg p.o. x 1 dose and patient to resume metoprolol 25 mg twice daily -Patient recently evaluated by cardiology for atrial fibrillation with RVR, last seen on 09/21/[address] Serrano recommending holding off on anticoagulation due to patient's history of recurrent falls and [id number] score of 1. -Reviewed echocardiogram completed 09/17/2024 showing reduced EF of 30 to 35% with severely reduced global LV systolic function, severe left atrial dilation, moderate right atrial dilation, and moderate functional mitral regurgitation. Alcohol intoxication in active alcoholic Lactic acidosis, likely secondary to above Hypomagnesemia Transaminitis, likely secondary to daily alcohol abuse -Order placed for monitoring of CIWA scores and patient to be medicated with Ativan 0.5 mg every 4 hours as needed for CIWA score of 4-5, Ativan 1 mg every 4 hours for CIWA score of 6-7, Ativan 2 mg every 3 hours CIWA score of 8-9, and Ativan 2 mg every 2 hours forr CIWA score of 10 or greater. -Thiamine 100 mg daily, and Multivitamin daily, and Folate 1 mg daily -Seizure, fall, aspiration, and elopement precautions in place. -Urine drug screen negative -Continued close monitoring of electrolytes and replace as needed. -Telemetry monitoring. Hypothyroidism -TSH 5.790 with free T4 of 0.98. Patient admits that he has missed multiple doses of his medication. At this time we will resume levothyroxine 112 mcg daily and recommend repeat TSH with reflex free T4 in 6 weeks. Depression -Continue Lexapro 20 mg daily. Data and imaging reviewed -As stated above in HPI and reviewed previous hospital records from most recent admission 09/16/24 through 09/21/2024 along with recent echocardiogram report. The patient is admitted with an anticipated less than 2 midnight stay for e valuation of alcohol intoxication and atrial fibrillation with RVR CODE STATUS: Full code DVT prophylaxis: Lovenox Discussed with: Patient, RN, and ED provider Anticipated discharge date: Likely 24 to [address]: Home Patient was seen independently by Nurse Practitioner. This document was prepared using [employer] dictation software. Please allow for errors in manager financial reporting while rare they do occur. Giovani Sanchez NP rendered care for this patient independently, reviewed the findings and plan as documented in the note above and agree with plan. I did not physically speak with or examine the patient on this date. Past Medical History Past Medical History: Hypertension Additional Past Medical History / Comment(s): etoh abuse History of Any Multi-Drug Resistant Organisms: None Reported Past Surgical History: Hernia Repair, Orthopedic Surgery Past Psychological History: No Psychological Hx Reported Smoking Status: Current every day smoker Past Alcohol Use History: Abuse, Daily, Heavy Past Drug Use History: None Reported Medications and Allergies Home Medications Medication Instructions Recorded Confirmed Type Cyclobenzaprine [Flexeril] 5 mg PO HS PRN 09/16/24 09/27/24 History Escitalopram [Lexapro] 20 mg PO DAILY 09/16/24 09/27/24 History Levothyroxine Sodium [Synthroid] 112 mcg PO DAILY 09/16/24 09/27/24 History Losartan [Cozaar] 50 mg PO DAILY 09/16/24 09/27/24 History Metoprolol Tartrate [Lopressor] 25 mg PO BID #60 tab 09/21/24 09/27/24 Rx Thiamine [Vitamin B-1] 100 mg PO DAILY #30 tab 09/21/24 09/27/24 Rx Folic Acid-Vit B Complex-Vit C 1 cap PO DAILY 09/27/24 09/27/24 History [Nephrocaps] Allergies Allergy/AdvReac Type Severity Reaction Status Date / Time No Known Allergies Allergy Verified 09/27/24 15:11 Physical Exam Vitals: Vital Signs Temp Pulse Resp BP Pulse Ox 09/27/24 14:36 86 17 127/92 96 09/27/24 13:41 106 H 18 147/98 09/27/24 13:16 114 H 18 135/88 09/27/24 12:39 149 H 09/27/24 12:32 98.1 F 115 H 18 142/89 100 Intake and Output 09/27/24 09/27/24 09/27/24 06:59 14:59 22:59 Other: Weight 74.843 kg Results CBC & Chem 7: 09/27/24 12:59 09/27/24 12:59 Labs: Abnormal Lab Results - Last 24 Hours (Table) 09/27/24 09/27/24 09/27/24 Range/Units 12:39 12:59 12:59 RBC 4.26 L (4.40-5.60) 10*6/uL MCH 32.9 H (27.0-32.0) pg MPV 8.8 L (9.5-12.2) fL Basophils # 0.14 H (0.00-0.10) 10*3/uL Carbon Dioxide 21 L (22-30) mmol/L Glucose 72 L (74-99) mg/dL Plasma Lactic Acid Maurizio (0.7-2.0) mmol/L AST 159 H (17-59) U/L ALT 158 H (4-49) U/L TSH 5.790 H (0.465-4.680) mIU/L Urine Protein 1+ H (Negative) Urine Ketones 1+ H (Negative) Urine Bacteria Rare H (None) /hpf Urine Mucus Occasional H (None) /hpf Serum Alcohol 328 H* mg/dL 09/27/24 Range/Units 12:59 RBC (4.40-5.60) 10*6/uL MCH (27.0-32.0) pg MPV (9.5-12.2) fL Basophils # (0.00-0.10) 10*3/uL Carbon Dioxide (22-30) mmol/L Glucose (74-99) mg/dL Plasma Lactic Acid Maurizio 4.7 H* (0.7-2.0) mmol/L AST (17-59) U/L ALT (4-49) U/L TSH (0.465-4.680) mIU/L Urine Protein (Negative) Urine Ketones (Negative) Urine Bacteria (None) /hpf Urine Mucus (None) /hpf Serum Alcohol mg/dL
[2024-09-27] MEDS: MAGNESIUM SULFATE-D5W PMX 1 GM in DEXTROSE/WATER 1 100ML.BAG IVPB SCH (17:17)
[2024-09-27] MEDS: LORazepam 0.5 MG TAB PO PRN (17:33)
[2024-09-27] MEDS: METOPROLOL TARTRATE 50 MG TAB PO STA (17:33)
[2024-09-27] MEDS: ACETAMINOPHEN TAB 325 MG TAB PO PRN (19:31)
[2024-09-27] MEDS: ONDANSETRON 4 MG/2 ML VIAL IVP PRN (19:35)
[2024-09-27] MEDS: METOPROLOL TARTRATE 25 MG TAB PO SCH (20:08)
[2024-09-27] MEDS: LORazepam 1 MG TAB PO PRN (21:37)
[2024-09-27 22:10] LABS: Glucose,Whole Blood 127 mg/dL (70-110)
[2024-09-28] MEDS: LEVOTHYROXINE 112 MCG TAB PO SCH (05:29)
[2024-09-28 06:18] LABS: Glucose,Whole Blood 117 mg/dL (70-110)
[2024-09-28] MEDS ORDERED: LORazepam 1 MG/0.5 ML VIAL IV PRN ×2 (08:23→08:29)
[2024-09-28 08:30] VITALS: RESP 18
[2024-09-28] MEDS: PANTOPRAZOLE 40 MG/10 ML VIAL IV SCH (09:03)
[2024-09-28] MEDS: LORazepam 1 MG/0.5 ML VIAL IV PRN (09:04)
[2024-09-28] MEDS: THIAMINE 100 MG TAB PO SCH (09:06)
[2024-09-28] MEDS: ESCITALOPRAM 20 MG TAB PO SCH (09:06)
[2024-09-28] MEDS: LOSARTAN 50 MG TAB PO SCH (09:06)
[2024-09-28] MEDS: METOPROLOL TARTRATE 50 MG TAB PO SCH (09:06)
[2024-09-28] MEDS: ENOXAPARIN 40 MG/0.4 ML SYRINGE SQ SCH (09:06)
[2024-09-28] MEDS: KETOROLAC 15 MG/ML 1 ML VIAL IVP PRN (10:50)
--- NOTE | 2024-09-28 11:27 | P.DS ---
Providers Date of admission: 09/27/24 14:41 Expected date of discharge: 09/28/24 Attending physician: Jodie German MD Primary care physician: Stated None Hospital Course: Discharge Diagnosis: Atrial fibrillation with RVR. Now maintaining controlled ventricular rate of 70s to 80s over the past 14 hours. Patient's metoprolol was increased from 25 mg twice daily to 50 mg twice daily. Patient educated on the importance of medication compliance and risk of continued noncompliance/missed doses will likely result in recurrent episodes of RVR. Patient recently evaluated by cardiology for atrial fibrillation with RVR, last seen on 09/21/[address] Serrano recommending holding off on anticoagulation due to patient's history of recurrent falls and [id number] score of 1. Prescription was sent for increased dose of metoprolol and patient instructed he will need to follow-up with PCP in 1 to 2 days and with route delivery supervisor in 1 week. Generalized weakness, likely multifactorial resulting from alcohol intoxication and current RVR . Patient strongly encouraged to avoid any and all alcohol use. He is currently calling [facility] for intake appointment. Hypertension. Patient to continue medication regimen with losartan 50 mg daily and metoprolol was increased to 50 mg twice daily Nonischemic cardiomyopathy, with previous EF of 30 to 35%, believed to be secondary to longstanding history of atrial fibrillation and daily alcohol abuse. Reviewed echocardiogram completed 09/17/2024 showing reduced EF of 30 to 35% with severely reduced global LV systolic function, severe left atrial dilation, moderate right atrial dilation, and moderate functional mitral regurgitation. Patient instructed to follow-up with route delivery supervisor, Dr. Serrano in 1 week. Medication noncompliance. Patient was educated on the importance of medication compliance and risks associated with continued noncompliance and missed doses. Alcohol intoxication in active alcoholic. Patient hospitalized overnight and is clinically sober at this time. He was was provided with contact information for [facility] and calling to schedule intake. Patient strongly encouraged to avoid any and all alcohol use. Lactic acidosis, likely secondary to above. Resolved. Hypomagnesemia. Replaced. Transaminitis, secondary to daily alcohol abuse Hypothyroidism. TSH 5.790 with free T4 of 0.98. Patient admits that he has missed multiple doses of his medication. At this time we will resume levothyroxine 112 mcg daily and recommend repeat TSH with reflex free T4 in 6 weeks. Depression. Continue Lexapro 20 mg daily. Hospital Course: Patient is a 58-year-old male with a past medical history of chronic atrial fibrillation no longer on anticoagulation, daily alcohol abuse, hypertension, and hypothyroidism. He presented to the emergency department via EMS for generalized weakness, chest pain, palpitations, and dizziness. He denies having any headache, changes in vision or hearing, shortness of breath, cough or congestion, nausea or vomiting, abdominal pain, or experiencing any numbness/tingling/weakness in his extremities. Patient was reportedly found by EMS to be soiled secondary to urinary incontinence and have heart rate in the 140s with vodka bottles in his possession. Patient does admit to longstanding history of daily alcohol abuse and depression follows with [facility] and states he is on the waiting list to get back into [facility]. He admits that he has missed his medications over the past few days including metoprolol and levothyroxine and states that he used to be on Eliquis but was taken off by his route delivery supervisor a while back. Per documentation in chart patient was evaluated by cardiology 09/21/2024 stating patient's [id number] score was 1 and recommending holding off on anticoagulation due to history of recurrent falls. Upon arrival to our [facility], patient underwent evaluation in the emergency department. Vital signs upon arrival show blood pressure 142/89, heart rate 115, respiratory rate 18, temp 98.1 F, and SpO2 of 100% on room air. EKG was completed showing atrial fibrillation with RVR to 135 bpm. Chest x-ray negative for acute cardiopulmonary process. Labs completed and reviewed. CBC showing no significant abnormalities. Coagulation profile normal findings. BMP showing hypocarbia with bicarb of 21 and hypoglycemia with blood glucose of 72. Lactic acid was elevated at 4.7. Magnesium was slightly low at 1.7. Liver profile showing elevated AST of 159 and ALT of 158. Troponin was negative at less than 0.012. proBNP 620. TSH 5.790 with free T4 of 0.98. Urinalysis was negative for infection urine drug screen negative. Serum alcohol level was elevated at 328. Patient was given Cardizem bolus followed by infusion and admitted under services at this time. Patient heart rate has remained controlled in the 70s to 80s over the past 14 hours. Metoprolol was increased from 25 mg twice daily to 50 mg twice daily. Patient was provided with contact information for [facility] and calling to schedule intake. Patient strongly encouraged to avoid any and all alcohol use. Prescription sent for increased dose of metoprolol. Patient instructed he will need to follow-up with his route delivery supervisor, Dr. Serrano in 1 week. Patient medically optimized for discharge and again strongly encouraged to avoid any and all alcohol use and educated on the importance of medication compliance as continued missed doses of his medication will only result in altered thyroid function and recurrent episodes of RVR.. Physical exam: Vital signs reviewed and stable. General: Nontoxic, no distress and appears older than stated age. Disheveled appearance Derm: Skin warm and dry, normal coloration for ethnicity. Head: Atraumatic, normocephalic and symmetric. Eyes: EOM's intact, no lid lag, and anicteric sclera Mouth: no lip lesions, mucus membranes moist Cardiovascular irregularly irregular, systolic murmur, positive posterior tibial pulses bilaterally, and cap refill < 2 seconds. Lungs: Respirations even, regular, and unlabored on room air. Lungs CTA bilaterally, no rhonchi, no rales, no wheezing, and no accessory muscle usage. Abdominal: soft, nontender to palpation, no guarding, no appreciable organomegaly Ext: ROM intact. No gross muscle atrophy, no edema, no contractures Neuro: Speech clear, face symmetrical and CN II-XII grossly intact with no noted focal neuro deficits Psych: Alert and oriented to person, place, time, and situation. Appropriate and pleasant affect. A total of 34 minutes of time were spent preparing this complex discharge summary. Pt was discharged on 09/28/2024 at 11:15 AM. Patient was seen independently by Nurse Practitioner. This document was prepared using [employer] dictation software. Please allow for errors in lead cargo mover while rare they do occur. . Giovani Sanchez NP rendered care for this patient independently, reviewed the findings and plan as documented in the note above. I did not physically speak with or examine the patient on this date. Patient Condition at Discharge: Stable Plan - Discharge Summary Discharge Rx Participant: No New Discharge Prescriptions: New Metoprolol Tartrate [Lopressor] 50 mg PO BID 30 Days #60 tab Continue Losartan [Cozaar] 50 mg PO DAILY Escitalopram [Lexapro] 20 mg PO DAILY Folic Acid-Vit B Complex-Vit C [Nephrocaps] 1 cap PO DAILY Cyclobenzaprine [Flexeril] 5 mg PO HS PRN PRN Reason: Muscle Spasm Levothyroxine Sodium [Synthroid] 112 mcg PO DAILY Thiamine [Vitamin B-1] 100 mg PO DAILY #30 tab Discontinued Metoprolol Tartrate [Lopressor] 25 mg PO BID #60 tab Discharge Medication List Cyclobenzaprine [Flexeril] 5 mg PO HS PRN 09/16/24 [History] Escitalopram [Lexapro] 20 mg PO DAILY 09/16/24 [History] Levothyroxine Sodium [Synthroid] 112 mcg PO DAILY 09/16/24 [History] Losartan [Cozaar] 50 mg PO DAILY 09/16/24 [History] Thiamine [Vitamin B-1] 100 mg PO DAILY #30 tab 09/21/24 [Rx] Folic Acid-Vit B Complex-Vit C [Nephrocaps] 1 cap PO DAILY 09/27/24 [History] Metoprolol Tartrate [Lopressor] 50 mg PO BID 30 Days #60 tab 09/28/24 [Rx] Follow up Appointment(s)/Referral(s): Tushar Serrano DO [STAFF PHYSICIAN] - 1 Week [facility] [NON-STAFF] - 1-2 Days Patient Instructions/Handouts: A-fib (Atrial Fibrillation) (ED), Alcohol Intoxication (DC), Abuse of Alcohol (DC), Alcohol Withdrawal (DC), Medical Clearance for Substance Abuse Treatment (DC) Activity/Diet/Wound Care/Special Instructions: Activity: As tolerated. Take breaks as needed. Diet: Heart healthy and carb consistent diet. Special Instructions: Take all of your medications as directed and remember to keep all of your doctor's appointments and follow-up as needed. As we discussed at bedside, if you continue to miss doses of your medication especially your metoprolol this will only result in recurrent episodes of RVR. You will also need repeat thyroid function testing completed in 6 weeks as your TSH was 5.790 and your free T4 was 0.98, however with the multiple missed doses of medications as you reported it is important to resume dose as previously prescribed and follow-up for repeat thyroid testing with your PCP in 6 weeks. Strongly recommend avoidance of any and all alcohol use. Thank you for allowing us to participate in your care, it was truly a pleasure having you for our patient!!! . Discharge/Stand Alone Forms: AA Meetings [facility], Community [facility], Outpatient Counseling, In Substance Abuse Facilities Discharge Disposition: HOME SELF-CARE
[2024-09-28 12:26] VITALS: BP 162/90; PULSE 91; TEMP 98.1
== END 2024-09-28 15:13 | disposition home or self-care (01) | DRG 309 ==
LOC: EC 12:27 → 3SCARD 14:41
PROVIDERS: ADMIT Student in an Organized Health Care Education/Training Program; ATTEND Student in an Organized Health Care Education/Training Program
DX: I48.0 Paroxysmal atrial fibrillation (principal); E87.20 Acidosis, unspecified; F10.229 Alcohol dependence with intoxication, unspecified; I10 Essential (primary) hypertension; F32.A Depression, unspecified; E03.9 Hypothyroidism, unspecified; I34.0 Nonrheumatic mitral (valve) insufficiency; I42.8 Other cardiomyopathies; E16.2 Hypoglycemia, unspecified; R74.01 Elevation of levels of liver transaminase levels; R29.6 Repeated falls; R32 Unspecified urinary incontinence; Y90.8 Blood alcohol level of 240 mg/100 ml or more; E83.42 Hypomagnesemia; F17.200 Nicotine dependence, unspecified, uncomplicated; Z79.890 Hormone replacement therapy; Z79.899 Other long term (current) drug therapy; Z91.148 Patient's other noncompliance with medication regimen for other reason
CPT/HCPCS: 36415; 71046; 80053; 80306; 80320; 81001; 83605; 83735; 83880; 84439; 84443; 84484; 85025; 85610; 85730; 93005; 96365; 96366; 96368; 96375; 99291

== ENCOUNTER 2024-10-01 12:45 | Observation (INO) | payer OTHER ==
--- NOTE | 2024-10-01 13:14 | ED ---
General Adult HPI - General Chief complaint: Chest Pain Stated complaint: Chest pain Time Seen by Provider: 10/01/24 12:46 Source: patient, EMS, RN notes reviewed Mode of arrival: EMS - History of Present Illness Initial comments: Patient is a 58-year-old male presenting to the emergency department with reported chest discomfort. Patient denies this to me. Patient is a very poor historian and will not answer questions despite being asked multiple times. Patient does admit to having some fatigue and dyspnea. Patient is upset and prefers to argue with staff and myself rather than provide history. - Related Data Home Medications Medication Instructions Recorded Confirmed Cyclobenzaprine [Flexeril] 5 mg PO HS PRN 09/16/24 10/01/24 Escitalopram [Lexapro] 20 mg PO DAILY 09/16/24 10/01/24 Levothyroxine Sodium [Synthroid] 112 mcg PO DAILY 09/16/24 10/01/24 Losartan [Cozaar] 50 mg PO DAILY 09/16/24 10/01/24 Folic Acid-Vit B Complex-Vit C 1 cap PO DAILY 09/27/24 10/01/24 [Nephrocaps] Previous Rx's Medication Instructions Recorded Thiamine [Vitamin B-1] 100 mg PO DAILY #30 tab 09/21/24 Metoprolol Tartrate [Lopressor] 50 mg PO BID 30 Days #60 tab 09/28/24 Allergies Allergy/AdvReac Type Severity Reaction Status Date / Time No Known Allergies Allergy Verified 10/01/24 15:32 Review of Systems ROS Statement: Those systems with pertinent positive or pertinent negative responses have been documented in the HPI. ROS Other: All systems not noted in ROS Statement are negative. Constitutional: Denies: fever Eyes: Denies: eye pain ENT: Denies: ear pain Respiratory: Reports: as per HPI Cardiovascular: Reports: as per HPI Endocrine: Reports: fatigue Musculoskeletal: Denies: back pain Past Medical History Past Medical History: Hypertension Additional Past Medical History / Comment(s): etoh abuse History of Any Multi-Drug Resistant Organisms: None Reported Past Surgical History: Hernia Repair, Orthopedic Surgery Past Psychological History: No Psychological Hx Reported Smoking Status: Current every day smoker Past Alcohol Use History: Abuse, Daily, Heavy Past Drug Use History: None Reported General Exam Limitations: no limitations General appearance: alert, in no apparent distress Head exam: Present: normocephalic Eye exam: Present: normal appearance ENT exam: Present: normal oropharynx Neck exam: Present: normal inspection Respiratory exam: Present: normal lung sounds bilaterally Cardiovascular Exam: Present: irregular rhythm, normal heart sounds Expanded Peripheral pulses: 2+: Radial (R), Radial (L), Posterior Tibialis (R), Posterior Tibialis (L) GI/Abdominal exam: Present: soft. Absent: tenderness Extremities exam: Present: normal inspection. Absent: pedal edema, calf tende rness Neurological exam: Present: alert Psychiatric exam: Present: agitated Skin exam: Present: normal color Course Vital Signs 10/01/24 10/01/24 10/01/24 12:57 13:11 13:36 Temperature 97 F L Pulse Rate 95 92 Respiratory 20 16 Rate Blood Pressure 155/111 142/99 O2 Sat by Pulse 95 99 Oximetry 10/01/24 15:50 Temperature Pulse Rate 95 Respiratory 16 Rate Blood Pressure 148/103 O2 Sat by Pulse 97 Oximetry EKG Findings - EKG Results: EKG: interpreted by ENRRIQUE (Low QRS voltage.), normal axis, normal ST/T EKG shows: atrial fibrillation Medical Decision Making - Medical Decision Making Was pt. sent in by a medical professional or institution (, PA, MAINTENANCE PAINTER, urgent care, hospital, or senior living...) When possible be specific @ -No Did you speak to anyone other than the patient for history (EMS, parent, family, police, friend...)? What history was obtained from this source @ -No Did you review nursing and triage notes (agree or disagree)? Why? @ -I reviewed and agree with nursing and triage notes Were old charts reviewed (outside hosp., previous admission, EMS record, old EKG, old radiological studies, urgent care reports/EKG's, senior living records)? Report findings @ -Previous admission reviewed Differential Diagnosis (chest pain, altered mental status, abdominal pain women, abdominal pain men, vaginal bleeding, weakness, fever, dyspnea, syncope, headache, dizziness, GI bleed, back pain, seizure, CVA, palpatations, mental health, musculoskeletal)? @ -Differential Chest Pain: Stable Angina, Unstable Angina, STEMI, NSTEMI Aortic Dissection, Pneumothorax, M usculoskeletal, Esophageal Spasm GERD, Cholecystitis, Pancreatitis, Zoster, this is not meant to be an all-inclusive list. EKG interpreted by (3pts min.). @ -As above X-rays interpreted by me (1pt min.). @ -Chest x-ray shows no acute process CT interpreted by me (1pt min.). @ -CT scan of chest negative for pulmonary embolism U/S interpreted by me (1pt. min.). @ -None done What testing was considered but not performed or refused? (CT, X-rays, U/S, labs)? Why? @ -None What meds were considered but not given or refused? Why? @ -None Did you discuss the management of the patient with other professionals (professionals i.e. DrYeny, PA, MAINTENANCE PAINTER, lab, RT, psych nurse, social insurance adviser, power plant operators supervisor, teacher, attendance officer, manager rn case)? Give summary @ -Case discussed with Dr. Flores who will admit covering for sound who previously admission of this patient Was smoking cessation discussed for >3mins.? @ -No Was critical care preformed (if so, how long)? @ -No Were there social determinants of health that impacted care today? How? (Homelessness, low income, unemployed, alcoholism, drug addiction, transportation, low edu. Level, literacy, decrease access to med. care, shelter, rehab)? @ -No Was there de-escalation of care discussed even if they declined (Discuss DNR or withdrawal of care, Hospice)? DNR status @ -No What co-morbidities impacted this encounter? (DM, HTN, Smoking, COPD, CAD, Cancer, CVA, ARF, Chemo, Hep., AIDS, mental health diagnosis, sleep apnea, morbid obesity)? @ -Alcohol abuse Was patient admitted / discharged? Hospital course, mention meds given and route, prescriptions, significant lab abnormalities, going to OR and other pertinent info. @ -Patient presents unclear with concerns with chest discomfort and poor historian. Initial evaluation unremarkable. Patient is intoxicated. Patient will be admitted, admission orders written. Undiagnosed new problem with uncertain prognosis? @ -No Drug Therapy requiring intensive monitoring for toxicity (Heparin, Nitro, Insulin, Cardizem)? @ -No Were any procedures done? @ -No Diagnosis/symptom? @ -Alcohol intoxication, chest pain Acute, or Chronic, or Acute on Chronic? @ -Acute, acute Uncomplicated (without systemic symptoms) or Complicated (systemic symptoms)? @ -Default Side effects of treatment? @ -No Exacerbation, Progression, or Severe Exacerbation? @ -No Poses a threat to life or bodily function? How? (Chest pain, [place], [place], pneumonia, PE, COPD, DKA, ARF, appy, cholecystitis, CVA, Diverticulitis, Homicidal, Suicidal, threat to staff... and all critical care pts) @ -No - Lab Data Result diagrams: 10/01/24 13:24 10/01/24 13:24 Lab Results 10/01/24 10/01/24 10/01/24 Range/Units 13:24 13:24 13:24 WBC 6.00 (4.50-10.00) 10*3/uL RBC 5.01 (4.40-5.60) 10*6/uL Hgb 16.6 (13.0-17.0) g/dL Hct 47.5 (39.6-50.0) % MCV 94.8 (80.0-97.0) fL MCH 33.1 H (27.0-32.0) pg MCHC 34.9 (32.0-37.0) g/dL Plt Count 552 H (140-440) 10*3/uL MPV 9.0 L (9.5-12.2) fL Immature Gran % (Auto) 0.8 % Neutrophils % 53.2 % Lymphocytes % 31.7 % Monocytes % 7.0 % Eosinophils % 4.8 % Basophils % 2.5 % Immature Gran # 0.05 H (0.00-0.04) 10*3/uL Neutrophils # 3.19 (1.80-7.70) 10*3/uL Lymphocytes # 1.90 (0.90-5.00) 10*3/uL Monocytes # 0.42 (0.20-1.00) 10*3/uL Eosinophils # 0.29 (0.04-0.35) 10*3/uL Basophils # 0.15 H (0.00-0.10) 10*3/uL PT 9.9 L (10.0-12.5) sec INR 0.9 (<1.2) APTT 23.6 (22.0-30.0) sec D-Dimer 1.47 H (<0.60) mg/L FEU Sodium 146 H (137-145) mmol/L Potassium 5.0 (3.5-5.1) mmol/L Chloride 107 (98-107) mmol/L Carbon Dioxide 21 L (22-30) mmol/L Anion Gap 18 mmol/L BUN 14 (9-20) mg/dL Creatinine 1.02 (0.66-1.25) mg/dL Est GFR (CKD-EPI)AfAm >90 (>60 ml/min/1.73 sqM) Est GFR (CKD-EPI)NonAf 82 (>60 ml/min/1.73 sqM) Glucose 77 (74-99) mg/dL Calcium 9.0 (8.4-10.2) mg/dL Magnesium 2.1 (1.6-2.3) mg/dL Total Bilirubin 2.1 H (0.2-1.3) mg/dL AST 281 H (17-59) U/L ALT 255 H (4-49) U/L Alkaline Phosphatase 105 (38-126) U/L Troponin I (0.000-0.034) ng/mL NT-Pro-B Natriuret Pep 86 pg/mL Total Protein 9.7 H (6.3-8.2) g/dL Albumin 5.2 H (3.5-5.0) g/dL Amylase 73 (30-110) U/L Lipase 188 (23-300) U/L Serum Alcohol 385 H* mg/dL 04/26/25 Range/Units 13:24 WBC (4.50-10.00) 10*3/uL RBC (4.40-5.60) 10*6/uL Hgb (13.0-17.0) g/dL Hct (39.6-50.0) % MCV (80.0-97.0) fL MCH (27.0-32.0) pg MCHC (32.0-37.0) g/dL Plt Count (140-440) 10*3/uL MPV (9.5-12.2) fL Immature Gran % (Auto) % Neutrophils % % Lymphocytes % % Monocytes % % Eosinophils % % Basophils % % Immature Gran # (0.00-0.04) 10*3/uL Neutrophils # (1.80-7.70) 10*3/uL Lymphocytes # (0.90-5.00) 10*3/uL Monocytes # (0.20-1.00) 10*3/uL Eosinophils # (0.04-0.35) 10*3/uL Basophils # (0.00-0.10) 10*3/uL PT (10.0-12.5) sec INR (<1.2) APTT (22.0-30.0) sec D-Dimer (<0.60) mg/L FEU Sodium (137-145) mmol/L Potassium (3.5-5.1) mmol/L Chloride (98-107) mmol/L Carbon Dioxide (22-30) mmol/L Anion Gap mmol/L BUN (9-20) mg/dL Creatinine (0.66-1.25) mg/dL Est GFR (CKD-EPI)AfAm (>60 ml/min/1.73 sqM) Est GFR (CKD-EPI)NonAf (>60 ml/min/1.73 sqM) Glucose (74-99) mg/dL Calcium (8.4-10.2) mg/dL Magnesium (1.6-2.3) mg/dL Total Bilirubin (0.2-1.3) mg/dL AST (17-59) U/L ALT (4-49) U/L Alkaline Phosphatase (38-126) U/L Troponin I <0.012 (0.000-0.034) ng/mL NT-Pro-B Natriuret Pep pg/mL Total Protein (6.3-8.2) g/dL Albumin (3.5-5.0) g/dL Amylase (30-110) U/L Lipase (23-300) U/L Serum Alcohol mg/dL Disposition Clinical Impression: Alcohol intoxication, Chest pain Disposition: ADMITTED IP TO THIS HOSP Is patient prescribed a controlled substance at d/c from ED?: No Referrals: None,Stated [Primary Care Provider] - 1-2 days Time of Disposition: 16:20
[2024-10-01] MEDS: ASPIRIN 81 MG PO STA (13:16)
[2024-10-01 13:32] LABS: Basophils # (A) 0.15 10*3/uL (0.00-0.10); Basophils % (A) 2.5 %; Eosinophils # (A) 0.29 10*3/uL (0.04-0.35); Eosinophils % (A) 4.8 %; HCT 47.5 % (39.6-50.0); HGB 16.6 g/dL (13.0-17.0); Lymphocytes % (A) 31.7 %; MCH 33.1 pg (27.0-32.0); MCHC 34.9 g/dL (32.0-37.0); MCV 94.8 fL (80.0-97.0); Monocytes # (A) 0.42 10*3/uL (0.20-1.00); Neutrophils # (A) 3.19 10*3/uL (1.80-7.70); Neutrophils % (A) 53.2 %; Platelet Count 552 10*3/uL (140-440); RBC 5.01 10*6/uL (4.40-5.60); RDW 14.7 % (11.5-14.5)
[2024-10-01 13:46] LABS: ALT 255 U/L (4-49); African American GFR (CKD) >90 (>60 ml/min/1.73 sqM); Albumin 5.2 g/dL (3.5-5.0); Amylase 73 U/L (30-110); Anion Gap 18 mmol/L; Blood Urea Nitrogen 14 mg/dL (9-20); Carbon Dioxide 21 mmol/L (22-30); Chloride 107 mmol/L (98-107); Glucose 77 mg/dL (74-99); Lipase 188 U/L (23-300); Non-African American GFR(CKD) 82 (>60 ml/min/1.73 sqM); Sodium 146 mmol/L (137-145); Total Bilirubin 2.1 mg/dL (0.2-1.3); Total Protein 9.7 g/dL (6.3-8.2)
--- NOTE | 2024-10-01 13:48 | XR ---
EXAMINATION TYPE: XR chest 2V DATE OF EXAM: 10/01/2024 1:42 PM COMPARISON: Chest radiographs from 09/27/2024 TECHNIQUE: XR chest 2V Frontal and lateral views of the chest. CLINICAL INDICATION:Male, 58 years old with history of Chest Pain; FINDINGS: Lungs/Pleura: There is no evidence of pleural effusion, focal consolidation, or pneumothorax. Pulmonary vascularity: Unremarkable. Heart/mediastinum: Cardiomediastinal silhouette is unremarkable. Musculoskeletal: Multiple level degenerative disc disease changes seen throughout the spine. IMPRESSION: No acute cardiopulmonary disease/process. [facility], , 10/01/2024 1:46 PM
[2024-10-01 13:55] LABS: NT-Pro-B-Type Natriuretic Pept 86 pg/mL
[2024-10-01 13:56] LABS: INR 0.9 (<1.2); Partial Thromboplastin Time 23.6 sec (22.0-30.0); Prothrombin Time 9.9 sec (10.0-12.5)
[2024-10-01 14:02] LABS: Magnesium 2.1 mg/dL (1.6-2.3)
[2024-10-01 14:03] LABS: AST 281 U/L (17-59); Alkaline Phosphatase 105 U/L (38-126)
[2024-10-01 14:13] LABS: Alcohol 385 mg/dL
--- NOTE | 2024-10-01 15:13 | CT ---
EXAMINATION TYPE: CT angio chest DATE OF EXAM: 10/01/2024 3:03 PM COMPARISON: None. CLINICAL INDICATION: Male, 58 years old with history of cp, positive dimer, TECHNIQUE: Axial CT was performed with sagittal and coronal reformats. 3D reconstruction and/or MIP imaging was also performed on a separate workstation. IV CONTRAST: with IV Contrast, patient injected with 70 mL of Isovue 370. (None if empty) CT DLP: 345 mGycm, Automated exposure control for dose reduction was used. FINDINGS: PULMONARY ARTERIES: The pulmonary arteries and their major tributaries are patent. I do not see dafne dence for sizable filling defect to suggest pulmonary embolic process. LUNGS: The lungs are clear and free of infiltrate. No evidence for atelectasis. No pulmonary nodule or mass is detected. No pleural effusion. MEDIASTINUM: Thoracic aorta is of normal caliber. No evidence for mediastinal mass. No mediastinal lymph nodes greater than 1cm. HEART: Cardiomegaly is demonstrated. No significant coronary artery calcifications. HILAR STRUCTURES: No evidence for mass. No hilar lymph nodes greater than 1 cm. UPPER ABDOMEN: No significant abnormality is seen. IMPRESSION: 1. No evidence for Pulmonary embolism at this time. [facility], , 10/01/2024 3:11 PM
[2024-10-01] MEDS ORDERED: NALOXONE 0.4 MG/ML 1 ML VIAL IV PRN (16:20)
[2024-10-01] MEDS ORDERED: LORazepam 2 MG/ML INJ IV PRN (16:21)
[2024-10-01] MEDS ORDERED: LORazepam 1 MG TAB PO PRN ×2 (16:21)
[2024-10-01] MEDS: SODIUM CHLORIDE 0.9% 1,000 ML IV SCH (16:31)
[2024-10-01] MEDS: LORazepam 0.5 MG TAB PO PRN (17:58)
--- NOTE | 2024-10-01 18:59 | P.HPIM ---
History of Present Illness H&P Date: 10/01/24 History of Presenting Illness: Patient is a 58-year-old male with a past medical history of chronic atrial fibrillation no longer on anticoagulation, daily alcohol abuse, hypertension, and hypothyroidism. He presented to the emergency department via EMS for chest pain and alcohol intoxication. He was recently admitted to observation unit from 09/27/2024 through 09/28/2024 for similar complaints. Upon arrival to our facility, patient underwent evaluation in the emergency department. Vital signs upon arrival show blood pressure 155/111, heart rate 95, respiratory rate 20, temp 97.0 F axillary, and SpO2 of 95% on room air. EKG completed showing atr ial fibrillation with a controlled ventricular rate of 74 bpm. Chest x-ray was negative for acute cardiopulmonary process labs completed and reviewed. CBC. Showing thrombocytosis with platelet count of 552. Coagulation profile showing low PT of 9.9 and elevated D-dimer of 1.47. BMP showing sodium 146, chloride 107, bicarb 21, and anion gap elevated to 18. Calcium 9.0. Magnesium 2.1. Liver profile showing hyperbilirubinemia with total bili of 2.1, AST of 281, and ALT of 255. Troponin was negative at less than 0.012. Amylase and lipase normal findings. Serum alcohol level elevated at 385. Patient admitted under services with consultation to cardiology Upon physical examination, patient eating dinner and reports feeling "fine". He currently denies having any chest pain, palpitations, shortness of breath, headache, lightheadedness, dizziness, abdominal pain, nausea, vomiting, or experiencing any numbness/tingling in his extremities. Patient's only complaint at this current time is feeling tired and weak. Review of systems: Pertinent positives and negatives as discussed in HPI, a complete review of systems was performed and all other systems are negative. Physical exam: Vital signs reviewed and stable. General: Nontoxic, no distress and appears older than stated age. Disheveled a ppearance Derm: Skin warm and dry, normal coloration for ethnicity. Head: Atraumatic, normocephalic and symmetric. Eyes: EOM's intact, no lid lag, and anicteric sclera Mouth: no lip lesions, mucus membranes moist Cardiovascular irregularly irregular, systolic murmur, positive posterior tibial pulses bilaterally, and cap refill < 2 seconds. Lungs: Respirations even, regular, and unlabored on room air. Lungs CTA bilaterally, no rhonchi, no rales, no wheezing, and no accessory muscle usage. Abdominal: soft, nontender to palpation, no guarding, no appreciable organomegaly Ext: ROM intact. No gross muscle atrophy, no edema, no contractures Neuro: Speech clear, face symmetrical and CN II-XII grossly intact with no noted focal neuro deficits Psych: Alert and oriented to person, place, time, and situation. Appropriate and pleasant affect. Assessment and Plan of Care: Chest pain, rule out acute coronary event Chronic atrial fibrillation Hypertension Nonischemic cardiomyopathy, with previous EF of 30 to 35%, believed to be secondary to longstanding history of atrial fibrillation and daily alcohol abuse Medication noncompliance -Cardiology consulted, appreciate recommendations -Telemetry monitoring -Trend troponins -Cardiac diet -Aspirin 81 mg daily, atorvastatin 40 mg daily, losartan 50 mg daily, and metoprolol 50 mg twice daily. -Lipid profile with a.m. labs. -Patient recently evaluated by cardiology for atrial fibrillation and CP, last seen on 09/21/[address] Serrano whom recommended holding off on anticoagulation due to patient's history of recurrent falls and [id number] score of 1. -Reviewed echocardiogram completed 09/17/2024 showing reduced EF of 30 to 35% with severely reduced global LV systolic function, severe left atrial dilation, moderate right atrial dilation, and moderate functional mitral regurgitation. Alcohol intoxication in active alcoholic None anion gap metabolic acidosis Thrombocytosis Transaminitis, likely secondary to daily alcohol abuse Generalized weakness, likely resulting from alcohol intoxication and debility from daily alcohol abuse -Order placed for monitoring of CIWA scores and patient to be medicated with Ativan 0.5 mg every 4 hours as needed for CIWA score of 4-5, Ativan 1 mg every 4 hours for CIWA score of 6-7, Ativan 2 mg every 3 hours CIWA score of 8-9, and Ativan 2 mg every 2 hours forr CIWA score of 10 or greater. -Thiamine 100 mg daily, and Multivitamin daily, and Folate 1 mg daily -Seizure, fall, aspiration, and elopement precautions in place. -Urine drug screen negative -Continued close monitoring of electrolytes and replace as needed. -Telemetry monitoring. Hypothyroidism -Continue levothyroxine 112 mcg daily. Depression -Continue Lexapro 20 mg daily. Data and imaging reviewed -As stated above in HPI The patient is admitted with an anticipated less than 2 midnight stay for evaluation of alcohol intoxication and chest pain CODE STATUS: Full code DVT prophylaxis: Lovenox Discussed with: Patient, RN, and ED provider Anticipated discharge date: Likely 24 to [address]: Home Patient was seen independently by Nurse Practitioner. This document was prepared using [employer] dictation software. Please allow for errors in healthcare administrator while rare they do occur. Giovani Sanchez NP rendered care for this patient independently, reviewed the findings and plan as documented in the note above and agree with plan. I did not physically speak with or examine the patient on this date. Past Medical History Past Medical History: Hypertension Additional Past Medical History / Comment(s): etoh abuse History of Any Multi-Drug Resistant Organisms: None Reported Past Surgical History: Hernia Repair, Orthopedic Surgery Past Psychological History: No Psychological Hx Reported Smoking Status: Current every day smoker Past Alcohol Use History: Abuse, Daily, Heavy Past Drug Use History: None Reported Medications and Allergies Home Medications Medication Instructions Recorded Confirmed Type Cyclobenzaprine [Flexeril] 5 mg PO HS PRN 09/16/24 10/01/24 History Escitalopram [Lexapro] 20 mg PO DAILY 09/16/24 10/01/24 History Levothyroxine Sodium [Synthroid] 112 mcg PO DAILY 09/16/24 10/01/24 History Losartan [Cozaar] 50 mg PO DAILY 09/16/24 10/01/24 History Thiamine [Vitamin B-1] 100 mg PO DAILY #30 tab 09/21/24 10/01/24 Rx Folic Acid-Vit B Complex-Vit C 1 cap PO DAILY 09/27/24 10/01/24 History [Nephrocaps] Metoprolol Tartrate [Lopressor] 50 mg PO BID 30 Days #60 tab 09/28/24 10/01/24 Rx Allergies Allergy/AdvReac Type Severity Reaction Status Date / Time No Known Allergies Allergy Verified 10/01/24 15:32 Physical Exam Vitals: Vital Signs Temp Pulse Resp BP Pulse Ox 10/01/24 16:32 80 18 132/101 97 10/01/24 15:50 95 16 148/103 97 10/01/24 13:36 92 16 142/99 99 10/01/24 13:11 95 10/01/24 12:57 97 F L 95 20 155/111 Intake and Output 10/01/24 10/01/24 10/01/24 06:59 14:59 22:59 Other: Weight 70.76 kg Results CBC & Chem 7: 10/01/24 13:24 10/01/24 13:24 Labs: Abnormal Lab Results - Last 24 Hours (Table) 10/01/24 10/01/24 10/01/24 Range/Units 13:24 13:24 13:24 MCH 33.1 H (27.0-32.0) pg Plt Count 552 H (140-440) 10*3/uL MPV 9.0 L (9.5-12.2) fL Immature Gran # 0.05 H (0.00-0.04) 10*3/uL Basophils # 0.15 H (0.00-0.10) 10*3/uL PT 9.9 L (10.0-12.5) sec D-Dimer 1.47 H (<0.60) mg/L FEU Sodium 146 H (137-145) mmol/L Carbon Dioxide 21 L (22-30) mmol/L Total Bilirubin 2.1 H (0.2-1.3) mg/dL AST 281 H (17-59) U/L ALT 255 H (4-49) U/L Total Protein 9.7 H (6.3-8.2) g/dL Albumin 5.2 H (3.5-5.0) g/dL Serum Alcohol 385 H* mg/dL
[2024-10-01] MEDS ORDERED: LORazepam 1 MG/0.5 ML VIAL IV PRN (20:55)
[2024-10-01] MEDS: METOPROLOL TARTRATE 50 MG TAB PO SCH (22:00)
[2024-10-01] MEDS: FAMOTIDINE 20 MG TAB PO SCH (22:00)
[2024-10-01] MEDS: CYCLOBENZAPRINE 5 MG TAB PO PRN (22:25)
[2024-10-01] MEDS: ONDANSETRON 4 MG/2 ML VIAL IVP PRN (23:18)
[2024-10-02] MEDS: METOPROLOL TARTRATE 5 MG/5 ML VIAL IVP STA (01:31)
[2024-10-02] MEDS: LEVOTHYROXINE 112 MCG TAB PO SCH (05:44)
[2024-10-02 07:29] LABS: MCH 33.3 pg (27.0-32.0); MCHC 35.3 g/dL (32.0-37.0); MCV 94.3 fL (80.0-97.0); Mean Platelet Volume 8.9 fL (9.5-12.2); Platelet Count 385 10*3/uL (140-440); RBC 4.03 10*6/uL (4.40-5.60); RDW 14.3 % (11.5-14.5); WBC 5.33 10*3/uL (4.50-10.00)
[2024-10-02 07:38] LABS: HGB 13.4 g/dL (13.0-17.0)
[2024-10-02 07:56] LABS: ALT 157 U/L (4-49); AST 123 U/L (17-59); African American GFR (CKD) >90 (>60 ml/min/1.73 sqM); Albumin/Globulin Ratio 1.3; Alkaline Phosphatase 72 U/L (38-126); Anion Gap 8 mmol/L; Blood Urea Nitrogen 14 mg/dL (9-20); Calcium 8.8 mg/dL (8.4-10.2); Carbon Dioxide 25 mmol/L (22-30); Chloride 105 mmol/L (98-107); Glucose 110 mg/dL (74-99); Magnesium 1.7 mg/dL (1.6-2.3); Non-African American GFR(CKD) >90 (>60 ml/min/1.73 sqM); Potassium 3.9 mmol/L (3.5-5.1); Sodium 138 mmol/L (137-145); Total Bilirubin 1.8 mg/dL (0.2-1.3)
[2024-10-02] MEDS: ATORVASTATIN 40 MG TAB PO SCH (08:02)
[2024-10-02] MEDS: MULTIVITAMINS, THERA 1 EACH TAB PO SCH (08:02)
[2024-10-02] MEDS: ENOXAPARIN 40 MG/0.4 ML SYRINGE SQ SCH (08:03)
[2024-10-02] MEDS: THIAMINE 100 MG TAB PO SCH (08:03)
[2024-10-02] MEDS: FOLIC ACID-VIT B COMPLEX-VIT C 1 CAP PO SCH (08:03)
[2024-10-02] MEDS: ASPIRIN 81 MG PO SCH (08:03)
[2024-10-02] MEDS: ESCITALOPRAM 20 MG TAB PO SCH (08:03)
[2024-10-02] MEDS: LOSARTAN 50 MG TAB PO SCH (08:03)
[2024-10-02] MEDS ORDERED: THIAMINE 100 MG TAB PO SCH (09:00)
[2024-10-02 09:19] LABS: T4, Free (Free Thyroxine) 0.86 ng/dL (0.78-2.19)
[2024-10-02] MEDS: LORazepam 1 MG TAB PO PRN (09:40)
--- NOTE | 2024-10-02 12:50 | P.CRDCN ---
History of Present Illness Consult date: 10/02/24 History of present illness: HPI: 58-year-old male with with past medical history of cocaine use, alcohol abuse recently presented to the [facility] and was treated for alcohol intoxication, alcohol withdrawal and atrial fibrillation with RVR. 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 He was discharged eventually on metoprolol losartan. He was not prescribed any anticoagulation at last visit because of [id number] of 1. This time he presented to the hospital because of substernal chest heaviness along with some GERD symptoms and alcohol intoxication. He was not able to take care of himself at home. Pertinent Vitals: BP 147/82, heart rate 82 bpm Pertinent cardiac Labs: Hb 16.6, WBC 6, D-dimers elevated, BUN 14, Cuffing Machine Operator 0.85, mild transaminitis, Trop time 3-1 negative, NTproBNP 86, TSH 7.2, serum alcohol 385 Cardiac home meds: Losartan 50 mg, Metoprolol 50 mg BID, Pertinent cardiac testing: - ECHO: 09/2024: EF 30-35%, globally reduced systolic dysfunction, severe left a trial dilatation, moderate functional mitral regurgitation. - CTA with PE protocol: 09/2024: No evidence of PE, cardiomegaly, no significant coronary calcification, no significant congestion or consolidation. - EK09/2024: Atrial fibrillation with low voltage complexes, normal axis. - ECHO: 05/2020: EF 50-55%. REVIEW OF SYSTEMS: 14 point review of system is negative except what is mentioned above in HPI. PHYSICAL EXAMINATION: Neck: Brisk carotid upstroke, no jugular venous distention. Lungs: Clear to auscultation. Heart: Regular rate and rhythm, S1-S2, no murmur or rub. Abdomen: Soft nontender, positive bowel sounds. Extremities: No edema, intact distal pulses. Neuro: Alert, oriented, no focal deficits. Detailed neuro exam was not performed. ASSESSMENT: # Atypical chest pain, likely related to alcohol-related gastritis, ACS ruled out # Persistent atrial fibrillation, currently rate controlled. [id number] 2 because of cardiomyopathy and HTN # Alcohol intoxication, history of alcohol abuse # History of drug abuse with cocaine # Essential hypertension # Cardiomyopathy with an EF of 30-35%, likely related to alcohol and drug use # Transaminitis with concerns of alcoholic liver disease PLAN: # Discontinue aspirin instead start Eliquis 5 twice daily # Hold Lipitor due to transaminitis, resume once liver function improves # Continue Losartan 50 mg # Continue Metoprolol 50 mg BID # Not considering SGLT2 and Aldactone because of concerns of getting dehydrated and frequent alcohol use # Recommend complete abstinence from alcohol, smoking, and drug use # Recommend stress testing and further workup for rhythm control for atrial fibrillation once patient is compliant with not using alcohol and drugs. # Recommend GI workup to make sure there is no alcoholic liver disease on outpatient basis Past Medical History Past Medical History: Hypertension Additional Past Medical History / Comment(s): etoh abuse History of Any Multi-Drug Resistant Organisms: None Reported Past Surgical History: Hernia Repair, Orthopedic Surgery Past Anesthesia/Blood Transfusion Reactions: No Reported Reaction Past Psychological History: No Psychological Hx Reported Smoking Status: Current every day smoker Past Alcohol Use History: Abuse, Daily, Heavy Past Drug Use History: None Reported Medications and Allergies Home Medications Medication Instructions Recorded Confirmed Type Cyclobenzaprine [Flexeril] 5 mg PO HS PRN 09/16/24 10/01/24 History Escitalopram [Lexapro] 20 mg PO DAILY 09/16/24 10/01/24 History Levothyroxine Sodium [Synthroid] 112 mcg PO DAILY 09/16/24 10/01/24 History Losartan [Cozaar] 50 mg PO DAILY 09/16/24 10/01/24 History Thiamine [Vitamin B-1] 100 mg PO DAILY #30 tab 09/21/24 10/01/24 Rx Folic Acid-Vit B Complex-Vit C 1 cap PO DAILY 09/27/24 10/01/24 History [Nephrocaps] Metoprolol Tartrate [Lopressor] 50 mg PO BID 30 Days #60 tab 09/28/24 10/01/24 Rx Allergies Allergy/AdvReac Type Severity Reaction Status Date / Time No Known Allergies Allergy Verified 10/01/24 15:32 Physical Exam Vitals: Vital Signs Temp Pulse Pulse Resp BP BP Pulse Ox 10/02/24 10:17 93 158/114 10/02/24 09:14 82 14 159/118 98 10/02/24 07:00 97.4 F L 106 H 15 160/105 97 10/02/24 02:00 98.0 F 102 H 18 147/82 99 10/01/24 18:23 89 16 132/95 97 10/01/24 17:15 85 12 133/99 97 10/01/24 16:32 80 18 132/101 97 10/01/24 15:50 95 16 148/103 97 10/01/24 13:36 92 16 142/99 99 10/01/24 13:11 95 10/01/24 12:57 97 F L 95 20 155/111 Intake and Output 10/01/24 10/02/24 10/02/24 22:59 06:59 14:59 Intake Total 236 Output Total 200 Balance -200 236 Intake: Oral 236 Output: Urine 200 Other: Voiding Method Toilet Toilet # Voids 5 Weight 70.76 kg Results 10/02/24 07:13 10/02/24 07:13 Cardiac Enzymes 10/01/24 10/01/24 10/01/24 Range/Units 13:24 13:24 19:18 AST 281 H (17-59) U/L Troponin I <0.012 <0.012 (0.000-0.034) ng/mL 10/01/24 10/02/24 Range/Units 22:15 07:13 AST 123 H (17-59) U/L Troponin I <0.012 (0.000-0.034) ng/mL Coagulation 10/01/24 Range/Units 13:24 PT 9.9 L (10.0-12.5) sec APTT 23.6 (22.0-30.0) sec CBC 10/01/24 10/02/24 Range/Units 13:24 07:13 WBC 6.00 5.33 (4.50-10.00) 10*3/uL RBC 5.01 4.03 L (4.40-5.60) 10*6/uL Hgb 16.6 13.4 D (13.0-17.0) g/dL Hct 47.5 38.0 L (39.6-50.0) % Plt Count 552 H 385 (140-440) 10*3/uL Comprehensive Metabolic Panel 10/01/24 10/02/24 Range/Units 13:24 07:13 Sodium 146 H 138 (137-145) mmol/L Potassium 5.0 3.9 (3.5-5.1) mmol/L Chloride 107 105 (98-107) mmol/L Carbon Dioxide 21 L 25 (22-30) mmol/L BUN 14 14 (9-20) mg/dL Creatinine 1.02 0.85 (0.66-1.25) mg/dL Glucose 77 110 H (74-99) mg/dL Calcium 9.0 8.8 (8.4-10.2) mg/dL AST 281 H 123 H (17-59) U/L ALT 255 H 157 H (4-49) U/L Alkaline Phosphatase 105 72 (38-126) U/L Total Protein 9.7 H 7.0 (6.3-8.2) g/dL Albumin 5.2 H 4.0 (3.5-5.0) g/dL Current Medications Generic Name Dose Route Start Last Admin Trade Name Freq PRN Reason Stop Dose Admin Aspirin 81 mg 10/02/24 09:00 10/02/24 08:03 Aspirin 81 Mg PO 81 mg DAILY PRACHI Administration Atorvastatin Calcium 40 mg 10/02/24 09:00 10/02/24 08:02 Atorvastatin 40 Mg Tab PO 40 mg DAILY PRACHI Administration Cyclobenzaprine HCl 5 mg 10/01/24 16:22 10/01/24 22:25 Cyclobenzaprine 5 Mg Tab PO 5 mg HS PRN Administration Muscle Spasm Enoxaparin Sodium 40 mg 10/02/24 09:00 10/02/24 08:03 Enoxaparin 40 Mg/0.4 Ml Syringe SQ 40 mg DAILY PRACHI Administration Escitalopram Oxalate 20 mg 10/02/24 09:00 10/02/24 08:03 Escitalopram 20 Mg Tab PO 20 mg DAILY PRACHI Administration Famotidine 20 mg 10/01/24 21:00 10/02/24 08:02 Famotidine 20 Mg Tab PO 20 mg BID PRACHI Administration Sodium Chloride 1,000 mls @ 75 mls/hr 10/01/24 16:30 10/02/24 05:16 Saline 0.9% IV 75 mls/hr .[id number] PRACHI Administration Levothyroxine Sodium 112 mcg 10/02/24 06:30 10/02/24 05:44 Levothyroxine 112 Mcg Tab PO 112 mcg DAILY@0630 PRACHI Administration Lorazepam 2 mg 10/01/24 16:21 Lorazepam 1 Mg Tab PO Q3HR PRN Ciwa 8 To 9 Lorazepam 2 mg 10/01/24 16:21 10/02/24 09:40 Lorazepam 1 Mg Tab PO 2 mg Q2HR PRN Administration Ciwa 10 or greater Lorazepam 1 mg 10/01/24 16:21 Lorazepam 1 Mg Tab PO Q4HR PRN Ciwa 6 To 7 Lorazepam 0.5 mg 10/01/24 16:21 10/02/24 08:07 Lorazepam 0.5 Mg Tab PO 0.5 mg Q4HR PRN Administration Ciwa 4 To 5 Lorazepam 2 mg 10/01/24 20:55 Lorazepam 1 Mg/0.5 Ml Vial IV Q6HR PRN Seizures Losartan Potassium 50 mg 10/02/24 09:00 10/02/24 08:03 Losartan 50 Mg Tab PO 50 mg DAILY PRACHI Administration Metoprolol Tartrate 50 mg 10/01/24 21:00 10/02/24 08:03 Metoprolol Tartrate 50 Mg Tab PO 50 mg BID PRACHI Administration Multivit/Ca Carb/B Cmplx/FA/Prenat 1 each 10/02/24 09:00 10/02/24 08:03 Folic Acid-Vit B Complex-Vit C 1 Cap PO 1 each DAILY PRACHI Administration Multivitamins 1 each 10/02/24 09:00 10/02/24 08:02 Multivitamins, Thera 1 Each Tab PO 1 each DAILY PRACHI Administration Naloxone HCl 0.2 mg 10/01/24 16:20 Naloxone 0.4 Mg/Ml 1 Ml Vial IV Q2M PRN Opioid Reversal Ondansetron HCl 4 mg 10/01/24 16:20 10/01/24 23:18 Ondansetron 4 Mg/2 Ml Vial IVP 4 mg Q8HR PRN Administration Nausea And Vomiting Thiamine HCl 100 mg 10/02/24 09:00 10/02/24 08:03 Thiamine 100 Mg Tab PO 100 mg DAILY PRACHI Administration Intake and Output 10/01/24 10/02/24 10/02/24 22:59 06:59 14:59 Intake Total 236 Output Total 200 Balance -200 236 Intake: Oral 236 Output: Urine 200 Other: Voiding Method Toilet Toilet # Voids 5 Weight 70.76 kg 10/02/24 07:13 10/02/24 07:13
[2024-10-02] MEDS ORDERED: APIXABAN 5 MG TAB PO SCH (13:00)
--- NOTE | 2024-10-02 13:55 | P.DS ---
Providers Date of admission: 10/01/24 16:20 Expected date of discharge: 10/02/24 Attending physician: Samantha Robert, Consults: 10/01/24 17:18 Consult Physician Routine Consulting Provider: Donavon Sethi Consult Reason/Comments: CP, atrial fibrillation [id number], Heart score 5 Do you want consulting provider notified?: Yes Primary care physician: Stated None Hospital Course: Discharge Diagnosis: Chest pain, acute coronary event ruled out. EKG showing atrial fibrillation. Troponins were trended all negative at less than 0.012 x 3 draws. Patient was evaluated by blower blast furnace recommending discontinuation of aspirin and discharging patient home on Eliquis 5 mg twice daily, atorvastatin 10 mg daily secondary to elevated liver function, and metoprolol 50 mg twice daily. Patient strongly encouraged to avoid any and all alcohol use and educated on risks of continued use especially with being discharged home on anticoagulant. Chronic atrial fibrillation. Hypertension. Nonischemic cardiomyopathy, with previous EF of 30 to 35%, believed to be secondary to longstanding history of atrial fibrillation and daily alcohol abuse. Medication noncompliance Alcohol intoxication in active alcoholic None anion gap metabolic acidosis Thrombocytosis. Secondary to dehydration from alcohol intoxication and has resolved with platelet count of 385 on discharge. Transaminitis, likely secondary to daily alcohol abuse. Generalized weakness, likely resulting from alcohol intoxication and debility from daily alcohol abuse Hypothyroidism. Continue levothyroxine 112 mcg daily. Depression. Continue Lexapro 20 mg daily. Hospital Course: Patient is a 58-year-old male with a past medical history of chronic atrial fibrillation no longer on anticoagulation, daily alcohol abuse, hypertension, and hypothyroidism. He presented to the emergency department via EMS for chest pain and alcohol intoxication. He was recently admitted to observation unit from 09/27/2024 through 09/28/2024 for similar complaints. Upon arrival to our facility, patient underwent evaluation in the emergency department. Vital signs upon arrival show blood pressure 155/111, heart rate 95, respiratory rate 20, temp 97.0 F axillary, and SpO2 of 95% on room air. EKG completed showing atrial fibrillation with a controlled ventricular rate of 74 bpm. Chest x-ray was negative for acute cardiopulmonary process labs completed and reviewed. CBC. Showing thrombocytosis with platelet count of 552. Coagulation profile showing low PT of 9.9 and elevated D-dimer of 1.47. BMP showing sodium 146, chloride 107, bicarb 21, and anion gap elevated to 18. Calcium 9.0. Magnesium 2.1. Liver profile showing hyperbilirubinemia with total bili of 2.1, AST of 281, and ALT of 255. Troponin was negative at less than 0.012. Amylase and lipase normal findings. Serum alcohol level elevated at 385. Patient admitted under services with consultation to cardiology. EKG showing atrial fibrillation. Troponins were trended all negative at less than 0.012 x 3 draws. Patient was evaluated by blower blast furnace recommending discontinuation of aspirin and discharging patient home on Eliquis 5 mg twice daily, atorvastatin 10 mg daily secondary to elevated liver function, and metoprolol 50 mg twice daily. Patient strongly encouraged to avoid any and all alcohol use and educated on risks of continued use especially with being discharged home on anticoagulant. Patient medically optimized and cleared from cardiac perspective for discharge. Patient to follow-up outpatient with PCP in 1 to 2 days and with blower blast furnace in 1 week Physical exam: Vital signs reviewed and stable. General: Nontoxic, no distress and appears older than stated age. Disheveled appearance Derm: Skin warm and dry, normal coloration for ethnicity. Head: Atraumatic, normocephalic and symmetric. Eyes: EOM's intact, no lid lag, and anicteric sclera Mouth: no lip lesions, mucus membranes moist Cardiovascular irregularly irregular, systolic murmur, positive posterior tibial pulses bilaterally, and cap refill < 2 seconds. Lungs: Respirations even, regular, and unlabored on room air. Lungs CTA bilaterally, no rhonchi, no rales, no wheezing, and no accessory muscle usage. Abdominal: soft, nontender to palpation, no guarding, no appreciable organomegaly Ext: ROM intact. No gross muscle atrophy, no edema, no contractures Neuro: Speech clear, face symmetrical and CN II-XII grossly intact with no noted focal neuro deficits Psych: Alert and oriented to person, place, time, and situation. Appropriate and pleasant affect. A total of 33 minutes of time were spent preparing this complex discharge summary. Pt was discharged on 10/02/2024 at 1:53 PM. Patient was seen independently by Nurse Practitioner. This document was prepared using [employer] dictation software. Please allow for errors in supervising chef while rare they do occur. Giovani Sanchez NP rendered care for this patient independently, reviewed the findings and plan as documented in the note above. I did not physically speak with or examine the patient on this date. Patient Condition at Discharge: Stable Plan - Discharge Summary Discharge Rx Participant: No New Discharge Prescriptions: New Apixaban [Eliquis] 5 mg PO BID 30 Days #60 tab Atorvastatin [Lipitor] 10 mg PO DAILY 30 Days #30 tab Continue Losartan [Cozaar] 50 mg PO DAILY Escitalopram [Lexapro] 20 mg PO DAILY Folic Acid-Vit B Complex-Vit C [Nephrocaps] 1 cap PO DAILY Metoprolol Tartrate [Lopressor] 50 mg PO BID 30 Days #60 tab Cyclobenzaprine [Flexeril] 5 mg PO HS PRN PRN Reason: Muscle Spasm Levothyroxine Sodium [Synthroid] 112 mcg PO DAILY Thiamine [Vitamin B-1] 100 mg PO DAILY #30 tab Discharge Medication List Cyclobenzaprine [Flexeril] 5 mg PO HS PRN 09/16/24 [History] Escitalopram [Lexapro] 20 mg PO DAILY 09/16/24 [History] Levothyroxine Sodium [Synthroid] 112 mcg PO DAILY 09/16/24 [History] Losartan [Cozaar] 50 mg PO DAILY 09/16/24 [History] Thiamine [Vitamin B-1] 100 mg PO DAILY #30 tab 09/21/24 [Rx] Folic Acid-Vit B Complex-Vit C [Nephrocaps] 1 cap PO DAILY 09/27/24 [History] Metoprolol Tartrate [Lopressor] 50 mg PO BID 30 Days #60 tab 09/28/24 [Rx] Apixaban [Eliquis] 5 mg PO BID 30 Days #60 tab 10/02/24 [Rx] Atorvastatin [Lipitor] 10 mg PO DAILY 30 Days #30 tab 10/02/24 [Rx] Follow up Appointment(s)/Referral(s): Tushar Serrano DO [STAFF PHYSICIAN] - 1 Week [facility] [NON-STAFF] - 1-2 Days Patient Instructions/Handouts: Chest Pain (DC), Abuse of Alcohol (DC), Alcohol Withdrawal (DC), Alcoholic Hepatitis (DC) Activity/Diet/Wound Care/Special Instructions: Activity: As tolerated. Take breaks as needed. Diet: Heart healthy and carb consistent diet. Avoid salts, or foods with hidden salts such as canned or boxed foods and frozen dinners. Extra salt makes your heart work harder and traps the fluid in your body for longer. Special Instructions: Take all of your medications as directed and remember to keep all of your doctor's appointments and follow-up as needed. Strongly recommend avoidance of any and all alcohol use especially while being discharged home on anticoagulant with Eliquis. Alcohol use places you at increased risk for falls and difficulties with balance and while on blood thinners this can also result in internal bleeding. Thank you for allowing us to participate in your care, it was truly a pleasure having you for our patient!!! Discharge Disposition: HOME SELF-CARE
[2024-10-02 14:52] VITALS: BP 153/102; PULSE 70; RESP 15; TEMP 98.6
[2024-10-03] MEDS ORDERED: ATORVASTATIN 10 MG TAB PO SCH (09:00)
== END 2024-10-02 15:50 | disposition home or self-care (01) ==
LOC: EC 12:45 → 6NMEDSUR 16:20
PROVIDERS: ADMIT Internal Medicine; ATTEND Internal Medicine
DX: R07.89 Other chest pain (principal); F10.229 Alcohol dependence with intoxication, unspecified; I48.19 Other persistent atrial fibrillation; I42.8 Other cardiomyopathies; R07.2 Precordial pain; E87.20 Acidosis, unspecified; E86.0 Dehydration; I34.0 Nonrheumatic mitral (valve) insufficiency; I10 Essential (primary) hypertension; E03.9 Hypothyroidism, unspecified; D75.839 Thrombocytosis, unspecified; K21.9 Gastro-esophageal reflux disease without esophagitis; Y90.8 Blood alcohol level of 240 mg/100 ml or more; R79.89 Other specified abnormal findings of blood chemistry; R74.01 Elevation of levels of liver transaminase levels; R53.81 Other malaise; R29.6 Repeated falls; F32.A Depression, unspecified; F17.200 Nicotine dependence, unspecified, uncomplicated; Z79.890 Hormone replacement therapy; Z79.899 Other long term (current) drug therapy; Z91.148 Patient's other noncompliance with medication regimen for other reason; Z87.898 Personal history of other specified conditions
CPT/HCPCS: 96361; 96372; 96374; 96375; 99285; 36415; 93005; 85379; 84439; 83880; 80053 ×2; 84443; 82150; 83690; 83735 ×2; 84484; 85025; 85027; 85610; 85730; 80320; 71046; 71275; G0378 ×2; J2405; J1650; Q9967

== ENCOUNTER 2024-10-09 20:16 | Observation (INO) | payer OTHER ==
[2024-10-09] MEDS: LORazepam 2 MG/ML INJ IV STA (21:16)
[2024-10-09 21:39] LABS: Basophils % (A) 1.7 %; Eosinophils # (A) 0.15 10*3/uL (0.04-0.35); Eosinophils % (A) 2.6 %; HCT 41.9 % (39.6-50.0); HGB 15.1 g/dL (13.0-17.0); Lymphocytes # (A) 2.07 10*3/uL (0.90-5.00); Lymphocytes % (A) 35.8 %; MCH 34.2 pg (27.0-32.0); MCV 94.8 fL (80.0-97.0); Mean Platelet Volume 9.2 fL (9.5-12.2); Monocytes # (A) 0.62 10*3/uL (0.20-1.00); Monocytes % (A) 10.7 %; Neutrophils # (A) 2.83 10*3/uL (1.80-7.70); Platelet Count 255 10*3/uL (140-440); RBC 4.42 10*6/uL (4.40-5.60); RDW 15.3 % (11.5-14.5); WBC 5.78 10*3/uL (4.50-10.00)
--- NOTE | 2024-10-09 21:45 | XR ---
EXAMINATION TYPE: XR chest 2V DATE OF EXAM: 10/09/2024 9:41 PM COMPARISON: 10/01/2024 CLINICAL INDICATION: Male, 58 years old with history of Difficulty breathing : Shortness of breath TECHNIQUE: XR chest 2V views of the chest are obtained. FINDINGS: Scattered senescent parenchymal changes noted. Hyperinflation compatible with COPD. No evidence for infiltrate. No evidence for atelectasis. Heart size is stable. Mediastinal structures are stable and grossly unremarkable. No evidence for hilar prominence. Degenerative changes dorsal spine. IMPRESSION: 1. No evidence for acute pulmonary disease. [facility], , 10/09/2024 9:43 PM
[2024-10-09 21:46] LABS: INR 0.9 (<1.2); Partial Thromboplastin Time 24.1 sec (22.0-30.0); Prothrombin Time 10.5 sec (10.0-12.5)
[2024-10-09 21:52] LABS: ALT 138 U/L (4-49); AST 120 U/L (17-59); African American GFR (CKD) >90 (>60 ml/min/1.73 sqM); Albumin 4.8 g/dL (3.5-5.0); Alkaline Phosphatase 73 U/L (38-126); Anion Gap 15 mmol/L; Blood Urea Nitrogen 13 mg/dL (9-20); Calcium 9.8 mg/dL (8.4-10.2); Carbon Dioxide 24 mmol/L (22-30); Chloride 104 mmol/L (98-107); Glucose 90 mg/dL (74-99); Magnesium 1.7 mg/dL (1.6-2.3); Non-African American GFR(CKD) >90 (>60 ml/min/1.73 sqM); Potassium 4.3 mmol/L (3.5-5.1); Sodium 143 mmol/L (137-145); Total Bilirubin 1.8 mg/dL (0.2-1.3); Total Protein 8.2 g/dL (6.3-8.2)
[2024-10-09 21:59] LABS: Alcohol 271 mg/dL
--- NOTE | 2024-10-09 22:32 | ED ---
General Adult HPI - General Chief complaint: Shortness of Breath Stated complaint: afib Time Seen by Provider: 10/09/24 20:40 Source: patient, EMS, RN notes reviewed, old records reviewed Mode of arrival: EMS Limitations: no limitations - History of Present Illness Initial comments: This is a 58-year-old male who has a past medical history significant for atrial fibrillation and heavy drinking. Patient comes in today stating he has not drank in 18 hours. Patient states he felt short of breath especially with exertion so he thought maybe his atrial fibrillation was acting up so he came to the emergency department. Patient denies any chest pain. Patient denies any fever chills or cough. Patient Nuys abdominal pain patient has nausea vomiting diarrhea. Patient states he is extremely anxious and was hoping to get some Ativan while he is here. - Related Data Home Medications Medication Instructions Recorded Confirmed Cyclobenzaprine [Flexeril] 5 mg PO HS PRN 09/16/24 10/01/24 Escitalopram [Lexapro] 20 mg PO DAILY 09/16/24 10/01/24 Levothyroxine Sodium [Synthroid] 112 mcg PO DAILY 09/16/24 10/01/24 Losartan [Cozaar] 50 mg PO DAILY 09/16/24 10/01/24 Folic Acid-Vit B Complex-Vit C 1 cap PO DAILY 09/27/24 10/01/24 [Nephrocaps] Previous Rx's Medication Instructions Recorded Thiamine [Vitamin B-1] 100 mg PO DAILY #30 tab 09/21/24 Metoprolol Tartrate [Lopressor] 50 mg PO BID 30 Days #60 tab 09/28/24 Apixaban [Eliquis] 5 mg PO BID 30 Days #60 tab 10/02/24 Atorvastatin [Lipitor] 10 mg PO DAILY 30 Days #30 tab 10/02/24 Allergies Allergy/AdvReac Type Severity Reaction Status Date / Time No Known Allergies Allergy Verified 10/09/24 20:43 Review of Systems ROS Statement: Those systems with pertinent positive or pertinent negative responses have been documented in the HPI. ROS Other: All systems not noted in ROS Statement are negative. Past Medical History Past Medical History: Hypertension Additional Past Medical History / Comment(s): etoh abuse History of Any Multi-Drug Resistant Organisms: None Reported Past Surgical History: Hernia Repair, Orthopedic Surgery Past Anesthesia/Blood Transfusion Reactions: No Reported Reaction Past Psychological History: No Psychological Hx Reported Smoking Status: Current every day smoker Past Alcohol Use History: Abuse, Daily, Heavy Past Drug Use History: None Reported General Exam - General Exam Comments Initial Comments: GENERAL: Patient is well-developed and well-nourished. Patient is nontoxic and well- hydrated and is in mild distress. ENT: Neck is soft and supple. No significant lymphadenopathy is noted. Oropharynx is clear. Moist mucous membranes. Neck has full range of motion without eliciting any pain. EYES: The sclera were anicteric and conjunctiva were pink and moist. Extraocular movements were intact and pupils were equal round and reactive to light. Eyelid s were unremarkable. PULMONARY: Unlabored respirations. Good breath sounds bilaterally. No audible rales rhonchi or wheezing was noted. CARDIOVASCULAR: There is a regular rate and rhythm without any murmurs gallops or rubs. ABDOMEN: Soft and nontender with normal bowel sounds. SKIN: Skin is clear with no lesions or rashes and otherwise unremarkable. NEUROLOGIC: Patient is alert and oriented x3. Cranial nerves II through XII are grossly intact. Motor and sensory are also intact. Normal speech, volume and content. Symmetrical smile. MUSCULOSKELETAL: Normal extremities with adequate strength and full range of motion. No lower extremity swelling or edema. No calf tenderness. LYMPHATICS: No significant lymphadenopathy is noted PSYCHIATRIC: Patient is moderately anxious Limitations: no limitations Course Vital Signs 10/09/24 10/09/24 10/09/24 20:39 21:30 21:32 Temperature 98.1 F Pulse Rate 86 105 H Respiratory 17 20 20 Rate Blood Pressure 135/105 137/106 O2 Sat by Pulse 96 99 Oximetry Medical Decision Making - Medical Decision Making EKG is interpreted by myself. EKG shows atrial fibrillation with a rapid ventri cular response at 110 bpm QRS is 100 QT interval is 343 QTc is 408. Patient's EKG shows no ST segment elevation or depression Was pt. sent in by a medical professional or institution (, PA, CIRCUIT COURT CLERK, urgent care, hospital, or [facility]...) When possible be specific @ -No Did you speak to anyone other than the patient for history (EMS, parent, family, police, friend...)? What history was obtained from this source @ -No Did you review nursing and triage notes (agree or disagree)? Why? @ -I reviewed and agree with nursing and triage notes Were old charts reviewed (outside hosp., previous admission, EMS record, old EKG, old radiological studies, urgent care reports/EKG's, [facility] records)? Report findings @ -No old charts were reviewed Differential Diagnosis? @ -Differential Dyspnea: Coronary syndrome, arrhythmia, tamponade, asthma, COPD, pulmonary embolism, pneumonia, pneumothorax, pulmonary effusion, anaphylaxis, diabetic ketoacidosis, flailed chest, pulmonary contusion, diaphragmatic rupture, anemia, neuromuscular, this is not meant to be an all-inclusive list. EKG interpreted by me (3pts min.). @ -As above X-rays interpreted by me (1pt min.). @ -Chest x-ray shows no acute abnormality CT interpreted by me (1pt min.). @ -None done U/S interpreted by me (1pt. min.). @ -None done What testing was considered but not performed or refused? (CT, X-rays, U/S, labs)? Why? @ -None What meds were considered but not given or refused? Why? @ -None Did you discuss the management of the patient with other professionals (professionals i.e. , PA, CIRCUIT COURT CLERK, lab, RT, psych nurse, child welfare social worker, learning services coordinator, teacher, parachute officer, binder caser)? Give summary @ -I spoke with Dr. Hanson he agreed to admit the patient Was smoking cessation discussed for >3mins.? @ -No Was critical care preformed (if so, how long)? @ -No Were there social determinants of health that impacted care today? How? (Homelessness, low income, unemployed, alcoholism, drug addiction, transportation, low edu. Level, literacy, decrease access to med. care, long-term, rehab)? @ -No Was there de-escalation of care discussed even if they declined (Discuss DNR or withdrawal of care, Hospice)? DNR status @ -No What co-morbidities impacted this encounter? (DM, HTN, Smoking, COPD, CAD, Cancer, CVA, ARF, Chemo, Hep., AIDS, mental health diagnosis, sleep apnea, morbid obesity)? @ -None Was patient admitted / discharged? Hospital course, mention meds given and route, prescriptions, significant lab abnormalities, going to OR and other pertinent info. @ -Patient's alcohol level is 271. Patient's chest x-ray and lab work did not show any significant abnormality. Patient will be admitted for alcohol intoxication. Patient was given Ativan when he arrived and he calmed down he seemed to be breathing considerably better Undiagnosed new problem with uncertain prognosis? @ -No Drug Therapy requiring intensive monitoring for toxicity (Heparin, Nitro, Insulin, Cardizem)? @ -No Were any procedures done? @ -No Diagnosis/symptom? @ -Alcohol intoxication Acute, or Chronic, or Acute on Chronic? @ -Acute Uncomplicated (without systemic symptoms) or Complicated (systemic symptoms)? @ -Complicated Side effects of treatment? @ -No Exacerbation, Progression, or Severe Exacerbation? @ -No Poses a threat to life or bodily function? How? (Chest pain, [place], [place], pneumonia, PE, COPD, DKA, ARF, appy, cholecystitis, CVA, Diverticulitis, Homicidal, Suicidal, threat to staff... and all critical care pts) @ -Yes patient can go through significant withdrawals - Lab Data Result diagrams: 10/09/24 21:11 10/09/24 21:11 Lab Results 10/09/24 10/09/24 10/09/24 Range/Units 21:11 21:11 21:11 WBC 5.78 (4.50-10.00) 10*3/uL RBC 4.42 (4.40-5.60) 10*6/uL Hgb 15.1 (13.0-17.0) g/dL Hct 41.9 (39.6-50.0) % MCV 94.8 (80.0-97.0) fL MCH 34.2 H (27.0-32.0) pg MCHC 36.0 (32.0-37.0) g/dL Plt Count 255 (140-440) 10*3/uL MPV 9.2 L (9.5-12.2) fL Immature Gran % (Auto) 0.2 % Neutrophils % 49.0 % Lymphocytes % 35.8 % Monocytes % 10.7 % Eosinophils % 2.6 % Basophils % 1.7 % Immature Gran # 0.01 (0.00-0.04) 10*3/uL Neutrophils # 2.83 (1.80-7.70) 10*3/uL Lymphocytes # 2.07 (0.90-5.00) 10*3/uL Monocytes # 0.62 (0.20-1.00) 10*3/uL Eosinophils # 0.15 (0.04-0.35) 10*3/uL Basophils # 0.10 (0.00-0.10) 10*3/uL PT (10.0-12.5) sec INR (<1.2) APTT (22.0-30.0) sec Sodium 143 (137-145) mmol/L Potassium 4.3 (3.5-5.1) mmol/L Chloride 104 (98-107) mmol/L Carbon Dioxide 24 (22-30) mmol/L Anion Gap 15 mmol/L BUN 13 (9-20) mg/dL Creatinine 0.84 (0.66-1.25) mg/dL Est GFR (CKD-EPI)AfAm >90 (>60 ml/min/1.73 sqM) Est GFR (CKD-EPI)NonAf >90 (>60 ml/min/1.73 sqM) Glucose 90 (74-99) mg/dL Plasma Lactic Acid Maurizio 2.9 H* (0.7-2.0) mmol/L Calcium 9.8 (8.4-10.2) mg/dL Magnesium 1.7 (1.6-2.3) mg/dL Total Bilirubin 1.8 H (0.2-1.3) mg/dL AST 120 H (17-59) U/L ALT 138 H (4-49) U/L Alkaline Phosphatase 73 (38-126) U/L Troponin I (0.000-0.034) ng/mL Total Protein 8.2 (6.3-8.2) g/dL Albumin 4.8 (3.5-5.0) g/dL Serum Alcohol 271 H* mg/dL 10/09/24 10/09/24 Range/Units 21:11 21:11 WBC (4.50-10.00) 10*3/uL RBC (4.40-5.60) 10*6/uL Hgb (13.0-17.0) g/dL Hct (39.6-50.0) % MCV (80.0-97.0) fL MCH (27.0-32.0) pg MCHC (32.0-37.0) g/dL Plt Count (140-440) 10*3/uL MPV (9.5-12.2) fL Immature Gran % (Auto) % Neutrophils % % Lymphocytes % % Monocytes % % Eosinophils % % Basophils % % Immature Gran # (0.00-0.04) 10*3/uL Neutrophils # (1.80-7.70) 10*3/uL Lymphocytes # (0.90-5.00) 10*3/uL Monocytes # (0.20-1.00) 10*3/uL Eosinophils # (0.04-0.35) 10*3/uL Basophils # (0.00-0.10) 10*3/uL PT 10.5 (10.0-12.5) sec INR 0.9 (<1.2) APTT 24.1 (22.0-30.0) sec Sodium (137-145) mmol/L Potassium (3.5-5.1) mmol/L Chloride (98-107) mmol/L Carbon Dioxide (22-30) mmol/L Anion Gap mmol/L BUN (9-20) mg/dL Creatinine (0.66-1.25) mg/dL Est GFR (CKD-EPI)AfAm (>60 ml/min/1.73 sqM) Est GFR (CKD-EPI)NonAf (>60 ml/min/1.73 sqM) Glucose (74-99) mg/dL Plasma Lactic Acid Maurizio (0.7-2.0) mmol/L Calcium (8.4-10.2) mg/dL Magnesium (1.6-2.3) mg/dL Total Bilirubin (0.2-1.3) mg/dL AST (17-59) U/L ALT (4-49) U/L Alkaline Phosphatase (38-126) U/L Troponin I 0.019 (0.000-0.034) ng/mL Total Protein (6.3-8.2) g/dL Albumin (3.5-5.0) g/dL Serum Alcohol mg/dL Disposition Clinical Impression: Alcohol intoxication Disposition: ADMITTED IP TO THIS HOSP Referrals: None,Stated [Primary Care Provider] - 1-2 days Time of Disposition: 22:53
[2024-10-09] MEDS ORDERED: LORazepam 2 MG/ML INJ IV PRN (22:57)
[2024-10-09] MEDS: SODIUM CHLORIDE 0.9% 1,000 ML IV ONE (23:27)
[2024-10-10] MEDS: THIAMINE 100 MG/ML 2 ML VIAL IM STA (00:24)
[2024-10-10] MEDS: SODIUM CHLORIDE 0.9% 1,000 ML IV ONE (00:46)
[2024-10-10] MEDS: LORazepam 2 MG/ML INJ IV PRN ×2 (06:03→07:07)
[2024-10-10] MEDS: LOSARTAN 50 MG TAB PO SCH (06:41)
[2024-10-10] MEDS: METOPROLOL TARTRATE 50 MG TAB PO SCH ×2 (06:41→20:24)
[2024-10-10] MEDS: THIAMINE 100 MG TAB PO SCH (08:34)
[2024-10-10] MEDS: MULTIVITAMINS, THERA 1 EACH TAB PO SCH (08:35)
[2024-10-10] MEDS ORDERED: LORazepam 2 MG/ML INJ IV PRN (09:09)
[2024-10-10] MEDS ORDERED: LORazepam 1 MG/0.5 ML VIAL IV PRN (09:10)
[2024-10-10] MEDS: LORazepam 1 MG/0.5 ML VIAL IV PRN ×2 (12:17→22:01)
--- NOTE | 2024-10-10 12:19 | P.HPIM ---
History of Present Illness 58-year-old male came in with alcohol intoxication admitted for alcohol withdrawal his labs been close yesterday he admits to drinking half to a pint of alcohol usually drinks 1/5 of hard liquor daily and what ever he can get his hands on. Patient is also new to fibrillation with rapid ventricular rate. Patient takes 50 mg twice a day of metoprolol not taking any anticoagulation as he cannot afford it. Patient is presently not on any anticoagulation. Cardiology will be consulted. 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 After extensive counseling patient is willing to quit alcohol. Patient was given Eliquis during his last hospitalization. REVIEW OF SYSTEMS: All other systems are negative except those mentioned in the HPI PHYSICAL EXAMINATION: GENERAL: The patient is alert and oriented x3, not in any acute distress. Well developed, well nourished. HEENT: Pupils are round and equally reacting to light. EOMI. No scleral icterus. No conjunctival pallor. Normocephalic, atraumatic. No pharyngeal erythema. No thyromegaly. CARDIOVASCULAR: S1 and S2 present. No murmurs, rubs, or gallops. Tachycardic irregularly irregular rhythm PULMONARY: Chest is clear to auscultation, no wheezing or crackles. ABDOMEN: Soft, nontender, nondistended, normoactive bowel sounds. No palpable organomegaly. MUSCULOSKELETAL: No joint swelling or deformity. EXTREMITIES: No cyanosis, clubbing, or pedal edema. NEUROLOGICAL: Gross neurological examination did not reveal any focal deficits. SKIN: No rashes. Assessment and plan -Alcohol intoxication counseling was provided patient is better now - Alcohol withdrawal patient is on Ativan CIWA protocol - Atrial fibrillation with rapid ventricular rate patient's metoprolol dose will be increased will start him on Eliquis cardiology will be consulted - Congestive heart failure chronic systolic function not in acute exacerbation patient was receiving IV fluids at 130 cc/h which will be discontinued patient was started back on losartan - Hypertension DVT prophylaxis: Patient will be started on Eliquis as mentioned above Past Medical History Past Medical History: Hypertension Additional Past Medical History / Comment(s): etoh abuse History of Any Multi-Drug Resistant Organisms: None Reported Past Surgical History: Hernia Repair, Orthopedic Surgery Past Anesthesia/Blood Transfusion Reactions: No Reported Reaction Past Psychological History: No Psychological Hx Reported Smoking Status: Current every day smoker Past Alcohol Use History: Abuse, Daily, Heavy Past Drug Use History: None Reported Medications and Allergies Home Medications Medication Instructions Recorded Confirmed Type Cyclobenzaprine [Flexeril] 5 mg PO HS PRN 09/16/24 10/10/24 History Escitalopram [Lexapro] 20 mg PO DAILY 09/16/24 10/10/24 History Levothyroxine Sodium [Synthroid] 112 mcg PO DAILY 09/16/24 10/10/24 History Losartan [Cozaar] 50 mg PO DAILY 09/16/24 10/10/24 History Thiamine [Vitamin B-1] 100 mg PO DAILY #30 tab 09/21/24 10/10/24 Rx Folic Acid-Vit B Complex-Vit C 1 cap PO DAILY 09/27/24 10/10/24 History [Nephrocaps] Metoprolol Tartrate [Lopressor] 50 mg PO BID 30 Days #60 tab 09/28/24 10/10/24 Rx Apixaban [Eliquis] 5 mg PO DIRECTED 10/10/24 10/10/24 History Atorvastatin [Lipitor] 10 mg PO DIRECTED 10/10/24 10/10/24 History Allergies Allergy/AdvReac Type Severity Reaction Status Date / Time No Known Allergies Allergy Verified 10/10/24 10:50 Physical Exam Vitals: Vital Signs Temp Pulse Resp BP Pulse Ox 10/10/24 12:00 109 H 22 96 10/10/24 10:57 106 H 20 151/105 95 10/10/24 08:00 92 20 139/98 96 10/10/24 06:30 142 H 28 H 140/111 96 10/10/24 06:00 115 H 18 165/108 98 10/10/24 03:00 90 18 138/102 96 10/10/24 00:00 115 H 18 109/84 96 10/09/24 23:00 111 H 22 101/79 97 10/09/24 22:00 117 H 22 123/92 97 10/09/24 21:32 20 10/09/24 21:30 105 H 20 137/106 99 10/09/24 20:39 98.1 F 86 17 135/105 96 Intake and Output 10/09/24 10/10/24 10/10/24 22:59 06:59 14:59 Other: Weight 72.575 kg Results CBC & Chem 7: 10/09/24 21:11 10/09/24 21:11 Labs: Abnormal Lab Results - Last 24 Hours (Table) 10/09/24 10/09/24 10/09/24 Range/Units 21:11 21:11 21:11 MCH 34.2 H (27.0-32.0) pg MPV 9.2 L (9.5-12.2) fL Plasma Lactic Acid Maurizio 2.9 H* (0.7-2.0) mmol/L Total Bilirubin 1.8 H (0.2-1.3) mg/dL AST 120 H (17-59) U/L ALT 138 H (4-49) U/L Serum Alcohol 271 H* mg/dL 10/10/24 Range/Units 00:00 MCH (27.0-32.0) pg MPV (9.5-12.2) fL Plasma Lactic Acid Maurizio 2.3 H* (0.7-2.0) mmol/L Total Bilirubin (0.2-1.3) mg/dL AST (17-59) U/L ALT (4-49) U/L Serum Alcohol mg/dL
[2024-10-10] MEDS: METOPROLOL TARTRATE 50 MG TAB PO STA (12:20)
[2024-10-10] MEDS: APIXABAN 5 MG TAB PO SCH (13:26)
[2024-10-10] MEDS: LOSARTAN 25 MG TAB PO STA ×2 (16:12→23:13)
[2024-10-10 22:25] VITALS: RESP 18
[2024-10-11] MEDS: LORazepam 1 MG TAB PO PRN (00:21)
[2024-10-11] MEDS: LORazepam 0.5 MG TAB PO PRN (04:34)
[2024-10-11 08:19] VITALS: BP 165/83; PULSE 68; TEMP 98
[2024-10-11] MEDS ORDERED: LOSARTAN 50 MG TAB PO SCH (09:45)
[2024-10-11 10:54] VITALS: BMI 23.6
--- NOTE | 2024-10-11 11:20 | P.CRDCN ---
History of Present Illness History of present illness: HISTORY OF PRESENT ILLNESS: This is a 58-year-old male with a past medical history significant for atrial fibrillation, hypertension, hyperlipidemia, and alcohol abuse. Patient follows in the office with Dr. Toney. We have been asked to see the patient in consultation for A-fib. Patient examined at the bedside. Patient presented to the emergency room with a chief complaint of shortness of breath and palpitations. Patient was found to be in A-fib with RVR. Patient's metoprolol was increased to 100 mg twice a day. He remains in atrial fibrillation this morning with controlled ventricular rate. Patient denies complaints of chest pain or shortness of breath. Patient was found to be acutely intoxicated with an alcohol level of 271. DIAGNOSTICS: - EKG reveals A-fib with RVR. - Chest xray negative for acute process. - Laboratory data: WBC 5.78. Hemoglobin 15.1. Platelet count 255. Sodium 143. Potassium 4.3. BUN 13. Creatinine 0.84. Total bilirubin 1.8. AST 120. ALT 138. Troponin negative x 1. - Current home cardiac medications include metoprolol tartrate 50 mg twice a day, losartan 50 mg daily, Lipitor 10 mg daily, Eliquis 5 mg twice a day. - Most recent echocardiogram obtained in September 2024 revealing ejection fraction 30 to 35%, moderate mitral regurgitation, mild TR - Cardiac catheterization history: Unknown REVIEW OF SYSTEMS: At the time of my exam: CONSTITUTIONAL: Denies fever or chills. HEENT: Denies blurred vision, vision changes, or eye pain. Denies hemoptysis CARDIOVASCULAR: Denies chest pain. Denies orthopnea. Denies PND. Denies palpitations RESPIRATORY: Denies shortness of breath. GASTROINTESTINAL: Denies abdominal pain. Denies nausea or vomiting. HEMATOLOGIC: Denies bleeding disorders. GENITOURINARY: Denies any blood in urine. SKIN: Denies pruitis. Denies rash. PHYSICAL EXAM: VITAL SIGNS: Reviewed. GENERAL: Well-developed in no acute distress. HEENT: Head is normocephalic. Pupils are equal, round. Sclerae anicteric. Mucous membranes of the mouth are moist. Neck supple. No JVD or thyromegaly LUNGS: Respirations even and unlabored. Lungs essentially clear to auscultation bilaterally. HEART: Regular rate and rhythm. S1 and S2 heard. ABDOMEN: Soft. Nondistended. Nontender. EXTREMITIES: Normal range of motion. No clubbing or cyanosis. Peripheral pulses intact. No lower extremity edema NEUROLOGIC: Awake and alert. Oriented x 3. ASSESSMENT: Persistent atrial fibrillation with RVR, currently rate controlled Acute alcohol intoxication History of alcohol abuse History of drug abuse with cocaine Cardiomyopathy, EF 30 to 35%, suspect nonischemic secondary to alcohol and drug use Elevated LFTs, secondary to alcohol use Hypertension Hyperlipidemia PLAN: No need to repeat echocardiogram as this was performed in September 2024 Continue anticoagulation with Eliquis Continue metoprolol tartrate 100 mg twice a day Patient is currently stable from a cardiac standpoint Further recommendations pending patient course Nurse practitioner note has been reviewed by physician. Signing provider agrees with the documented findings, assessment, and plan of care documented by [employer] as a scribe. Past Medical History Past Medical History: Atrial Fibrillation, Hypertension Additional Past Medical History / Comment(s): etoh abuse History of Any Multi-Drug Resistant Organisms: None Reported Past Surgical History: Hernia Repair, Orthopedic Surgery Past Anesthesia/Blood Transfusion Reactions: No Reported Reaction Past Psychological History: No Psychological Hx Reported Smoking Status: Former smoker Past Alcohol Use History: Abuse, Daily, Heavy Additional Past Alcohol Use History / Comment(s): Patient states he smokes cigarettes on and off. Past Drug Use History: None Reported - Past Family History Mother Family Medical History: Congestive Heart Failure (CHF) Father Family Medical History: Myocardial Infarction (ID) Additional Family Medical History / Comment(s): from ID at age 76. Brother(s) Additional Family Medical History / Comment(s): from lymphoma at age 49. Medications and Allergies Home Medications Medication Instructions Recorded Confirmed Type Cyclobenzaprine [Flexeril] 5 mg PO HS PRN 09/16/24 10/10/24 History Escitalopram [Lexapro] 20 mg PO DAILY 09/16/24 10/10/24 History Levothyroxine Sodium [Synthroid] 112 mcg PO DAILY 09/16/24 10/10/24 History Losartan [Cozaar] 50 mg PO DAILY 09/16/24 10/10/24 History Thiamine [Vitamin B-1] 100 mg PO DAILY #30 tab 09/21/24 10/10/24 Rx Folic Acid-Vit B Complex-Vit C 1 cap PO DAILY 09/27/24 10/10/24 History [Nephrocaps] Metoprolol Tartrate [Lopressor] 50 mg PO BID 30 Days #60 tab 09/28/24 10/10/24 Rx Apixaban [Eliquis] 5 mg PO DIRECTED 10/10/24 10/10/24 History Atorvastatin [Lipitor] 10 mg PO DIRECTED 10/10/24 10/10/24 History Allergies Allergy/AdvReac Type Severity Reaction Status Date / Time No Known Allergies Allergy Verified 10/10/24 10:50 Physical Exam Vitals: Vital Signs Temp Pulse Pulse Pulse Resp BP BP 10/11/24 07:00 98.0 F 68 18 10/11/24 02:00 97.9 F 91 18 143/92 10/10/24 22:26 101 H 151/112 10/10/24 20:00 97.7 F 103 H 18 159/118 10/10/24 18:00 102 H 20 159/110 10/10/24 16:00 99 20 10/10/24 14:51 108 H 20 159/99 10/10/24 13:25 112 H 20 167/98 10/10/24 12:00 109 H 22 BP Pulse Ox 10/11/24 07:00 165/83 96 10/11/24 02:00 97 10/10/24 22:26 10/10/24 20:00 97 10/10/24 18:00 99 10/10/24 16:00 96 10/10/24 14:51 97 10/10/24 13:25 98 10/10/24 12:00 96 Intake and Output 10/10/24 10/11/24 10/11/24 22:59 06:59 14:59 Output Total 325 250 Balance -325 -250 Output: Urine 325 250 Other: Voiding Method Toilet Toilet Urinal Urinal Weight 72.575 kg 72.575 kg Results 10/09/24 21:11 10/09/24 21:11 Current Medications Generic Name Dose Route Start Last Admin Trade Name Freq PRN Reason Stop Dose Admin Apixaban 5 mg 10/10/24 12:30 10/11/24 09:32 Apixaban 5 Mg Tab PO 5 mg BID [facility] Administration Protocol Atorvastatin Calcium 10 mg 10/11/24 09:45 Atorvastatin 10 Mg Tab PO DAILY [facility] Escitalopram Oxalate 20 mg 10/12/24 09:00 Escitalopram 20 Mg Tab PO DAILY [facility] Levothyroxine Sodium 112 mcg 10/11/24 09:45 Levothyroxine 112 Mcg Tab PO DAILY@0600 [facility] Lorazepam 0.5 mg 10/09/24 22:57 10/11/24 09:41 Lorazepam 0.5 Mg Tab PO 0.5 mg Q4HR PRN Administration Ciwa 4 To 5 Lorazepam 1 mg 10/09/24 22:57 10/11/24 00:21 Lorazepam 1 Mg Tab PO 1 mg Q4HR PRN Administration Ciwa 6 To 7 Lorazepam 1 mg 10/10/24 09:06 10/10/24 20:24 Lorazepam 1 Mg/0.5 Ml Vial IV 1 mg Q1HR PRN Administration CIWA 10 to 15 Lorazepam 1 mg 10/10/24 09:07 10/10/24 22:01 Lorazepam 1 Mg/0.5 Ml Vial IV 1 mg Q2HR PRN Administration CIWA 8 or 9 Lorazepam 2 mg 10/10/24 09:10 Lorazepam 1 Mg/0.5 Ml Vial IV 10/11/24 22:57 Q10M PRN CIWA 16 or higher Losartan Potassium 50 mg 10/10/24 09:00 10/11/24 09:32 Losartan 50 Mg Tab PO 50 mg DAILY [facility] Administration Metoprolol Tartrate 100 mg 10/10/24 21:00 10/11/24 09:32 Metoprolol Tartrate 50 Mg Tab PO 100 mg BID [facility] Administration Multivitamins 1 each 10/10/24 09:00 10/11/24 09:32 Multivitamins, Thera 1 Each Tab PO 1 each DAILY [facility] Administration Thiamine HCl 100 mg 10/10/24 09:00 10/11/24 09:32 Thiamine 100 Mg Tab PO 100 mg DAILY [facility] Administration Intake and Output 10/10/24 10/11/24 10/11/24 22:59 06:59 14:59 Output Total 325 250 Balance -325 -250 Output: Urine 325 250 Other: Voiding Method Toilet Toilet Urinal Urinal Weight 72.575 kg 72.575 kg Patient Weight 10/12/24 06:59 Weight 72.575 kg 10/09/24 21:11 10/09/24 21:11
[2024-10-11] MEDS: LEVOTHYROXINE 112 MCG TAB PO SCH (11:48)
[2024-10-11] MEDS: ATORVASTATIN 10 MG TAB PO SCH (11:48)
--- NOTE | 2024-10-11 13:27 | P.DS ---
Providers Date of admission: 10/10/24 14:11 Attending physician: Jeet Matias MD Consults: 10/10/24 12:13 Consult Physician Stat Consulting Provider: Francisco Parsons Consult Reason/Comments: afib Do you want consulting provider notified?: Yes Primary care physician: Stated None Hospital Course: Discharge Diagnosis: #Alcohol intoxication #Nonischemic cardiomyopathy with ejection fraction of 30 to 35% #Medication noncompliance #Chronic atrial fibrillation on metoprolol and and Eliquis #Hypothyroidism on Synthroid #Hypertension on losartan Hospital Course: This is a 58-year-old male with history of chronic atrial fibrillation on Eliquis, alcohol abuse, multiple hospitalization due to alcohol intoxication, hypertension, hypothyroidism came to the ER on 10/09/2024 with complaints of shortness of breath on exertion and alcohol withdrawal. Patient was admitted to the inpatient service for alcohol intoxication and cardiology assessment for atrial fibrillation. Chest x-ray showed no evidence of acute pulmonary disease. EKG showed atrial fibrillation with RVR. Patient was started on metoprolol Lopressor 100 mg p.o. twice daily. Cardiology was consulted. Patient has a echocardiogram recently in September 30 revealing ejection fraction of 30 to 35% with moderate mitral regurgitation and mild tricuspid regurgitation. Patient was seen and evaluated on morning of 10/11/2024 and is not complaining of chest pain, shortness of breath, tremors, auditory, visual or tactile hallucinations. Not complaining of nausea, vomiting, headache, fever, chills, diarrhea, constipation and numbness or tingling in upper or lower extremities. Patient is hemodynamically stable and medically optimized for discharge. Patient strongly encouraged to avoid any and all alcohol use and educated on risks of continued use especially with being discharged home on anticoagulant. Patient medically optimized and cleared from cardiac perspective for discharge. Heart rate is within normal limit. Patient to follow-up outpatient with PCP in 1 to 2 days and with key carrier in 1 week. Patient is to resume on Eliquis 5 mg twice daily and metoprolol 50 mg twice daily. Discharge disposition: Home Vital signs reviewed. Gen: in no apparent distress, resting comfortably in bed Eyes: PERRLA, EOMI, no scleral injection or icterus HENT: normocephalic, atraumatic, good hearing acuity, moist mucous membranes Neck: full range of motion Resp: CTAB, no rales, rhonchi, or wheezes CVS: normal S1 and S2, no murmurs, rubs or gallops, no edema GI: soft, NTTP, ND, no hepatosplenomegaly : no suprapubic tenderness, no CVAT, nguyen catheter [is/not] present MSK: no clubbing, no cyanosis, no noted contractures of extremities Skin: no noted rashes, petechiae; temperature of skin is appropriate Neuro: moving all extremities without signs of weakness, CN II-XII intact Psych: cooperative, euthymic mood, insight and judgment intact Dictation was produced using [employer] dictation software. Please excuse any grammatical, word or spelling errors. Plan - Discharge Summary Discharge Rx Participant: No New Discharge Prescriptions: Continue Losartan [Cozaar] 50 mg PO DAILY Escitalopram [Lexapro] 20 mg PO DAILY Folic Acid-Vit B Complex-Vit C [Nephrocaps] 1 cap PO DAILY Metoprolol Tartrate [Lopressor] 50 mg PO BID 30 Days #60 tab Apixaban [Eliquis] 5 mg PO DIRECTED Atorvastatin [Lipitor] 10 mg PO DIRECTED Cyclobenzaprine [Flexeril] 5 mg PO HS PRN PRN Reason: Muscle Spasm Levothyroxine Sodium [Synthroid] 112 mcg PO DAILY Thiamine [Vitamin B-1] 100 mg PO DAILY #30 tab Discharge Medication List Cyclobenzaprine [Flexeril] 5 mg PO HS PRN 09/16/24 [History] Escitalopram [Lexapro] 20 mg PO DAILY 09/16/24 [History] Levothyroxine Sodium [Synthroid] 112 mcg PO DAILY 09/16/24 [History] Losartan [Cozaar] 50 mg PO DAILY 09/16/24 [History] Thiamine [Vitamin B-1] 100 mg PO DAILY #30 tab 09/21/24 [Rx] Folic Acid-Vit B Complex-Vit C [Nephrocaps] 1 cap PO DAILY 09/27/24 [History] Metoprolol Tartrate [Lopressor] 50 mg PO BID 30 Days #60 tab 09/28/24 [Rx] Apixaban [Eliquis] 5 mg PO DIRECTED 10/10/24 [History] Atorvastatin [Lipitor] 10 mg PO DIRECTED 10/10/24 [History] Follow up Appointment(s)/Referral(s): Balbina Ceja MD [RESIDENT] - 1 Week None,Stated [Primary Care Provider] - 1-2 days Patient Instructions/Handouts: Abuse of Alcohol (DC), Alcohol Withdrawal (DC), Alcohol Dependence (DC) Activity/Diet/Wound Care/Special Instructions: Please follow-up with your PCP. If you do not have a PCP, you can contact the number below: [facility] Address: [address] [place] [address], [place] [address] Discharge/Stand Alone Forms: AA Meetings [place], Who Do I Call?, Community Resources, Outpatient Counseling, Inp Substance Abuse Facilities, Area PCPs Discharge Disposition: HOME SELF-CARE
[2024-10-12] MEDS ORDERED: ESCITALOPRAM 20 MG TAB PO SCH (09:00)
== END 2024-10-11 14:40 | disposition home or self-care (01) ==
LOC: EC 20:16 → 6NMEDSUR 22:57 → OBSVTOIN 10-10 14:11 → INTOOBSV 10-10 14:11 → 6NMEDSUR 10-10 18:13
PROVIDERS: ADMIT Internal Medicine; ATTEND Internal Medicine
DX: F10.129 Alcohol abuse with intoxication, unspecified (principal); F10.130 Alcohol abuse with withdrawal, uncomplicated; I48.19 Other persistent atrial fibrillation; I11.0 Hypertensive heart disease with heart failure; I50.22 Chronic systolic (congestive) heart failure; I43 Cardiomyopathy in diseases classified elsewhere; I08.1 Rheumatic disorders of both mitral and tricuspid valves; E78.5 Hyperlipidemia, unspecified; E03.9 Hypothyroidism, unspecified; F17.200 Nicotine dependence, unspecified, uncomplicated; Y90.8 Blood alcohol level of 240 mg/100 ml or more; Z79.890 Hormone replacement therapy; Z79.01 Long term (current) use of anticoagulants; Z79.899 Other long term (current) drug therapy; Z71.41 Alcohol abuse counseling and surveillance of alcoholic; Z91.148 Patient's other noncompliance with medication regimen for other reason; Z87.898 Personal history of other specified conditions
CPT/HCPCS: 96376 ×2; 96361 ×2; 96372; 96374; 99285; 36415; 93005; 80053; 83605 ×2; 83735; 84484; 85025; 85610; 85730; 80320; 71046; G0378 ×3; J2060 ×2; J3411

== ENCOUNTER 2024-10-27 19:27 | Observation (INO) | payer OTHER ==
[2024-10-27] MEDS ORDERED: LORazepam 1 MG/0.5 ML VIAL IV PRN ×2 (19:47)
[2024-10-27] MEDS: SODIUM CHLORIDE 0.9% 1,000 ML IV ONE (19:57)
[2024-10-27] MEDS: PANTOPRAZOLE 40 MG/10 ML VIAL IVP STA (19:57)
[2024-10-27] MEDS: LORazepam 1 MG/0.5 ML VIAL IV STA (19:57)
[2024-10-27] MEDS: ONDANSETRON 4 MG/2 ML VIAL IVP STA (19:58)
[2024-10-27] MEDS: THIAMINE 100 MG/ML 2 ML VIAL IM STA (19:58)
[2024-10-27 20:02] LABS: Basophils # (A) 0.07 10*3/uL (0.00-0.10); Basophils % (A) 1.2 %; Eosinophils # (A) 0.17 10*3/uL (0.04-0.35); HCT 40.1 % (39.6-50.0); Lymphocytes # (A) 1.57 10*3/uL (0.90-5.00); Lymphocytes % (A) 27.7 %; MCH 34.4 pg (27.0-32.0); MCHC 34.9 g/dL (32.0-37.0); MCV 98.5 fL (80.0-97.0); Mean Platelet Volume 9.7 fL (9.5-12.2); Monocytes # (A) 0.49 10*3/uL (0.20-1.00); Monocytes % (A) 8.7 %; Neutrophils # (A) 3.34 10*3/uL (1.80-7.70); Platelet Count 216 10*3/uL (140-440); RBC 4.07 10*6/uL (4.40-5.60); RDW 15.5 % (11.5-14.5); WBC 5.66 10*3/uL (4.50-10.00)
[2024-10-27 20:17] LABS: INR 0.9 (<1.2); Partial Thromboplastin Time 24.4 sec (22.0-30.0); Prothrombin Time 10.6 sec (10.0-12.5)
[2024-10-27 20:19] LABS: ALT 103 U/L (4-49); AST 164 U/L (17-59); African American GFR (CKD) >90 (>60 ml/min/1.73 sqM); Albumin 4.6 g/dL (3.5-5.0); Alkaline Phosphatase 70 U/L (38-126); Amylase 58 U/L (30-110); Anion Gap 12 mmol/L; Blood Urea Nitrogen 11 mg/dL (9-20); Carbon Dioxide 24 mmol/L (22-30); Chloride 107 mmol/L (98-107); Glucose 87 mg/dL (74-99); Lipase 225 U/L (23-300); Non-African American GFR(CKD) >90 (>60 ml/min/1.73 sqM); Potassium 3.8 mmol/L (3.5-5.1); Sodium 143 mmol/L (137-145); Total Bilirubin 1.9 mg/dL (0.2-1.3); Total Protein 7.7 g/dL (6.3-8.2)
--- NOTE | 2024-10-27 20:26 | XR ---
EXAMINATION TYPE: XR chest 2V DATE OF EXAM: 10/27/2024 8:14 PM COMPARISON: Chest radiographs from 10/09/2024, CTA chest 10/01/2024 TECHNIQUE: XR chest 2V Frontal and lateral views of the chest. CLINICAL INDICATION:Male, 58 years old with history of abdominal pain; FINDINGS: Lungs/Pleura: There is no evidence of pleural effusion, focal consolidation, or pneumothorax. Pulmonary vascularity: Unremarkable. Heart/mediastinum: Cardiomediastinal silhouette is unremarkable. Musculoskeletal: Multiple level degenerative disc disease changes seen throughout the spine. IMPRESSION: No acute cardiopulmonary disease/process. [facility], , 10/27/2024 8:24 PM
[2024-10-27 20:29] LABS: Alcohol 135 mg/dL
[2024-10-27 21:27] LABS: Influenza A Not Detected (Not Detectd); Influenza B Not Detected (Not Detectd); RSV Not Detected (Not Detectd)
[2024-10-27] MEDS: LORazepam 1 MG/0.5 ML VIAL IV PRN (21:54)
[2024-10-27] MEDS: SODIUM CHLORIDE 0.9% 1,000 ML IV STA (21:54)
[2024-10-27] MEDS: METOPROLOL TARTRATE 50 MG TAB PO SCH (21:54)
[2024-10-27] MEDS ORDERED: ONDANSETRON 4 MG/2 ML VIAL IVP PRN (22:01)
[2024-10-27] MEDS ORDERED: NALOXONE 0.4 MG/ML 1 ML VIAL IV PRN (22:01)
[2024-10-27] MEDS: APIXABAN 5 MG TAB PO SCH (22:06)
[2024-10-27] MEDS: ATORVASTATIN 10 MG TAB PO SCH (22:07)
--- NOTE | 2024-10-27 22:07 | ED ---
General Adult HPI - General Chief complaint: Dizziness Stated complaint: alcohol intoxication Time Seen by Provider: 10/27/24 19:40 Source: patient, RN notes reviewed, old records reviewed Mode of arrival: wheelchair - History of Present Illness Initial comments: Patient is a 58-year-old male who presents emergency department complaining of lightheadedness. States this happens when he is going through alcohol withdrawals. States he is dizzy but states he is lightheaded. States he is having intermittent palpitations as well. Has a history of atrial fibrillation. States he took metoprolol today. Is noncompliant with blood thinning medication due to johnson. States he normally drinks vodka every day. Unknown what time he last drank. Has gone through alcohol draws in the past. Denies any chest pain. Endorses occasional shortness of breath when his palpitations are acting up. Denies abdominal pain, nausea, vomiting. Has no other acute complaints at this time. Presents for further evaluation at this time. History of chronic alcohol abuse.Denies any vertiginous symptoms. - Related Data Home Medications Medication Instructions Recorded Confirmed Cyclobenzaprine [Flexeril] 5 mg PO HS PRN 09/16/24 10/10/24 Escitalopram [Lexapro] 20 mg PO DAILY 09/16/24 10/10/24 Levothyroxine Sodium [Synthroid] 112 mcg PO DAILY 09/16/24 10/10/24 Losartan [Cozaar] 50 mg PO DAILY 09/16/24 10/10/24 Folic Acid-Vit B Complex-Vit C 1 cap PO DAILY 09/27/24 10/10/24 [Nephrocaps] Apixaban [Eliquis] 5 mg PO DIRECTED 10/10/24 10/10/24 Atorvastatin [Lipitor] 10 mg PO DIRECTED 10/10/24 10/10/24 Previous Rx's Medication Instructions Recorded Thiamine [Vitamin B-1] 100 mg PO DAILY #30 tab 09/21/24 Metoprolol Tartrate [Lopressor] 50 mg PO BID 30 Days #60 tab 09/28/24 Allergies Allergy/AdvReac Type Severity Reaction Status Date / Time No Known Allergies Allergy Verified 10/27/24 19:34 Review of Systems ROS Statement: Those systems with pertinent positive or pertinent negative responses have been documented in the HPI. Review of Systems: CONST: Denies fever EYES: Denies blurry vision ENT: Denies nasal congestion C/V: Denies Chest pain RESP: Denies shortness of breath GI: Denies abdominal pain : Denies dysuria SKIN: Denies rash. MSK: Denies joint pain. NEURO: Endorses lightheadedness ROS Other: All systems not noted in ROS Statement are negative. Past Medical History Past Medical History: Atrial Fibrillation, Hypertension Additional Past Medical History / Comment(s): etoh abuse History of Any Multi-Drug Resistant Organisms: None Reported Past Surgical History: Hernia Repair, Orthopedic Surgery Past Anesthesia/Blood Transfusion Reactions: No Reported Reaction Past Psychological History: No Psychological Hx Reported Smoking Status: Former smoker Past Alcohol Use History: Abuse, Daily, Heavy Past Drug Use History: None Reported - Past Family History Mother Family Medical History: Congestive Heart Failure ([place]F) Father Family Medical History: Myocardial Infarction ([place]) Additional Family Medical History / Comment(s): from [place] at age 76. Brother(s) Additional Family Medical History / Comment(s): from lymphoma at age 49. General Exam - General Exam Comments Initial Comments: General: Appears in no acute distress. Appears in mild alcohol withdrawals. HEAD: Normal with no signs of head trauma. EYES: PERRLA, EOMI, conjunctiva normal, no discharge. Pupils are 3 mm and equal bilaterally. ENT: Hearing grossly intact, normal oropharynx. RESPIRATORY: Clear breath sounds bilaterally. No wheezes, rales, or rhonchi. C/V: Irregular rate and rhythm. S1 and S2 auscultated, no edema, peripheral pulses 2+ and intact throughout ABD: Abd is soft, nontender, nondistended EXT: Normal range of motion, no obvious deformity SKIN: No rashes or lesions observed on exposed skin. NEURO: Alert and oriented x 4. No focal deficits. Patient does have tremors as well as tongue fasciculations. Suspect alcohol withdrawals. Course Vital Signs 10/27/24 10/27/24 19:29 21:42 Temperature 98.2 F Pulse Rate 116 H 110 H Respiratory 18 18 Rate Blood Pressure 145/101 145/101 O2 Sat by Pulse 100 Oximetry Medical Decision Making - Medical Decision Making Was pt. sent in by a medical professional or institution (, PA, [employer], urgent care, hospital, or snf...) When possible be specific @ -No Did you speak to anyone other than the patient for history (EMS, parent, family, police, friend...)? What history was obtained from this source @ -No Did you review nursing and triage notes (agree or disagree)? Why? @ -I reviewed and agree with nursing and triage notes Were old charts reviewed (outside hosp., previous admission, EMS record, old EKG, old radiological studies, urgent care reports/EKG's, snf records)? Report findings @ -Compared to old chart from October 2024 including EKG which shows no obvious acute dynamic changes when compared with today's EKG. Differential Diagnosis (chest pain, altered mental status, abdominal pain women, abdominal pain men, vaginal bleeding, weakness, fever, dyspnea, syncope, headache, dizziness, GI bleed, back pain, seizure, CVA, palpatations, mental health, musculoskeletal)? @ -Alcohol withdrawals, dehydration, electrolyte abnormalities. This list is not all inclusive. EKG interpreted by me (3pts min.). @ -As above X-rays interpreted by me (1pt min.). @ -Chest x-ray reveals no obvious acute cardiopulmonary process. CT interpreted by me (1pt min.). @ -None done U/S interpreted by me (1pt. min.). @ -None done What testing was considered but not performed or refused? (CT, X-rays, U/S, labs)? Why? @ -None What meds were considered but not given or refused? Why? @ -None Did you discuss the management of the patient with other professionals (professionals i.e. , PA, [employer], lab, RT, psych nurse, sr. social media & mobile manager, preschool assistant, teacher, correction officer reformatory, case worker)? Give summary @ -Discussed with admitting provider, Dr. Coates who accepted the admission. Was smoking cessation discussed for >3mins.? @ -No Was critical care preformed (if so, how long)? @ -No Were there social determinants of health that impacted care today? How? (Homelessness, low income, unemployed, alcoholism, drug addiction, transportation, low edu. Level, literacy, decrease access to med. care, halfway, rehab)? @ -No Was there de-escalation of care discussed even if they declined (Discuss DNR or withdrawal of care, Hospice)? DNR status @ -No What co-morbidities impacted this encounter? (DM, HTN, Smoking, COPD, CAD, Cancer, CVA, ARF, Chemo, Hep., AIDS, mental health diagnosis, sleep apnea, morbid obesity)? @ -Alcohol abuse Was patient admitted / discharged? Hospital course, mention meds given and route, prescriptions, significant lab abnormalities, going to OR and other pertinent info. @ -Patient presents with alcohol drawl symptoms as well as some other nonspecific symptoms that he states is similar to when he goes through alcohol draws. CIWA is somewhere 8-10. Patient will be administered IV Ativan and placed on CIWA protocol. He is given IV fluids. Has a history of atrial fibrillation and seems he is compliant with his metoprolol. Is due for his evening dose. Will obtain screening labs and chest x-ray. He was in agreement this plan. Vitals are otherwise within acceptable limits. EKG shows atrial fibrillation with mild RVR. Typically is anywhere from 90 to 110 bpm. Home metoprolol ordered for the patient. Chest x-ray unremarkable. Laboratory studies remarkable for alcohol level of 135. Also chronic elevated LFTs. No significant findings otherwise. On reevaluation, withdrawals are improved. We will admit the patient for a lcohol taxation alcohol drawl's. Patient was in agreement this plan. I spoke with the admitting provider, Dr. Denise who accepted the admission. Undiagnosed new problem with uncertain prognosis? @ -No Drug Therapy requiring intensive monitoring for toxicity (Heparin, Nitro, Insulin, Cardizem)? @ -No Were any procedures done? @ -No Diagnosis/symptom? @ -Alcohol intoxication, alcohol withdrawals Acute, or Chronic, or Acute on Chronic? @ -Acute Uncomplicated (without systemic symptoms) or Complicated (systemic symptoms)? @ -Complicated Side effects of treatment? @ -No Exacerbation, Progression, or Severe Exacerbation? @ -No Poses a threat to life or bodily function? How? (Chest pain, [place], [place], pneumonia, PE, COPD, DKA, ARF, appy, cholecystitis, CVA, Diverticulitis, Homicidal, Suici inder, threat to staff... and all critical care pts) @ -Potentially, yes - Lab Data Result diagrams: 10/27/24 19:53 10/27/24 19:53 Lab Results 10/27/24 10/27/24 10/27/24 Range/Units 19:53 19:53 19:53 WBC 5.66 (4.50-10.00) 10*3/uL RBC 4.07 L (4.40-5.60) 10*6/uL Hgb 14.0 (13.0-17.0) g/dL Hct 40.1 (39.6-50.0) % MCV 98.5 H (80.0-97.0) fL MCH 34.4 H (27.0-32.0) pg MCHC 34.9 (32.0-37.0) g/dL Plt Count 216 (140-440) 10*3/uL MPV 9.7 (9.5-12.2) fL Immature Gran % (Auto) 0.4 % Neutrophils % 59.0 % Lymphocytes % 27.7 % Monocytes % 8.7 % Eosinophils % 3.0 % Basophils % 1.2 % Immature Gran # 0.02 (0.00-0.04) 10*3/uL Neutrophils # 3.34 (1.80-7.70) 10*3/uL Lymphocytes # 1.57 (0.90-5.00) 10*3/uL Monocytes # 0.49 (0.20-1.00) 10*3/uL Eosinophils # 0.17 (0.04-0.35) 10*3/uL Basophils # 0.07 (0.00-0.10) 10*3/uL PT 10.6 (10.0-12.5) sec INR 0.9 (<1.2) APTT 24.4 (22.0-30.0) sec Sodium 143 (137-145) mmol/L Potassium 3.8 (3.5-5.1) mmol/L Chloride 107 (98-107) mmol/L Carbon Dioxide 24 (22-30) mmol/L Anion Gap 12 mmol/L BUN 11 (9-20) mg/dL Creatinine 0.87 (0.66-1.25) mg/dL Est GFR (CKD-EPI)AfAm >90 (>60 ml/min/1.73 sqM) Est GFR (CKD-EPI)NonAf >90 (>60 ml/min/1.73 sqM) Glucose 87 (74-99) mg/dL Plasma Lactic Acid Maurizio (0.7-2.0) mmol/L Calcium 9.0 (8.4-10.2) mg/dL Total Bilirubin 1.9 H (0.2-1.3) mg/dL AST 164 H (17-59) U/L ALT 103 H (4-49) U/L Alkaline Phosphatase 70 (38-126) U/L Total Protein 7.7 (6.3-8.2) g/dL Albumin 4.6 (3.5-5.0) g/dL Amylase 58 (30-110) U/L Lipase 225 (23-300) U/L Serum Alcohol 135 mg/dL Influenza Type A (PCR) (Not Detectd) Influenza Type B (PCR) (Not Detectd) RSV (PCR) (Not Detectd) SARS-CoV-2 (PCR) (Not Detectd) 10/27/24 10/27/24 Range/Units 19:53 20:42 WBC (4.50-10.00) 10*3/uL RBC (4.40-5.60) 10*6/uL Hgb (13.0-17.0) g/dL Hct (39.6-50.0) % MCV (80.0-97.0) fL MCH (27.0-32.0) pg MCHC (32.0-37.0) g/dL Plt Count (140-440) 10*3/uL MPV (9.5-12.2) fL Immature Gran % (Auto) % Neutrophils % % Lymphocytes % % Monocytes % % Eosinophils % % Basophils % % Immature Gran # (0.00-0.04) 10*3/uL Neutrophils # (1.80-7.70) 10*3/uL Lymphocytes # (0.90-5.00) 10*3/uL Monocytes # (0.20-1.00) 10*3/uL Eosinophils # (0.04-0.35) 10*3/uL Basophils # (0.00-0.10) 10*3/uL PT (10.0-12.5) sec INR (<1.2) APTT (22.0-30.0) sec Sodium (137-145) mmol/L Potassium (3.5-5.1) mmol/L Chloride (98-107) mmol/L Carbon Dioxide (22-30) mmol/L Anion Gap mmol/L BUN (9-20) mg/dL Creatinine (0.66-1.25) mg/dL Est GFR (CKD-EPI)AfAm (>60 ml/min/1.73 sqM) Est GFR (CKD-EPI)NonAf (>60 ml/min/1.73 sqM) Glucose (74-99) mg/dL Plasma Lactic Acid Maurizio 1.5 (0.7-2.0) mmol/L Calcium (8.4-10.2) mg/dL Total Bilirubin (0.2-1.3) mg/dL AST (17-59) U/L ALT (4-49) U/L Alkaline Phosphatase (38-126) U/L Total Protein (6.3-8.2) g/dL Albumin (3.5-5.0) g/dL Amylase (30-110) U/L Lipase (23-300) U/L Serum Alcohol mg/dL Influenza Type A (PCR) Not Detected (Not Detectd) Influenza Type B (PCR) Not Detected (Not Detectd) RSV (PCR) Not Detected (Not Detectd) SARS-CoV-2 (PCR) Not Detected (Not Detectd) - EKG Data -: EKG Interpreted by Me EKG Comments: 12-lead Electrocardiogram Interpretation Note EKG was reviewed and interpreted by myself. 12-lead ECG performed at 1945 is interpreted by me as revealing atrial fibrillation with RVR at a rate of 102 beats per minute. [place] is normal. QRS duration is 98 ms, QTc is [address] segment abnormalities present, and seen on prior EKGs from October 19, 2024. There were no acute ST or T wave abnormalities to suggest myocardial ischemia or injury. R wave progression across the precordium was satisfactory. By my interpretation this EKG is non-diagnostic for acute ischemia. Disposition Clinical Impression: Alcohol intoxication, Alcohol withdrawal Disposition: ADMITTED IP TO THIS HOSP Condition: Stable Time of Disposition: 22:00
--- NOTE | 2024-10-27 22:20 | P.HPIM ---
History of Present Illness H&P Date: 10/27/24 Chief Complaint: dizziness Mr. jorge is a 58-year-old male with past medical history of atrial fibrillation, tobacco use and alcohol use disorder He presents to the hospital complaining of dizziness. He reports that he has been having ongoing dizziness for the past 1 to 2 days. He reports he does still consume alcohol with his last drink of alcohol being 24 hours prior. He reports he lives independently and would like to stop using alcohol. He had then presented to the hospital complaining of dizziness Of note the patient was recently discharged from the hospital on October 10. At that time he was diagnosed with nonischemic cardiomyopathy with LVEF of 30 to 35%. Jennifer case was seen by cardiology and he was recommended to cease alcohol use. 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 Review of Systems Pertinent positives and negatives as discussed in HPI, a complete review of sy stems was performed and all other systems are negative. Past Medical History Past Medical History: Atrial Fibrillation, Hypertension Additional Past Medical History / Comment(s): etoh abuse History of Any Multi-Drug Resistant Organisms: None Reported Past Surgical History: Hernia Repair, Orthopedic Surgery Past Anesthesia/Blood Transfusion Reactions: No Reported Reaction Past Psychological History: No Psychological Hx Reported Smoking Status: Former smoker Past Alcohol Use History: Abuse, Daily, Heavy Past Drug Use History: None Reported - Past Family History Mother Family Medical History: Congestive Heart Failure ([place]) Father Family Medical History: Myocardial Infarction ([place]) Additional Family Medical History / Comment(s): from [place] at age 76. Brother(s) Additional Family Medical History / Comment(s): from lymphoma at age 49. Medications and Allergies Home Medications Medication Instructions Recorded Confirmed Type Cyclobenzaprine [Flexeril] 5 mg PO HS PRN 09/16/24 10/10/24 History Escitalopram [Lexapro] 20 mg PO DAILY 09/16/24 10/10/24 History Levothyroxine Sodium [Synthroid] 112 mcg PO DAILY 09/16/24 10/10/24 History Losartan [Cozaar] 50 mg PO DAILY 09/16/24 10/10/24 History Thiamine [Vitamin B-1] 100 mg PO DAILY #30 tab 09/21/24 10/10/24 Rx Folic Acid-Vit B Complex-Vit C 1 cap PO DAILY 09/27/24 10/10/24 History [Nephrocaps] Metoprolol Tartrate [Lopressor] 50 mg PO BID 30 Days #60 tab 09/28/24 10/10/24 Rx Apixaban [Eliquis] 5 mg PO DIRECTED 10/10/24 10/10/24 History Atorvastatin [Lipitor] 10 mg PO DIRECTED 10/10/24 10/10/24 History Allergies Allergy/AdvReac Type Severity Reaction Status Date / Time No Known Allergies Allergy Verified 10/27/24 19:34 Physical Exam Vitals: Vital Signs Temp Pulse Resp BP Pulse Ox 10/27/24 21:42 110 H 18 145/101 10/27/24 19:29 98.2 F 116 H 18 145/101 100 Intake and Output 10/27/24 10/27/24 10/27/24 06:59 14:59 22:59 Other: Weight 72.575 kg General: non toxic, no distress, appears older than stated age Derm: warm, dry Head: atraumatic, normocephalic, symmetric Eyes: EOMI, no lid lag, anicteric sclera, pupils equal round reactive to light ENT: Nose and ears atraumatic, no thrush, no pharyngeal erythema Neck: No thyromegaly, no cervical lymphadenopathy, trachea midline, supple Mouth: no lip lesion, mucus membranes moist Cardiovascular: S1S2 reg, no murmur, irregular rate and rhyhtm. Lungs: clear to ascultation bilateral, no ronchi, no rales, no wheeze, no accessory muscle use Abdominal: soft, nontender to palpation, no guarding, no appreciable organomegaly, normal bowel sounds Ext: no gross muscle atrophy, muscle strength muscle strength 5 out of 5 in all 4 extremities, no contractures Neuro: CN II-XI grossly intact, light touch intact all 4 extremities, finger to nose within normal limits, Psych: Alert, oriented, appropriate affect Results CBC & Chem 7: 10/27/24 19:53 10/27/24 19:53 Labs: Abnormal Lab Results - Last 24 Hours (Table) 10/27/24 10/27/24 Range/Units 19:53 19:53 RBC 4.07 L (4.40-5.60) 10*6/uL MCV 98.5 H (80.0-97.0) fL MCH 34.4 H (27.0-32.0) pg Total Bilirubin 1.9 H (0.2-1.3) mg/dL AST 164 H (17-59) U/L ALT 103 H (4-49) U/L Assessment and Plan Assessment: #) EToh withdrawal. he drinks 1/5 of vodka daily with last drink yesterday. continue ciwa with prn ativan. add 1x librium 50 mg. continue thiamine and multivitamin support #) Atrial fibrillation with rvr with history of chronic atrial fibrillation. suspcet some component to be from his etoh use. continue metoproll tatrate 50 mg bid for ventricular rate control and eliquis 5 mg bid for thromboembolic risk reduction. would recommend adherance to anticoagulation. continue telemetry monitoring #) HFrEF, chronic, compenseated. last echo in 09/30 showing lvef of 30-35% continue GDMT with metoprolol tartrate 50 mg bid and losartan 50 mg daily #) Hyperlipidemia continue atorvastatin 10 mg daily #) Tobacco use, recommend cessation. nicotine patch while inpatient #) history of cocaine use per chart review. check uds #) hypthyroid dz continue home levothryxoine 112 mcg daily. check tsh with freet4 #) major depression continue escitalopram 20 mg daily dvt ppx: anticoagulated with eliquis gi ppx: Iv protonix 40 mg x1
[2024-10-27] MEDS: chlordiazePOXIDE 25 MG CAP PO STA (23:20)
[2024-10-27] MEDS: NICOTINE 21MG/24HR PATCH TRANSDERM SCH (23:21)
[2024-10-27] MEDS: SODIUM CHLORIDE 0.9% 1,000 ML IV SCH (23:22)
[2024-10-28 01:20] LABS: Appearance,Urine Clear (Clear); Bilirubin,Urine Negative (Negative); Blood,Urine Negative (Negative); Color,Urine Colorless; Glucose,Urine (UA) Negative (Negative); Ketones,Urine Negative (Negative); Leukocyte Esterase,Urine Negative (Negative); Nitrite,Urine Negative (Negative); PH, Urine 6.5 (5.0-8.0); Protein,Urine Negative (Negative); Specific Gravity,Urine 1.011 (1.001-1.035); Urobilinogen,Urine <2.0 mg/dL (<2.0)
[2024-10-28 04:12] LABS: Basophils # (A) 0.06 10*3/uL (0.00-0.10); Basophils % (A) 1.5 %; Eosinophils # (A) 0.14 10*3/uL (0.04-0.35); Eosinophils % (A) 3.6 %; HCT 37.3 % (39.6-50.0); HGB 12.9 g/dL (13.0-17.0); Lymphocytes # (A) 1.31 10*3/uL (0.90-5.00); Lymphocytes % (A) 33.3 %; MCH 33.8 pg (27.0-32.0); MCHC 34.6 g/dL (32.0-37.0); MCV 97.6 fL (80.0-97.0); Mean Platelet Volume 9.9 fL (9.5-12.2); Monocytes # (A) 0.34 10*3/uL (0.20-1.00); Monocytes % (A) 8.7 %; Neutrophils # (A) 2.06 10*3/uL (1.80-7.70); Neutrophils % (A) 52.4 %; Platelet Count 179 10*3/uL (140-440); RBC 3.82 10*6/uL (4.40-5.60); RDW 15.5 % (11.5-14.5); WBC 3.93 10*3/uL (4.50-10.00)
[2024-10-28 04:32] LABS: ALT 86 U/L (4-49); AST 104 U/L (17-59); African American GFR (CKD) >90 (>60 ml/min/1.73 sqM); Alkaline Phosphatase 66 U/L (38-126); Anion Gap 13 mmol/L; Blood Urea Nitrogen 8 mg/dL (9-20); Calcium 8.8 mg/dL (8.4-10.2); Carbon Dioxide 22 mmol/L (22-30); Chloride 105 mmol/L (98-107); Glucose 74 mg/dL (74-99); Non-African American GFR(CKD) >90 (>60 ml/min/1.73 sqM); Potassium 3.3 mmol/L (3.5-5.1); Sodium 140 mmol/L (137-145); Total Bilirubin 1.9 mg/dL (0.2-1.3); Total Protein 6.9 g/dL (6.3-8.2)
[2024-10-28] MEDS: LEVOTHYROXINE 112 MCG TAB PO SCH (07:01)
[2024-10-28] MEDS: LOSARTAN 50 MG TAB PO SCH (08:02)
[2024-10-28] MEDS: ESCITALOPRAM 20 MG TAB PO SCH (08:02)
[2024-10-28] MEDS: THIAMINE 100 MG TAB PO SCH (08:02)
[2024-10-28 09:46] LABS: Urine Alcohol Positive (Negative); Urine Barbiturate Negative (Negative); Urine Cocaine Negative (Negative); Urine Methadone Negative (Negative); Urine Opiates Negative (Negative); Urine Phencyclidine Negative (Negative)
[2024-10-28 10:04] LABS: T4, Free (Free Thyroxine) 1.02 ng/dL (0.78-2.19)
[2024-10-28 13:43] VITALS: BP 146/84; PULSE 77; RESP 14; TEMP 98.1
--- NOTE | 2024-10-28 13:44 | P.DS ---
Providers Date of admission: 10/27/24 22:05 Expected date of discharge: 10/28/24 Attending physician: Quinn Coates MD Primary care physician: Stated None Hospital Course: Discharge Diagnosis: EtOH withdrawal. CIWA score 3 at time of discharge. Strongly encouraged inpatient drug and alcohol rehabilitation facility, patient declining at this time stating he needs to get home and back to work. Patient was provided with outpatient resources available to him including local AA meetings and inpatient drug and alcohol rehabilitation facilities if he changes his mind. Patient strongly encouraged to avoid any and all alcohol use. Alcohol intoxication upon arrival. Patient clinically and medically sober Transaminitis, secondary to daily alcohol abuse. Chronic atrial fibrillation. Hypertension. Nonischemic cardiomyopathy, with previous EF of 30 to 35%, believed to be secondary to longstanding history of atrial fibrillation and daily alcohol abuse. Medication noncompliance, longstanding history None anion gap metabolic acidosis Bicytopenia. Secondary to daily alcohol abuse. Hypothyroidism. Continue levothyroxine 112 mcg daily. Depression. Continue Lexapro 20 mg daily. Hospital Course: Patient is a 58-year-old male with a past medical history of chronic atrial fibrillation on anticoagulation with Eliquis, daily alcohol abuse drinking 1/5 of alcohol daily, nonischemic cardiomyopathy with previous EF of 30 to 35%, hypertension, and hypothyroidism. He presented to the emergency department via EMS for alcohol intoxication and dizziness with concerns of alcohol withdrawal stating he has not drank alcohol in 24 hours. Upon arrival to our facility, patient underwent evaluation in the emergency department. Vital signs on arrival show blood pressure 145/101, heart rate 116, respiratory rate 18, temp 98.2 F, and SpO2 of 100% on room air. EKG was completed showing atrial fib rillation with RVR at 102 bpm. Chest x-ray completed negative for acute cardiopulmonary process. Was completed and reviewed. CBC showing macrocytosis with MCV of 98.5 and MCH of 34.4. Coagulation profile normal findings. BMP unremarkable. Blood glucose 87. Lactic acid 1.5. Liver profile showing hyperbilirubinemia with transaminitis with total bili 1.9, AST of 164, ALT of 103. Amylase and lipase normal findings. TSH was 7.580 with free T4 of 1.02. Serum alcohol level was 135. Urine drug screen positive for urine alcohol otherwise negative. Influenza A, influenza B, RSV, and COVID PCR were negative. Patient hospitalized overnight and was placed on [facility] protocol with symptom triggered medication management with benzodiazepines for symptoms of alcohol withdrawal. Upon evaluation patient reporting mild tremors, but denies having any dizziness, lightheadedness, chest pain, palpitations, shortness of breath, or any other complaints at this time. Had long discussion regarding alcohol cessation patient declining assistance with placement in rehabilitation facility stating he has been out of work for some time and needs to get back to work and declining assistance for inpatient drug and alcohol rehabilitation facility. Patient is medically and clinically sober at this time and medically optimized for discharge. Patient was strongly encouraged to avoid any and all alcohol use and was provided with outpatient resources available to him including local AA meetings and inpatient drug and alcohol rehabilitation facilities. Physical exam: Vital signs reviewed and stable. General: Nontoxic, no distress and appears older than stated age. Disheveled appearance Derm: Skin warm and dry, normal coloration for ethnicity. Head: Atraumatic, normocephalic and symmetric. Eyes: EOM's intact, no lid lag, and anicteric sclera Mouth: no lip lesions, mucus membranes moist Cardiovascular irregularly irregular, systolic murmur, positive posterior tibial pulses bilaterally, and cap refill < 2 seconds. Lungs: Respirations even, regular, and unlabored on room air. Lungs CTA bilaterally, no rhonchi, no rales, no wheezing, and no accessory muscle usage. Abdominal: soft, nontender to palpation, no guarding, no appreciable organomegaly Ext: ROM intact. No gross muscle atrophy, no edema, no contractures Neuro: Speech clear, face symmetrical and CN II-XII grossly intact with no noted focal neuro deficits Psych: Alert and oriented to person, place, time, and situation. Appropriate and pleasant affect. A total of 33 minutes of time were spent preparing this complex discharge summary. Pt was discharged on 10/28/2024 at 1:37 PM Patient was seen independently by Nurse Practitioner. This document was prepared using clipsync dictation software. Please allow for errors in mallet and die cutter while rare they do occur. Giovani Sanchez NP rendered care for this patient independently, reviewed the findings and plan as documented in the note above. I did not physically speak with or examine the patient on this date. Patient Condition at Discharge: Stable Plan - Discharge Summary Discharge Rx Participant: No New Discharge Prescriptions: Continue Escitalopram [Lexapro] 20 mg PO DAILY Folic Acid-Vit B Complex-Vit C [Nephrocaps] 1 cap PO DAILY Metoprolol Tartrate [Lopressor] 50 mg PO BID 30 Days #60 tab Apixaban [Eliquis] 5 mg PO DIRECTED Atorvastatin [Lipitor] 10 mg PO DIRECTED Levothyroxine Sodium [Synthroid] 112 mcg PO DAILY Thiamine [Vitamin B-1] 100 mg PO DAILY #30 tab Discharge Medication List Escitalopram [Lexapro] 20 mg PO DAILY 09/16/24 [History] Levothyroxine Sodium [Synthroid] 112 mcg PO DAILY 09/16/24 [History] Thiamine [Vitamin B-1] 100 mg PO DAILY #30 tab 09/21/24 [Rx] Folic Acid-Vit B Complex-Vit C [Nephrocaps] 1 cap PO DAILY 09/27/24 [History] Metoprolol Tartrate [Lopressor] 50 mg PO BID 30 Days #60 tab 09/28/24 [Rx] Apixaban [Eliquis] 5 mg PO DIRECTED 10/10/24 [History] Atorvastatin [Lipitor] 10 mg PO DIRECTED 10/10/24 [History] Follow up Appointment(s)/Referral(s): [facility] [NON-STAFF] - 1 Week Patient Instructions/Handouts: Abuse of Alcohol (DC), Alcohol Withdrawal (DC) Activity/Diet/Wound Care/Special Instructions: [facility] [phone] FOR RESIDENTIAL SUBSTANCE ABUSE TREATMENT. Activity: As tolerated. Diet: Heart healthy diet. Special Instructions: As discussed with you at bedside, it is strongly recommended that you attend an inpatient drug and alcohol rehabilitation center for assistance on stopping drinking. It is strongly recommended that you avoid any and all alcohol use. Your TSH was elevated at 7.580 within normal free T4 of 1.02. It is important to take your levothyroxine each and every morning on an empty stomach 1 hour prior to any other medications. You will need to follow-up outpatient with your PCP for repeat thyroid function tests in 6 weeks. Thank you for allowing us to participate in your care, it was truly a pleasure having you for our patient!!! Discharge/Stand Alone Forms: [facility] Discharge Disposition: HOME SELF-CARE
[2024-10-28] MEDS: POTASSIUM CHLORIDE ER 20 MEQ TAB.ER PO STA (13:46)
== END 2024-10-28 14:08 | disposition home or self-care (01) ==
LOC: EC 19:27 → 6NMEDSUR 22:05
PROVIDERS: ADMIT Internal Medicine; ATTEND Internal Medicine
DX: F10.139 Alcohol abuse with withdrawal, unspecified (principal); F10.129 Alcohol abuse with intoxication, unspecified; I48.20 Chronic atrial fibrillation, unspecified; I11.0 Hypertensive heart disease with heart failure; I50.22 Chronic systolic (congestive) heart failure; I42.8 Other cardiomyopathies; E78.5 Hyperlipidemia, unspecified; T45.516A Underdosing of anticoagulants, initial encounter; Z91.120 Patient's intentional underdosing of medication regimen due to financial hardship; E87.20 Acidosis, unspecified; F32.9 Major depressive disorder, single episode, unspecified; E03.9 Hypothyroidism, unspecified; D75.89 Other specified diseases of blood and blood-forming organs; Y90.6 Blood alcohol level of 120-199 mg/100 ml; F17.200 Nicotine dependence, unspecified, uncomplicated; Z79.890 Hormone replacement therapy; Z79.01 Long term (current) use of anticoagulants; Z79.899 Other long term (current) drug therapy; Z11.52 Encounter for screening for COVID-19; Z11.59 Encounter for screening for other viral diseases; Z87.898 Personal history of other specified conditions
CPT/HCPCS: 96376 ×2; 96361 ×2; 96372; 96374; 96375; 99285; 36415; 93005; 84439; 80053 ×2; 84443; 82150; 83605; 83690; 85025 ×2; 85610; 85730; 81003; 80306; 80320; 87636; 71046; G0378 ×2; S4990; J2060 ×2; J3411; J2405; J2470